=== PATIENT | male | born 1950 | race Asian ===

== ENCOUNTER 2021-12-21 15:37 | Outpatient (CLI) | payer BC, SELFPAY ==
[2021-12-21 21:43] LABS: Albumin* 4.3 g/dL (3.3-5.0); Chloride* 98 mmol/L (96-114)
[2021-12-21 21:44] LABS: Potassium* 4.4 mmol/L (3.6-5.1); Sodium* 134 mmol/L (135-149)
[2021-12-21 21:45] LABS: Cholesterol* 138 mg/dL (90-199)
[2021-12-21 21:46] LABS: Alanine Aminotransferase* 33 U/L (4-50); Alkaline Phosphatase* 75 U/L (40-150); Aspartate Amino Transferase* 38 U/L (12-35); Bilirubin Total* 0.6 mg/dL (0.1-1.5); Blood Urea Nitrogen* 31 mg/dL (7-30); Carbon Dioxide* 26 mmol/L (20-32); Creatinine* 1.7 mg/dL (0.5-1.5); Estimated Glomerular Filt Rate 42 ml/min; Glucose* 105 mg/dL (60-115); Total Protein* 8.4 g/dL (6.0-8.3); Triglycerides* 259 mg/dL (40-149)
[2021-12-21 21:47] LABS: HDL Cholesterol* 30 mg/dL (>=40); LDL Cholesterol Calculated 56 mg/dL (<100)
== END 2021-12-21 15:38 | disposition home or self-care (01) ==
LOC: LKVLAB 15:38
PROVIDERS: PCP Family Medicine; Visit Provider Family Medicine
DX: Z00.00 Encounter for general adult medical examination without abnormal findings (principal); E11.9 Type 2 diabetes mellitus without complications; I10 Essential (primary) hypertension; G25.0 Essential tremor; K25.9 Gastric ulcer, unspecified as acute or chronic, without hemorrhage or perforation
CPT/HCPCS: 36415; 80053; 80061

== ENCOUNTER 2022-04-12 14:31 | Outpatient (CLI) | payer BC, SELFPAY ==
[2022-04-12 22:08] LABS: Chloride* 103 mmol/L (96-114)
[2022-04-12 22:09] LABS: Potassium* 4.5 mmol/L (3.6-5.1); Sodium* 136 mmol/L (135-149)
[2022-04-12 22:11] LABS: Creatinine* 1.4 mg/dL (0.5-1.5); Estimated Glomerular Filt Rate 53 ml/min
[2022-04-12 22:12] LABS: Blood Urea Nitrogen* 24 mg/dL (7-30); Calcium* 9.6 mg/dL (8.4-10.6); Carbon Dioxide* 27 mmol/L (20-32); Glucose* 124 mg/dL (60-115)
--- NOTE | 2022-04-26 12:57 | ONC.NURNOTE ---
Received referral from [facility]. Non-urgent hematology. Patient notified that will call in Spring when availability opens. LM for primary care office that missing labs and see if they have.
== END 2022-04-12 14:32 | disposition home or self-care (01) ==
PROVIDERS: PCP Family Medicine; Visit Provider Physician Assistant Medical
DX: E11.9 Type 2 diabetes mellitus without complications (principal)
CPT/HCPCS: 80048

== ENCOUNTER 2022-08-07 07:19 | Outpatient (CLI) | payer BC, SELFPAY ==
--- NOTE | 2022-08-09 13:51 | ONC.NURNOTE ---
Patient's colonoscopy came back negative and was discussed with Dr. Ybarra. Oncologist notes that patient needs to be worked up for iron deficiency anemia and have a full GI workup. Oncologist further notes that we don't follow beta thalassemia treat, unless there is a specific question that the primary wants ordered. This message was left for primary care and they will let provider know when she is back in clinic. Nursing to talk with patient as well, so they are aware of follow up needs.
== END 2022-08-07 07:20 | disposition home or self-care (01) ==
PROVIDERS: PCP Physician Assistant Medical; Visit Provider Surgery
DX: Z12.11 Encounter for screening for malignant neoplasm of colon (principal); K63.5 Polyp of colon; K57.30 Diverticulosis of large intestine without perforation or abscess without bleeding; Z86.010 Personal history of colon polyps
CPT/HCPCS: 45385; 88305; 99153; J2250; J3010

== ENCOUNTER 2023-01-17 14:50 | Outpatient (CLI) | payer BC, SELFPAY | END 2023-01-17 14:51 | disposition home or self-care (01) | PROVIDERS: PCP Physician Assistant Medical; Visit Provider Physician Assistant Medical | DX: Z00.00 Encounter for general adult medical examination without abnormal findings (principal); E78.5 Hyperlipidemia, unspecified; E11.9 Type 2 diabetes mellitus without complications; R97.20 Elevated prostate specific antigen [PSA]; I10 Essential (primary) hypertension; D56.3 Thalassemia minor; E53.8 Deficiency of other specified B group vitamins | CPT/HCPCS: 80053; 80061; 82043; 82570; 82607; 84153 ==

== ENCOUNTER 2023-02-13 11:22 | Outpatient (CLI) | payer BC, SELFPAY | END 2023-02-13 11:23 | disposition home or self-care (01) | LOC: NFLDREF 02-15 06:18 | PROVIDERS: PCP Physician Assistant Medical; Referring Provider Physician Assistant Medical; Visit Provider Internal Medicine Nephrology | DX: N18.9 Chronic kidney disease, unspecified (principal); N20.9 Urinary calculus, unspecified; D56.1 Beta thalassemia; E11.9 Type 2 diabetes mellitus without complications; I10 Essential (primary) hypertension | CPT/HCPCS: 80069; 82728; 83540; 83550 ==

== ENCOUNTER 2023-02-18 16:13 | Outpatient (REF) | payer BC, SELFPAY ==
--- NOTE | 2023-03-12 13:58 | ONC.NURNOTE ---
Rubber Tubing Backer ANAIS for patient to call office back to schedule a hematology appointment on 03/06/2023 and today.
== END 2023-02-18 16:14 | disposition home or self-care (01) ==
LOC: NFLDREF 16:13
PROVIDERS: PCP Physician Assistant Medical; Referring Provider Physician Assistant Medical; Visit Provider Internal Medicine Nephrology
DX: N18.9 Chronic kidney disease, unspecified (principal)
CPT/HCPCS: 82340; 82436; 82507; 83735; 83945; 83986; 84105; 84133; 84300; 84392; 84560

== ENCOUNTER 2023-02-22 14:19 | Outpatient (CLI) | payer BC, SELFPAY ==
--- NOTE | 2023-02-22 15:00 | CRLHL7_ITS ---
For Patients: As a result of the Century Cures Act, medical imaging exams and procedure reports are released immediately into your electronic medical record. You may view this report before your referring provider. If you have questions, please contact your health care provider. INDICATION: Urinary calculus TECHNIQUE: CT abdomen and pelvis without contrast. COMPARISON: CT 10/21/2017 FINDINGS: Lower chest: Heart is mildly enlarged. Liver: Low-attenuation lesion in the inferior liver Spleen: Unremarkable. Pancreas: Unremarkable. Gallbladder and bile ducts: Cholelithiasis Kidneys: There are multiple low-density lesions in both kidneys which are incompletely assessed. There is no hydronephrosis seen. There is a small nonobstructing right renal bilateral small nonobstructing renal calcifications. Mildly complicated left medial low-density lesion with peripheral rim calcifications is seen in 2018 in unchanged. Measuring 2.7 cm. Adrenal glands: Unremarkable. GI tract: Unremarkable. Appendix is normal. Vascular structures: Unremarkable. Lymph nodes: Unremarkable. Miscellaneous: Small fat containing inguinal hernias Pelvic Organs: Enlarged prostate gland. Bones: Diffuse mottled appearance of the bony skeleton which is changed from 2018. IMPRESSION: 1. Multiple low-attenuation lesions in both kidneys incompletely assessed. Unchanged appearance of mildly complicated peripheral rimmed calcified left renal lesion. No hydronephrosis. Small nonobstructing renal calcifications. 2. Enlarged prostate gland. 3. Diffuse mild appearance of the bony skeleton which has changed from the prior study. This probably is related to demineralization however Mets/ myeloma not completely excluded. Please note that all CT scans at this facility use dose modulation, iterative reconstruction, and/or weight-based dosing when appropriate to reduce radiation dose to as low as reasonably achievable. Dictated by Pretty Cain MD @ 02/26/2023 7:07:35 AM (Electronically Signed)
== END 2023-02-22 14:20 | disposition home or self-care (01) ==
LOC: CT 14:20
PROVIDERS: PCP Physician Assistant Medical; Visit Provider Internal Medicine Nephrology
DX: N20.9 Urinary calculus, unspecified (principal); N28.89 Other specified disorders of kidney and ureter; N40.0 Benign prostatic hyperplasia without lower urinary tract symptoms; M89.9 Disorder of bone, unspecified
CPT/HCPCS: 74176

== ENCOUNTER 2023-06-06 09:46 | Outpatient (CLI) | payer BC, SELFPAY ==
[2023-06-06 10:01] VITALS: BP 135/75; PULSE 65; RESP 16; O2SAT 99; BMI 22.9
[2023-06-06 11:05] VITALS: BP 100/59; PULSE 72; RESP 18; O2SAT 97
--- NOTE | 2023-06-06 11:14 | W.ANESCHARGE ---
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
[2023-06-06 11:15] VITALS: BP 114/63; PULSE 67; RESP 14; O2SAT 100
[2023-06-06 11:21] LABS: Basophils Absolute Auto 0.01 K/uL (0.00-0.30); Basophils Percent Auto 0.2 % (0.0-3.0); Eosinophils Absolute Auto 0.33 K/uL (0.00-0.50); Hematocrit 28.1 % (37.0-53.0); Hemoglobin* 8.6 gm/dL (13.5-17.5); Immature Granulocytes Abs Auto 0.01 K/uL (0.00-0.30); Immature Granulocytes Pct Auto 0.2 %; Immature Reticulocyte Fraction 34.1 % (2.3-13.4); Lymphocytes Absolute Auto 2.88 K/uL (0.90-2.90); Lymphocytes Percent Auto 43.4 % (20-44); Mean Corpuscular HGB Conc 31 gm/dL (32-36); Mean Corpuscular Hemoglobin 21 pg (26-34); Mean Corpuscular Volume 70 fL (80-100); Monocytes Percent Auto 6.3 % (0.0-11.0); Neutrophils Absolute Auto 2.98 K/uL (1.7-7.0); Neutrophils Percent Auto 44.9 % (42.0-72.0); Platelet Count* 261 K/uL (140-440); Red Blood Count 4.02 m/uL (4.30-5.90); Reticulocyte Percent 1.4 % (0.5-2.0); Reticulocytes Absolute 0.05 # (0.03-0.08); White Blood Count* 6.63 K/uL (4.50-11.00)
[2023-06-06 11:25] VITALS: BP 125/66; PULSE 66; RESP 16; O2SAT 100
[2023-06-06 11:34] LABS: Slide Review Reflex No
[2023-06-06 11:52] VITALS: BP 138/75; PULSE 68; RESP 16; O2SAT 97
--- NOTE | 2023-06-06 12:41 | W.ANESCHARGE ---
Anesthesia Charges Start Date/Time Anesthesia Start Date: 06/06/23 Anesthesia Start Time: 10:45 Stop Date/Time Anesthesia Stop Date: 06/06/23 Anesthesia Stop Time: 11:10 Summary Extremes of Age - Over 70 or under 1: MDA
== END 2023-06-06 11:55 | disposition home or self-care (01) ==
PROVIDERS: PCP Physician Assistant Medical; Visit Provider Internal Medicine Hematology & Oncology
DX: C90.00 Multiple myeloma not having achieved remission (principal)
CPT/HCPCS: 01112; 36415; 38222; 85025; 85045; 88237; 88264; 88271; 88275; 88299; 88305; 88311; 88313; 88342; 88360; 99100; J1644; J2704

== ENCOUNTER 2023-06-20 15:49 | Outpatient (CLI) | payer BC, SELFPAY ==
--- NOTE | 2023-06-20 16:15 | PE_ITS ---
[facility] [address] [address] Phone:?[phone] Fax:?[phone] Referring Physician Information: Melonie Franklin M.D. [address] [address] Phone:?[phone] Fax:?[phone] Patient:?Yair Sainz D.O.B:?1950 Sex:?Male Phone:?[phone] [facility] MRN:?[id number] Exam Date:?06/20/2023 EXAM:?PET/CT EYES TO THIGHS, CANCER RESTAGING CLINICAL INFORMATION: Rule out plasma cell carcinoma TECHNICAL INFORMATION: Helical acquisition of data was obtained from the orbits to the upper thighs with reconstruction of 3.75 mm thick images at 3.[address] data was used for attenuation correction. PET scanning was performed through the same anatomic range 60 minutes following administration of 12.96 mCi of 18-FDG delivered intravenously. The patient's glucose at the time of the injection was 63 mg/dL. PET, CT and PET/CT fusion images are interpreted using a computer viewing workstation. PET, CT and PET/CT fusion images were archived and saved in the patient's permanent medical record. COMPARISON: CT abdomen/pelvis 02/22/2023 INTERPRETATION: Head and Neck: There are no abnormal hypermetabolic foci within the head or neck. There is physiologic uptake in the intracranial soft tissues. Chest: There are no abnormal hypermetabolic foci within the chest. No lung nodules or masses detected on this free-breathing exam. No lymphadenopathy detected. Coronary artery atherosclerosis. Calcified granuloma in the right lower lobe. Abdomen and Pelvis: Background hepatic parenchymal FDG uptake of 2.1 SUV. There are no abnormal hypermetabolic foci within the abdomen or pelvis. There is physiologic excretion of radiotracer in the urine and bowel. Layering calcified gallstones. Bilateral renal cysts. Prostatomegaly. Skeleton, Musculature, and Integument: Diffuse mottled appearance of the spine with diffuse low-level increased FDG uptake (SUV max of 4.23). Focal lytic lesion in the right scapula measures 6 mm (series 202 image 96) with an SUV max of 7.69. Several rib lesions with a few merchandising representative lesions as below: A tiny 3 mm lytic lesion in the right anterolateral second rib with an SUV max of 3.74. Another focus of increased uptake in the right lateral fourth rib with an SUV max of 6.41. A lytic lesion in the left anterolateral second rib (series 202 image 89) with associated increased FDG uptake in an SUV max of 4.18. Lytic lesion in the sternum with an associated focus of increased FDG uptake with an SUV max of 4.28 (series 202 image 111) measuring up to 6 mm. A lytic lesion in the right iliac bone measures 9 mm (series 202 image 245) with FDG uptake in an SUV max of 7.56. A focus of increased uptake in the right hemisacrum with an SUV max of 11.92. Similarly a focus of increased uptake in the left hemisacrum with an SUV max of 7.25. A lytic lesion in the proximal left femur measures 8 mm (series 202 image 298) with FDG uptake in an SUV max of 8.5. Focus of increased FDG uptake in the proximal right femur with an SUV max of 4.42. CONCLUSION: Mottled appearance of the spine with low-level FDG avidity. Several more pronounced foci of FDG uptake with associated lytic lesions in the right scapula, sternum, bilateral ribs, the bony pelvis and proximal femurs. The primary differential includes multiple myeloma, metastasis (although no discrete primary is visualized on this exam) and lymphoma/leukemia. Electronically signed on 06/24/2023 1:35:00 PM by Aristeo Hooks M.D.
== END 2023-06-20 15:50 | disposition home or self-care (01) ==
LOC: RAD 15:50
PROVIDERS: PCP Physician Assistant Medical; Visit Provider Internal Medicine Hematology & Oncology
DX: R77.9 Abnormality of plasma protein, unspecified (principal)
CPT/HCPCS: 78815; A9552

== ENCOUNTER 2023-09-17 10:36 | Emergency (ER) | payer BC, SELFPAY ==
[2023-09-17] VITALS (22 sets, daily range): BP systolic 110–148; BP diastolic 65–86; PULSE 70–80; RESP 18; TEMP 36.1; O2SAT 99–100; BMI 22.0
--- NOTE | 2023-09-17 11:14 | CT_ITS ---
Patient: JAYSON DUKES Facility:?[facility] Patient ID:?[id number] Site Patient ID:?[id number]. Site :?1950 Study:?CT-Chest W/ 95CC ISOVUE-370 PE PROTOCOL-09/17/2023 1:05:45 PM Ordering Physician:Demetrice Scruggs Final Report: INDICATION: Cough and shortness of breath. Multiple myeloma. TECHNIQUE: CT chest PE was acquired with 95 cc Isovue 370 IV contrast. COMPARISON: None. FINDINGS: Heart and vasculature: Contrast opacification of the pulmonary arterial tree is adequate. No sign of pulmonary embolism. Heart size is normal. Thoracic aorta and pulmonary artery are normal in caliber. Lungs and pleura: Cluster of tiny ground-glass nodules in the right upper lobe on series 5, image 46. Calcified granuloma right lower lobe. Remainder of the lungs are clear. No pleural effusions, pleural thickening, or pneumothorax. Lymph nodes/mediastinum: No mediastinal, hilar, or axillary adenopathy. Chest wall: No masses. Upper abdomen: Indeterminate 1.6 cm low-attenuation lesion in the inferior liver series 4, image 204. Small gallbladder stones. Incompletely imaged cystic lesion in the left kidney. Bones: Numerous tiny lytic lesions consistent with multiple myeloma. IMPRESSION: 1. No pulmonary embolism. 2. Subtle small area of bronchiolitis in the right upper lobe. 3. No other specific finding to explain cough or shortness of breath. Please note that all CT scans at this facility use dose modulation, iterative reconstruction, and/or weight-based dosing when appropriate to reduce radiation dose to as low as reasonably achievable. Dictated by Cheng Ralph MD @ 09/17/2023 1:42:42 PM Signed by:?Cheng Ralph MD @09/17/2023 1:42:42 PM (Electronic Signature)
--- NOTE | 2023-09-17 11:17 | ED.GENADULT ---
HPI - General Adult General Date Seen: 09/17/23 Chief complaint: Weakness Stated complaint: weakness,diarrhea Time Seen by Provider: 09/17/23 11:01 Source: patient, family, RN notes reviewed and old records reviewed Mode of arrival: ambulatory Limitations: no limitations History of Present Illness HPI narrative: Patient is a 72-year-old male here with his for evaluation of weakness and diarrhea which started yesterday. He has an underlying diagnosis of multiple myeloma, is on week 11 of chemotherapy. He has generally done well with chemotherapy although his says he has not really been eating much for the past few months. He did have a good meal yesterday. He notes that he has been feeling weak and dizzy particularly when he stands up. He feels somewhat lightheaded, has not fainted. He has had a cough, some congestion, runny nose since last week. Was seen in clinic on the and prescribed prednisone as well as doxycycline. Does not feel these medications have made a significant difference. He developed diarrhea yesterday, this is nonbloody and not associated with any abdominal pain. He denies chest pain or shortness of breath, no lower extremity swelling or pain. He has not had a fever that he knows of. Related Data Home Medications Medication Instructions Recorded Confirmed aspirin 81 mg tablet,delayed 81 mg PO QDAY 12/25/21 09/11/23 release (Adult Aspirin Regimen) multivitamin with minerals-ferrous tab PO DAILY 04/24/22 09/11/23 sulfate 4.5 mg iron tablet (One Daily Multivitamins with Minerals) ibuprofen 200 mg tablet (Advil) 400 mg PO Q8H 04/23/23 09/11/23 donepezil 5 mg tablet (Aricept) 5 mg PO QDAY 06/04/23 09/11/23 insulin lispro 100 unit/mL 1 sliding scale dose subcut 07/31/23 09/11/23 subcutaneous pen (Humalog KwikPen USEASDIRECTD (U-100) Insulin) dexamethasone 4 mg tablet 20 mg PO .COMPLEX 09/16/23 09/16/23 Previous Rx's Medication Instructions Recorded blood sugar diagnostic (Contour #100 ea 10/31/22 Next Test Strips) lancets (Microlet Lancet) #200 ea 10/31/22 atorvastatin 10 mg tablet 10 mg PO QDAY #90 tabs 01/17/23 trihexyphenidyl 2 mg tablet 2 mg PO QDAY #90 tabs 01/17/23 losartan 50 mg tablet 50 mg PO QDAY #90 tabs 01/18/23 acyclovir 200 mg capsule 200 mg PO BID #60 caps 06/25/23 apixaban 2.5 mg tablet (Eliquis) 2.5 mg PO BID #60 tabs 06/25/23 calcium carb-vit D3-minerals 600 1 tab PO BID #60 tabs 06/25/23 mg calcium-400 unit tablet lenalidomide 10 mg capsule 10 mg PO QDAY #14 caps 06/25/23 ondansetron HCl 4 mg tablet 4 mg PO Q8H #30 tabs 06/25/23 sulfamethoxazole 400 1 tab PO 3XW #30 tabs 06/25/23 mg-trimethoprim 80 mg tablet (Bactrim) metformin 1,000 mg tablet 1,000 mg PO BIDWMEAL #180 tabs 07/10/23 metoprolol tartrate 25 mg tablet 25 mg PO BID #180 tabs 07/10/23 pantoprazole 40 mg tablet,delayed 40 mg PO DAILY #90 tabs 07/10/23 release semaglutide 0.25 mg or 0.5 mg (2 0.5 mg (0.736 mL) subcut QWEEK 3 07/10/23 mg/3 mL) subcutaneous pen injector months #9 mL (Ozempic) aluminum-mag hydroxide-simethicone 10 ml PO BID PRN indigestion #240 07/22/23 400 mg-400 mg-40 mg/5 mL oral susp mL (Maalox Maximum Strength) lorazepam 0.5 mg tablet 0.5 mg PO BID PRN unrelenting 07/22/23 hiccups #20 tabs sennosides 8.6 mg-docusate sodium 1 tab-cap PO QDAY constipation 07/22/23 50 mg tablet (Senna Plus) #100 tabs sodium chloride 1,000 mg soluble 1,000 mg PO TID electrolyte 09/02/23 tablet replenishment #60 tabs doxycycline hyclate 100 mg tablet 100 mg PO BID #14 tabs 09/11/23 prednisone 20 mg tablet 20 mg PO BID #10 tabs 09/11/23 Allergies Allergy/AdvReac Type Severity Reaction Status Date / Time No Known Drug Allergies Allergy Verified 09/17/23 13:01 Review of Systems Status of ROS: Reports: 10 or more systems reviewed and unremarkable except as noted in History and below PFSH [facility] Medical History Cough ?R05.9 - Cough, unspecified (ICD-10) Urolithiasis ?N20.9 - Urinary calculus, unspecified (ICD-10) Chest pain ?R07.9 - Chest pain, unspecified (ICD-10) Foot ulcer ?L97.509 - Non-pressure chronic ulcer of other part of unspecified foot with unspecified severity (ICD-10) Stomach ulcer ?K25.9 - Gastric ulcer, unspecified as acute or chronic, without hemorrhage or perforation (ICD-10) Ulcer of toe ?L97.509 - Non-pressure chronic ulcer of other part of unspecified foot with unspecified severity (ICD-10) Tremor ?R25.1 - Tremor, unspecified (ICD-10) Normal nuclear stress test Multiple gallstones ?K80.20 - Calculus of gallbladder without cholecystitis without obstruction (ICD-10) History of renal calculi ?Z87.442 - Personal history of urinary calculi (ICD-10) Acute kidney injury ?N17.9 - Acute kidney failure, unspecified (ICD-10) Surgical History History of colonoscopy ?Z98.890 - Other specified postprocedural states (ICD-10) History of ankle surgery ?Z98.890 - Other specified postprocedural states (ICD-10) History of shoulder surgery ?Z98.890 - Other specified postprocedural states (ICD-10) History of lithotripsy ?Z98.890 - Other specified postprocedural states (ICD-10) History of endoscopy ?Z98.890 - Other specified postprocedural states (ICD-10) Family History Other Benign essential tremor Parkinson disease Social History Narrative: Social history is negative for drinking or smoking; he works at [employer]. . Smoking Status: Never smoker Do you use any of these nicotine containing products: None How often do you have a drink containing alcohol: never How often do you have six or more drinks on one occasion: Never AUDIT-C Alcohol total score: 0 Non-prescribed substance use: denies use Little interest or pleasure in doing things: several days Feeling down, depressed, or hopeless: not at all Exam Narrative: Exam Narrative: Vital signs as noted above. In general, an alert, nontoxic elderly male, looks somewhat fatigued. Head: Normocephalic, atraumatic. Eyes: Pupils are equal reactive. Extraocular movements are full. Conjunctivae are normal. ENT: Mucous membranes are moist. Throat is normal. Neck: Supple without lymphadenopathy. Heart: Regular rate and rhythm. No murmur or rub. Lungs: Clear bilaterally. No increased work of breathing, crackles or wheezes. Abdomen: Soft and nontender. No organomegaly. Extremities: Well perfused. No edema. No calf tenderness. Pulses intact. Neurologic: Patient is alert and oriented to person and place. Speech is fluent. Face is symmetric. Moves all extremities equally. Affect: Normal. Skin: Warm and dry. Well perfused. Const: Vital Signs, click to edit/add: Vital Signs - 24 hr 09/17/23 10:46 09/17/23 11:37 09/17/23 11:45 Temperature 97.0 F L Pulse Rate 73 72 Pulse Rate [Right Pulse Oximeter] 77 Respiratory Rate 18 Blood Pressure Blood Pressure [Ri ght Upper Arm] 148/86 H Pulse Oximetry 99 100 [facility] 09/17/23 12:00 09/17/23 12:01 09/17/23 12:15 Temperature Pulse Rate 70 70 71 Pulse Rate [Right Pulse Oximeter] Respiratory Rate Blood Pressure 110/66 Blood Pressure [Ri ght Upper Arm] Pulse Oximetry 100 99 100 Oxygen Delivery [place] thod 09/17/23 12:30 09/17/23 12:32 09/17/23 12:33 Temperature Pulse Rate 75 73 75 Pulse Rate [Right Pulse Oximeter] Respiratory Rate Blood Pressure 122/65 Blood Pressure [Ri ght Upper Arm] Pulse Oximetry 100 100 100 Oxygen Delivery Ky thod 09/17/23 12:45 09/17/23 13:08 09/17/23 13:15 Temperature Pulse Rate 73 80 80 Pulse Rate [Right Pulse Oximeter] Respiratory Rate Blood Pressure Blood Pressure [Ri ght Upper Arm] Pulse Oximetry 100 100 100 Oxygen Delivery Me thod 09/17/23 13:31 09/17/23 13:32 09/17/23 13:32 Temperature Pulse Rate 75 72 72 Pulse Rate [Right Pulse Oximeter] Respiratory Rate Blood Pressure 139/77 139/77 Blood Pressure [Ri ght Upper Arm] Pulse Oximetry 100 100 100 Oxygen Delivery Me thod 09/17/23 13:45 09/17/23 14:00 09/17/23 14:02 Temperature Pulse Rate 80 80 78 Pulse Rate [Right Pulse Oximeter] Respiratory Rate Blood Pressure 133/79 Blood Pressure [Ri ght Upper Arm] Pulse Oximetry 100 100 100 Oxygen Delivery Me thod 09/17/23 14:15 09/17/23 14:32 09/17/23 14:33 Temperature Pulse Rate 76 78 78 Pulse Rate [Right Pulse Oximeter] Respiratory Rate Blood Pressure 135/67 Blood Pressure [Ri ght Upper Arm] Pulse Oximetry 100 100 100 Oxygen Delivery Me thod 09/17/23 14:45 09/17/23 15:00 Temperature Pulse Rate 79 75 Pulse Rate [Right Pulse Oximeter] Respiratory Rate Blood Pressure Blood Pressure [Ri ght Upper Arm] Pulse Oximetry 100 100 Oxygen Delivery Me thod Documenting provider has reviewed patient's vital signs: yes Course Course ED Course: An IV was placed, it started a L of normal saline. Diagnostic considerations include infection, rule out sepsis, pneumonia, pulmonary embolism, metabolic derangement, dehydration, C diff, medication reaction, among others. I ordered labs, elected to do a CT of the chest to look for pneumonia, rule out pulmonary embolism. Patient is chronically anticoagulated however. Labs most notable for a lactate of 4.1, CO2 of 13. White blood cell count is elevated at 12, but has in conversation with oncology clinic, they note that he had a large dose of steroid yesterday and that may account for the mildly elevated white blood cell count. Hemoglobin is 9.6 which is stable to improved, platelets [id number]. Metabolic panel is notable for sodium 129, potassium 4.7, CO2 of 13, BUN of 44 and creatinine of 1.2. Blood sugar was 249. TSH was normal at 0.56, UA was done after almost 2 L of fluids and was negative for ketones, 0-2 red cells 0-2 white cells. C diff was negative. COVID, influenza and RSV were negative. Point of care troponin was 0.02. By my review, no focal consolidations or PE noted on CT of the chest with contrast. Final radiology read as follows:FINDINGS: Heart and vasculature: Contrast opacification of the pulmonary arterial tree is adequate. No sign of pulmonary embolism. Heart size is normal. Thoracic aorta and pulmonary artery are normal in caliber. Lungs and pleura: Cluster of tiny ground-glass nodules in the right upper lobe on series 5, image 46. Calcified granuloma right lower lobe. Remainder of the lungs are clear. No pleural effusions, pleural thickening, or pneumothorax. Lymph nodes/mediastinum: No mediastinal, hilar, or axillary adenopathy. Chest wall: No masses. Upper abdomen: Indeterminate 1.6 cm low-attenuation lesion in the inferior liver series 4, image 204. Small gallbladder stones. Incompletely imaged cystic lesion in the left kidney. Bones: Numerous tiny lytic lesions consistent with multiple myeloma. IMPRESSION: 1. No pulmonary embolism. 2. Subtle small area of bronchiolitis in the right upper lobe. 3. No other specific finding to explain cough or shortness of breath. Patient has had 2 L of fluid, lactate improved to 2.7, metabolic panel shows sodium of 132, CO2 of 16. I reviewed all this with the patient as well as with Jania at the infusion center. They can see him tomorrow for recheck. Discussed reasons to return such as worsening weakness, fainting, fevers, vomiting or other significant changes. Otherwise, follow up tomorrow for recheck. Given that C diff is negative, would be reasonable to use of medications such as Imodium for diarrhea if they would like. Vital Signs Vital signs: Initial Vital Signs Temperature 97.0 F L 09/17/23 10:46 Temperature Source Temporal Artery Scan 09/17/23 10:46 Pulse Rate 77 09/17/23 10:46 Respiratory Rate 18 09/17/23 10:46 Blood Pressure 148/86 H 09/17/23 10:46 Blood Pressure Mean 106 H 09/17/23 10:46 Blood Pressure Position Sitting 09/17/23 10:46 Pulse Oximetry 99 09/17/23 10:46 Oxygen Delivery Method Room Air 09/17/23 10:46 Vital Signs Temperature 97.0 F L 09/17/23 10:46 Pulse Rate 77 09/17/23 10:46 Respiratory Rate 18 09/17/23 10:46 Blood Pressure 148/86 H 09/17/23 10:46 Pulse Oximetry 99 09/17/23 10:46 Oxygen Delivery Method Room Air 09/17/23 10:46 Temperature 97.0 F L 09/17/23 10:46 Pulse Rate 75 09/17/23 15:00 Respiratory Rate 18 09/17/23 10:46 Blood Pressure 135/67 09/17/23 14:33 Pulse Oximetry 100 09/17/23 15:00 Oxygen Delivery Method Room Air 09/17/23 10:46 Medications Administered Medications: Discontinued Medications Generic Name Dose Route Start Last Admin Trade Name Freq PRN Reason Stop Dose Admin Sodium Chloride 1,000 mls @ 1,000 mls/hr 09/17/23 11:15 09/17/23 13:20 0.9 % Sodium Chloride 1000 Ml IV 09/17/23 12:14 Infused .Q1H JEWELL Infusion Sodium Chloride 1,000 mls @ 1,000 mls/hr 09/17/23 13:15 09/17/23 14:12 0.9 % Sodium Chloride 1000 Ml IV 09/17/23 14:14 Infused .Q1H [facility]WE[facility] Infusion Medical Decision Making Lab Data Labs: Lab Results 09/17/23 09/17/23 09/17/23 Range/Units 11:15 12:28 13:16 WBC (4.50-11.00) K/uL RBC (4.30-5.90) m/uL Hgb (13.5-17.5) gm/dL Hct (37.0-53.0) % MCV (80-100) fL MCH (26-34) pg MCHC (32-36) gm/dL RDW Coeff of Rubi (11.5-15.5) % Plt Count (140-440) K/uL Neut % (Auto) (42.0-72.0) % Lymph % (Auto) (20-44) % [place] % (Auto) (0.0-11.0) % Eos % (Auto) (0.0-7.0) % Baso % (Auto) (0.0-3.0) % Neut # (Auto) (1.7-7.0) K/uL Lymph # (Auto) (0.90-2.90) K/uL [place] # (Auto) (0.00-0.90) K/UL Eos # (Auto) (0.00-0.50) K/uL Baso # (Auto) (0.00-0.30) K/uL Abs Immat Gran (auto) (0.00-0.30) K/uL Imm/Tot Granulo (auto) % Diff Slide Review (Acceptable) INR (0.91-1.10) Sodium (135-149) mmol/L Potassium (3.6-5.1) mmol/L Chloride (96-114) mmol/L Carbon Dioxide (20-32) mmol/L Anion Gap (7-15) mEq/L BUN (7-30) mg/dL Creatinine (0.5-1.5) mg/dL Estimated Creat Clear Estimated GFR ml/min Glucose (60-115) mg/dL Lactate 3.1 H (0.5-1.9) mmol/L Calcium (8.4-10.6) mg/dL TSH (0.270-4.200) uIU/mL Urine Color Yellow (Yellow) Urine Appearance Clear (Clear) Urine pH 5.5 (5.0-8.5) Ur Specific [place] <= 1.005 (1.000-1.030) Urine Protein Trace A (Negative) Urine Glucose (UA) Negative (Negative) Urine Ketones Negative (Negative) Urine Blood Negative (Negative) Urine Nitrite Negative (Negative) Urine Bilirubin Negative (Negative) Urine Urobilinogen 0.2 (0.2-1.0) Ur Leukocyte Esterase Negative (Negative) Urine RBC 0-2 (0-2) Urine WBC 0-2 (0-5) Ur Squamous Epith Cells Few (None-Few) Urine Bacteria None (None) Stl C. diff Tox B Gene (Negative) Stl C. diff [id number]-NAP1-BI (Negative) SARS-CoV-2 (PCR) (Negative) Influenza Type A (PCR) (Negative) Influenza Type B (PCR) (Negative) RSV (PCR) (Negative) POC Troponin I 0.02 (0.01-0.04) ng/ml 09/17/23 09/17/23 09/17/23 Range/Units 14:18 14:28 Unknown WBC 12.08 H (4.50-11.00) K/uL RBC 4.16 L (4.30-5.90) m/uL Hgb 9.6 L (13.5-17.5) gm/dL Hct 30.2 L (37.0-53.0) % MCV 73 L (80-100) fL MCH 23 L (26-34) pg MCHC 32 (32-36) gm/dL RDW Coeff of Rubi 20.0 H (11.5-15.5) % Plt Count 118 L (140-440) K/uL Neut % (Auto) 77.6 H (42.0-72.0) % Lymph % (Auto) 13.2 L (20-44) % [place] % (Auto) 4.7 (0.0-11.0) % Eos % (Auto) 0.3 (0.0-7.0) % Baso % (Auto) 1.2 (0.0-3.0) % Neut # (Auto) 9.40 H (1.7-7.0) K/uL Lymph # (Auto) 1.60 (0.90-2.90) K/uL [place] # (Auto) 0.60 (0.00-0.90) K/UL Eos # (Auto) 0.00 (0.00-0.50) K/uL Baso # (Auto) 0.10 (0.00-0.30) K/uL Abs Immat Gran (auto) 0.40 H (0.00-0.30) K/uL Imm/Tot Granulo (auto) 3.0 % Diff Slide Review Acceptable Review (Acceptable) INR 1.12 H (0.91-1.10) Sodium 132 L 129 L (135-149) mmol/L Potassium 4.8 4.7 (3.6-5.1) mmol/L Chloride 106 101 (96-114) mmol/L Carbon Dioxide 16 L 13 L (20-32) mmol/L Anion Gap 10 15 (7-15) mEq/L BUN 41 H 44 H (7-30) mg/dL Creatinine 1.0 1.2 (0.5-1.5) mg/dL Estimated Creat Clear 68.38 56.98 Estimated GFR 79 64 ml/min Glucose 150 H 249 H (60-115) mg/dL Lactate 2.7 H 4.1 H* (0.5-1.9) mmol/L Calcium 8.5 9.5 (8.4-10.6) mg/dL TSH 0.562 (0.270-4.200) uIU/mL Urine Color (Yellow) Urine Appearance (Clear) Urine pH (5.0-8.5) Ur Specific [place] (1.000-1.030) Urine Protein (Negative) Urine Glucose (UA) (Negative) Urine Ketones (Negative) Urine Blood (Negative) Urine Nitrite (Negative) Urine Bilirubin (Negative) Urine Urobilinogen (0.2-1.0) Ur Leukocyte Esterase (Negative) Urine RBC (0-2) Urine WBC (0-5) Ur Squamous Epith Cells (None-Few) Urine Bacteria (None) Stl C. diff Tox B Gene Negative (Negative) Stl C. diff 027-NAP1-BI PRESUMPTIVE NEGATIVE (Negative) SARS-CoV-2 (PCR) Negative SARS-CoV-2 (Negative) Influenza Type A (PCR) Negative PCR FLU A (Negative) Influenza Type B (PCR) Negative PCR FLU B (Negative) RSV (PCR) Negative PCR RSV (Negative) POC Troponin I (0.01-0.04) ng/ml Discharge Plan Discharge Clinical Impression: Acute dehydration, Diarrhea Patient Disposition: Home, Self-Care Condition: Improved Instructions: Dehydration (ED), Acute Diarrhea (ED) Additional Instructions: Follow-up with infusion center tomorrow, I would recommend bringing a stool sample back if you are able to so that we can check for C diff. If at any time you are feeling significantly worse, have fainting, fevers, difficulty breathing or other worsening, return to the emergency department. Prescriptions: No Action sulfamethoxazole-trimethoprim [Bactrim] 400-80 mg tablet 1 tab PO 3XW Qty: 30 1RF Rx Instructions: Take 1 tablet Dlasrk-Wbbmsaajf-Ewnhaj. acyclovir 200 mg capsule 200 mg PO BID Qty: 60 2RF calcium carbonate-vit D3-min 600 mg calcium- 400 unit tablet 1 tab PO BID Qty: 60 3RF Hold Instructions: Doctor's Order ondansetron HCl 4 mg tablet 4 mg PO Q8H Qty: 30 0RF lenalidomide 10 mg capsule 10 mg PO QDAY Qty: 14 0RF Rx Instructions: Take 2 weeks on and 1 week off; swallow whole with glass of water; do not open, crush, chew , break, or dissolve Eliquis 2.5 mg tablet 2.5 mg PO BID Qty: 60 3RF donepezil [Aricept] 5 mg tablet 5 mg PO QDAY lorazepam 0.5 mg tablet 0.5 mg PO BID PRN (Reason: unrelenting hiccups) Qty: 20 0RF Rx Instructions: For unrelenting hiccups that do not resolve within 1-2 days, take 1 tab up to twice a day. Caution when taking with other sedating medications. Do not drive or operate heavy machinery when taking this medication. alum-mag hydroxide-simeth [Maalox Maximum Strength] 400-400-40 mg/5 mL suspension 10 ml PO BID PRN (Reason: indigestion) Qty: 240 0RF sennosides-docusate sodium [Senna Plus] 8.6-50 mg tablet 1 tab-cap PO QDAY Qty: 100 1RF aspirin [Adult Aspirin Regimen] 81 mg tablet,delayed release (DR/EC) 81 mg PO QDAY One Daily Multi-Vit w-Mineral 4.5 mg iron tablet PO DAILY atorvastatin 10 mg tablet 10 mg PO QDAY Qty: 90 4RF trihexyphenidyl 2 mg tablet 2 mg PO QDAY Qty: 90 4RF Rx Instructions: give with food (meal/snack) ibuprofen [Advil] 200 mg tablet 400 mg PO Q8H sodium chloride 1,000 mg tablet,soluble 1,000 mg PO TID Qty: 60 1RF insulin lispro [Humalog KwikPen Insulin] 100 unit/mL insulin pen 1 sliding scale dose subcut USEASDIRECTD dexamethasone 4 mg tablet 20 mg PO .COMPLEX Rx Instructions: Bring to chemo treatments. 1. On Velcade only weeks, take Dexamethasone 20 mg (5 x 4mg tabs) po at home on day 2 (Tuesdays) 2. On Velcade & Darzalex weeks, take Dexamethasone 20 mg po in [facility] 1 hour prior to Darzalex injection (Mondays) and 20 mg po at home on day 2 (Tuesdays) (DME) lancets [Microlet Lancet] Misc See Rx Instructions .Route Qty: 200 1RF Rx Instructions: As directed (DME) Contour Next Test Strips Strip See Rx Instructions .Route Qty: 100 2RF Rx Instructions: As directed losartan 50 mg tablet 50 mg PO QDAY Qty: 90 4RF metformin 1,000 mg tablet 1,000 mg PO BIDWMEAL Qty: 180 0RF Ozempic 0.25 mg or 0.5 mg (2 mg/3 mL) pen injector 0.5 mg subcut QWEEK 90 Days Qty: 9 0RF pantoprazole 40 mg tablet,delayed release (DR/EC) 40 mg PO DAILY Qty: 90 3RF metoprolol tartrate 25 mg tablet 25 mg PO BID Qty: 180 3RF doxycycline hyclate 100 mg tablet 100 mg PO BID Qty: 14 0RF prednisone 20 mg tablet 20 mg PO BID Qty: 10 0RF Follow Up/Referrals: Rae Farmer PA-C [Primary Care Provider] - Stand Alone Forms: MyHealth Info Instructions
[2023-09-17 11:39] LABS: Basophils Percent Auto 1.2 % (0.0-3.0); Eosinophils Percent Auto 0.3 % (0.0-7.0); Hematocrit 30.2 % (37.0-53.0); Hemoglobin* 9.6 gm/dL (13.5-17.5); Lymphocytes Percent Auto 13.2 % (20-44); Mean Corpuscular HGB Conc 32 gm/dL (32-36); Mean Corpuscular Hemoglobin 23 pg (26-34); Mean Corpuscular Volume 73 fL (80-100); Monocytes Percent Auto 4.7 % (0.0-11.0); Neutrophils Percent Auto 77.6 % (42.0-72.0); Platelet Count* 118 K/uL (140-440); Red Blood Count 4.16 m/uL (4.30-5.90); White Blood Count* 12.08 K/uL (4.50-11.00)
[2023-09-17 11:43] LABS: Slide Review Reflex Yes
[2023-09-17 11:44] LABS: Slide Review Acceptable Review (Acceptable)
[2023-09-17 11:45] LABS: Lactate Sepsis w/Reflex* 4.1 mmol/L (0.5-1.9)
[2023-09-17 11:55] LABS: INR 1.12 (0.91-1.10); Prothrombin Time 15.1 Seconds
[2023-09-17 12:03] LABS: Troponin, Point-of-Care* 0.02 ng/ml (0.01-0.04)
[2023-09-17] MEDS: 0.9 % SODIUM CHLORIDE 1000 ml 1,000 ML IV ×2 (12:08→13:30)
[2023-09-17 12:10] LABS: Chloride* 101 mmol/L (96-114); Sodium* 129 mmol/L (135-149)
[2023-09-17 12:11] LABS: Potassium* 4.7 mmol/L (3.6-5.1)
[2023-09-17 12:13] LABS: Anion Gap 15 mEq/L (7-15); Carbon Dioxide* 13 mmol/L (20-32); Creatinine* 1.2 mg/dL (0.5-1.5); Est. Creatinine Clearance* 56.98; Estimated Glomerular Filt Rate 64 ml/min
[2023-09-17 12:14] LABS: Blood Urea Nitrogen* 44 mg/dL (7-30); Calcium* 9.5 mg/dL (8.4-10.6); Glucose* 249 mg/dL (60-115)
[2023-09-17 12:51] LABS: PCR FLU A Negative PCR FLU A (Negative); PCR FLU B Negative PCR FLU B (Negative); PCR RSV Negative PCR RSV (Negative); SARS PCR* Negative SARS-CoV-2 (Negative)
[2023-09-17 13:05] LABS: TSH With Reflex to FT4* 0.562 uIU/mL (0.270-4.200)
[2023-09-17 13:19] LABS: Lactate Sepsis 2 Hour 3.1 mmol/L (0.5-1.9)
[2023-09-17 13:40] LABS: Appearance Urine Clear (Clear); Bilirubin Urine Negative (Negative); Blood Urine Negative (Negative); Color Urine Yellow (Yellow); Glucose Urine Negative (Negative); Ketones Urine Negative (Negative); Leukocyte Esterase Urine Negative (Negative); Nitrite Urine Negative (Negative); Protein Urine Trace (Negative); Specific Gravity Urine <= 1.005 (1.000-1.030); Urobilinogen Urine 0.2 (0.2-1.0); pH Urine 5.5 (5.0-8.5)
[2023-09-17 14:01] LABS: RBC Urine 0-2 (0-2); Squamous Epithelial Cell Urine Few (None-Few); WBC Urine 0-2 (0-5)
[2023-09-17 14:21] LABS: Lactate* 2.7 mmol/L (0.5-1.9)
[2023-09-17 14:39] LABS: Chloride* 106 mmol/L (96-114)
[2023-09-17 14:40] LABS: Potassium* 4.8 mmol/L (3.6-5.1); Sodium* 132 mmol/L (135-149)
[2023-09-17 14:43] LABS: Anion Gap 10 mEq/L (7-15); Blood Urea Nitrogen* 41 mg/dL (7-30); Calcium* 8.5 mg/dL (8.4-10.6); Carbon Dioxide* 16 mmol/L (20-32); Est. Creatinine Clearance* 68.38; Estimated Glomerular Filt Rate 79 ml/min; Glucose* 150 mg/dL (60-115)
[2023-09-17 16:01] LABS: C.Difficile Negative (Negative); CDIFFEPI 027 PRESUMPTIVE NEGATIVE (Negative)
== END 2023-09-17 15:35 | disposition home or self-care (01) ==
PROVIDERS: Emergency Provider Emergency Medicine; PCP Physician Assistant Medical
DX: E86.0 Dehydration (principal); R19.7 Diarrhea, unspecified
CPT/HCPCS: 36415; 71275; 80048; 81001; 83605; 84443; 84484; 85025; 85610; 87493; 87631; 93005; 99284; 99285; J7030; Q9967

== ENCOUNTER 2023-10-16 08:30 | Outpatient (RCR) | payer BC, SELFPAY ==
[2023-04-23 13:47] LABS: Basophils Absolute Auto 0.02 K/uL (0.00-0.30); Basophils Percent Auto 0.3 % (0.0-3.0); Eosinophils Percent Auto 7.7 % (0.0-7.0); Hematocrit 26.2 % (37.0-53.0); Immature Granulocytes Abs Auto 0.01 K/uL (0.00-0.30); Immature Granulocytes Pct Auto 0.2 %; Lymphocytes Absolute Auto 2.53 K/uL (0.90-2.90); Lymphocytes Percent Auto 41.2 % (20-44); Mean Corpuscular HGB Conc 30 gm/dL (32-36); Mean Corpuscular Hemoglobin 21 pg (26-34); Mean Corpuscular Volume 70 fL (80-100); Monocytes Percent Auto 6.7 % (0.0-11.0); Neutrophils Percent Auto 43.9 % (42.0-72.0); Platelet Count* 266 K/uL (140-440); RDW Coefficient of Variation % 16.8 % (11.5-15.5); Red Blood Count 3.76 m/uL (4.30-5.90); White Blood Count* 6.14 K/uL (4.50-11.00)
[2023-04-23 14:02] LABS: Chloride* 103 mmol/L (96-114)
[2023-04-23 14:03] LABS: Albumin* 4.4 g/dL (3.3-5.0); Sodium* 136 mmol/L (135-149)
[2023-04-23 14:06] LABS: Alanine Aminotransferase* 24 U/L (4-50); Alkaline Phosphatase* 84 U/L (40-150); Anion Gap 9 mEq/L (7-15); Aspartate Amino Transferase* 27 U/L (12-35); Bilirubin Total* 0.4 mg/dL (0.1-1.5); Blood Urea Nitrogen* 22 mg/dL (7-30); Carbon Dioxide* 24 mmol/L (20-32); Creatinine* 1.4 mg/dL (0.5-1.5); Est. Creatinine Clearance* 50.05; Estimated Glomerular Filt Rate 53 ml/min; Glucose* 162 mg/dL (60-115); Total Protein* 9.2 g/dL (6.0-8.3)
[2023-04-23 14:07] LABS: Calcium* 9.2 mg/dL (8.4-10.6)
[2023-04-23 14:13] LABS: Hemoglobin* 7.9 gm/dL (13.5-17.5); Slide Review Reflex No
[2023-04-23 14:40] LABS: Iron* 78 ug/dL (49-181); PSA Screen* 3.62 ng/mL (0.10-4.00)
[2023-04-23 14:47] LABS: Percent Iron Saturation 27 % (20-50); Total Iron Binding Capacity 292 ug/dL (261-462)
[2023-04-23 14:56] LABS: Vitamin B12* 454 pg/mL (243-894)
[2023-04-23 15:13] LABS: Ferritin* 46.7 ng/mL (17.9-464.0)
[2023-04-24 08:38] VITALS: BP 186/72; PULSE 72; RESP 16; TEMP 36.6; O2SAT 100
[2023-04-24 09:14] VITALS: BP 156/77; PULSE 72; RESP 14; TEMP 36.8; O2SAT 100
[2023-04-24 09:27] VITALS: BP 164/81; PULSE 64; RESP 14; TEMP 36.6; O2SAT 100
[2023-04-24 10:15] VITALS: BP 157/83; PULSE 65; RESP 14; TEMP 36.6; O2SAT 100
[2023-04-24 11:20] VITALS: BP 150/80; PULSE 66; RESP 14; TEMP 36.6; O2SAT 99
[2023-04-24 12:00] VITALS: BP 166/66; PULSE 61; RESP 14; TEMP 36.1; O2SAT 100
--- NOTE | 2023-04-24 13:43 | ONC.NURNOTE ---
states did not take am meds. went home to get them for pt to take. on 3 cardiac meds.
[2023-04-24 19:22] LABS: Erythropoietin 84 mU/mL (4-27)
[2023-04-24 21:51] LABS: Folate, Serum >22.3 ng/mL (>=5.9)
[2023-04-28 19:42] LABS: Alpha 1 Globulin 0.28 g/dL (0.19-0.46); Alpha 2 Globulin 0.79 g/dL (0.48-1.05); Immunofixation IFE Done; Immunoglobulin A 57 mg/dL (68-408); Immunoglobulin G 3502 mg/dL (768-1632); Immunoglobulin M 22 mg/dL (35-263); Kappa Qnt Free Light Chains 29.86 mg/L (3.30-19.40); Kappa/Lambda Light Chain Ratio 0.03 (0.26-1.65); Monoclonal Protein 2.74 g/dL; Total Protein, Serum 8.6 g/dL (6.3-8.2)
--- NOTE | 2023-05-23 09:25 | ONC.NURNOTE ---
[facility] was notified by [facility] that they were unable to get ahol d of the patient earlier this week. Nursing attempted to call x3 with left messages. [facility] in the meantime were able to get ahold of patient and they are declining PET scan. Yarding Engineer was able to get ahold of spouse today and she said that they will not be doing the PET scan, as this was not discussed at last appointment. Yarding Engineer went over note from Dr. Franklin and it mentions the scan, along with follow up in May. was requesting call from Dr. Franklin to discuss patient, she was informed of the following options; as we are unable to set something up without patient present at that appointment. Keep appointment 1/24 AM to discuss lab results. Discuss possibility of telehealth visit for ease of appointment for patient. (Patient needs to be present) Reschedule to later appointment in the day. Spouse opted to have appointment made for later in the day, so appointment moved to 06/03 at 1500. She was told that this appointment can go over need for PET scan again, along with other options and results from April. Note mentions having IV iron and B12 shots, nursing to talk with provider on Saturday about ordering these now vs. waiting until after appointment on 06/03/2023.
[2023-06-03 09:57] LABS: Basophils Absolute Auto 0.02 K/uL (0.00-0.30); Basophils Percent Auto 0.3 % (0.0-3.0); Eosinophils Absolute Auto 0.32 K/uL (0.00-0.50); Eosinophils Percent Auto 4.7 % (0.0-7.0); Hematocrit 30.1 % (37.0-53.0); Hemoglobin* 9.1 gm/dL (13.5-17.5); Immature Granulocytes Abs Auto 0.01 K/uL (0.00-0.30); Immature Granulocytes Pct Auto 0.1 %; Lymphocytes Absolute Auto 2.29 K/uL (0.90-2.90); Lymphocytes Percent Auto 33.5 % (20-44); Mean Corpuscular HGB Conc 30 gm/dL (32-36); Mean Corpuscular Hemoglobin 21 pg (26-34); Mean Corpuscular Volume 70 fL (80-100); Monocytes Percent Auto 5.4 % (0.0-11.0); Neutrophils Absolute Auto 3.82 K/uL (1.7-7.0); Platelet Count* 221 K/uL (140-440); RDW Coefficient of Variation % 17.1 % (11.5-15.5); Red Blood Count 4.31 m/uL (4.30-5.90); White Blood Count* 6.83 K/uL (4.50-11.00)
[2023-06-03 10:03] LABS: Slide Review Reflex No
[2023-06-03 10:15] LABS: Albumin* 4.2 g/dL (3.3-5.0)
[2023-06-03 10:16] LABS: Chloride* 105 mmol/L (96-114); Sodium* 136 mmol/L (135-149)
[2023-06-03 10:18] LABS: Alkaline Phosphatase* 72 U/L (40-150); Anion Gap 9 mEq/L (7-15); Aspartate Amino Transferase* 29 U/L (12-35); Bilirubin Total* 0.3 mg/dL (0.1-1.5); Carbon Dioxide* 22 mmol/L (20-32); Creatinine* 1.9 mg/dL (0.5-1.5); Est. Creatinine Clearance* 36.88; Estimated Glomerular Filt Rate 37 ml/min; Total Protein* 9.2 g/dL (6.0-8.3)
[2023-06-03 10:19] LABS: Alanine Aminotransferase* 26 U/L (4-50); Blood Urea Nitrogen* 21 mg/dL (7-30); Calcium* 9.6 mg/dL (8.4-10.6); Glucose* 173 mg/dL (60-115); Lactate Dehydrogenase* 162 U/L (120-246)
[2023-06-05 01:01] LABS: Beta-2-Microglob Serum/Plasma 7.2 mg/L (<=3.0)
[2023-06-06 00:53] LABS: Albumin 3.76 g/dL (3.75-5.01); Alpha 2 Globulin 0.92 g/dL (0.48-1.05); Immunofixation IFE Done; Immunoglobulin A 55 mg/dL (68-408); Immunoglobulin G 4141 mg/dL (768-1632); Immunoglobulin M 22 mg/dL (35-263); Kappa Qnt Free Light Chains 31.23 mg/L (3.30-19.40); Kappa/Lambda Light Chain Ratio 0.02 (0.26-1.65); Monoclonal Protein 2.94 g/dL; Total Protein, Serum 8.8 g/dL (6.3-8.2)
--- NOTE | 2023-06-25 13:25 | ONC.NURNOTE ---
Received phone call from pharmacy stating that there is a drug interaction between Bactrim that was ordered and - Losartan (hyperkalemia) - glipizide (hypoglycemia) Requesting phone call back at [phone] (Bill).
--- NOTE | 2023-06-28 11:00 | ONC.NURNOTE ---
Lenalidomide start -reviewed REMS program and patient signed enrollment- -new RX sent first to [facility]- not covered by insurance -[facility] will be filling the lenolidamide- RX plus supporting documents faxed to
--- NOTE | 2023-06-28 15:16 | ONC.NURNOTE ---
New treatment teaching done with patient and daughter reviewed possible side effects, after hours management and fever management, self care at home reviewed binder information reviewed REMS, specialty pharm[facility] and monthly survey needed with china questions addressed consents signed and MOMO next steps- clarification of oral dex dosing while receiving IV dex with darzolex -clarification of start date- TOOTH EXTRACTION ON SATURDAY 07/01 -needs treatment appts and MD follow up appts Re: lenalidomide -awaiting PA info from [facility]- will need to be completed by this office -once PA done- [facility] to let patient know out of pocket costs of lenalidomide- copay cards available for commercial insurance- pt has a copy of this - shipped to home
--- NOTE | 2023-07-01 13:13 | ONC.NURNOTE ---
Addendum entered by Cherie Fuller RN 07/03/23 15:56: Press Operator Printing called [facility] and spoke with Vivi who states they have called patient but have not heard back. Press Operator Printing then called who states they have never called because she has caller ID. Press Operator Printing gave her number and she is calling them back right away. Should be 1-2 business days to get it sent out once they hear from her!~ Addendum entered and electronically signed by Abbie Do APRN 07/02/23 14:17: PA approval for lenalidomide faxed to [facility]. Call to Mr. Sainz's to update that they should be hearing from [facility] to arrange for delivery of lenalidomide and to please call the [facility] after this happens so we will know when we can start his infusional treatment. She updated me that 1)Mr. Sainz had a tooth extraction today. 2)STD paperwork will be faxed either , or on Saturday after their appt with Rae Farmer PCP. Original Note: [facility] ([phone]). PA initiated per Pat; Cover My Meds code [facility] be [facility] in 24-48 hrs.
--- NOTE | 2023-07-04 10:53 | ONC.NURNOTE ---
Received call from Jasmyne pt's to review plans. [facility] We received fax from [facility] ppwk. Scheduled 07/07 for labs; will bring in his meds. [facility] determine what [facility] he needs and also to write out schedule of oral/home meds. Chart in Arleth's box to review.
--- NOTE | 2023-07-05 14:21 | URNOTE ---
?Request received for authorization for?Velcade (J9041), and Darzalex Faspro (J9144). Prior authorization is not required per [facility] (Ref#[id number]), date range: 07/08/23 to 07/07/24.
[2023-07-08 08:57] VITALS: BP 155/70; PULSE 80; RESP 16; TEMP 36.4; O2SAT 100
[2023-07-08 09:04] LABS: Basophils Absolute Auto 0.05 K/uL (0.00-0.30); Basophils Percent Auto 0.7 % (0.0-3.0); Eosinophils Absolute Auto 0.32 K/uL (0.00-0.50); Eosinophils Percent Auto 4.8 % (0.0-7.0); Hematocrit 26.1 % (37.0-53.0); Immature Granulocytes Abs Auto 0.01 K/uL (0.00-0.30); Immature Granulocytes Pct Auto 0.1 %; Lymphocytes Absolute Auto 2.87 K/uL (0.90-2.90); Lymphocytes Percent Auto 42.6 % (20-44); Mean Corpuscular HGB Conc 30 gm/dL (32-36); Mean Corpuscular Hemoglobin 21 pg (26-34); Mean Corpuscular Volume 70 fL (80-100); Monocytes Percent Auto 5.2 % (0.0-11.0); Neutrophils Absolute Auto 3.13 K/uL (1.7-7.0); Neutrophils Percent Auto 46.6 % (42.0-72.0); Platelet Count* 261 K/uL (140-440); RDW Coefficient of Variation % 17.4 % (11.5-15.5); Red Blood Count 3.75 m/uL (4.30-5.90); White Blood Count* 6.73 K/uL (4.50-11.00)
[2023-07-08 09:07] LABS: Hemoglobin* 7.9 gm/dL (13.5-17.5); Slide Review Reflex No
[2023-07-08 09:20] LABS: Albumin* 4.2 g/dL (3.3-5.0); Chloride* 104 mmol/L (96-114); Potassium* 4.7 mmol/L (3.6-5.1); Sodium* 135 mmol/L (135-149)
[2023-07-08 09:22] LABS: Creatinine* 1.5 mg/dL (0.5-1.5); Est. Creatinine Clearance* 46.71; Estimated Glomerular Filt Rate 49 ml/min
[2023-07-08 09:23] LABS: Alanine Aminotransferase* 18 U/L (4-50); Alkaline Phosphatase* 96 U/L (40-150); Anion Gap 9 mEq/L (7-15); Aspartate Amino Transferase* 23 U/L (12-35); Bilirubin Total* 0.5 mg/dL (0.1-1.5); Blood Urea Nitrogen* 27 mg/dL (7-30); Calcium* 9.4 mg/dL (8.4-10.6); Carbon Dioxide* 22 mmol/L (20-32); Glucose* 218 mg/dL (60-115); Total Protein* 9.7 g/dL (6.0-8.3)
[2023-07-08] MEDS: ACETAMINOPHEN 325 MG TABLET 650 MG PO (10:42)
[2023-07-08] MEDS: diphenhydrAMINE 25 MG CAPSULE 50 MG PO (10:43)
[2023-07-08] MEDS: dexAMETHasone 20 MG in 0.9 % SODIUM CHLORIDE 100 ml 100 ML 408 MG IVPB (11:03)
[2023-07-08] MEDS: BORTEZOMIB SUBQ 2.5 mg/ml 2.6 MG SUBCUT (12:24)
[2023-07-08] MEDS: DARATUMUMAB-HYALURONIDASE-FIHJ 15 ML SUBCUT (12:25)
[2023-07-08 13:37] VITALS: BP 144/73; PULSE 76; RESP 18; TEMP 36.3; O2SAT 100
[2023-07-08 13:54] VITALS: BP 138/74; PULSE 81; RESP 18; TEMP 36.3; O2SAT 99
[2023-07-08 14:39] VITALS: BP 137/71; PULSE 78; RESP 18; TEMP 36.3; O2SAT 100
[2023-07-08 15:15] VITALS: BP 157/74; PULSE 78; RESP 16; TEMP 36.7; O2SAT 99
[2023-07-08 15:50] VITALS: BP 133/77; PULSE 78; RESP 16; TEMP 36.6; O2SAT 100
--- NOTE | 2023-07-08 16:09 | ONC.NURNOTE ---
Pt tolerated 1st treatment of Velcade and Darzalex FasPro well; no side effects or concerns noted after 1 hr observation. Pt's FMLA ppwk filled out and in RUBI Reinoso's box to review and then go to Dr. Franklin's desk to sign. Pt's application for handicap parking filled out and in Dr. Franklin's box to sign; then return to pt at next [facility] appt 07/14.
--- NOTE | 2023-07-08 16:16 | ONC.NURNOTE ---
Lm for Rae Farmer PA-C, pt's PCP, as FY for pt taking IV Dex Mondays 20mg and PO Dex 20mg Tuesdays for the next several weeks will likely adversely effect his diabetes mgt. Pt's Jasmyne is in process of scheduling f/u for pt with Rae in 2 weeks.
--- NOTE | 2023-07-09 14:48 | PC.NURSE ---
Called pt today to check in after his first treatment of CyBorD yesterday. Pt's answered and stated that Domingo was sleeping. Pt's states that he did great last night and had a good night sleep. He has had no n/v or diarrhea. He took all oral meds today as instructed. Invited them to call any time if questions or concerns arise.
--- NOTE | 2023-07-11 13:49 | ONC.NURNOTE ---
Addendum entered by Arleth Cee RN 07/11/23 13:52: regarding new start lenalidomide- reports no diarrhea, rash, denies any further side effects- reports tolerating well Original Note: called this am to report ongoing intermitant bouts of hiccups that started Saturday and has been particularly bothersome at night, preventing patient from sleeping well at night.
--- NOTE | 2023-07-11 14:51 | ONC.NURNOTE ---
Short term disability form completed for patient, signed by provider and faxed to [employer] at claim # [id number] copy placed in patients chart
--- NOTE | 2023-07-12 12:07 | ONC.NURNOTE ---
hiccups continue, but reports taking tums through the day has helped minimize the hiccups other suggestions given: suck on a lemon holding breath eating dry bread drinking icewater breathing in a paper bag drinking water with blunt knife in the glass lorazepam was sent to pharmacy- recommend to try at bedtime patient will be back in on Saturday for treatment and follow up
[2023-07-15 08:36] VITALS: BP 121/67; PULSE 92; RESP 16; TEMP 37.1; O2SAT 99
[2023-07-15 08:37] LABS: Eosinophils Percent Auto 9.2 % (0.0-7.0); Hematocrit 27.2 % (37.0-53.0); Hemoglobin* 8.7 gm/dL (13.5-17.5); Immature Granulocytes Abs Auto 0.01 K/uL (0.00-0.30); Immature Granulocytes Pct Auto 0.2 %; Lymphocytes Percent Auto 13.5 % (20-44); Mean Corpuscular HGB Conc 32 gm/dL (32-36); Mean Corpuscular Hemoglobin 22 pg (26-34); Mean Corpuscular Volume 69 fL (80-100); Monocytes Percent Auto 3.9 % (0.0-11.0); Neutrophils Percent Auto 73.2 % (42.0-72.0); Platelet Count* 200 K/uL (140-440); Red Blood Count 3.94 m/uL (4.30-5.90); White Blood Count* 4.88 K/uL (4.50-11.00)
[2023-07-15 08:38] LABS: Slide Review Reflex No
[2023-07-15 08:54] LABS: Albumin* 3.6 g/dL (3.3-5.0); Chloride* 101 mmol/L (96-114)
[2023-07-15 08:55] LABS: Potassium* 4.4 mmol/L (3.6-5.1); Sodium* 133 mmol/L (135-149)
[2023-07-15 08:57] LABS: Alkaline Phosphatase* 93 U/L (40-150); Anion Gap 5 mEq/L (7-15); Aspartate Amino Transferase* 21 U/L (12-35); Bilirubin Total* 0.5 mg/dL (0.1-1.5); Blood Urea Nitrogen* 27 mg/dL (7-30); Carbon Dioxide* 27 mmol/L (20-32); Creatinine* 1.4 mg/dL (0.5-1.5); Est. Creatinine Clearance* 50.05; Estimated Glomerular Filt Rate 53 ml/min; Total Protein* 7.4 g/dL (6.0-8.3)
[2023-07-15 08:58] LABS: Alanine Aminotransferase* 23 U/L (4-50); Calcium* 9.3 mg/dL (8.4-10.6); Glucose* 202 mg/dL (60-115)
[2023-07-15] MEDS: diphenhydrAMINE 25 MG CAPSULE 50 MG PO (09:35)
[2023-07-15] MEDS: ACETAMINOPHEN 325 MG TABLET 650 MG PO (09:35)
[2023-07-15] MEDS: dexAMETHasone 20 MG in 0.9 % SODIUM CHLORIDE 100 ml 100 ML 700 MG IVPB (09:36)
[2023-07-15] MEDS: BORTEZOMIB SUBQ 2.5 mg/ml 2.6 MG SUBCUT (11:06)
[2023-07-15] MEDS: DARATUMUMAB-HYALURONIDASE-FIHJ 15 ML SUBCUT (11:06)
--- NOTE | 2023-07-15 12:18 | ONC.NURNOTE ---
Pt here today for 2nd Darzalex FasPro. He has been feeling well since hiccups resolved; felt well over the weekend. He notes he has been having itchy scalp; recommended he try using coconut oil or baby/mineral oil topically. Also reviewed to avoid hot temp showers and use mild shampoo/conditioner, hygeine products and laundry detergent.
[2023-07-22 08:23] LABS: Eosinophils Percent Auto 8.8 % (0.0-7.0); Hematocrit 26.1 % (37.0-53.0); Hemoglobin* 8.3 gm/dL (13.5-17.5); Lymphocytes Percent Auto 29.6 % (20-44); Mean Corpuscular HGB Conc 32 gm/dL (32-36); Mean Corpuscular Hemoglobin 22 pg (26-34); Mean Corpuscular Volume 70 fL (80-100); Monocytes Percent Auto 10.2 % (0.0-11.0); Neutrophils Percent Auto 51.4 % (42.0-72.0); Platelet Count* 154 K/uL (140-440); RDW Coefficient of Variation % 17.5 % (11.5-15.5); Red Blood Count 3.75 m/uL (4.30-5.90); White Blood Count* 2.74 K/uL (4.50-11.00)
[2023-07-22 08:38] LABS: Albumin* 3.3 g/dL (3.3-5.0); Chloride* 100 mmol/L (96-114); Potassium* 4.4 mmol/L (3.6-5.1); Sodium* 130 mmol/L (135-149)
[2023-07-22 08:40] LABS: Bilirubin Total* 0.5 mg/dL (0.1-1.5); Creatinine* 1.3 mg/dL (0.5-1.5); Estimated Glomerular Filt Rate 58 ml/min
[2023-07-22 08:41] LABS: Alanine Aminotransferase* 25 U/L (4-50); Alkaline Phosphatase* 106 U/L (40-150); Anion Gap 4 mEq/L (7-15); Aspartate Amino Transferase* 23 U/L (12-35); Blood Urea Nitrogen* 28 mg/dL (7-30); Calcium* 8.6 mg/dL (8.4-10.6); Carbon Dioxide* 26 mmol/L (20-32); Glucose* 242 mg/dL (60-115); Total Protein* 6.3 g/dL (6.0-8.3)
[2023-07-22 10:06] LABS: Slide Review Reflex No
[2023-07-22] MEDS: ACETAMINOPHEN 325 MG TABLET 650 MG PO (10:34)
[2023-07-22] MEDS: diphenhydrAMINE 25 MG CAPSULE 50 MG PO (10:35)
[2023-07-22] MEDS: 0.9 % SODIUM CHLORIDE 250 ml IV (10:35)
[2023-07-22] MEDS: SODIUM CHLORIDE 0.9 % (FLUSH) 10 ML SYRINGE IVF (10:36)
[2023-07-22] MEDS: dexAMETHasone 20 MG in 0.9 % SODIUM CHLORIDE 100 ml 100 ML 408 MG IVPB (11:02)
[2023-07-22] MEDS: DARATUMUMAB-HYALURONIDASE-FIHJ 15 ML SUBCUT (11:42)
[2023-07-22] MEDS: BORTEZOMIB SUBQ 2.5 mg/ml 2.6 MG SUBCUT (11:42)
--- NOTE | 2023-07-24 13:06 | ONC.NURNOTE ---
Patients called stating patient is having elevated blood sugars, swelling in ankles that worsens at night, and a rash on neck. MAILS SUPERVISOR was notified and spoke with patient and his about their concerns. Recommended following with with PCP to help manage blood sugars with treatments and Blood pressure medications with the hyponatremia. Called over to [facility] and spoke with RUBI Benson personal carer. She will call patient and help schedule an appointment with Donell Farmer.
--- NOTE | 2023-07-29 10:52 | ONC.NURNOTE ---
called 3 times this am- expressing frustration with [facility]- they have been unable to get the lenalidomide delivered this medical technical writer [facility]- at that time the RX was expedited with the pharmacy for final verification with delivery expected on Saturday or Saturday and [facility] will be calling patient to set up delivery afternoon or Saturday am since that call patient/ did not hear from [facility] until Saturday at 1520- they were told there is a [facility] hold on the RX [facility] tried to get ahold of this office on Saturday- we are closed As of today the is not able to get the RX shipped out and expresses significant distress that Domingo will be starting lenalidomide late medical technical writer has reassured that waiting a day or two to start will not cause any harm to the over treatment outcomes medical technical writer spent greater than 45 minutes on phone with [facility] to discern the barrier to shipping the drug, calling [employer] to remove the flag on the patients survey, calling [facility] back that the flag has been removed, and calling patient that they can set up delivery for arrival tomorrow
[2023-07-31 08:23] VITALS: BP 112/65; PULSE 69; RESP 16; TEMP 36.5; O2SAT 96
[2023-07-31 08:29] LABS: Basophils Percent Auto 0.3 % (0.0-3.0); Eosinophils Percent Auto 4.5 % (0.0-7.0); Hematocrit 26.6 % (37.0-53.0); Hemoglobin* 8.3 gm/dL (13.5-17.5); Immature Granulocytes Pct Auto 0.3 %; Lymphocytes Percent Auto 47.5 % (20-44); Mean Corpuscular HGB Conc 31 gm/dL (32-36); Mean Corpuscular Hemoglobin 22 pg (26-34); Mean Corpuscular Volume 70 fL (80-100); Monocytes Percent Auto 17.9 % (0.0-11.0); Neutrophils Percent Auto 29.5 % (42.0-72.0); Platelet Count* 208 K/uL (140-440); Red Blood Count 3.83 m/uL (4.30-5.90); White Blood Count* 3.35 K/uL (4.50-11.00)
[2023-07-31 08:30] LABS: Slide Review Reflex No
[2023-07-31 08:57] LABS: Anion Gap 5 mEq/L (7-15); Blood Urea Nitrogen* 16 mg/dL (7-30); Carbon Dioxide* 25 mmol/L (20-32); Chloride* 102 mmol/L (96-114); Potassium* 4.4 mmol/L (3.6-5.1); Sodium* 132 mmol/L (135-149)
[2023-07-31 08:58] LABS: Alanine Aminotransferase* 23 U/L (4-50); Albumin* 3.6 g/dL (3.3-5.0); Alkaline Phosphatase* 101 U/L (40-150); Aspartate Amino Transferase* 24 U/L (12-35); Bilirubin Total* 0.7 mg/dL (0.1-1.5); Creatinine* 1.2 mg/dL (0.5-1.5); Est. Creatinine Clearance* 58.39; Estimated Glomerular Filt Rate 64 ml/min; Glucose* 162 mg/dL (60-115); Total Protein* 6.4 g/dL (6.0-8.3)
[2023-07-31] MEDS: ACETAMINOPHEN 325 MG TABLET 650 MG PO (09:12)
[2023-07-31] MEDS: diphenhydrAMINE 25 MG CAPSULE 50 MG PO (09:12)
[2023-07-31] MEDS: BORTEZOMIB SUBQ 2.5 mg/ml 2.6 MG SUBCUT (10:16)
[2023-07-31] MEDS: DARATUMUMAB-HYALURONIDASE-FIHJ 15 ML SUBCUT (10:17)
[2023-08-05 08:27] LABS: Basophils Percent Auto 0.5 % (0.0-3.0); Eosinophils Percent Auto 4.9 % (0.0-7.0); Hematocrit 26.1 % (37.0-53.0); Hemoglobin* 8.2 gm/dL (13.5-17.5); Immature Granulocytes Pct Auto 0.3 %; Mean Corpuscular HGB Conc 31 gm/dL (32-36); Mean Corpuscular Hemoglobin 22 pg (26-34); Mean Corpuscular Volume 70 fL (80-100); Monocytes Percent Auto 5.4 % (0.0-11.0); Neutrophils Percent Auto 50.9 % (42.0-72.0); Platelet Count* 170 K/uL (140-440); RDW Coefficient of Variation % 17.9 % (11.5-15.5); Red Blood Count 3.75 m/uL (4.30-5.90); White Blood Count* 3.68 K/uL (4.50-11.00)
[2023-08-05 08:30] LABS: Slide Review Reflex Yes
[2023-08-05 08:38] LABS: Albumin* 3.6 g/dL (3.3-5.0); Chloride* 99 mmol/L (96-114)
[2023-08-05 08:39] LABS: Potassium* 4.1 mmol/L (3.6-5.1); Sodium* 131 mmol/L (135-149)
[2023-08-05 08:41] LABS: Bilirubin Total* 0.8 mg/dL (0.1-1.5); Creatinine* 1.3 mg/dL (0.5-1.5); Estimated Glomerular Filt Rate 58 ml/min
[2023-08-05 08:42] LABS: Alanine Aminotransferase* 20 U/L (4-50); Alkaline Phosphatase* 102 U/L (40-150); Anion Gap 8 mEq/L (7-15); Aspartate Amino Transferase* 22 U/L (12-35); Blood Urea Nitrogen* 25 mg/dL (7-30); Calcium* 9.1 mg/dL (8.4-10.6); Carbon Dioxide* 24 mmol/L (20-32); Glucose* 163 mg/dL (60-115); Total Protein* 6.2 g/dL (6.0-8.3)
[2023-08-05 08:53] LABS: Slide Review Acceptable Review (Acceptable)
[2023-08-05] MEDS: 0.9 % SODIUM CHLORIDE 1000 ml 1,000 ML IV (10:11)
[2023-08-05] MEDS: ACETAMINOPHEN 325 MG TABLET 650 MG PO (10:12)
[2023-08-05] MEDS: DARATUMUMAB-HYALURONIDASE-FIHJ 15 ML SUBCUT (10:46)
[2023-08-05] MEDS: BORTEZOMIB SUBQ 2.5 mg/ml 2.6 MG SUBCUT (10:47)
--- NOTE | 2023-08-09 09:32 | ONC.NURNOTE ---
Patient's called and notes that patient is feeling fatigued five weeks into treatment, she is wondering if this is normal. She was told that fatigue was a side effect of chemotherapy, however his history of anemia should be looked at as well. Patient notes that he is noting extreme fatigue, heavy legs, and some SOB with ambulation. Denies heart palpitations. He was encouraged to come into our office or [facility] to have hemoglobin checked. He and spouse declined. They were told that if patient continues to decline, he should be seen in the ER.
[2023-08-12 08:29] LABS: Basophils Absolute Auto 0.01 K/uL (0.00-0.30); Basophils Percent Auto 0.2 % (0.0-3.0); Eosinophils Absolute Auto 0.15 K/uL (0.00-0.50); Eosinophils Percent Auto 2.8 % (0.0-7.0); Hematocrit 24.8 % (37.0-53.0); Immature Granulocytes Abs Auto 0.05 K/uL (0.00-0.30); Immature Granulocytes Pct Auto 0.9 %; Lymphocytes Percent Auto 19.6 % (20-44); Mean Corpuscular HGB Conc 31 gm/dL (32-36); Mean Corpuscular Hemoglobin 21 pg (26-34); Mean Corpuscular Volume 69 fL (80-100); Monocytes Percent Auto 13.1 % (0.0-11.0); Neutrophils Absolute Auto 3.43 K/uL (1.7-7.0); Neutrophils Percent Auto 63.4 % (42.0-72.0); Platelet Count* 136 K/uL (140-440); RDW Coefficient of Variation % 17.8 % (11.5-15.5); White Blood Count* 5.41 K/uL (4.50-11.00)
[2023-08-12 08:30] VITALS: BP 128/66; PULSE 74; RESP 16; TEMP 36.3; O2SAT 99
[2023-08-12 08:46] LABS: Hemoglobin* 7.7 gm/dL (13.5-17.5); Slide Review Reflex Yes
[2023-08-12 08:47] LABS: Albumin* 3.3 g/dL (3.3-5.0); Chloride* 97 mmol/L (96-114)
[2023-08-12 08:48] LABS: Potassium* 4.5 mmol/L (3.6-5.1); Sodium* 128 mmol/L (135-149)
[2023-08-12 08:50] LABS: Alanine Aminotransferase* 26 U/L (4-50); Alkaline Phosphatase* 109 U/L (40-150); Anion Gap 8 mEq/L (7-15); Aspartate Amino Transferase* 27 U/L (12-35); Bilirubin Total* 0.8 mg/dL (0.1-1.5); Blood Urea Nitrogen* 20 mg/dL (7-30); Carbon Dioxide* 23 mmol/L (20-32); Creatinine* 1.3 mg/dL (0.5-1.5); Estimated Glomerular Filt Rate 58 ml/min; Glucose* 256 mg/dL (60-115); Total Protein* 5.8 g/dL (6.0-8.3)
[2023-08-12 08:51] LABS: Calcium* 8.8 mg/dL (8.4-10.6); Slide Review Acceptable Review (Acceptable)
[2023-08-12] MEDS: ACETAMINOPHEN 325 MG TABLET 650 MG PO (10:27)
[2023-08-12] MEDS: 0.9 % SODIUM CHLORIDE 1000 ml 1,000 ML 1200 ML IV (11:13)
[2023-08-12] MEDS: SODIUM CHLORIDE 1 GM TABLET 2 GM PO (11:16)
[2023-08-12] MEDS: BORTEZOMIB SUBQ 2.5 mg/ml 2.6 MG SUBCUT (11:53)
[2023-08-12] MEDS: DARATUMUMAB-HYALURONIDASE-FIHJ 15 ML SUBCUT (11:54)
--- NOTE | 2023-08-12 13:10 | ONC.NURNOTE ---
Revlimid prescription form faxed into [facility] . Pt aware pt survey can be done starting on 08/13/23.
[2023-08-13 10:16] VITALS: BP 158/68; PULSE 95; RESP 16; TEMP 35.7; O2SAT 100
[2023-08-13 10:56] VITALS: BP 158/68; PULSE 95; RESP 16; TEMP 35.7; O2SAT 100
[2023-08-13 11:14] VITALS: BP 142/71; PULSE 81; RESP 16; TEMP 36.6; O2SAT 100
[2023-08-13 11:59] VITALS: BP 149/72; PULSE 83; RESP 16; TEMP 35.4; O2SAT 99
[2023-08-13 12:59] VITALS: BP 158/75; PULSE 84; RESP 16; TEMP 35.4; O2SAT 100
--- NOTE | 2023-08-13 13:09 | PC.NURSE ---
WILLIAM paperwork for pt's completed today with the help of their grandson. Paperwork copied and given to Domingo and also faxed to pt's employer to the fax number provided.
[2023-08-13 13:36] VITALS: BP 154/74; PULSE 83; RESP 16; TEMP 35.6; O2SAT 100
[2023-08-13 13:50] LABS: Cortisol, Serum 15.7 ug/dL
[2023-08-19 08:28] LABS: Basophils Percent Auto 0.5 % (0.0-3.0); Eosinophils Percent Auto 3.5 % (0.0-7.0); Hematocrit 26.4 % (37.0-53.0); Hemoglobin* 8.3 gm/dL (13.5-17.5); Immature Granulocytes Pct Auto 0.3 %; Lymphocytes Percent Auto 39.6 % (20-44); Mean Corpuscular HGB Conc 31 gm/dL (32-36); Mean Corpuscular Hemoglobin 22 pg (26-34); Mean Corpuscular Volume 71 fL (80-100); Monocytes Percent Auto 16.8 % (0.0-11.0); Neutrophils Percent Auto 39.3 % (42.0-72.0); Platelet Count* 126 K/uL (140-440); RDW Coefficient of Variation % 18.7 % (11.5-15.5); White Blood Count* 3.69 K/uL (4.50-11.00)
[2023-08-19 08:30] LABS: Slide Review Reflex No
[2023-08-19 08:36] VITALS: BP 119/69; PULSE 71; RESP 16; TEMP 36.1; O2SAT 96
[2023-08-19 08:46] LABS: Albumin* 3.3 g/dL (3.3-5.0); Chloride* 105 mmol/L (96-114)
[2023-08-19 08:47] LABS: Potassium* 4.6 mmol/L (3.6-5.1); Sodium* 132 mmol/L (135-149)
[2023-08-19 08:49] LABS: Anion Gap 1 mEq/L (7-15); Aspartate Amino Transferase* 27 U/L (12-35); Bilirubin Total* 0.7 mg/dL (0.1-1.5); Carbon Dioxide* 26 mmol/L (20-32); Creatinine* 1.1 mg/dL (0.5-1.5); Estimated Glomerular Filt Rate 71 ml/min; Total Protein* 5.8 g/dL (6.0-8.3)
[2023-08-19 08:50] LABS: Alanine Aminotransferase* 23 U/L (4-50); Alkaline Phosphatase* 120 U/L (40-150); Blood Urea Nitrogen* 22 mg/dL (7-30); Calcium* 9.2 mg/dL (8.4-10.6); Glucose* 203 mg/dL (60-115)
[2023-08-19] MEDS: ACETAMINOPHEN 325 MG TABLET 650 MG PO (09:10)
[2023-08-19] MEDS: dexAMETHasone 4 MG TABLET 20 MG PO (09:11)
--- NOTE | 2023-08-19 09:31 | ONC.NURNOTE ---
states bit tired and sob. denies bleeding. rare diarrhea . once every 2 weeks. NA 132. states taking Na pills. ok to treat per Abbie Robbins APRN. Also plans to start taking Revlimid today instead of tomorrow. ok per Chaya VENEGAS
[2023-08-19] MEDS: DARATUMUMAB-HYALURONIDASE-FIHJ 15 ML SUBCUT (09:59)
[2023-08-19] MEDS: BORTEZOMIB SUBQ 2.5 mg/ml 2.6 MG SUBCUT (10:00)
[2023-08-26 08:30] LABS: Basophils Percent Auto 0.3 % (0.0-3.0); Eosinophils Percent Auto 4.1 % (0.0-7.0); Hematocrit 24.6 % (37.0-53.0); Immature Granulocytes Pct Auto 0.3 %; Lymphocytes Percent Auto 33.3 % (20-44); Mean Corpuscular HGB Conc 32 gm/dL (32-36); Mean Corpuscular Hemoglobin 23 pg (26-34); Mean Corpuscular Volume 72 fL (80-100); Monocytes Percent Auto 8.8 % (0.0-11.0); Neutrophils Percent Auto 53.2 % (42.0-72.0); Platelet Count* 114 K/uL (140-440); RDW Coefficient of Variation % 19.1 % (11.5-15.5); Red Blood Count 3.43 m/uL (4.30-5.90); White Blood Count* 3.18 K/uL (4.50-11.00)
[2023-08-26 08:33] LABS: Hemoglobin* 7.8 gm/dL (13.5-17.5); Slide Review Reflex No
[2023-08-26 08:40] VITALS: BP 127/67; PULSE 76; RESP 16; TEMP 36.4; O2SAT 101
[2023-08-26 08:42] LABS: Albumin* 3.3 g/dL (3.3-5.0); Chloride* 109 mmol/L (96-114)
[2023-08-26 08:43] LABS: Potassium* 4.2 mmol/L (3.6-5.1); Sodium* 134 mmol/L (135-149)
[2023-08-26 08:45] LABS: Anion Gap 0 mEq/L (7-15); Aspartate Amino Transferase* 27 U/L (12-35); Bilirubin Total* 0.7 mg/dL (0.1-1.5); Carbon Dioxide* 25 mmol/L (20-32); Creatinine* 1.1 mg/dL (0.5-1.5); Estimated Glomerular Filt Rate 71 ml/min; Total Protein* 5.5 g/dL (6.0-8.3)
[2023-08-26 08:46] LABS: Alanine Aminotransferase* 24 U/L (4-50); Alkaline Phosphatase* 102 U/L (40-150); Blood Urea Nitrogen* 22 mg/dL (7-30); Calcium* 8.6 mg/dL (8.4-10.6); Glucose* 228 mg/dL (60-115)
[2023-08-26] MEDS: ACETAMINOPHEN 325 MG TABLET 650 MG PO (09:18)
--- NOTE | 2023-08-26 09:55 | ONC.NURNOTE ---
anemia entered order for 1 unit of prbcs per standing order for Mr. Sainz for hgb of 7.8. OK to proceed with treatment today - darzalex and velcade. Appreciate confirmation with Dr. Franklin that Mr. Sainz does not require irradiated blood at this stage of his myeloma treatment.
[2023-08-26] MEDS: DARATUMUMAB-HYALURONIDASE-FIHJ 15 ML SUBCUT (10:13)
[2023-08-26] MEDS: BORTEZOMIB SUBQ 2.5 mg/ml 2.6 MG SUBCUT (10:14)
[2023-08-27 09:37] VITALS: BP 138/68; PULSE 94; RESP 16; TEMP 36.2; O2SAT 100
[2023-08-27 10:02] VITALS: BP 130/68; PULSE 94; RESP 16; TEMP 36.2; O2SAT 100
[2023-08-27] MEDS: 0.9 % SODIUM CHLORIDE 250 ml IV (10:06)
[2023-08-27] MEDS: SODIUM CHLORIDE 0.9 % (FLUSH) 10 ML SYRINGE IVF (10:06)
[2023-08-27 10:19] VITALS: BP 124/73; RESP 16; TEMP 36.2; O2SAT 96
[2023-08-27 11:04] VITALS: BP 143/72; PULSE 84; RESP 16; TEMP 36.4; O2SAT 100
[2023-08-27 12:04] VITALS: BP 156/76; PULSE 81; RESP 16; TEMP 36.4; O2SAT 100
[2023-08-27 12:34] VITALS: BP 151/86; PULSE 82; RESP 16; TEMP 36.2; O2SAT 100
[2023-09-02 08:29] LABS: Basophils Absolute Auto 0.01 K/uL (0.00-0.30); Basophils Percent Auto 0.2 % (0.0-3.0); Eosinophils Absolute Auto 0.15 K/uL (0.00-0.50); Eosinophils Percent Auto 2.8 % (0.0-7.0); Hematocrit 29.9 % (37.0-53.0); Hemoglobin* 9.6 gm/dL (13.5-17.5); Immature Granulocytes Abs Auto 0.02 K/uL (0.00-0.30); Immature Granulocytes Pct Auto 0.4 %; Lymphocytes Absolute Auto 1.27 K/uL (0.90-2.90); Lymphocytes Percent Auto 23.9 % (20-44); Mean Corpuscular HGB Conc 32 gm/dL (32-36); Mean Corpuscular Hemoglobin 23 pg (26-34); Mean Corpuscular Volume 73 fL (80-100); Monocytes Percent Auto 10.7 % (0.0-11.0); Platelet Count* 121 K/uL (140-440); RDW Coefficient of Variation % 19.8 % (11.5-15.5); Red Blood Count 4.11 m/uL (4.30-5.90); Slide Review Reflex No; White Blood Count* 5.32 K/uL (4.50-11.00)
[2023-09-02 08:46] LABS: Albumin* 3.3 g/dL (3.3-5.0); Chloride* 99 mmol/L (96-114); Potassium* 4.7 mmol/L (3.6-5.1); Sodium* 130 mmol/L (135-149)
[2023-09-02 08:48] LABS: Creatinine* 1.1 mg/dL (0.5-1.5); Estimated Glomerular Filt Rate 71 ml/min
[2023-09-02 08:49] LABS: Alanine Aminotransferase* 26 U/L (4-50); Alkaline Phosphatase* 132 U/L (40-150); Anion Gap 7 mEq/L (7-15); Aspartate Amino Transferase* 33 U/L (12-35); Bilirubin Total* 0.7 mg/dL (0.1-1.5); Blood Urea Nitrogen* 20 mg/dL (7-30); Carbon Dioxide* 24 mmol/L (20-32); Glucose* 229 mg/dL (60-115); Total Protein* 5.8 g/dL (6.0-8.3)
[2023-09-02] MEDS: BORTEZOMIB SUBQ 2.5 mg/ml 2.6 MG SUBCUT (09:56)
--- NOTE | 2023-09-05 10:04 | ONC.NURNOTE ---
phoned yesterday reporting upset stomach for Domingo and asking which antiemetics he should try first although either prochlorperazine and ondansetron are both appropiate- magnetic tape typewriter operator suggested ondansetron first (if not having issues with constipation) may add prochlorperazine if needed as well, alternating- but to call clinic is symptoms persist in spite of antiemetics
[2023-09-09 08:02] VITALS: BMI 23.1
[2023-09-09 08:43] VITALS: BP 145/71; PULSE 67; RESP 16; TEMP 35.8; O2SAT 96
[2023-09-09 08:49] LABS: Basophils Absolute Auto 0.03 K/uL (0.00-0.30); Basophils Percent Auto 0.6 % (0.0-3.0); Eosinophils Percent Auto 7.2 % (0.0-7.0); Hematocrit 27.3 % (37.0-53.0); Hemoglobin* 8.8 gm/dL (13.5-17.5); Immature Granulocytes Abs Auto 0.02 K/uL (0.00-0.30); Immature Granulocytes Pct Auto 0.4 %; Lymphocytes Absolute Auto 1.82 K/uL (0.90-2.90); Lymphocytes Percent Auto 33.8 % (20-44); Mean Corpuscular HGB Conc 32 gm/dL (32-36); Mean Corpuscular Hemoglobin 23 pg (26-34); Mean Corpuscular Volume 72 fL (80-100); Monocytes Percent Auto 15.1 % (0.0-11.0); Neutrophils Absolute Auto 2.31 K/uL (1.7-7.0); Neutrophils Percent Auto 42.9 % (42.0-72.0); Platelet Count* 143 K/uL (140-440); Red Blood Count 3.82 m/uL (4.30-5.90); White Blood Count* 5.38 K/uL (4.50-11.00)
[2023-09-09 08:52] LABS: Slide Review Reflex No
[2023-09-09 08:53] LABS: Albumin* 3.3 g/dL (3.3-5.0); Chloride* 107 mmol/L (96-114); Sodium* 133 mmol/L (135-149)
[2023-09-09 08:54] LABS: Potassium* 4.2 mmol/L (3.6-5.1)
[2023-09-09 08:56] LABS: Alkaline Phosphatase* 96 U/L (40-150); Anion Gap 5 mEq/L (7-15); Aspartate Amino Transferase* 28 U/L (12-35); Bilirubin Total* 0.7 mg/dL (0.1-1.5); Carbon Dioxide* 21 mmol/L (20-32); Est. Creatinine Clearance* 70.07; Estimated Glomerular Filt Rate 79 ml/min; Total Protein* 5.7 g/dL (6.0-8.3)
[2023-09-09 08:57] LABS: Alanine Aminotransferase* 23 U/L (4-50); Blood Urea Nitrogen* 27 mg/dL (7-30); Calcium* 8.7 mg/dL (8.4-10.6); Glucose* 225 mg/dL (60-115)
[2023-09-09] MEDS: BORTEZOMIB SUBQ 2.5 mg/ml 2.6 MG SUBCUT (11:13)
[2023-09-09] MEDS: DARATUMUMAB-HYALURONIDASE-FIHJ 15 ML SUBCUT (11:13)
--- NOTE | 2023-09-09 12:22 | ONC.NURNOTE ---
Pt took his own oral Prednisone as previously. States Alexsandra aware that he needs more for tomorrow. states 4 days of cough with yellow to clear small amt sputum in am. LS clear. no elevated temp. Ok to treat per Cherie VENEGAS. Per . note premed Benadryl d/c. Tylenol D/C per Cherie VENEGAS>
[2023-09-16 08:43] LABS: Basophils Absolute Auto 0.02 K/uL (0.00-0.30); Basophils Percent Auto 0.3 % (0.0-3.0); Eosinophils Absolute Auto 0.14 K/uL (0.00-0.50); Eosinophils Percent Auto 1.9 % (0.0-7.0); Hematocrit 29.2 % (37.0-53.0); Hemoglobin* 9.2 gm/dL (13.5-17.5); Immature Granulocytes Abs Auto 0.25 K/uL (0.00-0.30); Immature Granulocytes Pct Auto 3.3 %; Lymphocytes Absolute Auto 1.89 K/uL (0.90-2.90); Lymphocytes Percent Auto 25.1 % (20-44); Mean Corpuscular HGB Conc 32 gm/dL (32-36); Mean Corpuscular Hemoglobin 23 pg (26-34); Mean Corpuscular Volume 72 fL (80-100); Monocytes Percent Auto 3.8 % (0.0-11.0); Neutrophils Absolute Auto 4.95 K/uL (1.7-7.0); Neutrophils Percent Auto 65.6 % (42.0-72.0); Platelet Count* 140 K/uL (140-440); RDW Coefficient of Variation % 19.9 % (11.5-15.5); Red Blood Count 4.08 m/uL (4.30-5.90); White Blood Count* 7.54 K/uL (4.50-11.00)
[2023-09-16 09:01] LABS: Albumin* 3.7 g/dL (3.3-5.0); Chloride* 102 mmol/L (96-114); Potassium* 3.6 mmol/L (3.6-5.1); Sodium* 134 mmol/L (135-149)
[2023-09-16 09:04] LABS: Alanine Aminotransferase* 27 U/L (4-50); Alkaline Phosphatase* 81 U/L (40-150); Anion Gap 5 mEq/L (7-15); Aspartate Amino Transferase* 28 U/L (12-35); Bilirubin Total* 0.9 mg/dL (0.1-1.5); Blood Urea Nitrogen* 35 mg/dL (7-30); Carbon Dioxide* 27 mmol/L (20-32); Creatinine* 1.1 mg/dL (0.5-1.5); Estimated Glomerular Filt Rate 71 ml/min; Glucose* 133 mg/dL (60-115); Total Protein* 6.1 g/dL (6.0-8.3)
[2023-09-16 09:05] LABS: Calcium* 9.9 mg/dL (8.4-10.6)
[2023-09-16 09:11] LABS: Slide Review Reflex Yes
[2023-09-16 09:12] LABS: Slide Review Acceptable Review (Acceptable)
[2023-09-16 09:21] VITALS: BP 117/69; PULSE 92; RESP 16; TEMP 36.1; O2SAT 98
[2023-09-16] MEDS: BORTEZOMIB SUBQ 2.5 mg/ml 2.6 MG SUBCUT (09:54)
--- NOTE | 2023-09-16 12:42 | PC.NURSE ---
Pt present at [facility] today for Velcade injection. Pt and his report that Domingo developed a cough last week. They went to PCP and had a CXR to rule out pneumonia and bronchitis. Pt was prescribed Doxycycline and Prednisone. Today they have questions about the Dexamethasone dosing and also if safe to take given he is on Prednisone. Of note, today (09/16/2023) is the last day of Prednisone. Discussed above questions with Dr. Franklin: 1. OK to take Dexamethasone while taking Prednisone given Dexamethasone is treatment for his cancer. 2. Now that pt is getting Velcade weekly and Darzalex every other week, he should take Dexamethasone as follows: a. on Velcade only weeks, take Dexamethasone 20 mg po at home on day 2 (Tuesdays) b. on Velcade & Darzalex weeks, take Dexamethasone 20 mg po in [facility] 1 hour prior to Darzalex injection (Mondays) and 20 mg po at home on day 2 (Tuesdays) Called and LM with Jasmyne () instructing her to not give Domingo Dex today but to take a dose tomorrow AND to call [facility] for the full instructions.
--- NOTE | 2023-09-17 09:03 | PC.NURSE ---
Pt's , Jasmyne, called back this morning. RN reviewed Dexamethasone instructions (see previous note). Jasmyne goes on to share that Domingo was awake all night having diarrhea. He is panting when walking around the house and is extremely weak. Discussed care with Abbie Do APRN and was advised to direct pt to go to the ER. Of note, pt went in last week for a cough and was prescribed Prednisone and Doxycycline for 5 days. Jasmyne states that his last dose of both was due this morning but she didn't give them to him because she's worried about how he's doing at the moment and wasn't sure if these meds were causing his symptoms. Jasmyne agrees to go to the ER. Support offered.
[2023-09-18 11:32] VITALS: BP 127/70; PULSE 78; RESP 16; TEMP 36.2; O2SAT 100
[2023-09-18] MEDS: 0.9 % SODIUM CHLORIDE 1000 ml 1,000 ML IV (12:19)
[2023-09-18 12:22] LABS: Chloride* 109 mmol/L (96-114)
[2023-09-18 12:23] LABS: Potassium* 4.4 mmol/L (3.6-5.1); Sodium* 134 mmol/L (135-149)
[2023-09-18 12:25] LABS: Creatinine* 1.1 mg/dL (0.5-1.5); Est. Creatinine Clearance* 63.28; Estimated Glomerular Filt Rate 71 ml/min
[2023-09-18 12:26] LABS: Anion Gap 9 mEq/L (7-15); Blood Urea Nitrogen* 34 mg/dL (7-30); Calcium* 9.2 mg/dL (8.4-10.6); Carbon Dioxide* 16 mmol/L (20-32); Glucose* 145 mg/dL (60-115); Magnesium* 1.3 mg/dL (1.5-2.6)
[2023-09-18] MEDS: MAGNESIUM SULFATE 2 GM/50 ML PIGGYBACK IVPB (12:56)
--- NOTE | 2023-09-18 15:48 | ONC.NURNOTE ---
Pt here today for reassessment of labs and vitals. Pt states he feels better than yesterday, dizziness improved, one episode of diarrhea since yesterday. Pt still c/o cough, SOB, would like a medication for his cough. Discussed with Abbie Holliday APRN and she recommended pt speak to Dr. Rae Farmer regarding cough. With pt's permission, marketing underwriter called and spoke to Rae Farmer and she will prescribe cough medicine for pt and stated pt should be seen tomorrow if he is not improved. Mag 1.3, pt given 2 gm IV magnesium today.
[2023-09-23 08:45] LABS: Basophils Absolute Auto 0.02 K/uL (0.00-0.30); Basophils Percent Auto 0.4 % (0.0-3.0); Eosinophils Percent Auto 3.7 % (0.0-7.0); Hematocrit 25.7 % (37.0-53.0); Hemoglobin* 8.2 gm/dL (13.5-17.5); Immature Granulocytes Abs Auto 0.08 K/uL (0.00-0.30); Immature Granulocytes Pct Auto 1.5 %; Lymphocytes Absolute Auto 1.31 K/uL (0.90-2.90); Mean Corpuscular HGB Conc 32 gm/dL (32-36); Mean Corpuscular Hemoglobin 23 pg (26-34); Mean Corpuscular Volume 71 fL (80-100); Monocytes Percent Auto 12.6 % (0.0-11.0); Neutrophils Absolute Auto 3.16 K/uL (1.7-7.0); Neutrophils Percent Auto 57.8 % (42.0-72.0); Platelet Count* 118 K/uL (140-440); RDW Coefficient of Variation % 19.4 % (11.5-15.5); White Blood Count* 5.46 K/uL (4.50-11.00)
[2023-09-23 08:48] LABS: Slide Review Reflex No
[2023-09-23 09:01] VITALS: BP 111/67; PULSE 87; RESP 16; TEMP 35.8; O2SAT 99
[2023-09-23 09:04] LABS: Albumin* 3.6 g/dL (3.3-5.0); Chloride* 103 mmol/L (96-114); Potassium* 4.3 mmol/L (3.6-5.1); Sodium* 131 mmol/L (135-149)
[2023-09-23 09:06] LABS: Anion Gap 5 mEq/L (7-15); Carbon Dioxide* 23 mmol/L (20-32); Est. Creatinine Clearance* 70.07; Estimated Glomerular Filt Rate 79 ml/min
[2023-09-23 09:07] LABS: Alanine Aminotransferase* 28 U/L (4-50); Alkaline Phosphatase* 113 U/L (40-150); Aspartate Amino Transferase* 29 U/L (12-35); Blood Urea Nitrogen* 32 mg/dL (7-30); Calcium* 9.2 mg/dL (8.4-10.6); Glucose* 187 mg/dL (60-115)
[2023-09-23 09:08] LABS: Magnesium* 1.2 mg/dL (1.5-2.6)
[2023-09-23] MEDS: dexAMETHasone 4 MG TABLET 20 MG PO (09:30)
--- NOTE | 2023-09-23 11:25 | ONC.NURNOTE ---
fatiqued . states only one loose stool yest am. decrease appetite and taste. enc food that sounds good. made him a ice cream boost shake. reuben well. no s/s bleeding . ls clear. heart reg. mag. 1.2 . Abbie Robbins APRN reviewed pts chart. 1000cc NS with 2gm Mag over 2 hrs given. teaching s/s bleeding and dehydration to pt and . denies sob. dizziness. bleeding today. states just tired of being tired. Pt to take mag nightly.
[2023-09-23] MEDS: DARATUMUMAB-HYALURONIDASE-FIHJ 15 ML SUBCUT (11:54)
[2023-09-23] MEDS: BORTEZOMIB SUBQ 2.5 mg/ml 2.6 MG SUBCUT (11:54)
[2023-09-24 15:49] LABS: Beta-2-Microglob Serum/Plasma 5.5 mg/L (<=3.0)
[2023-09-25 09:38] LABS: Albumin 3.05 g/dL (3.75-5.01); Alpha 1 Globulin 0.38 g/dL (0.19-0.46); Immunofixation IFE Done; Immunoglobulin A 43 mg/dL (68-408); Immunoglobulin G 371 mg/dL (768-1632); Immunoglobulin M 16 mg/dL (35-263); Kappa Qnt Free Light Chains 31.68 mg/L (3.30-19.40); Kappa/Lambda Light Chain Ratio 1.25 (0.26-1.65); Lambda Qnt Free Light Chains 25.39 mg/L (5.71-26.30); Total Protein, Serum 5.2 g/dL (6.3-8.2)
--- NOTE | 2023-09-27 14:01 | ONC.NURNOTE ---
08/26/23 Ok to give Vedcade today with hgb 7.8. Pt receiving 1 unit blood on 08/27/23. Per Abbie Robbins APRN
[2023-10-01 09:04] VITALS: BP 112/66; PULSE 93; RESP 18; TEMP 36.1; O2SAT 99
[2023-10-01 09:11] LABS: Albumin* 3.5 g/dL (3.3-5.0)
[2023-10-01 09:12] LABS: Chloride* 104 mmol/L (96-114); Potassium* 4.8 mmol/L (3.6-5.1); Sodium* 132 mmol/L (135-149)
[2023-10-01 09:13] LABS: Basophils Percent Auto 0.5 % (0.0-3.0); Eosinophils Percent Auto 2.6 % (0.0-7.0); Hematocrit 25.1 % (37.0-53.0); Immature Granulocytes Pct Auto 1.6 %; Lymphocytes Percent Auto 37.2 % (20-44); Mean Corpuscular HGB Conc 31 gm/dL (32-36); Mean Corpuscular Hemoglobin 23 pg (26-34); Mean Corpuscular Volume 73 fL (80-100); Monocytes Percent Auto 16.7 % (0.0-11.0); Neutrophils Percent Auto 41.4 % (42.0-72.0); Platelet Count* 150 K/uL (140-440); RDW Coefficient of Variation % 19.5 % (11.5-15.5); Red Blood Count 3.46 m/uL (4.30-5.90)
[2023-10-01 09:14] LABS: Anion Gap 4 mEq/L (7-15); Aspartate Amino Transferase* 32 U/L (12-35); Bilirubin Total* 0.8 mg/dL (0.1-1.5); Carbon Dioxide* 24 mmol/L (20-32); Est. Creatinine Clearance* 70.07; Estimated Glomerular Filt Rate 79 ml/min; Total Protein* 6.2 g/dL (6.0-8.3)
[2023-10-01 09:15] LABS: Alanine Aminotransferase* 28 U/L (4-50); Alkaline Phosphatase* 94 U/L (40-150); Blood Urea Nitrogen* 24 mg/dL (7-30); Calcium* 9.3 mg/dL (8.4-10.6); Glucose* 234 mg/dL (60-115); Hemoglobin* 7.8 gm/dL (13.5-17.5); Slide Review Reflex Yes
[2023-10-01 09:16] LABS: Slide Review Acceptable Review (Acceptable)
[2023-10-01 09:24] LABS: Magnesium* 1.2 mg/dL (1.5-2.6)
[2023-10-01 10:30] VITALS: BP 114/65; PULSE 77
[2023-10-01 10:31] VITALS: BP 116/66; PULSE 88
[2023-10-01] MEDS: BORTEZOMIB SUBQ 2.5 mg/ml 2.6 MG SUBCUT (12:45)
[2023-10-02 08:46] VITALS: BP 140/72; PULSE 94; RESP 16; TEMP 36.7; O2SAT 100
[2023-10-02 09:05] VITALS: PULSE 83; RESP 16; TEMP 36.2; O2SAT 99
[2023-10-02 09:23] VITALS: BP 131/70; PULSE 84; RESP 16; TEMP 36.6; O2SAT 100
[2023-10-02 10:17] VITALS: BP 131/73; PULSE 79; RESP 16; TEMP 36.2; O2SAT 98
[2023-10-02 11:08] VITALS: BP 123/78; PULSE 78; RESP 16; TEMP 35.8; O2SAT 100
[2023-10-02 12:25] VITALS: BP 144/75; PULSE 82; RESP 16; TEMP 35.9; O2SAT 99
[2023-10-02 14:51] LABS: C.Difficile Negative (Negative); CDIFFEPI 027 PRESUMPTIVE NEGATIVE (Negative)
[2023-10-03 08:30] VITALS: BP 136/84; PULSE 70; RESP 16; TEMP 36.1; O2SAT 100
[2023-10-03 08:33] LABS: Chloride* 107 mmol/L (96-114); Potassium* 4.2 mmol/L (3.6-5.1); Sodium* 134 mmol/L (135-149)
[2023-10-03 08:36] LABS: Anion Gap 8 mEq/L (7-15); Carbon Dioxide* 19 mmol/L (20-32); Est. Creatinine Clearance* 70.07; Estimated Glomerular Filt Rate 79 ml/min
[2023-10-03 08:37] LABS: Blood Urea Nitrogen* 35 mg/dL (7-30); Calcium* 9.2 mg/dL (8.4-10.6); Glucose* 230 mg/dL (60-115); Magnesium* 1.7 mg/dL (1.5-2.6)
--- NOTE | 2023-10-03 09:07 | PC.NURSE ---
Addendum entered by Chaya Thacker RN 10/03/23 09:29: Also of note, Abbie Do APRN entered a [facility] referral for [place]. RN called, referral received, they will call pt later today to schedule initial evaluation. Pt's would like to have home PT, they understand this is likely not going to be an option as [place] is not homebound at this time. They were instructed to call [facility] for home care order IF they get ok from insurance. MARY Leiva would like PT started shae so they will do rehab clinic visits initially at this time. Original Note: Pt present at [facility] for labs after having electrolyte replacement, fluids, and blood this week. All labs look good. No intervention needed. IV removed. Pt is still having some diarrhea, has been using Kaopectate with some/varying relief. Abbie Do APRN recommended that [place] take 2 Imodium each morning but hold if no stool within 24 hours. Pt verbalized understanding. Pt's was also updated and understands.
[2023-10-04 17:32] LABS: Adenovirus PCR Not Detected; Astrovirus PCR Not Detected; Campylobacter PCR Not Detected; Cryptosporidium PCR Not Detected; Cyclospora cayetanensis PCR Not Detected; Entamoeba histolytica PCR Not Detected; Enteroaggregative E coli PCR Not Detected; Enteropathogenic E coli PCR Not Detected; Enterotoxigenic E coli PCR Not Detected; Giardia lamblia PCR Not Detected; Norovirus Gi/GII PCR Not Detected; Plesiomonas shig PCR Not Detected; Rotavirus A PCR Not Detected; Salmonella PCR Not Detected; Sapovirus PCR Not Detected; Shiga toxin E coli PCR Not Detected; Shigella/Enteroinvasive E coli Not Detected; Vibrio PCR Not Detected; Vibrio cholerae PCR Not Detected; Yersinia enterocolitica PCR Not Detected
[2023-10-07 08:39] LABS: Basophils Percent Auto 0.8 % (0.0-3.0); Eosinophils Percent Auto 0.8 % (0.0-7.0); Hematocrit 26.9 % (37.0-53.0); Hemoglobin* 8.6 gm/dL (13.5-17.5); Immature Granulocytes Pct Auto 0.8 %; Lymphocytes Percent Auto 37.3 % (20-44); Mean Corpuscular HGB Conc 32 gm/dL (32-36); Mean Corpuscular Hemoglobin 24 pg (26-34); Mean Corpuscular Volume 74 fL (80-100); Monocytes Percent Auto 8.2 % (0.0-11.0); Neutrophils Percent Auto 52.1 % (42.0-72.0); Platelet Count* 119 K/uL (140-440); RDW Coefficient of Variation % 19.9 % (11.5-15.5); Red Blood Count 3.62 m/uL (4.30-5.90)
[2023-10-07 08:54] LABS: Albumin* 3.6 g/dL (3.3-5.0); Chloride* 100 mmol/L (96-114)
[2023-10-07 08:55] LABS: Potassium* 4.1 mmol/L (3.6-5.1); Sodium* 131 mmol/L (135-149)
[2023-10-07 08:57] LABS: Alkaline Phosphatase* 76 U/L (40-150); Anion Gap 4 mEq/L (7-15); Aspartate Amino Transferase* 32 U/L (12-35); Blood Urea Nitrogen* 19 mg/dL (7-30); Carbon Dioxide* 27 mmol/L (20-32); Est. Creatinine Clearance* 70.07; Estimated Glomerular Filt Rate 79 ml/min; Total Protein* 5.9 g/dL (6.0-8.3)
[2023-10-07 08:58] LABS: Alanine Aminotransferase* 25 U/L (4-50); Calcium* 9.1 mg/dL (8.4-10.6); Glucose* 162 mg/dL (60-115)
[2023-10-07 09:16] LABS: Slide Review Reflex Yes
[2023-10-07 09:17] LABS: Slide Review Acceptable Review (Acceptable)
[2023-10-07] MEDS: DARATUMUMAB-HYALURONIDASE-FIHJ 15 ML SUBCUT (10:42)
[2023-10-07] MEDS: BORTEZOMIB SUBQ 2.5 mg/ml 2.6 MG SUBCUT (10:42)
--- NOTE | 2023-10-11 09:22 | PC.NURSE ---
Pt's , Jasmyne, called today to report that Domingo is extremely weak due to ongoing diarrhea after restarting Revlimid earlier this week. Imodium has not helped. Jasmyne held the Revlimid yesterday and wonders if it's ok to hold and not take any more at this point. Pt's last day of tx would have been 10/14/2023. RN discussed case with Abbie Do APRN who agreed that Domingo should hold Revlimid. It was also ordered that pt should come to [facility] today for labs and IVF. These orders were entered and Jasmyne was updated. She agrees with the plan. They will come today. Support offered.
[2023-10-11 10:32] VITALS: BP 106/63; PULSE 82; RESP 16; TEMP 36.2; O2SAT 99
[2023-10-11 10:33] VITALS: BP 63/38; PULSE 96; RESP 16
[2023-10-11 10:35] LABS: Basophils Percent Auto 1.4 % (0.0-3.0); Hematocrit 27.4 % (37.0-53.0); Hemoglobin* 8.8 gm/dL (13.5-17.5); Immature Granulocytes Pct Auto 6.5 %; Lymphocytes Percent Auto 25.3 % (20-44); Mean Corpuscular HGB Conc 32 gm/dL (32-36); Mean Corpuscular Hemoglobin 24 pg (26-34); Mean Corpuscular Volume 75 fL (80-100); Monocytes Percent Auto 8.7 % (0.0-11.0); Neutrophils Percent Auto 57.1 % (42.0-72.0); Platelet Count* 72 K/uL (140-440); RDW Coefficient of Variation % 19.8 % (11.5-15.5); Red Blood Count 3.68 m/uL (4.30-5.90)
[2023-10-11 10:45] LABS: Chloride* 103 mmol/L (96-114)
[2023-10-11 10:46] LABS: Potassium* 3.4 mmol/L (3.6-5.1); Sodium* 133 mmol/L (135-149)
[2023-10-11 10:48] LABS: Est. Creatinine Clearance* 68.46; Estimated Glomerular Filt Rate 79 ml/min
[2023-10-11 10:49] LABS: Anion Gap 4 mEq/L (7-15); Blood Urea Nitrogen* 23 mg/dL (7-30); Calcium* 8.7 mg/dL (8.4-10.6); Carbon Dioxide* 26 mmol/L (20-32); Glucose* 130 mg/dL (60-115); Magnesium* 1.5 mg/dL (1.5-2.6)
[2023-10-11 10:59] LABS: Slide Review Reflex Yes; White Blood Count* 5.51 K/uL (4.50-11.00)
[2023-10-11] MEDS: 0.9 % SODIUM CHLORIDE 1000 ml 1,000 ML IV (11:00)
[2023-10-11] MEDS: SODIUM CHLORIDE 0.9 % (FLUSH) 10 ML SYRINGE IVF (11:00)
[2023-10-11 11:02] LABS: Slide Review Acceptable Review (Acceptable)
[2023-10-11] MEDS: 0.9 % SODIUM CH + KCL 20 mEq/L 1,000 ML 500 ML IV (12:10)
--- NOTE | 2023-10-11 14:20 | ONC.NURNOTE ---
Addendum entered by Enma Angelo RN 10/11/23 14:48: Pt given the following instructions: Hold Losartan tomorrow (Saturday). ? Resume when BP at least 120/80, using home BP monitor. ? ? Stop Revlimid; do not resume. ? ? Stop Imodium when no stool in 24 hrs.? ?? Recheck labs Saturday at 0830 with possible IVF or transfusion.?? ? Continue Tramadol for pain as needed.? ? Watch for signs of infection and go to ED if: ? *Fever > 100.4? *Worsening sore throat, cough, shortness of breath? *Pain with urination or other signs of infection? *Blood pressure goes low and heart rate goes up? ? *Bleeding, for example ? nosebleed that won?t stop? ? -- blood in urine or stool ? Original Note: Pt here today for labs/possible IVF after receiving call from pt's Jasmyne this morning reporting significant weakness and diarrhea. Pt is significantly orthostatic with sitting BP 106/63, P 82; standing BP 63/38, P 96; pt is weak and lightheaded. Pt began Revlimid Mon 10/06 and diarrhea began that evening and continued until evening. Pt stopped Revlimid Th am. Saturday was the worst for loose stools; pt also had abd pain 5/10 just above umbilicus that would come and go in waves, described as sharp. Pt describes diarrhea as straight water. He reports nausea before eating/drinking occasionally; took ondansetron x 1 this week. ?Pt began imodium q 8 hrs Sat evening. Last loose stool night. Per Dr. Franklin's recommendation, pt avoiding ibuprofen and acetaminophen; began Tramadol this week x 1; worked well. Denies heartburn; takes Protonix daily. Pt is passing gas; lungs clear. Plt 72; pt asymptomatic. Hgb 8.8; with dehydration, concern for false-high. K 3.4. Pt c/o slight sore throat this am, but denies fevers or other s/s infection. Pt is taking the following estimated PO daily: Pedialyte 20 oz Alkaline water 40 oz Water 32 oz [place] juice 8-12 oz Tea, black or herbal ~ 8-12 oz/day 1 bottle Ensure Reviewed with Abbie W. IMPLEMENTATION SERVICES ANALYST. Today gave 2 L NS and 20 mEq KCl IV. T&C to be done before patient leaves to be within 72 hr window of transfusion, if pt's lab recheck indicates low Hgb. Pt to hold Losartan tomorrow morning; resume when BP > 120/80, using home BP monitor. Stop Revlimid; do not resume. Stop Imodium when no stool x 24 hrs. Recheck labs Saturday at 0830 with poss IVF or transfusion. Reviewed s/s sepsis and to go to ED if fever/worsening symptoms in general. Cont Tramadol for pain as needed. Reviewed with pt and ; questions answered.
[2023-10-14 08:56] LABS: Basophils Absolute Auto 0.01 K/uL (0.00-0.30); Basophils Percent Auto 0.2 % (0.0-3.0); Eosinophils Absolute Auto 0.03 K/uL (0.00-0.50); Eosinophils Percent Auto 0.6 % (0.0-7.0); Hematocrit 24.1 % (37.0-53.0); Immature Granulocytes Abs Auto 0.05 K/uL (0.00-0.30); Immature Granulocytes Pct Auto 1.1 %; Lymphocytes Absolute Auto 1.26 K/uL (0.90-2.90); Lymphocytes Percent Auto 26.8 % (20-44); Mean Corpuscular HGB Conc 32 gm/dL (32-36); Mean Corpuscular Hemoglobin 24 pg (26-34); Mean Corpuscular Volume 75 fL (80-100); Monocytes Percent Auto 10.2 % (0.0-11.0); Neutrophils Absolute Auto 2.88 K/uL (1.7-7.0); Neutrophils Percent Auto 61.1 % (42.0-72.0); Platelet Count* 108 K/uL (140-440); RDW Coefficient of Variation % 19.7 % (11.5-15.5); Red Blood Count 3.22 m/uL (4.30-5.90); White Blood Count* 4.71 K/uL (4.50-11.00)
[2023-10-14 09:06] VITALS: BP 117/66; PULSE 64; RESP 16; TEMP 35.8; O2SAT 98
[2023-10-14 09:07] VITALS: BP 102/65; PULSE 68; RESP 16; O2SAT 97
[2023-10-14 09:12] LABS: Chloride* 103 mmol/L (96-114); Potassium* 4.1 mmol/L (3.6-5.1); Sodium* 133 mmol/L (135-149)
[2023-10-14 09:15] LABS: Anion Gap 4 mEq/L (7-15); Blood Urea Nitrogen* 16 mg/dL (7-30); Calcium* 8.4 mg/dL (8.4-10.6); Carbon Dioxide* 26 mmol/L (20-32); Creatinine* 0.9 mg/dL (0.5-1.5); Estimated Glomerular Filt Rate 90 ml/min; Glucose* 139 mg/dL (60-115); Magnesium* 1.1 mg/dL (1.5-2.6)
[2023-10-14 09:24] LABS: Hemoglobin* 7.6 gm/dL (13.5-17.5); Slide Review Reflex Yes
[2023-10-14] MEDS: 0.9 % SODIUM CHLORIDE 250 ml IV (10:04)
[2023-10-14] MEDS: SODIUM CHLORIDE 0.9 % (FLUSH) 10 ML SYRINGE IVF (10:04)
[2023-10-14 12:49] VITALS: BP 111/64; PULSE 65; RESP 18; TEMP 36.3; O2SAT 100
[2023-10-14 13:08] VITALS: BP 111/64; PULSE 66; RESP 16; TEMP 36.3; O2SAT 99
[2023-10-14 13:53] VITALS: BP 116/76; PULSE 70; RESP 16; TEMP 36.4; O2SAT 97
[2023-10-14 14:53] VITALS: BP 124/69; PULSE 68; RESP 16; TEMP 36.3; O2SAT 99
[2023-10-15 00:58] LABS: Slide Review Acceptable Review (Acceptable)
[2023-10-16 09:46] LABS: Hemoglobin* 9.5 gm/dL (13.5-17.5)
[2023-10-16 09:53] VITALS: BP 126/76; PULSE 70; RESP 16; TEMP 36.6; O2SAT 99
[2023-10-16 09:54] VITALS: BP 96/57; PULSE 71; O2SAT 98
[2023-10-16 10:02] LABS: Chloride* 106 mmol/L (96-114); Potassium* 4.6 mmol/L (3.6-5.1); Sodium* 136 mmol/L (135-149)
[2023-10-16 10:05] LABS: Anion Gap 5 mEq/L (7-15); Blood Urea Nitrogen* 18 mg/dL (7-30); Carbon Dioxide* 25 mmol/L (20-32); Creatinine* 0.9 mg/dL (0.5-1.5); Est. Creatinine Clearance* 70.07; Estimated Glomerular Filt Rate 90 ml/min; Glucose* 176 mg/dL (60-115)
[2023-10-16 10:06] LABS: Magnesium* 1.5 mg/dL (1.5-2.6)
--- NOTE | 2023-10-18 08:24 | ONC.NURNOTE ---
Patients called stating patient is feeling good today and doesn't feel he needs to come in for labs and fluids. Has PT this morning. Wants to come in Saturday for labs and fluids. Ran passed our PET HANDLER and she is okay with him waiting until Saturday but no later than saturday. Appointment was made and patients agreed with plan.
== END 2023-10-20 23:59 | disposition home or self-care (01) ==
LOC: CCIC 08:30
PROVIDERS: Internal Medicine Hematology & Oncology; PCP Physician Assistant Medical; Referring Provider Physician Assistant Medical; Visit Provider Clinical Nurse Specialist
DX: C90.00 Multiple myeloma not having achieved remission (principal); D56.1 Beta thalassemia; D64.9 Anemia, unspecified; E83.42 Hypomagnesemia
CPT/HCPCS: 36415; 36430; 80048; 80053; 82232; 82270; 82533; 82607; 82668; 82728; 82746; 82784; 83520; 83540; 83550; 83615; 83735; 84153; 84155; 84156; 84165; 85018; 85025; 86334; 86335; 86850; 86870; 86880; 86900; 86901; 86902; 86904; 86922; 86970; 87493; 87505; 96360; 96361; 96365; 96366; 96374; 96376; 96401; 96411; 97802; 99202; 99205; 99211; 99214; 99215; G0463; J9144; A9270; J1100; J3475; J7030; J7050; J9041; P9016

== ENCOUNTER 2023-10-22 09:00 | Outpatient (RCR) | payer BC, SELFPAY ==
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
== END 2024-01-09 10:55 | disposition home or self-care (01) ==
PROVIDERS: PCP Physician Assistant Medical; Visit Provider Clinical Nurse Specialist
DX: Z91.81 History of falling (principal); D49.89 Neoplasm of unspecified behavior of other specified sites; Z51.89 Encounter for other specified aftercare; R53.83 Other fatigue
CPT/HCPCS: 97110; 97162

== ENCOUNTER → 2024-04-13 08:05 | Outpatient (RCR) | payer BC, SELFPAY ==
[2023-10-21 09:00] VITALS: BP 122/71; PULSE 67; RESP 16; TEMP 36.2; O2SAT 99
[2023-10-21 09:22] LABS: Albumin* 3.8 g/dL (3.3-5.0); Chloride* 102 mmol/L (96-114)
[2023-10-21 09:23] LABS: Potassium* 4.3 mmol/L (3.6-5.1); Sodium* 134 mmol/L (135-149)
[2023-10-21 09:25] LABS: Anion Gap 5 mEq/L (7-15); Aspartate Amino Transferase* 27 U/L (12-35); Bilirubin Total* 0.9 mg/dL (0.1-1.5); Blood Urea Nitrogen* 18 mg/dL (7-30); Carbon Dioxide* 27 mmol/L (20-32); Creatinine* 1.1 mg/dL (0.5-1.5); Estimated Glomerular Filt Rate 71 ml/min; Total Protein* 5.8 g/dL (6.0-8.3)
[2023-10-21 09:26] LABS: Alanine Aminotransferase* 21 U/L (4-50); Alkaline Phosphatase* 80 U/L (40-150); Calcium* 9.5 mg/dL (8.4-10.6); Glucose* 161 mg/dL (60-115); Magnesium* 1.2 mg/dL (1.5-2.6)
--- NOTE | 2023-10-21 13:19 | ONC.NURNOTE ---
Domingo states diarrhea better. One loose stool this am.states ate well yest and had a good day. orthostatics wnl. denies sob or lightheaded. seeing eye doctor for lt eye lid inflalmation. red wollen no drainage noticed of lid. mag 1.2 4 gm mag given over 2 hrs .
[2023-10-25 09:15] VITALS: BP 122/68; PULSE 64; RESP 16; TEMP 36.2; O2SAT 99
[2023-10-25 09:17] VITALS: BP 110/64; PULSE 64; RESP 97
[2023-10-25 09:18] LABS: Magnesium* 1.2 mg/dL (1.5-2.6)
[2023-10-25 09:20] LABS: Basophils Percent Auto 0.5 % (0.0-3.0); Eosinophils Percent Auto 1.9 % (0.0-7.0); Hematocrit 29.6 % (37.0-53.0); Hemoglobin* 9.2 gm/dL (13.5-17.5); Immature Granulocytes Pct Auto 0.2 %; Lymphocytes Percent Auto 36.8 % (20-44); Mean Corpuscular HGB Conc 31 gm/dL (32-36); Mean Corpuscular Hemoglobin 24 pg (26-34); Mean Corpuscular Volume 76 fL (80-100); Monocytes Percent Auto 10.2 % (0.0-11.0); Neutrophils Percent Auto 50.4 % (42.0-72.0); Platelet Count* 222 K/uL (140-440); RDW Coefficient of Variation % 17.3 % (11.5-15.5); Red Blood Count 3.89 m/uL (4.30-5.90); White Blood Count* 4.13 K/uL (4.50-11.00)
[2023-10-25 09:29] LABS: Slide Review Reflex No
[2023-10-25] MEDS: MAGNESIUM SULFATE 2 GM/50 ML PIGGYBACK IVPB (09:55)
--- NOTE | 2023-10-31 08:32 | ONC.NURNOTE ---
Magnesium ran in over 2 hrs. unable to document on MAR
[2023-11-04 09:30] VITALS: BP 143/72; PULSE 69; RESP 18; TEMP 36.5; O2SAT 99
[2023-11-04 09:48] LABS: Magnesium* 1.2 mg/dL (1.5-2.6)
[2023-11-04] MEDS: MAGNESIUM IV 2 GM/50 ML PIGGYBACK IVPB (10:24)
--- NOTE | 2023-11-04 10:37 | ONC.NURNOTE ---
Per pt [facility] BMT team had pt stop taking Bactrim; med list updated.
--- NOTE | 2023-11-11 09:48 | ONC.NURNOTE ---
Pt did not show up for lab appt and possible electrolyte replacement. Left message with pt's spouse to call back and reschedule.
[2023-11-12 09:29] LABS: Chloride* 101 mmol/L (96-114); Potassium* 4.9 mmol/L (3.6-5.1); Sodium* 132 mmol/L (135-149)
[2023-11-12 09:32] LABS: Anion Gap 9 mEq/L (7-15); Blood Urea Nitrogen* 18 mg/dL (7-30); Carbon Dioxide* 22 mmol/L (20-32); Creatinine* 1.1 mg/dL (0.5-1.5); Estimated Glomerular Filt Rate 71 ml/min; Glucose* 224 mg/dL (60-115)
[2023-11-12 09:33] LABS: Calcium* 9.5 mg/dL (8.4-10.6)
[2023-11-12 09:49] VITALS: BP 147/74; PULSE 61; RESP 16; TEMP 35.9; O2SAT 98
[2023-11-12] MEDS: MAGNESIUM IV 4 GM/100 ML PIGGYBACK IVPB (10:10)
[2023-11-12] MEDS: 0.9 % SODIUM CHLORIDE 250 ml IV (10:36)
[2023-11-12] MEDS: SODIUM CHLORIDE 0.9 % (FLUSH) 10 ML SYRINGE IVF (10:36)
--- NOTE | 2023-11-12 12:53 | PC.NURSE ---
Pt present at [facility] for labs. Mg 1.0 today. Obtained orders for Mg replacement. Pt agreeable. Domingo will be heading to [place] on as his transplant process starts on Saturday. He will return to [facility] on Saturday (tomorrow) for Mg recheck and possible replacement. RN on Saturday please fax labs and MAR on Saturday to [facility] team to communicate care given on & Saturday.
[2023-11-13 10:15] LABS: Magnesium* 1.4 mg/dL (1.5-2.6)
[2023-11-13 10:22] LABS: Basophils Absolute Auto 0.02 K/uL (0.00-0.30); Basophils Percent Auto 0.3 % (0.0-3.0); Eosinophils Percent Auto 1.7 % (0.0-7.0); Hemoglobin* 9.6 gm/dL (13.5-17.5); Immature Granulocytes Abs Auto 0.02 K/uL (0.00-0.30); Immature Granulocytes Pct Auto 0.3 %; Lymphocytes Absolute Auto 1.67 K/uL (0.90-2.90); Lymphocytes Percent Auto 27.7 % (20-44); Mean Corpuscular HGB Conc 31 gm/dL (32-36); Mean Corpuscular Hemoglobin 23 pg (26-34); Mean Corpuscular Volume 73 fL (80-100); Monocytes Percent Auto 7.5 % (0.0-11.0); Neutrophils Absolute Auto 3.77 K/uL (1.7-7.0); Neutrophils Percent Auto 62.5 % (42.0-72.0); Platelet Count* 222 K/uL (140-440); RDW Coefficient of Variation % 16.1 % (11.5-15.5); Red Blood Count 4.25 m/uL (4.30-5.90); White Blood Count* 6.03 K/uL (4.50-11.00)
[2023-11-13 10:27] LABS: Slide Review Reflex No
[2023-11-13 10:58] VITALS: BP 134/69; PULSE 66; TEMP 36.4; O2SAT 98
--- NOTE | 2023-11-13 12:00 | ONC.NURNOTE ---
Patient here for BMP recheck and magnesium up to 1.4. Patient states he hasn't had diarrhea or loose stools for 2 weeks and feels he's eating better and prefers not to stay for magnesium. Mechanic Insulator let him know how important it was that he be in good shape on Saturday going into stem cell transplant and his stated that the MD in [place] said they could correct his Magnesium then if he was low. Patient and left with 8 bottles of ensure and will give him extra over the next 2 days.
--- NOTE | 2023-11-19 15:22 | ONC.NURNOTE ---
[employer] Disability Forms received Graduate Engineer phoned [facility]- Dr Adam's office- they will complete the forms for patient faxed to [phone]- Attention Dr Adam
--- NOTE | 2023-12-19 13:35 | ONC.NURNOTE ---
Prescription refill requests from [facility] for sulfa, calcium/D3 and tramadol [facility] informed that patient under care of BMT team at [place] and refills should be directed to that department ph [phone]
== END | disposition home or self-care (01) ==
LOC: CCIC 10-21 08:41
PROVIDERS: Clinical Nurse Specialist; PCP Physician Assistant Medical; Referring Provider Physician Assistant Medical; Visit Provider Internal Medicine Hematology & Oncology
DX: C90.00 Multiple myeloma not having achieved remission (principal); D56.1 Beta thalassemia; D47.2 Monoclonal gammopathy; R97.20 Elevated prostate specific antigen [PSA]; G62.0 Drug-induced polyneuropathy; N18.9 Chronic kidney disease, unspecified; D64.9 Anemia, unspecified; D49.89 Neoplasm of unspecified behavior of other specified sites; E11.9 Type 2 diabetes mellitus without complications; Z79.4 Long term (current) use of insulin; Z79.82 Long term (current) use of aspirin
CPT/HCPCS: 36415; 80048; 80053; 83735; 85025; 96365; 96366; 99211; 99215; G0463; J3475; J7050

== ENCOUNTER 2024-08-25 09:18 | Outpatient (CLI) | payer BC, SELFPAY ==
[2024-08-25 09:28] VITALS: BP 129/70; PULSE 98; RESP 16; O2SAT 97; BMI 23.6
[2024-08-25 10:55] VITALS: BP 103/63; PULSE 91; RESP 16; O2SAT 94
--- NOTE | 2024-08-25 10:57 | P.ANES_ITS ---
Anesthesia Charges Start Date/Time Anesthesia Start Date: 08/25/24 Anesthesia Start Time: 10:34 Stop Date/Time Anesthesia Stop Date: 08/25/24 Anesthesia Stop Time: 10:55 Summary Extremes of Age - Over 70 or under 1: NEGATIVE ASSEMBLER Coding CPT Codes CPT Codes: ANESTH BONE ASPIRATE/BX - 22395 ([id number]) P3 - PATIENT W/SEVERE SYS DISEASE, QZ - NEGATIVE ASSEMBLER SVC W/O ELECTRIC TRUCK DRIVER BY Additional Codes: Summary - Extremes of Age - Over 70 or under 1: NEGATIVE ASSEMBLER ([id number])
--- NOTE | 2024-08-25 10:57 | W.ANESCHARGE ---
Anesthesia Charges Start Date/Time Anesthesia Start Date: 08/25/24 Anesthesia Start Time: 10:34 Stop Date/Time Anesthesia Stop Date: 08/25/24 Anesthesia Stop Time: 10:55 Summary Extremes of Age - Over 70 or under 1: SERVICE SPECIALIST Coding CPT Codes CPT Codes: ANESTH BONE ASPIRATE/BX - 61394 ([id number]) P3 - PATIENT W/SEVERE SYS DISEASE, QZ - SERVICE SPECIALIST SVC W/O DIE MAKER APPRENTICE BY Additional Codes: Summary - Extremes of Age - Over 70 or under 1: SERVICE SPECIALIST ([id number])
[2024-08-25 11:05] VITALS: BP 100/63; PULSE 84; RESP 16; O2SAT 95
[2024-08-25 11:09] LABS: Basophils Absolute Auto 0.03 K/uL (0.00-0.30); Basophils Percent Auto 0.4 % (0.0-3.0); Eosinophils Percent Auto 11.3 % (0.0-7.0); Hematocrit 31.4 % (37.0-53.0); Hemoglobin* 9.8 gm/dL (13.5-17.5); Immature Granulocytes Abs Auto 0.03 K/uL (0.00-0.30); Immature Granulocytes Pct Auto 0.4 %; Lymphocytes Absolute Auto 3.12 K/uL (0.90-2.90); Mean Corpuscular HGB Conc 31 gm/dL (32-36); Mean Corpuscular Hemoglobin 22 pg (26-34); Mean Corpuscular Volume 70 fL (80-100); Monocytes Percent Auto 6.4 % (0.0-11.0); Neutrophils Absolute Auto 3.41 K/uL (1.7-7.0); Neutrophils Percent Auto 42.5 % (42.0-72.0); Platelet Count* 160 K/uL (140-440); RDW Coefficient of Variation % 22.3 % (11.5-15.5); Reticulocyte Hemoglobin Equivi 22.5 pg (29.0-35.0); Reticulocyte Percent 0.9 % (0.5-2.0); Reticulocytes Absolute 0.04 # (0.03-0.08)
[2024-08-25 11:13] LABS: Slide Review Reflex No
[2024-08-25 11:16] VITALS: BP 110/68; PULSE 81; RESP 16; O2SAT 98
[2024-08-25 11:25] VITALS: BP 127/75; PULSE 81; RESP 16; O2SAT 96
== END 2024-08-25 11:29 | disposition home or self-care (01) ==
PROVIDERS: PCP Physician Assistant Medical; Visit Provider Internal Medicine Hematology & Oncology
DX: C90.00 Multiple myeloma not having achieved remission (principal); D56.3 Thalassemia minor; D50.9 Iron deficiency anemia, unspecified; I12.9 Hypertensive chronic kidney disease with stage 1 through stage 4 chronic kidney disease, or unspecified chronic kidney disease; E11.22 Type 2 diabetes mellitus with diabetic chronic kidney disease; N18.32 Chronic kidney disease, stage 3b
CPT/HCPCS: 01112; 36415; 38222; 82962; 85025; 85045; 88184; 88185; 88305; 88311; 88313; 88360; 99100; J1644; J2003; J2704

== ENCOUNTER 2024-09-02 12:56 | Inpatient (IN) | payer BC, SELFPAY ==
[2024-09-02] VITALS (39 sets, daily range): BP systolic 83–161; BP diastolic 49–118; PULSE 88–126; RESP 12–85; TEMP 36.8–39.4; O2SAT 93–99; BMI 22.0; BMI 24.8
--- NOTE | 2024-09-02 13:39 | ED_ITS ---
HPI - General Adult General Chief complaint: Weakness Stated complaint: cough and possible dehydrated Time Seen by Provider: 09/02/24 13:24 History of Present Illness HPI narrative: Pt traveled to [facility], [place] in July , returned on July 13. Symptoms started 2 weeks prior to travel back to . Pt has cough, fevers, trembling/ shaking, weakness. Fevers come more in the evenings, as well as night sweats. Has lost approx 20lbs since traveling. Met with Oncologist after return to [place], treated for possible pneumonia, given Symbicort inhaler. Seen at the clinic yesterday, had chest xray done . Pt is also diabetic, sugars have not been well?controlled. Dx Multiple Myeloma. 73-year-old man presenting to the emergency department with weakness and arrives with a temperature of 102.9?. History of multiple myeloma diabetes. Became sick with a cough couple of days into his travel to [facility], [place] on July 13 now maybe 6 weeks ago. Cough has persisted. Over the last week has been experiencing shaking chills at home. Has trouble talking with these episodes. Has had elevated temperature but not measured a fever until today and so presents here. Has had night sweats in the evenings over this last week as well. Losing weight. Sleep has been poor. No rashes. No diarrhea. No abdominal pain. No dysuria. Seen in primary care yesterday and prescribed doxycycline and Tessalon Perles. Chest x-ray was without infectious or acute findings. Takes twice daily acyclovir. 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 Related Data Home Medications ?Medication ?Instructions ?Recorded ?Confirmed aspirin 81 mg tablet,delayed 81 mg PO DAILY 12/25/21 09/02/24 release (Adult Aspirin Regimen) multivitamin with minerals-ferrous 1 tab PO DAILY 04/24/22 09/02/24 sulfate 4.5 mg iron tablet (One Daily Multivitamins with Minerals) insulin lispro 100 unit/mL 1 sliding scale dose subcut 07/31/23 09/02/24 subcutaneous pen (Humalog KwikPen USEASDIRECTD (U-100) Insulin) polyethylene glycol 3350 17 gram 17 g PO DAILY PRN 10/07/23 09/02/24 oral powder packet (Miralax) loperamide 2 mg capsule 2 mg PO Q8H PRN 10/11/23 09/02/24 (Anti-Diarrheal (loperamide)) magnesium chloride 64 mg 64 mg PO DAILY low magnesium 04/13/24 09/02/24 (magnesium chloride) tablet,delayed release pregabalin 75 mg capsule 75 mg PO BID 04/15/24 09/02/24 trihexyphenidyl 2 mg tablet 2 mg PO DAILY 04/15/24 09/02/24 penicillin V potassium 500 mg 500 mg PO BID 08/10/24 09/02/24 tablet acyclovir 400 mg tablet 400 mg PO BID 08/17/24 09/02/24 insulin glargine-yfgn 100 unit/mL 25 unit subcut DAILY 09/02/24 09/02/24 (3 mL) subcutaneous pen losartan 50 mg tablet 50 mg PO DAILY 09/02/24 09/02/24 mirtazapine 30 mg tablet (Remeron) 30 mg PO HS 09/02/24 09/02/24 Previous Rx's ?Medication ?Instructions ?Recorded blood sugar diagnostic (Contour #100 ea 10/31/22 Next Test Strips) lancets (Microlet Lancet) #200 ea 10/31/22 aluminum-mag hydroxide-simethicone 10 ml PO BID PRN indigestion #240 07/22/23 400 mg-400 mg-40 mg/5 mL oral susp mL (Maalox Maximum Strength) calcium 600 mg (as carbonate)-vit 1 tab PO BID #60 tabs 10/02/23 D3 10 mcg (400 unit)-minerals tablet atorvastatin 10 mg tablet 10 mg PO DAILY #90 tabs 02/24/24 pantoprazole 40 mg tablet,delayed 40 mg PO DAILY #90 tabs 02/24/24 release codeine 10 mg-guaifenesin 100 mg/5 5 ml PO Q4-6H PRN cough #120 mL 08/10/24 mL oral liquid budesonide-formoterol HFA 160 2 puff inhalation BID #10.2 grams 09/01/24 mcg-4.5 mcg/actuation aerosol inhaler (Symbicort) benzonatate 100 mg capsule 100 mg PO TID PRN cough #30 caps 09/02/24 sulfamethoxazole 800 1 tab PO BID #20 tabs 09/07/24 mg-trimethoprim 160 mg tablet (Bactrim DS) Allergies Allergy/AdvReac Type Severity Reaction Status Date / Time No Known Drug Allergies Allergy Verified 09/01/24 11:05 Review of Systems Status of ROS: Reports: 6 or more systems reviewed and unremarkable except as noted in History and below [facility] Medical History (Updated 09/06/24 @ 16:40 by Jacob Dunne MD) BPH loc w urin obs/LUTS ?N40.1 - Benign prostatic hyperplasia with lower urinary tract symptoms (ICD- 10) Multiple myeloma in remission ?C90.01 - Multiple myeloma in remission (ICD-10) Tubular adenoma of colon ?D12.6 - Benign neoplasm of colon, unspecified (ICD-10) Intractable hiccups ?R06.6 - Hiccough (ICD-10) Urolithiasis ?N20.9 - Urinary calculus, unspecified (ICD-10) Chest pain ?R07.9 - Chest pain, unspecified (ICD-10) Foot ulcer ?L97.509 - Non-pressure chronic ulcer of other part of unspecified foot with unspecified severity (ICD-10) Stomach ulcer ?K25.9 - Gastric ulcer, unspecified as acute or chronic, without hemorrhage or perforation (ICD-10) Ulcer of toe ?L97.509 - Non-pressure chronic ulcer of other part of unspecified foot with unspecified severity (ICD-10) Tremor ?R25.1 - Tremor, unspecified (ICD-10) Normal nuclear stress test Multiple gallstones ?K80.20 - Calculus of gallbladder without cholecystitis without obstruction (ICD-10) History of renal calculi ?Z87.442 - Personal history of urinary calculi (ICD-10) Acute kidney injury ?N17.9 - Acute kidney failure, unspecified (ICD-10) Surgical History History of colonoscopy ?Z98.890 - Other specified postprocedural states (ICD-10) History of ankle surgery ?Z98.890 - Other specified postprocedural states (ICD-10) History of shoulder surgery ?Z98.890 - Other specified postprocedural states (ICD-10) History of lithotripsy ?Z98.890 - Other specified postprocedural states (ICD-10) History of endoscopy ?Z98.890 - Other specified postprocedural states (ICD-10) Family History Other Benign essential tremor Parkinson disease Social History (Updated 09/02/24 @ 18:42 by Frankie Saenz MD) Narrative: Social history is negative for drinking or smoking; he works at [employer]. . 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 Code status is full. Never a smoker but secondhand smoke at the [employer]. Does not drink alcohol. What is your current living situation?: I presently have a place to live Problems where you live: no known problems Problems where you live details: none In the past 12 months, utilities in danger of being shut off: no In past 12 months, lack of transportation kept you from medical appts, meetings, work, or getting things needed for daily living: no In the past 12 mos, have been you worried that your food would run out before you had money to buy more?: never true In the past 12 mos, the food you bought just didn't last and you didn't have money to buy more?: never true Highest level of school completed/degree received: high school graduate Smoking Status: Never smoker Do you use any of these nicotine containing products: None How often do you have a drink containing alcohol: never How often do you have six or more drinks on one occasion: Never AUDIT-C Alcohol total score: 0 Non-prescribed substance use: denies use Caffeine: Yes How often does anyone, including family, friends and others, physically hurt you : never How often does anyone, including family, friends and others, insult or talk down to you: never How often does anyone, including family, friends and others, threaten you with harm: never How often does anyone, including family, friends and others, scream or curse at you: never Exam Narrative: Exam Narrative: Pleasant. Seems uncomfortable. Damp cloth on his forehead. Mildly labored and tachypneic in his breathing. Lungs appear to be clear though. Oropharynx is a little sticky. He is a little tremulous generally. Abdomen is soft nontender. Heart is tachycardic. Extremities are well perfused and without edema. Const: Vital Signs, click to edit/add: Vital Signs - 24 hr 09/02/24 13:11 09/02/24 13:56 09/02/24 13:56 Temperature 102.9 F H Pulse Rate 116 H Pulse Rate [Pulse Oximeter] 126 H Respiratory Rate 28 H 33 H Blood Pressure Blood Pressure [Ri ght Upper Arm] 147/71 H Pulse Oximetry 97 96 95 Oxygen Delivery Me thod Room Air 09/02/24 14:01 09/02/24 14:02 09/02/24 14:23 Temperature Pulse Rate 117 H 116 H 121 H Pulse Rate [Pulse Oximeter] Respiratory Rate 43 H 28 H Blood Pressure 152/76 H Blood Pressure [Ri ght Upper Arm] Pulse Oximetry 96 97 97 Oxygen Delivery Me thod 09/02/24 14:24 09/02/24 14:30 09/02/24 14:41 Temperature Pulse Rate 119 H 113 H 119 H Pulse Rate [Pulse Oximeter] Respiratory Rate 45 H 33 H 16 Blood Pressure 103/70 144/118 H Blood Pressure [Ri ght Upper Arm] Pulse Oximetry 94 96 96 Oxygen Delivery Me thod 09/02/24 14:45 09/02/24 15:00 09/02/24 15:01 Temperature Pulse Rate 117 H 110 H 112 H Pulse Rate [Pulse Oximeter] Respiratory Rate 35 H 31 H 33 H Blood Pressure 105/58 L Blood Pressure [Ri ght Upper Arm] Pulse Oximetry 95 99 99 Oxygen Delivery Me thod 09/02/24 15:02 09/02/24 15:09 09/02/24 15:11 Temperature 101.9 F H 101.9 F H Pulse Rate 111 H Pulse Rate [Pulse Oximeter] Respiratory Rate 30 H Blood Pressure Blood Pressure [Ri ght Upper Arm] Pulse Oximetry 98 Oxygen Delivery Me thod 09/02/24 15:15 09/02/24 15:22 09/02/24 15:30 Temperature Pulse Rate 117 H 113 H 106 H Pulse Rate [Pulse Oximeter] Respiratory Rate 38 H 15 21 Blood Pressure 110/66 Blood Pressure [Ri ght Upper Arm] Pulse Oximetry 99 96 96 Oxygen Delivery Me thod 09/02/24 15:41 09/02/24 15:45 09/02/24 16:00 Temperature Pulse Rate 102 H 102 H 101 H Pulse Rate [Pulse Oximeter] Respiratory Rate 85 H 12 44 H Blood Pressure 108/60 Blood Pressure [Ri ght Upper Arm] Pulse Oximetry 96 95 97 Oxygen Delivery Me thod 09/02/24 16:01 Temperature Pulse Rate 98 Pulse Rate [Pulse Oximeter] Respiratory Rate 25 H Blood Pressure 114/68 Blood Pressure [Ri ght Upper Arm] Pulse Oximetry 97 Oxygen Delivery Me thod Documenting provider has reviewed patient's vital signs: yes Course Vital Signs Vital signs: Initial Vital Signs Temperature 102.9 F H 09/02/24 13:11 Temperature Source Oral 09/02/24 13:11 Pulse Rate 126 H 09/02/24 13:11 Respiratory Rate 28 H 09/02/24 13:11 Blood Pressure 147/71 H 09/02/24 13:11 Blood Pressure Mean 96 09/02/24 13:11 Blood Pressure Position Sitting 09/02/24 13:11 Pulse Oximetry 97 09/02/24 13:11 Oxygen Delivery Method Room Air 09/02/24 13:11 Vital Signs Temperature 102.9 F H 09/02/24 13:11 Pulse Rate 126 H 09/02/24 13:11 Respiratory Rate 28 H 09/02/24 13:11 Blood Pressure 147/71 H 09/02/24 13:11 Pulse Oximetry 97 09/02/24 13:11 Oxygen Delivery Method Room Air 09/02/24 13:11 Temperature 97.9 F 09/07/24 10:41 Pulse Rate 72 09/07/24 10:41 Respiratory Rate 14 09/07/24 10:41 Blood Pressure 169/84 H 09/07/24 10:41 Pulse Oximetry 99 09/07/24 10:41 Oxygen Delivery Method Room Air 09/07/24 10:41 Medications Administered Medications: Discontinued Medications Generic Name Dose Route Start Last Admin Trade Name Freq PRN Reason Stop Dose Admin Acetaminophen 1,000 mg 09/02/24 13:56 09/02/24 14:26 Acetaminophen 500 Mg Tablet PO 09/02/24 13:57 1,000 mg ONCE ONE Administration Acetaminophen 650 mg 09/02/24 17:55 09/06/24 22:51 Acetaminophen 325 Mg Tablet PO 650 mg Q4H PRN Administration Acetaminophen 1,000 mg 09/04/24 07:16 09/04/24 08:16 Acetaminophen 500 Mg Tablet PO 09/04/24 07:17 1,000 mg ONCE ONE Administration Acyclovir 400 mg 09/02/24 21:00 09/07/24 08:36 Acyclovir 200 Mg Capsule PO 400 mg BID JEWELL Administration Albuterol/Ipratropium 1 neb 09/02/24 17:55 09/04/24 22:03 Iprat-Albut 0.5-2.5 Mg/3 Ml Neb IH 1 neb Q4H PRN Administration Aspirin 81 mg 09/03/24 09:00 09/07/24 09:00 Aspirin 81 Mg Tablet Ec PO 81 mg DAILY JEWELL Administration Atorvastatin Calcium 10 mg 09/03/24 09:00 09/07/24 08:37 Atorvastatin Calcium 10 Mg Tablet PO 10 mg DAILY JEWELL Administration Azithromycin 500 mg 09/02/24 21:00 09/06/24 21:00 Azithromycin 250 Mg Tablet PO 500 mg Q24H JEWELL Administration Benzocaine/Menthol 1 each 09/02/24 18:09 09/04/24 12:33 Benzocaine/Menthol 1 Each Lozenge MUCOUS MEM 1 each Q1H PRN Administration Benzonatate 100 mg 09/02/24 18:01 09/07/24 10:38 Benzonatate 100 Mg Capsule PO 100 mg TID PRN Administration cough Enoxaparin Sodium 30 mg 09/02/24 21:00 09/06/24 21:09 Enoxaparin 30 Mg/0.3ml Inj SUBCUT 30 mg Q24H JEWELL Administration Guaifenesin/Codeine Phosphate 10 ml 09/02/24 21:00 09/06/24 21:02 Guaif/Codeine 200/20mg/10 Ml Solution PO 10 ml HS JEWELL Administration Guaifenesin/Codeine Phosphate 10 ml 09/05/24 10:11 09/07/24 07:44 Guaif/Codeine 200/20mg/10 Ml Solution PO 10 ml Q4H PRN Administration Sodium Chloride 1,000 mls @ 1,000 mls/hr 09/02/24 13:56 09/02/24 14:31 0.9 % Sodium Chloride 1000 Ml IV 09/02/24 14:55 Infused .Q1H ONE Infusion Lactated Ringer's 1,000 mls @ 1,000 mls/hr 09/02/24 15:30 09/02/24 17:03 Lactated Ringers 1000 Ml IV 09/02/24 16:29 Infused .Q1H ONE Infusion Magnesium Sulfate/Dextrose 1 gm in 100 mls @ 100 mls/hr 09/02/24 15:45 09/02/24 17:03 Magnesium Sulf 1 G/100 Ml-D5w IVPB 09/02/24 16:44 Infused ONCE ONE Infusion Piperacillin Sod/Tazobactam 100 mls @ 200 mls/hr 09/02/24 16:29 09/02/24 17:03 Sod 3.375 gm/ Sodium Chloride IVPB 09/02/24 16:30 Infused ONCE ONE Infusion Magnesium Sulfate 4 gm in 100 mls @ 25 mls/hr 09/02/24 18:00 09/02/24 21:45 Magnesium Iv IVPB 09/02/24 21:59 Infused ONCE ONE Infusion Lactated Ringer's 1,000 mls @ 500 mls/hr 09/02/24 18:08 09/02/24 20:45 Lactated Ringers 1000 Ml IV 09/02/24 20:07 Infused .Q2H JEWELL Infusion Lactated Ringer's 1,000 mls @ 75 mls/hr 09/02/24 18:10 09/03/24 19:49 Lactated Ringers 1000 Ml IV Infused .[id number] JEWELL Infusion Vancomycin/PEG/NADA/Lysine/Water 1.75 gm in 350 mls @ 200 mls/hr 09/02/24 20:30 09/02/24 22:39 Vancomycin 1.75 Gm/350 Ml IVPB 09/02/24 22:14 Infused ONCE ONE Infusion Protocol Piperacillin Sod/Tazobactam 100 mls @ 200 mls/hr 09/02/24 23:00 09/04/24 12:10 Sod 3.375 gm/ Sodium Chloride IVPB Infused Q6H JEWELL Infusion Lactated Ringer's 500 mls @ 500 mls/hr 09/02/24 20:43 09/02/24 22:05 Lactated Ringers 500 Ml IV 09/02/24 21:42 Infused .Q1H ONE Infusion Lactated Ringer's 1,000 mls @ 125 mls/hr 09/02/24 23:08 09/03/24 19:48 Lactated Ringers 1000 Ml IV Infused .Q8H JEWELL Infusion Vancomycin/PEG/NADA/Lysine/Water 1 gm in 200 mls @ 200 mls/hr 09/04/24 09:00 09/05/24 11:11 Vancomycin 1 Gm/200 Ml IVPB Infused DAILY JEWELL Infusion Dextrose/Lactated Ringer's 1,000 mls @ 125 mls/hr 09/03/24 23:41 09/04/24 10:03 5 % Dextrose In Lac Ringer's IV 09/04/24 07:40 Infused .Q8H JEWELL Infusion Ceftriaxone Sodium 2 gm/ 100 mls @ 200 mls/hr 09/04/24 13:00 09/06/24 15:15 Sodium Chloride IVPB Infused Q24H JEWELL Infusion Ceftriaxone Sodium 2 gm/ 100 mls @ 200 mls/hr 09/07/24 12:50 09/07/24 14:24 Sodium Chloride IVPB 09/07/24 12:51 200 mls/hr ONCE ONE Administration Insulin Aspart 0 unit 09/02/24 21:00 09/07/24 12:23 Insulin Aspart 100 Unit/Ml SUBCUT 4 unit ACHS JEWELL Administration Protocol Insulin Aspart 6 unit 09/03/24 08:00 09/07/24 12:24 Insulin Aspart 100 Unit/Ml SUBCUT 6 unit TIDWM JEWELL Administration Insulin Glargine 8 unit 09/02/24 21:00 09/06/24 21:03 Insulin Glargine,Hum.Rec.Anlog 100 Unit/Ml Insuln.Pen SUBCUT 8 unit HS JEWELL Administration Lorazepam 0.5 mg 09/02/24 23:08 09/05/24 21:59 Lorazepam 2 Mg/Ml Inj IVP 0.5 mg Q6H PRN Administration Sleep, anxiety Magnesium Oxide 400 mg 09/02/24 21:00 09/07/24 08:37 Magnesium Oxide 400 Mg Tablet PO 400 mg BID JEWELL Administration Metoprolol Tartrate 25 mg 09/03/24 22:34 09/03/24 23:36 Metoprolol Tartrate 25 Mg Tablet PO 09/03/24 22:35 Not Given ONCE ONE Mirtazapine 15 mg 09/02/24 21:00 09/06/24 21:09 Mirtazapine 15 Mg Tablet PO 15 mg HS JEWELL Administration Non-Formulary Medication 2 puff 09/02/24 21:00 09/07/24 08:41 Budesonide-Formoterol [Symbicort] IH 2 puff BID JEWELL Administration Trihexyphenidyl 2 Mg 2 mg 09/03/24 09:00 09/07/24 08:37 Tablet PO 2 mg DAILY JEWELL Administration Omeprazole 40 mg 09/03/24 07:30 09/07/24 07:25 Omeprazole [address] PO 40 mg 0730 JEWELL Administration Pregabalin 75 mg 09/02/24 21:00 09/07/24 08:37 Pregabalin 75 Mg Capsule PO 75 mg BID JEWELL Administration Sodium Chloride 5 ml 09/02/24 21:00 09/07/24 12:25 Sodium Chloride 0.9 % (Flush) 10 Ml Syringe IVF 5 ml BID JEWELL Administration Medical Decision Making MDM Narrative Medical decision making narrative: Sepsis certainly is part of diagnosis at this point. Pending lactate though. Ordered for L normal saline. Did duration of cause will be CT chest. Differential does include TB, malaria, nonspecific viral URI, COVID, influenza Urine might be a source. Low magnesium will be supplemented. L of LR also ordered. CT chest is unremarkable with out acute findings. Did review peripheral smear without evidence of malaria at this time Discussed with hospitalist for admission as meets criteria for sepsis. Unclear source though there is nitrite in the urine. Contacted also Oncology team /care provider at [place] [facility] Medical Records Medical records reviewed: Yes I reviewed the patient's medical records Lab Data Lab results reviewed: Yes I reviewed the patient's lab results Labs: Lab Results 09/02/24 09/02/24 09/02/24 Range/Units 13:35 13:45 14:03 WBC 10.54 (4.50-11.00) K/uL RBC 4.19 L (4.30-5.90) m/uL Hgb 9.2 L (13.5-17.5) gm/dL Hct 28.5 L (37.0-53.0) % MCV 68 L (80-100) fL MCH 22 L (26-34) pg MCHC 32 (32-36) gm/dL RDW Coeff of Rubi 22.0 H (11.5-15.5) % Plt Count 156 (140-440) K/uL Neut % (Auto) 67.3 (42.0-72.0) % Lymph % (Auto) 23.2 (20-44) % [place] % (Auto) 7.5 (0.0-11.0) % Eos % (Auto) 1.7 (0.0-7.0) % Baso % (Auto) 0.1 (0.0-3.0) % Neut # (Auto) 7.09 H (1.7-7.0) K/uL Lymph # (Auto) 2.45 (0.90-2.90) K/uL [place] # (Auto) 0.80 (0.00-0.90) K/UL Eos # (Auto) 0.18 (0.00-0.50) K/uL Baso # (Auto) 0.01 (0.00-0.30) K/uL Abs Immat Gran (auto) 0.02 (0.00-0.30) K/uL Imm/Tot Granulo (auto) 0.2 % Diff Slide Review Acceptable Review (Acceptable) VBG pH 7.361 (7.32-7.43) VBG pCO2 41 (40-50) mmHG VBG pO2 38.9 (25-47) mmHG VBG HCO3 23 (21-28) mmol/L Sodium 127 L (135-149) mmol/L Potassium 4.9 (3.6-5.1) mmol/L Chloride 95 L (96-114) mmol/L Carbon Dioxide 22 (20-32) mmol/L Anion Gap 10 (7-15) mEq/L BUN 27 (7-30) mg/dL Creatinine 1.7 H (0.5-1.5) mg/dL Estimated Creat Clear 39.62 Estimated GFR 42 ml/min Glucose 235 H (60-115) mg/dL Lactate 2.4 H (0.5-1.9) mmol/L Calcium 9.2 (8.4-10.6) mg/dL Magnesium 1.1 L (1.5-2.6) mg/dL Total Bilirubin (0.1-1.5) mg/dL Direct Bilirubin (0.0-0.5) mg/dL AST (12-35) U/L ALT (4-50) U/L Alkaline Phosphatase (40-150) U/L C-Reactive Protein 14.9 H (0.5-1.0) mg/dL Total Protein (6.0-8.3) g/dL Albumin (3.3-5.0) g/dL Urine Color (Yellow) Urine Appearance (Clear) Urine pH (5.0-8.5) Ur Specific [place] (1.000-1.030) Urine Protein (Negative) Urine Glucose (UA) (Negative) Urine Ketones (Negative) Urine Blood (Negative) Urine Nitrite (Negative) Urine Bilirubin (Negative) Urine Urobilinogen (0.2-1.0) Ur Leukocyte Esterase (Negative) Urine RBC (0-2) Urine WBC (0-5) Ur Squamous Epith Cells (None-Few) Urine Bacteria (None) SARS-CoV-2 (PCR) Negative SARS-CoV-2 (Negative) Influenza Type A (PCR) Negative PCR FLU A (Negative) Influenza Type B (PCR) Negative PCR FLU B (Negative) RSV (PCR) Negative PCR RSV (Negative) Lab Acknowledgement POC Glucose 233 H (60-115) mg/dl POC Creatinine 1.7 H (0.6-1.3) mg/dl POC Troponin I 0.01 (0.01-0.04) ng/ml 09/02/24 09/02/24 09/02/24 Range/Units 14:45 15:00 15:35 WBC (4.50-11.00) K/uL RBC (4.30-5.90) m/uL Hgb (13.5-17.5) gm/dL Hct (37.0-53.0) % MCV (80-100) fL MCH (26-34) pg MCHC (32-36) gm/dL RDW Coeff of Rubi (11.5-15.5) % Plt Count (140-440) K/uL Neut % (Auto) (42.0-72.0) % Lymph % (Auto) (20-44) % [place] % (Auto) (0.0-11.0) % Eos % (Auto) (0.0-7.0) % Baso % (Auto) (0.0-3.0) % Neut # (Auto) (1.7-7.0) K/uL Lymph # (Auto) (0.90-2.90) K/uL [place] # (Auto) (0.00-0.90) K/UL Eos # (Auto) (0.00-0.50) K/uL Baso # (Auto) (0.00-0.30) K/uL Abs Immat Gran (auto) (0.00-0.30) K/uL Imm/Tot Granulo (auto) % Diff Slide Review (Acceptable) VBG pH (7.32-7.43) VBG pCO2 (40-50) mmHG VBG pO2 (25-47) mmHG VBG HCO3 (21-28) mmol/L Sodium (135-149) mmol/L Potassium (3.6-5.1) mmol/L Chloride (96-114) mmol/L Carbon Dioxide (20-32) mmol/L Anion Gap (7-15) mEq/L BUN (7-30) mg/dL Creatinine (0.5-1.5) mg/dL Estimated Creat Clear Estimated GFR ml/min Glucose (60-115) mg/dL Lactate (0.5-1.9) mmol/L Calcium (8.4-10.6) mg/dL Magnesium (1.5-2.6) mg/dL Total Bilirubin 0.7 (0.1-1.5) mg/dL Direct Bilirubin 0.4 (0.0-0.5) mg/dL AST 47 H (12-35) U/L ALT 39 (4-50) U/L Alkaline Phosphatase 100 (40-150) U/L C-Reactive Protein (0.5-1.0) mg/dL Total Protein 7.3 (6.0-8.3) g/dL Albumin 4.0 (3.3-5.0) g/dL Urine Color Yellow (Yellow) Urine Appearance Cloudy A (Clear) Urine pH 6.0 (5.0-8.5) Ur Specific [place] 1.010 (1.000-1.030) Urine Protein 1+ A (Negative) Urine Glucose (UA) Negative (Negative) Urine Ketones Negative (Negative) Urine Blood 1+ A (Negative) Urine Nitrite Positive A (Negative) Urine Bilirubin Negative (Negative) Urine Urobilinogen 0.2 (0.2-1.0) Ur Leukocyte Esterase 1+ A (Negative) Urine RBC 2-5 A (0-2) Urine WBC 2-5 (0-5) Ur Squamous Epith Cells None (None-Few) Urine Bacteria Moderate A (None) SARS-CoV-2 (PCR) (Negative) Influenza Type A (PCR) (Negative) Influenza Type B (PCR) (Negative) RSV (PCR) (Negative) Lab Acknowledgement Test Added POC Glucose (60-115) mg/dl POC Creatinine (0.6-1.3) mg/dl POC Troponin I (0.01-0.04) ng/ml ECG Data Attestation: I personally reviewed and interpreted this ECG as follows: (Sinus tachycardia 119. no Q-waves.) Critical Care Time Critical Care Time Critical Care Time: Yes Attestation: The patient required my highest level preparedness to intervene emergently and I personally spent this critical care time directly and personally managing the patient. This critical care time included: Obtaining a history; Examining the patient; Pulse oximetry; Ordering and reviewing of studies; Arranging urgent treatment with development of a management plan; Evaluation of patients response to treatment; Frequent reassessment discussions with other providers. This critical care time was performed to assess and manage the high probability of imminent life-threatening deterioration that could result in multiorgan failure. It was exclusive of separate billable procedures and treating other patients and teaching time. Total Critical Care Time in Minutes: 50 Discharge Plan Discharge Clinical Impression: Sepsis Patient Disposition: Admitted As Observation Condition: Stable Activity Level: Activity as Tolerated Discharge Diet: Diabetic
--- NOTE | 2024-09-02 13:56 | CRLHL7_ITS ---
For Patients: As a result of the Century Cures Act, medical imaging exams and procedure reports are released immediately into your electronic medical record. You may view this report before your referring provider. If you have questions, please contact your health care provider. INDICATION: COUGH FOR 6+ WEEKS WITH NEW FEVER. TECHNIQUE: CT chest without contrast. COMPARISON: None. FINDINGS: Breathing motion artifact mildly limits evaluation. Lungs and pleura: No suspicious nodules or infiltrates. Calcified granuloma in the right lower lobe. No pleural effusions, pleural thickening, or pneumothorax. Heart and vasculature: Heart size is normal. Prominence of the left ventricle is noted. Thoracic aorta and pulmonary artery are normal in caliber. Coronary artery calcifications and/or stents are identified. Lymph nodes/mediastinum: No mediastinal, hilar, or axillary adenopathy. Chest wall: No masses. Upper abdomen: No significant findings. Cholelithiasis without CT evidence of cholecystitis. Partially visualized left renal cysts. Bones: Mottled appearance of the spine with tiny hypodensities throughout the visualized bones, especially the vertebral bodies suspicious for multiple myeloma, metastases. This is similar to the PET-CT from June 20, 2023. IMPRESSION: 1. No acute cardiopulmonary process identified. 2. Cholelithiasis without CT evidence of cholecystitis. 3. Mottled appearance of the spine similar to prior exams may be related to multiple myeloma, metastases or demineralization. Please note that all CT scans at this facility use dose modulation, iterative reconstruction, and/or weight-based dosing when appropriate to reduce radiation dose to as low as reasonably achievable. Dictated by Francisco Butts MD @ 09/02/2024 2:26:52 PM (Electronically Signed)
[2024-09-02 14:04] LABS: Creatinine, Point-of-Care* 1.7 mg/dl (0.6-1.3); Glucose, Point-of-Care* 233 mg/dl (60-115); Troponin, Point-of-Care* 0.01 ng/ml (0.01-0.04)
[2024-09-02 14:15] LABS: Chloride* 95 mmol/L (96-114); Potassium* 4.9 mmol/L (3.6-5.1); Sodium* 127 mmol/L (135-149)
[2024-09-02 14:16] LABS: HCO3 VBG 23 mmol/L (21-28); Lactate* 2.4 mmol/L (0.5-1.9); PCO2 VBG 41 mmHG (40-50); PO2 VBG 38.9 mmHG (25-47); pH VBG 7.361 (7.32-7.43)
[2024-09-02 14:18] LABS: Basophils Absolute Auto 0.01 K/uL (0.00-0.30); Basophils Percent Auto 0.1 % (0.0-3.0); Blood Urea Nitrogen* 27 mg/dL (7-30); Creatinine* 1.7 mg/dL (0.5-1.5); Eosinophils Absolute Auto 0.18 K/uL (0.00-0.50); Eosinophils Percent Auto 1.7 % (0.0-7.0); Est. Creatinine Clearance* 39.62; Estimated Glomerular Filt Rate 42 ml/min; Hematocrit 28.5 % (37.0-53.0); Hemoglobin* 9.2 gm/dL (13.5-17.5); Immature Granulocytes Abs Auto 0.02 K/uL (0.00-0.30); Immature Granulocytes Pct Auto 0.2 %; Lymphocytes Absolute Auto 2.45 K/uL (0.90-2.90); Lymphocytes Percent Auto 23.2 % (20-44); Mean Corpuscular HGB Conc 32 gm/dL (32-36); Mean Corpuscular Hemoglobin 22 pg (26-34); Mean Corpuscular Volume 68 fL (80-100); Monocytes Percent Auto 7.5 % (0.0-11.0); Neutrophils Absolute Auto 7.09 K/uL (1.7-7.0); Neutrophils Percent Auto 67.3 % (42.0-72.0); Platelet Count* 156 K/uL (140-440); Red Blood Count 4.19 m/uL (4.30-5.90); White Blood Count* 10.54 K/uL (4.50-11.00)
[2024-09-02 14:19] LABS: Anion Gap 10 mEq/L (7-15); Calcium* 9.2 mg/dL (8.4-10.6); Carbon Dioxide* 22 mmol/L (20-32); Glucose* 235 mg/dL (60-115); Magnesium* 1.1 mg/dL (1.5-2.6)
[2024-09-02 14:22] LABS: Slide Review Reflex Yes
[2024-09-02] MEDS: 0.9 % SODIUM CHLORIDE 1000 ml 1,000 ML IV (14:26)
[2024-09-02] MEDS: ACETAMINOPHEN 500 MG TABLET 1000 MG PO (14:26)
--- OUTSIDE RECORDS SUMMARY | 2024-09-02 14:31 | XMS_ITS | Encounter Summary ---
Author Organization [facility] Address [address] [place] [address] Care Team Providers Care Tube Bender Hand Name Role Phone Elsewhere, Pcp Primary Care Provider Unavailabl e Encounter Details Date Type Department Care Team (Late st Contact Info) Description 08/12/2024 Orders Only Division of Hematology in [place], [place] [address] [place] [phone] Milind Adam M.D. [address] [place] [address] Social History Tobacco Use Types Packs/Day Years Used Date Smoking Tobacco: Never Passive Smoke Exposure: Never Smokeless Tobacco: Never Alcohol Use Standard Drinks/Week Comments No 0 (1 standard drink = 0.6 oz pur e alcohol) [facility] Utilities Answer Date Recorded In the past 12 months has [facility] [employer], gas, oil, or water [employer] threatened to shut off services in your home? No 12/29/2023 Humiliation, Afraid, Rape, and Kick questionnair e Answer Date Recorded Within the last year, have y ou been afraid of your partner or ex-partner? No 12/29/2023 Within the last year, have y ou been humiliated or emotionally abused in other ways by your partner or ex-partner? No Within the last year, have y ou been kicked, hit, slapped, or otherwise physically hurt by your partner or ex-partner? No 12/29/2023 Within the last year, have y ou been raped or forced to have any kind of sexual activity by your partner or ex-partner? No 12/29/2023 PHQ-2 Answer Date Recorded PHQ-2 Score 1 11/15/2023 Exercise Vital Sign Answer Date Recorde d On average, how many days pe r week do you engage in moderate to strenuous exercise (like a brisk walk)? 2 days 07/23/2023 On average, how many minutes do you engage in exercise at this level? 10 min 07/23/2023 Hunger Vital Sign Answer Date Recorded Within the past 12 months, y ou worried that your food would run out before you got the money to buy more. Never true 12/29/19 Within the past 12 months, t he food you bought just didn't last and you didn't have money to get more. Never true 12/29/2023 PRAPARE - Transportation Answer Date Re corded In the past 12 months, has l ack of transportation kept you from medical appointments or from getting medications? No 12/05 In the past 12 months, has l ack of transportation kept you from meetings, work, or from getting things needed for daily living? No 12/29/2023 Nutrition Answer Date Recorded On average, how many serving s of fruits and vegetables do you eat per day (serving size is equal to 1 cup or approximately the size of a tennis ball)? 0-2 07/23/2023 Dental Answer Date Recorded Dental: Regular Dentist Yes 07/23/19 Employment Answer Date Recorded Employment status Employed but not working due t o illness or injury 07/23/2023 Housing Stability Answer Date Recorded What is your living situation today? 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 Legal Sex Male 3:07 PM MINE PROMOTOR Gender Identity Male 04/09/2018 12:14 PM MINE PROMOTOR Sexual Orientation Straight 04/09/2018 12 :14 PM MINE PROMOTOR documented as of this encounter Plan of Treatment Not on file documented as of this encounter Visit Diagnoses Not on filedocumented in this encounter Additional Health Concerns Infection Onset Date Last Indicated Resolved Time Protective Environment 10/25/2023 10/25/2023 documented as of this encounter Care Teams Tube Bender Hand Relationship Specialty Start Date End Date Elsewhere, Pcp PCP - General Family Medicine 03/18/18 documented as of this encounter
--- OUTSIDE RECORDS SUMMARY | 2024-09-02 14:31 | XMS_ITS | Patient Health Record ---
Author Organization [facility] Address [address] [place] [address] Care Team Providers Care Hospital Personnel Director Name Role Phone Nando Valladares Primary Care Provider Unavail able MESFIN SANCHEZ Unavailable [phone] Danay López Unavailable [phone] Allergies No Known Allergies Reason For Referral No Information Medications Medication SIG (Take, Route, Frequency, Duration) Notes Start Date End Date Status Losartan Potassium 50 MG TAKE 1 TABLET B Y MOUTH TWICE DAILY Oral; Duration: 90 Active Trihexyphenidyl HCl 2 MG TAKE 1 TABLET B Y MOUTH DAILY . Oral; Duration: 90 Not-Taking Propranolol HCl ER 80 MG TAKE 1 CAPSULE BY MOUTH TWICE DAILY . Oral; Duration: 90 Not-Taking hydroCHLOROthiazide 12.5 MG TAKE 1 CAPSU LE BY MOUTH DAILY Oral; Duration: 90 Active Aspirin 81 81 MG 1 tablet Orally Once a day; Duration: 30 day(s) Active glipiZIDE 10 MG TAKE 1 TABLET BY MOUTH TWICE DAILY Oral; Duration: 90 Active metFORMIN HCl 1000 MG TAKE 1 TABLET BY MOUTH TWICE DAILY WITH MEALS Oral; Duration: 90 Not-Taking Social History Tobacco Use: Social History Observation Description Date Details (start date - stop date) Never Smoker NA - NA Social History Alcohol Use: Social Info Question Answer Notes Recreational drugs Recreational Drug Use: No Alcohol Screen Did you have a drink containing alcohol in the past year? No Points 0 Interpretation Negative : Social Info Question Answer Notes How often do you consume alcohol? Answer: never Tobacco Use: Social Info Question Answer Notes Tobacco Control (Standard) Tobacco use: Nonsmoker Recreational drug use Social Info Question Answer Notes Did you ever use recreational drugs? Answer: No Problems Problem Type SNOMED Code ICD Code Onset Dates Problem Status W/U Status Risk Notes Problem Impacted cerumen (86678957) Impacted cerumen, bilateral (H61.23) Active confirmed Problem 971258676 Conductive hearing loss, bilateral (H90.0) Active confirmed Problem 20745962 Bilateral impacted cerumen (H61.23) Active confirmed Problem Sensorineural hearing loss, bilateral (621894253) Bilateral sensorineural hearing loss (H90.3) Active confirmed Problem 512865308 SNHL (sensory-neural hearing loss), asymmetrical (H90.5) Active confirmed Problem 671243101 Sensation of fullness in both ears (H93.8X3) Active confirmed Problem 6101019591345456 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) Active confirmed Problem 28583404 Acute diffuse otitis externa of left ear (H60.312) Active confirmed Problem 86368392 Sensorineural hearing loss (SNHL) of left ear with restricted hearing of right ear (H90.A22) Active confirmed Vital Signs Height-cm 180.34 cm 04/30/2024 Weight-kg 78.29 kg 04/30/2024 Height 71 in 04/30/2024 Weight 172.6 lbs 04/30/2024 BMI 24.07 kg/m2 04/30/2024 Encounters Encounter Location Date Provider Diagnosis [facility] [address] [place] [address] 04/16/2024 MESFIN SANCHEZ Sensation of fullness in both ears H93.8X3 and Bilateral impacted cerumen H61.23 [facility] [place] [address] [facility] [facility] [address] [place] [address] 04/30/2024 MESFIN SANCHEZ Sensation of fullness in both ears H93.8X3 and Bilateral impacted cerumen H61.23 [facility] [address] [place] [address] 04/23/2024 MESFIN SANCHEZ Assessments Encounter Date Diagnosis (ICD Code) Assessment Notes Treatment Notes Treatment Clinical Notes Section Notes 04/16/2024 Sensation of fullness in both ears (ICD-10 - H93.8X3) The patient was experiencing ear fullness and some hearing loss related to cerumen impactions. After cleaning the ears, the ear fullness was resolved right ear and improved on left. 04/30/2024 Sensation of fullness in both ears (ICD-10 - H93.8X3) The patient was experiencing ear fullness and some hearing loss related to cerumen impactions. After cleaning the ears, the ear fullness was resolved. 04/30/2024 Bilateral impacted cerumen (ICD-10 - H61.23) The patient required cerumen removal from Left ear. The patient was instructed to avoid Qtip usage, and can use vegetable oil or mineral oil at home in the ears to soften wax. Follow up unable to clear cerumen at home. 04/16/2024 Bilateral impacted cerumen (ICD-10 - H61.23) The patient required cerumen removal from both ears. Unable to remove all wax from left. The patient was instructed to avoid Qtip usage, and can use vegetable oil or mineral oil at home in the ears to soften wax. Will used Debrox come back next week Plan Of Treatment No Information Insurance Providers Payer Name Payer Address Payer Phone Subscriber Number Group Number Insured Name Patient Relationship to Insured Coverage Start Date Coverage End Date [facility] [address] [address] [place] [phone] [id number] Yair Sainz Self - patient is the insured Medical (General) History Medical History History ICD Code Diabetes Cerumen impaction Surgical History Surgery Date(Month/Year) Kidney stones 2015 rotator cuff 2016 Hospitalization History Reason Date(Month/Year) Same as Surgical history
--- OUTSIDE RECORDS SUMMARY | 2024-09-02 14:31 | XMS_ITS | Encounter Summary ---
Author Organization [facility] Address [address] [place] [address] Care Team Providers Care Monotyper Name Role Phone Elsewhere, Pcp Primary Care Provider Unavailabl e Encounter Details Date Type Department Care Team (Late st Contact Info) Description 08/05/2024 Clinical Communication Section of Infectious Diseases in [place], [place] [address] [place] [phone] Stefanie Siegel, R.N. [address] [place] [phone] Social History Tobacco Use Types Packs/Day Years Used Date Smoking Tobacco: Never Passive Smoke Exposure: Never Smokeless Tobacco: Never Alcohol Use Standard Drinks/Week Comments No 0 (1 standard drink = 0.6 oz pur e alcohol) [facility] Utilities Answer Date Recorded In the past 12 months has [facility] [employer], gas, oil, or water [employer] threatened to shut off services in your [...] your living situation today? 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 - 08/05/2024 11:15 AM CDT Pre-Appt Vaccine Chart Review / /Pt Type: Post SCT Date of Transplant: 12/20/2023 (229 days) Visit # 12/20/23 Pt is Immunosuppressed: Yes Titers Completed: N/A Vaccines Ordered: SCT Visit #2 Additional Vaccines Needed: N/A Missing Orders: N/A Additional Notes: documented in this encounter Plan of Treatment Not on file documented as of this encounter Visit Diagnoses Not on filedocumented in this encounter Additional Health Concerns Infection Onset Date Last Indicated Resolved Time Protective Environment 10/25/2023 10/25/2023 documented as of this encounter Care Teams Monotyper Relationship Specialty Start Date End Date Elsewhere, Pcp PCP - General Family Medicine 03/18/18 documented as of this encounter
--- OUTSIDE RECORDS SUMMARY | 2024-09-02 14:31 | XMS_ITS | Clinical Summary ---
Author Organization [facility] Address [address] [place] [id number] Care Team Providers Care Circuits Engineer Name Role Phone Nando Valladares MD Primary Care Provider [phone] Allergies No known active allergies Medications glipiZIDE (GLUCOTROL) 10 mg tablet Take 10 mg by mouth two times daily before meals. Active metFORMIN (GLUCOPHAGE) 1,000 mg tablet Take 1,000 mg by mouth 2 times daily with meals. Active MULTIVITAMIN ORAL Take 1 tablet by mouth once daily. Active lancets (MICROLET LANCET) Use to test blood sugar two times a day. 200 Each 7 Active blood sugar diagnostic (CONTOUR NEXT STRIPS) strip Use to test blood sugar two times a day. 200 Each 7 Active atorvastatin (LIPITOR) 10 mg tablet Take 1 tablet by mouth once daily. 8 Active losartan (COZAAR) 50 mg tablet Take 50 mg by mouth once daily. 8 Active trihexyphenidyl (ARTANE) 2 mg tablet Take 2 mg by mouth once daily. 8 Active hydroCHLOROthia zide 12.5 mg tablet Take 12.5 mg by mouth once daily. 2 Active Ozempic 0.25 mg or 0.5 mg(2 mg/1.5 mL) pen Inject 0.25 mg subcutaneous once weekly. Takes on Sundays 2 Active donepeziL (ARICEPT) 5 mg tablet Take 5 mg by mouth once daily. Active aspirin (ECOTRIN) 81 mg enteric coated tablet Take 81 mg by mouth once daily with a meal. Active fish oil-omega-3 fatty acids (Fish OiL) 1,200-360 mg cap Take 1 Capsule by mouth once daily. One capsule is 1200 mg-360 mg Active pantoprazole (PROTONIX) 40 mg delayed-release tabletIndicatio ns:Gastroesopha geal reflux disease, unspecified whether esophagitis present Take 1 Tablet (40 mg) by mouth once daily before a meal. 60 Tablet 05/30/2023 4:15 PM PARTS DRIVER 4 Active metoprolol tartrate (LOPRESSOR) 25 mg tabletIndicatio ns:Acute chest pain Take 1 Tablet (25 mg) by mouth two times daily. 60 Tablet 05/30/2023 4:15 PM PARTS DRIVER Active Active Problems Problem Noted Date Diagnosed Date Chest pain in adult 05/29/2023 Syncope 12/23/2017 Acute renal failure (ARF) 12/23/2017 Bilateral kidney stones 10/11/2014 DM2 (diabetes mellitus, type 2) Overview (10/11/2014): On Metformin/Glipizide HTN (hypertension) Overview (10/11/2014): On Atenolol Anxiety Overview (10/11/2014): On Xanax Encounters Date Type Department Care Team Description 08/26/2024 Lab Requisition [facility] [phone] Melonie Franklin MD from Last 3 Months Immunizations Immunization Administration Dates Next Due Influenza, Inactivated AIIV4 (Age 65+ Years) Preserv Free 05/30/2023 Family History Medical History Relation Name Comments Other Father Parkinson's Other Mother tremors Relation Name Status Comments Father Mother Social History Tobacco Use Types Packs/Day Years Used Date Smoking Tobacco: Never Smokeless Tobacco: Never Tobacco Cessation:Counseling Given: Not Answered Alcohol Use Standard Drinks/Week Comments No 0 (1 standard drink = 0.6 oz pur e alcohol) Social Connections Answer Date Recorded Do you often feel lonely or isolated from those around you? 0 05/29/2023 Financial Resource Strain Answer Date R ecorded Difficulty of Paying Living Expenses 3 05/29/2023 Difficulty of Paying Living Expenses Not on file 05/29/2023 Food Insecurity Answer Date Recorded Do you worry your food will run out before you are able to buy more? 1 05/29/2023 Transportation Needs Answer Date Record ed Does lack of transportation keep you from medica l appointments? 1 05/29/2023 Does lack of transportation keep you from work, meetings or getting things that you need? 1 05/29/2023 Housing Stability Answer Date Recorded What is your housing situation today? 1 05/29/2023 Interpersonal Safety Answer Date Record ed Are you being hit, kicked, p ushed or yelled at (see row info)? No 05/29/2023 Interpersonal Safety Abuse 12 - 18 Not on file 05/29/2023 Interpersonal Safety Ambulatory Vulnerability No t on file 05/29/2023 Utilities Answer Date Recorded Do you have trouble paying f or utilities (for example, heat, electricity, water, phone)? 1 05/29/2023 Sex and Gender Information Value Date Recorded Sex Assigned at Not on file Legal Sex Male 6:28 AM PARTS DRIVER Gender Identity Not on file Sexual Orientation Not on file Obstetrics History Last Filed Vital Signs Vital Sign Reading Time Taken Comments Blood Pressure 115/60 06/03/2023 2:39 PM PARTS DRIVER Pulse 67 06/03/2023 2:39 PM PARTS DRIVER Temperature 36.2 C (97.1 F) 05/30/2023 12:19 PM PARTS DRIVER Respiratory Rate 16 05/30/2023 12:1 9 PM PARTS DRIVER Oxygen Saturation 98% 06/03/2023 2:39 PM PARTS DRIVER Inhaled Oxygen Concentration - - Weight 78.4 kg (172 lb 14.4 oz) 06/03/2023 2:39 PM PARTS DRIVER Height 182.9 cm (6') 06/03/2023 2:39 PM PARTS DRIVER Body Mass Index 23.45 06/03/2023 2:39 PM PARTS DRIVER Plan of Treatment Health Maintenance Due Date Last Done Comments Tdap 1960 Depression screening for age 12+ 1961 Hepatitis C screening for ag e 18-79 11/15/1967 Pneumococcal series for age 50+ (1 of 2 - PCV) 1968 Tetanus booster 1969 Colonoscopy through age 75 1994 Zoster (shingles) series for age 50+ (1 of 2) 11/15/1999 BMI (ht and wt on same day) for age 18+ 06/03/2024 06/03/2023 RSV vaccine for adults or (1 - 1-dose 75+ series) 2024 COVID-19 vaccine series (2023- season) 2024 06/16/2024, 03/24/2021, 07/29/2020, Additional history exists Influenza Vaccine (Season Ended) 2025 05/30/19 24 Lipids for age 45-75 05/30/2028 05/30/2023 Medical Devices Implanted Type Area Metal Fabrication Supervisor Device Identifier Shelf Expiration Date Model / Serial / Lot Stent Prcflx [id number] Hydpls - [id number] Implanted:Qty: 1 on 11/08/2014 by Juan Hardin MD at [facility] Right: Ureter [facility] 07/31/2017 175-25 3# / / [id number] Stent Prcflx [id number] Hydpls - [id number] Implanted:Qty: 1 on 11/08/2014 by Juan Hardin MD at [facility] Left: Ureter [facility] 07/03/2017 175-253 # / / [id number] Swivelock Bio 4.75 [id number] - [id number] Implanted:Qty: 1 on 04/07/2015 by Aayush Belcher MD at [facility] Right: Shoulder R-ARTHREX 12/03/2016 AR-2324BCM / / [id number] Swivelock Bio 4.75 [id number] - [id number] Implanted:Qty: 1 on 04/07/2015 by Aayush Belcher MD at [facility] Right: Shoulder R-ARTHREX 12/03/2016 AR-2324BCC T / / [id number] Swivelock Bio 4.75 [id number] - [id number] Implanted:Qty: 1 on 04/07/2015 by Aayush Belcher MD at [facility] Right: Shoulder R-ARTHREX 12/03/2016 AR-2324BCM / / [id number] Explanted Type Area Metal Fabrication Supervisor Device Identifier Shelf Expiration Date Model / Serial / Lot Stent Contour [id number] - [id number] Implanted:Qty: 1 on 10/11/2014 by Juan Hardin MD at [facility] Explanted:Qty: 1 on 11/08/2014 by Juan Hardin MD at [facility] Left: Ureter [facility] 05/05/2017 180-223# / / [id number] Stent Contour [id number] - [id number] Implanted:Qty: 1 on 10/11/2014 by Juan Hardin MD at [facility] Explanted:Qty: 1 on 11/08/2014 at [facility] Right: Ureter [facility] 05/05/2017 180-223# / / [id number] Procedures Procedure Name Priority Date/Time Associated Diagnosis Comments LAB TRACKING EVENT Routine 08/25/2024 10 :30 AM CDT BONE MARROW STUDY Routine 08/25/2024 10: 30 AM CDT BONE MARROW DIFFERENTIAL Routine 08/25/2024 10:30 AM CDT LIPID PANEL Early AM 05/30/2023 7:07 AM PARTS DRIVER from Last 3 Months or Most Recently Relevant to Health Maintenance Results * BONE MARROW DIFFERENTIAL (08/25/2024 10:30 AM CDT) Bone Marrow (Bone Marrow Aspirate) Non-Blood / Unknown 08/25/2024 10:30 AM CDT 08/27/2024 7:00 AM CDT us Melonie Franklin MD LABORATORY Final Result [facility] [address] [place] [address], * LAB TRACKING EVENT (08/25/2024 10:30 AM CDT) Other (Other) Client Collect / Unknown 08/25/2024 10:30 AM CDT 08/26/2024 6:23 AM CDT Melonie Franklin MD LAB BILL ONLY Final Result [facility] [address] [place] [address], * BONE MARROW STUDY (08/25/2024 10:30 AM CDT) Case Report Bone Marrow Pathology Report Case: [id number] Authorizing Provider: Melonie Franklin MD Collected: 08/25/2024 1030 Ordering Location: [facility] Received: 08/26/2024 0634 Pathologist: Ezio Acosta MD Specimens: A) - Bone Marrow Aspirate B) - Bone Marrow Aspirate (Heparinized) C) - Bone Marrow Core Biopsy D) - Peripheral Blood 08/27/2024 9:12 AM CDT [facility] Final Diagnosis BONE MARROW: 1. Negative for involvement by plasma cell neoplasm 2. Hypocellular bone marrow for age (20% cellular) with trilineage hematopoiesis 3. Ancillary studies: a. Cytogenetics: - Chromosome studies pending to evaluate for abnormalities which may be contributing to cytopenia(s); appended results to follow b. Molecular: - Not performed 4. Adequate storage iron; adequate sideroblastic iron 5. See comment PERIPHERAL BLOOD: 1. Hypochromic, microcytic anemia; see comment 2. Absolute eosinophilia 3. Mild lymphocytosis 08/27/2024 9:12 AM CDT [facility]- ENTRAL LABORATORY at 0912 CDT Comment The patient has microcytic hypochromic anemia, persistent since at least 2017. I note a previous hemoglobin electrophoresis study from 03/08/2016 demonstrating increased hemoglobin A2, consistent with beta thalassemia trait. Careful clinical correlation is suggested. Iron deficiency appears highly unlikely based on the bone marrow iron stains demonstrating adequate storage and sideroblastic iron. With respect to the patient's previously-documen kaylin plasma cell neoplasm, flow cytometry on the current bone marrow aspirate is negative for clonal/aberrant plasma cells (sensitivity limit 0.01%; 1/10,000). 08/27/2024 9:12 AM CDT [facility] ENTRAL LABORATORY Clinical Information Mr. Sainz is a 73 y.o. diagnosed with plasma cell myeloma ([id number], 06/06/23). Chromosomes normal. 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 Follow up bone marrow 03/30/24 with no morphologic or immunophenotypic features of plasma cell neoplasm ([place], 03/30/24). Now has anemia requiring transfusion on 08/17/24. Maintenance Revlimed on hold. Bone marrow to evaluate disease status. Hemoglobin electrophoresis 03/08/2016 revealed increased Hb A2 consistent with beta thalassemia trait. Review of laboratory data indicates the patient has had microcytic anemia since at least 2016. 08/27/2024 9:[address] [facility]ED[facility] A RIGHT lateral bone marrow biopsy and unilateral aspiration procedure is performed at [facility] on 08/25/24. RIZWAN Julien performed the procedure using an 8 gauge manual needle. The ordering physician is Dr. Melonie Franklin . The specimen is inked yellow. EVM 08/26/2024 08/27/2024 9:[address] [facility] ENTRAL LABORATORY CBC and Differential HEMATOLOGY PARAMETERS Tested at: Central Laboratory RESULTS EXPECTED VALUES WBC: 8.0 4.5-06j2274/cumm RBC: 4.5 4.30-5.90 mil/cumm HGB: 9.8 13.5-17.5 gm/di DECREASED HCT: 31.4 37-53% DECREASED MCV: 69.8 80-100 fl MICROCYTIC MCH: 21.8 26-34 pg DECREASED MCHC: 31.2 32-36 gm/dl HYPOCHROMIC RDW: 22.3 11.5-15.5% ELEVATED PLT: 160 140-305o1577/uL Retic: 0.9 0.5-1.5% Differential Tested at: Central Absolute (%) Expected (%) (x10*9/L) (x10*9/L) Neutrophils: 3.41 (42.6) 1.7-7.0 (42-72%) Lymphocytes: 3.12 (39) 0.9-2.9 (20-44%) ELEVATED Monocytes: 0.51 (6.4) <0.9 (0-11%) Eosinophils: 0.90 (11.3) <0.5 (0-2%) ELEVATED Basophils: 0.03 (.4) <0.3 (<3.0%) Imm Grans: 0.03 (.4) <0.3 (0-3%) (Metas, Myelos,Pros) 08/27/2024 9:12 AM CDT [facility] Bone Marrow Differential Blasts: 0.2 0.2-1.5% Neutrophils & precursors: 46.0 58.0-65.0% DECREASED Eosinophils & precursors: 9.0 0.2-5.3% ELEVATED Basophils & precursors: 0.8 0.0-1.0% Erythroid precursors: 26.4 18.0-24.0% ELEVATED Lymphocytes: 14.2 3.0-24.0% Monocytes: 2.0 0.7-2.8% Plasma cells: 1.4 0.1-1.5% M:E Ratio: 46 : 26 08/27/2024 9:12 AM T [facility] Microscopic Description SPECIMENS EXAMINED: Peripheral blood Aspirate direct and concentrate smears: Adequate Particle crush smears Touch imprints Clot section Bone core trephine sample (decalcified): Adequate, 1.5 cm Bone core and clot section color: Yellow PERIPHERAL BLOOD: Microcytic hypochromic erythrocytes with frequent echinocytes and rare target cells. No circulating plasma cells. BONE MARROW ASPIRATE: Hematopoiesis: Normal trilineage hematopoiesis Lymphocytes: Normal, not increased Plasma cells: Normal BONE MARROW CORE AND CLOT SECTION:H&E sections disclose a hypocellular bone marrow (20%). The M:E ratio is estimated 1:1. The histologic findings include somewhat erythroid-predomin ant trilineage hematopoiesis with no plasma cell lesions. IRON STAINS (performed on clot sections, particle crush smears, concentrate smears, and F-PV slides): Storage iron, sideroblastic iron and ring sideroblasts evaluated; results included in diagnosis. 08/27/2024 9:12 AM CDT [facility] Flow Cytometry Summary Plasma Cell Monitoring panel: Interpretation: No residual aberrant/clonal plasma cells detected. Clinical indication for flow cytometry: Follow up monitoring for plasma cell myeloma. Aberrant plasma cells (% of total nucleated cells): 0.00% Aberrant plasma cells (% of total plasma cells): 0% Polytypic/normal plasma cells (% of total nucleated cells): 0.51% Polytypic/normal plasma cells (% of total plasma cells): 100% Total aberrant plasma cell events: 0 Total polytypic/normal plasma cell events: 2134 Total plasma cell events (aberrant + poly): 2134 Total nucleated cell events: 217255 The following monoclonal antibodies were used in this analysis: CD19, CD20, CD38, CD45, CD56, IRF4(n), Shafer and Lambda cytoplasmic light chains, VS38(cyto). Quality Assessment Viability (7-AAD): 78% Limit of detection (LOD): 0.01% These results and cytograms have been verified by Dr. Ezio Acosta MD, 08/26/2024 8:51 PM This test was developed and its performance characteristics verified by [facility]. It has not been cleared or approved by the [place] Food and Drug Administration. This test is used for clinical purposes and should not be regarded as investigational or for research. Immunostains may have been used on this case in conjunction with flow cytometry in order to address ambiguous or inconclusive findings and/or to provide prognostic information. In the event immunostains were performed, results of both modalities were coordinated with H&E findings during diagnostic evaluation. Analytic Flow Tech: Andre Vidal, 08/26/2024 11:25 AM Verifying Flow Tech: Lay Nicolas, 08/26/2024 2:16 PM 08/27/2024 9:12 AM CDT [facility] [employer] [facility] Other Testing Immunostains are performed on the bone core biopsy. CD138 (plasma cell marker) (by manual morphometry): 2% 08/27/2024 9:12 AM CDT [facility] Additional Information Interpreted at [facility] Laboratory - [address], [place] [address] Immunohistochemist ry controls were reviewed and approved as appropriate by the pathologist during this examination. 08/27/2024 9:12 AM CDT [facility] Bone Marrow (Bone Marrow Aspirate) 08/25/2024 10:30 AM CDT 08/26/2024 6:34 AM CDT Bone marrow specimen (specimen) (Bone Marrow Aspirate (Heparinized)) 08/25/2024 10:30 AM CDT 08/26/2024 6:34 AM CDT Bone marrow specimen (specimen) (Bone Marrow Core Biopsy) 08/25/2024 10:30 AM CDT 08/26/2024 6:34 AM CDT Bone marrow specimen (specimen) (Peripheral Blood) 08/25/2024 10:30 AM CDT 08/26/2024 6:34 AM CDT Melonie Franklin MD LABORATORY Final Result [facility] [address] [place] [address], * (ABNORMAL) LIPID PANEL (05/30/2023 7:07 AM PARTS DRIVER) CHOLESTEROL,TOTAL 96(L) 100 - 199 mg/dL 05/30/2023 7:43 AM [facility] Comment: Cholesterol, Total Reference Ranges Desirable <200 mg/dL Borderline 200-239 mg/dL High >=240 mg/dL TRIGLYCERIDES 175(H) <150 mg/dL 05/30/2023 7:43 AM [facility] HDL CHOLESTEROL 27(L) >40 mg/dL 7:43 AM [facility] NON-HDL CHOLESTEROL 69 <145 mg/dl 05/30/2023 7:43 AM [facility] CHOL/HDL RATIO 3.56 <4.50 05/30/2023 7:43 AM [facility] LDL CHOLESTEROL 34 <=130 mg/dL 05/30/2023 7:43 AM [facility] VLDL CHOLESTEROL 35(H) <=30 mg/dL 05/30/19 7:43 AM [facility] PROVIDER ORDERED STATUS RANDOM 05/30/2023 7:43 AM [facility] Blood BLOOD SPECIMEN / Unknown Venipuncture / Unknown 05/30/2023 7:07 AM PARTS DRIVER 05/30/2023 7:17 AM PARTS DRIVER Manuelito Rowley [facility] CHEMISTRY Final Result [address] [id number] from Last 3 Months or Most Recently Relevant to Health Maintenance Insurance [facility] Advance Directives * Full Code (Latest Code Status on File) Date Activated Date Inactivated Comments 05/29/2023 10:19 PM 05/30/2023 7:36 PM Question Answer Comments Code Status Discussion: Reviewed Preferences * Full Code Date Activated Date Inactivated Comments 12/23/2017 2:33 PM 12/24/2017 8:00 PM Question Answer Comments Code Status Discussion: Per Existing Order * Full Code Date Activated Date Inactivated Comments 04/07/2015 12:07 PM 04/07/2015 10:44 PM * Full Code Date Activated Date Inactivated Comments 04/07/2015 8:08 AM 04/07/2015 12:07 PM * Full Code Date Activated Date Inactivated Comments 11/08/2014 7:42 AM 11/08/2014 5:47 PM Care Teams Circuits Engineer Relationship Specialty Start Date End Date Nando Valladares MD [address] [place] [id number] PCP - General Family Practice 12/23/17
--- OUTSIDE RECORDS SUMMARY | 2024-09-02 14:31 | XMS_ITS | Clinical Summary ---
Author Organization [facility] [place] Address [address] [place] [address] Care Team Providers Care Health Plan Advisor Name Role Phone Clinic, [facility] Primary Care Provider Allergies No known active allergies Medications ATENOLOL PO Take 25 mg by mouth 2 times daily Active GLIPIZIDE PO Take 2.5 mg by mouth 2 times daily (before meals) Active METFORMIN HCL PO Take 1,000 mg by mouth 2 times daily (with meals) Active multivitamin w/minerals (THERA-VIT-M) tablet Take 1 tablet by mouth daily Active ALPRAZolam (XANAX PO) Take 0.5 mg by mouth 2 times daily Active aspirin 81 MG tablet Take 81 mg by mouth daily Active ATORVASTATIN CALCIUM PO Take 10 mg by mouth Active azithromycin (ZITHROMAX) 250 MG tablet Take 1 tablet by mouth daily 05/23/2022 Active donepezil (ARICEPT) 5 MG tablet Take 1 tablet by mouth daily 01/22/2022 Active trihexyphenidyl (ARTANE) 2 MG tablet Take 0.5 tablets by mouth daily 03/16/2022 Active benzonatate (TESSALON) 100 MG capsule Take 100-200 mg by mouth every 4 hours as needed 05/23/2022 Active propranolol SR BEADS (INDREAL XL) 80 MG 24 hr capsule Take 80 mg by mouth daily 03/16/2020 Active OZEMPIC, 0.25 OR 0.5 MG/DOSE, 2 MG/1.5ML SOPN pen 04/26/2022 Active hydrochlorothia zide (HYDRODIURIL) 25 MG tablet Take 1 tablet by mouth daily 03/16/2022 Active losartan (COZAAR) 50 MG tablet Take 1 tablet by mouth daily 03/16/2022 Active HYDROcodone-isma taminophen (NORCO) 5-325 MG tabletIndicatio ns:S/P foot surgery, right Take 1-2 tablets every 4-6 hours as needed for pain. Do not take other tylenol products with this medication, as too much tylenol can be damaging to the liver. 10 tablet 06/06/2022 Active hydrOXYzine (ATARAX) 10 MG tabletIndicatio ns:S/P foot surgery, right Take 1-2 tablets every 4-6 hours as needed for pain control. 10 tablet 06/06/2022 Active Active Problems Problem Noted Date Diagnosed Date Influenza B 08/24/2014 Immunizations Name Administration Dates Next Due COVID-19 MONOVALENT 12+ (Pfizer) 03/24/2021,07/05,07/08/2020 Social History Tobacco Use Types Packs/Day Years Used Date Smoking Tobacco: Never Smokeless Tobacco: Never Tobacco Cessation:Counseling Given: Yes Alcohol Use Standard Drinks/Week Comments Never 0 (1 standard drink = 0.6 oz pur e alcohol) Adolescent Education Answer Date Record ed Getting School Help Needed Not on file 02/04 Sex and Gender Information Value Date Recorded Sex Assigned at Not on file Legal Sex Male 3:25 AM INSOLE AND OUTSOLE PREPARER Gender Identity Not on file Sexual Orientation Not on file Last Filed Vital Signs Vital Sign Reading Time Taken Comments Blood Pressure 126/76 07/19/2022 3:32 PM CDT Pulse 65 06/06/2022 12:22 PM INSOLE AND OUTSOLE PREPARER Temperature 36.3 C (97.3 F) 06/06/2022 12:26 PM INSOLE AND OUTSOLE PREPARER Respiratory Rate 16 06/06/2022 12:00 PM INSOLE AND OUTSOLE PREPARER Oxygen Saturation 100% 06/06/2022 12:26 PM INSOLE AND OUTSOLE PREPARER Inhaled Oxygen Concentration - - Weight 78.9 kg (174 lb) 07/19/2022 3:32 PM CDT Height 177.8 cm (5' 10) 07/19/2022 3:32 PM CDT Body Mass Index 24.97 07/19/2022 3:32 PM CDT Plan of Treatment Health Maintenance Due Date Last Done Comments ADVANCE CARE PLANNING 1950 ANNUAL REVIEW OF HM ORDERS [address] CT COLONOGRAPHY 1950 EYE EXAM 1950 FIT 1950 FLEX SIG 1950 LIPID 1950 MICROALBUMIN 1950 sDNA (Cologuard) 1950 HEPATITIS C SCREENING 11/15/1967 RSV VACCINE (1 - Risk 60-74 years 1-dose series) 2009 FALL RISK ASSESSMENT 2014 MEDICARE ANNUAL WELLNESS VISIT 2014 A1C 11/23/2014 08/24/2014, 08/24/2014 BMP 04/17/2018 04/17/2017, 08/05, 08/24/2014, Additional history exists COLONOSCOPY 04/22/2018 04/22/2008 COLORECTAL CANCER SCREENING 04/22/2018 DIABETIC FOOT EXAM 03/22/2023 03/22/2022 COVID-19 Vaccine ( season) 2024 03/24/2021, 07/29/2020, 07/08/2020 INFLUENZA VACCINE (#1) 2024 04/03/2018, 2017 DTAP/TDAP/TD IMMUNIZATION (2 - Td or Tdap) 01/07/2024 01/06/2014, 01/06/2014 PHQ-2 (once per calendar year) 2024 Pneumococcal Vaccine: 50+ Years Completed 10/14/2017, 01/06/2014 ZOSTER IMMUNIZATION Completed 03/27/2020, 0 HPV IMMUNIZATION Aged Out No longer e ligible based on patient's age to complete this topic MENINGITIS IMMUNIZATION Aged Out No l onger eligible based on patient's age to complete this topic Procedures Procedure Name Priority Date/Time Associated Diagnosis Comments COMPREHENSIVE METABOLIC PANEL STAT 04/17/2017 3:58 AM INSOLE AND OUTSOLE PREPARER HEMOGLOBIN A1C Routine 08/24/2014 7:40 PM CDT Influenza B COLONOSCOPY Routine 04/22/2008 7:00 AM INSOLE AND OUTSOLE PREPARER from Last 3 Months or Most Recently Relevant to Health Maintenance Results * (ABNORMAL) Comprehensive metabolic panel (04/17/2017 3:58 AM INSOLE AND OUTSOLE PREPARER) Sodium 135 133 - 144 mmol/L 04/17/2017 4:32 AM [facility] Potassium 4.4 3.4 - 5.3 mmol/L 04/17/2017 4:32 AM [facility] Chloride 104 94 - 109 mmol/L 04/17/2017 4:32 AM [facility] Carbon Dioxide 26 20 - 32 mmol/L 04/17/2017 4:32 AM [facility] Anion Gap 5 3 - 14 mmol/L 04/17/2017 4:32 AM [facility] Glucose 156(H) 70 - 99 mg/dL 04/17/2017 4:32 AM [facility] Urea Nitrogen 18 7 - 30 mg/dL 04/17/2017 4:32 AM [facility] Creatinine 1.49(H) 0.66 - 1.25 mg/dL 04/17/2017 4:32 AM [facility] GFR Estimate 47(L) >60 mL/min/1.7 m2 04/17/2017 4:32 AM [facility] Comment:Non GFR Calc GFR Estimate If Black 57(L) >60 mL/min/1.7 m2 04/17/2017 4:32 AM [facility] Comment: GFR Calc Calcium 9.4 8.5 - 10.1 mg/dL 04/17/2017 4:32 AM [facility] Bilirubin Total 0.8 0.2 - 1.3 mg/dL 04/17/2017 4:32 AM [facility] Albumin 3.5 3.4 - 5.0 g/dL 04/17/2017 4:32 AM [facility] Protein Total 7.8 6.8 - 8.8 g/dL 04/17/2017 4:32 AM [facility] Alkaline Phosphatase 63 40 - 150 U/L 04/17/2017 4:32 AM [facility] ALT 67 0 - 70 U/L 04/17/2017 4:32 AM [facility] AST 39 0 - 45 U/L 04/17/2017 4:32 AM [facility] Blood specimen (specimen) 04/17/2017 3:58 AM INSOLE AND OUTSOLE PREPARER 04/17/2017 4:11 AM INSOLE AND OUTSOLE PREPARER us Rubio Osborne MD LAB - BLOOD ORDERABLES Final Res ult Performing Organization Address [facility] Co de Phone Number [facility] [address] [phone], [facility] [phone] * (ABNORMAL) Hemoglobin A1c (08/24/2014 7:40 PM CDT) Hemoglobin A1C 7.3(H) 4.3 - 6.0 % [facility] 08/24/2014 7:40 PM CDT 08/24/2014 8:08 PM CDT us Andrei Elizabeth MD LAB - BLOOD ORDERABLES Fi nal Result Performing Organization Address [facility] Co de Phone Number [facility] [address] [place] [address] * COLONOSCOPY (04/22/2008 7:00 AM INSOLE AND OUTSOLE PREPARER) COLONOSCOPY Endoscopy Patient Name: Yair Sainz Gender: M Procedure Date: 04/22/2008 7:00 AM Date of : 1950 Age: 57 Admit Type: Outpatient Attending MD: Iban Dempsey MD Procedure: Colonoscopy Indications: Average risk screening for colorectal malignant neoplasm Providers: Iban Dempsey MD Referring MD: Jose Barnes MD Medicines: Fentanyl (Sublimaze) IVP 100 mcgs, Versed (Midazolam) IVP 3 mgs Complications: No immediate complications Procedure: - Prior to the procedure, a History and Physical was performed, and patient medication allergies were reviewed. The patient is competent. The risks and benefits of the procedure and the sedation options and risks were discussed with the patient. All questions were answered and informed consent was obtained. Patient identification and proposed procedure were verified by the physician and the nurse in the procedure room. Mental Status Examination: alert and oriented. Airway Examination: normal oropharyngeal airway and neck mobility. Respiratory Examination: clear to auscultation. CV Examination: normal. Prophylactic Antibiotics: The patient does not require prophylactic antibiotics. Prior Anticoagulants: The patient has taken aspirin, last dose was 7 days prior to procedure. ASA Grade Assessment: II - A patient with mild systemic disease. After reviewing the risks and benefits, the patient was deemed in satisfactory condition to undergo the procedure. The anesthesia plan was to use moderate sedation / analgesia (conscious sedation). Immediately prior to administration of medications, the patient was re-assessed for adequacy to receive sedatives. The heart rate, respiratory rate, oxygen saturations, blood pressure, adequacy of pulmonary ventilation, and response to care were monitored throughout the procedure. The physical status of the patient was re-assessed after the procedure. After obtaining informed consent, the colonoscope was passed under direct vision. Throughout the procedure, the patient's blood pressure, pulse, and oxygen saturations were monitored continuously. The [id number] #[id number] was introduced through the anus and advanced to cecum, identified by the appendiceal orifice, ileocecal valve and palpation. The colonoscopy was performed without difficulty. The patient tolerated the procedure fairly well. The quality of the prep was excellent. The prep was adequate to identify polyps. Scope insertion time was 4 minutes. Scope withdrawal time was 8 minutes. Findings: The retroflexed view of the rectum was normal and showed no abnormalities. The entire examined colon appeared normal. Impression: - The colon is normal. Recommendation: - Repeat colonoscopy in 10 years for screening purposes. __ Iban Dempsey MD Signed Date: 04/22/2008 7:42 AM Number of Addenda: 0 Note initiated on 04/22/2008 7:02 AM RADIOLOGY RESULTS COLONOSCOPY RADIOLOG Y RESULTS 04/22/2008 7:00 AM INSOLE AND OUTSOLE PREPARER Jose Barnes MD PROCEDURES Final Result RADIOLOGY RESULTS from Last 3 Months or Most Recently Relevant to Health Maintenance Insurance [facility] MEDICARE Advance Directives For more information, please contact: [phone] * Full Code (Latest Code Status on File) Date Activated Date Inactivated Comments 08/25/2014 2:48 PM 03/16/2019 1:49 PM * Full Code Date Activated Date Inactivated Comments 08/24/2014 10:31 PM 08/25/2014 2:48 PM Care Teams Health Plan Advisor Relationship Specialty Start Date End Date Clinic, [place] [phone] PCP - General 06/06/22
--- OUTSIDE RECORDS SUMMARY | 2024-09-02 14:31 | XMS_ITS | Encounter Summary ---
Author Organization [facility] Address [address] [place] [address] Care Team Providers Care Sales Systems Engineer Name Role Phone Elsewhere, Pcp Primary Care Provider Unavailabl e Reason for Referral * MRI/CAT/PET Scan (Routine) - Authorized Specialty Diagnoses / Procedures Referred By Contac t Referred To Contact Diagnoses Multiple Myeloma Not Having Achieved Remission (HCC) Multiple Myeloma In Remission (HCC) Procedures PET CT Whole Body FDG Melonie Franklin M.D. [address] [place] [address] Phone: tel: fax: [facility] Region Referral ID Status Reason Start Date Expiration Date V isits Requested Visits Authorized [id number] Authorized 08/28/2024 11/28/2025 1 1 Encounter Details Date Type Department Care Team (Late st Contact Info) Description 08/28/2024 Orders Only Department of Oncology in [place], [place] [address] [place] [phone] Melonie Franklin M.D. [address] [place] [phone] Multiple Myeloma Not Having Achieved Remission (HCC) (Primary Dx); Multiple Myeloma In Remission (HCC) Social History Tobacco Use Types Packs/Day Years Used Date Smoking Tobacco: Never Passive Smoke Exposure: Never Smokeless Tobacco: Never Alcohol Use Standard Drinks/Week Comments No 0 (1 standard drink = 0.6 oz pur e alcohol) [facility] Utilities Answer Date Recorded In the past 12 months has e [employer], gas, oil, or water [employer] threatened to shut off services in your [...] money to buy more. Never true 12/29/19 24 Within the past 12 months, t he [...] your living situation today? I have a [facility] place to live 12/29/2023 Sex and Gender Information Value Date Recorded Sex Assigned at Male 04/09/2018 12:14 PM WELDER/INSTALLER Legal Sex Male 3:07 PM WELDER/INSTALLER Gender Identity Male 04/09/2018 12:14 PM WELDER/INSTALLER Sexual Orientation Straight 04/09/2018 12 :14 PM WELDER/INSTALLER documented as of this encounter Plan of Treatment Scheduled Orders Name Type Priority Associated Diagnoses Orde r Schedule PET CT Whole Body FDG Imaging RAD - Routine (most inpatients and all outpatients) Multiple Myeloma Not Having Achieved Remission (HCC) Multiple Myeloma In Remission (HCC) Expected: 09/04/2024, Expires: 11/27/2025 documented as of this encounter Visit Diagnoses Diagnosis Multiple Myeloma Not Having Achieved Remission (HCC)- Primary Multiple Myeloma In Remission (HCC) documented in this encounter Additional Health Concerns Infection Onset Date Last Indicated Resolved Time Protective Environment 10/25/2023 10/25/2023 documented as of this encounter Care Teams Sales Systems Engineer Relationship Specialty Start Date End Date Elsewhere, Pcp PCP - General Family Medicine 03/18/18 documented as of this encounter
--- OUTSIDE RECORDS SUMMARY | 2024-09-02 14:31 | XMS_ITS | Encounter Summary ---
Author Organization [facility] Address [address] [place] [address] Care Team Providers Care Info Specialist Name Role Phone Elsewhere, Pcp Primary Care Provider Unavailabl e Reason for Visit * Reason Comments Immunizations Encounter Details Date Type Department Care Team (Late st Contact Info) Description 08/28/2024 8:00 AM CDT Nurse Only Section of Infectious Diseases in [place], [place] [address] [place] [phone] Milind Adam M.D. [address] [place] [phone] Smita Ojeda, RLaurelNLaurel [address] [place] [phone] Immunizations Social History Tobacco Use Types Packs/Day Years Used Date Smoking Tobacco: Never Passive Smoke Exposure: Never Smokeless Tobacco: Never Alcohol Use Standard Drinks/Week Comments No 0 (1 standard drink = 0.6 oz pur e alcohol) [facility] Utilities Answer Date Recorded In the past 12 months has e electric, gas, oil, or water company threatened to shut off services in your [...] your living situation today? [facility] have a [facility] place to live 12/29/2023 Sex and Gender Information Value Date Recorded Sex Assigned at Male 04/09/2018 12:14 PM WIRE PREPARATION WORKER Legal Sex Male 3:07 PM WIRE PREPARATION WORKER Gender Identity Male 04/09/2018 12:14 PM WIRE PREPARATION WORKER Sexual Orientation Straight 04/09/2018 12 :14 PM WIRE PREPARATION WORKER documented as of this encounter Progress Notes * Smita Ojeda R.N. - 08/28/2024 8:00 AM CDT PROC IMM Visit 08/28/2024 Pt Type: Post SCT Date of Transplant: 12/20/2023 (252 days) Visit # 2 Next Visit Due on or after: 2 Months or more, from 08/28/2024 Vaccines Ordered: N/A Pended to Provider: N/A Patient's Plan for Future Vaccination Visits: Complete remaining Vaccines with local PCP. Please bring the vaccine schedule to your primary care provider or local specialist to receive your immunizations, if you will not be returning to [facility] for them. It is recommended that all immunizationsare received at the same facility for continuity, if possible. Please send any immunization recordsto your [facility] care team via fax or patient portal for any new vaccinations received outside [facility]. Fax number is [phone]. If questions, contact your Hematology team. Additional Notes: Patient wishes to receive the remaining Post SCT vaccines locally. He will contact his SCT providerfor orders to be sent locally. documented in this encounter Plan of Treatment Not on file documented as of this encounter Visit Diagnoses Diagnosis Need Vaccine Immunization- Primary documented in this encounter Additional Health Concerns Infection Onset Date Last Indicated Resolved Time Protective Environment 10/25/2023 10/25/2023 documented as of this encounter Care Teams Info Specialist Relationship Specialty Start Date End Date Elsewhere, Pcp PCP - General Family Medicine 03/18/18 documented as of this encounter
--- OUTSIDE RECORDS SUMMARY | 2024-09-02 14:31 | XMS_ITS | Encounter Summary ---
Author Organization [facility] Address [address] [place] [address] Care Team Providers Care Rn Family Name Role Phone Elsewhere, Pcp Primary Care Provider Unavailabl e Reason for Referral * Outpatient (Routine) - Closed Specialty Diagnoses / Procedures Referred By Keli tinoco Referred To Contact Neurology Diagnoses Dystonia Panchito Henson M.D., M.P.H. Phone: tel: [facility] Referral ID Status Reason Start Date Expiration Date Visits Re quested Visits Authorized [id number] Closed 03/10/2018 03/10/2019 1 1 H MAKER Encounter Details Date Type Department Care Team (Late st Contact Info) Description 03/10/2018 [facility] [address] [place] [address] Panchito Henson M.D., M.P.H. [address] [place] [address] Dystonia (Primary Dx) Social History Tobacco Use Types Packs/Day Years Used Date Smoking Tobacco: Never Assessed Sex and Gender Information Value Date Recorded Sex Assigned at Male 04/09/2018 12:14 PM BATCH MAKER Legal Sex Male 3:07 PM BATCH MAKER Gender Identity Male 04/09/2018 12:14 PM BATCH MAKER Sexual Orientation Straight 04/09/2018 12 :14 PM BATCH MAKER documented as of this encounter Plan of Treatment Scheduled Referrals Name Type Priority Associated Diagnoses Orde r Schedule Neurology Referral Outpatient Referral Routine Dystonia Expected: 03/10/2018 (Approximate), Expires: 03/10/2021 documented as of this encounter Visit Diagnoses Diagnosis Dystonia- Primary documented in this encounter Additional Health Concerns Infection Onset Date Last Indicated Resolved Time Protective Environment 10/25/2023 10/25/2023 documented as of this encounter Care Teams Rn Family Relationship Specialty Start Date End Date Elsewhere, Pcp PCP - General Family Medicine 03/18/18 documented as of this encounter
--- OUTSIDE RECORDS SUMMARY | 2024-09-02 14:31 | XMS_ITS | Encounter Summary ---
Author Organization [place] Address [address] [place] [id number] Care Team Providers Care Clinical Engineer Name Role Phone Chris Lowe DPArtie Unavailable [phone] [facility] Primary Care Provider Encounter Details Date Type Department Care Team (Late st Contact Info) Description 06/28/2022 Telephone [facility] Podiatry [address] [place] [place], [place] [phone] Chris Lowe DPM [phone] [facility] [address] [place] [address] Social History Tobacco Use Types Packs/Day Years Used Date Smoking Tobacco: Never Smokeless Tobacco: Never Alcohol Use Standard Drinks/Week Comments Never 0 (1 standard drink = 0.6 oz pur e alcohol) Adolescent Education Answer Date Record ed Getting School Help Needed Not on file 02/04 Sex and Gender Information Value Date Recorded Sex Assigned at Not on file Legal Sex Male 3:25 AM KENNEL MANAGER Gender Identity Not on file Sexual Orientation Not on file COVID-19 Exposure Response Date Recorded In the last 10 days, have yo u been in contact with someone who was confirmed or suspected to have Coronavirus/COVID-19? No / Unsure 07/19/2022 3:27 PM CDT documented as of this encounter Miscellaneous Notes * Telephone Encounter - Chris Lowe DPM - 07/02/2022 6:53 AM KENNEL MANAGER [employer] forms completed. RTW 07/02/22 with rest/elevate restrictions x 4 weeks. Chris Lowe DPM FACFAS FACFAOM Podiatric Foot & Ankle Surgeon [facility] [phone] EL MANAGER * Telephone Encounter - Lauren Garcia - 06/28/2022 9:28 AM CST Reason for Call: Form, our goal is to have forms completed with 7 days, however, some forms may require a visit or additional information. Type of letter, form or note: STD, workability form Who is the form from?: Insurance Where did the form come from: form was faxed in Phone number of person requesting form: [phone] Can we leave a detailed message on this number: Not Applicable Desired completion date of form: 07/19/22 (Patient's next office visit) How will form be returned?: fax to [phone] Has the patient signed a consent form for release of information (may be included with form)? NO Additional comments: s/p partial right 2nd toe amputation, DOS 06/06/22. ALTAGRACIA with provider 06/21/22. Form was started and place in Provider Basket for provider review/ completion at [facility] Podiatry. EL MANAGER documented in this encounter Plan of Treatment Not on file documented as of this encounter Visit Diagnoses Not on filedocumented in this encounter Care Teams Clinical Engineer Relationship Specialty Start Date End Date Clinic, [address] [address] PCP - General 06/06/22 Chris Lowe DPM [phone] [facility] [address] [place] [address] Assigned Musculoskeletal Provider 03/31/22 01/26/24 documented as of this encounter
--- OUTSIDE RECORDS SUMMARY | 2024-09-02 14:31 | XMS_ITS ---
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 11/25/2023 Bacteremia 11/23/2023 Encounter Admission For Chemotherapy 11/22/2023 Hypomagnesemia 11/15/2023 Multiple Myeloma In Remission 11/01/2023 Transplant Stem Cell 11/01/2023 Multiple Myeloma Not Having Achieved Remission 0 06/06/2023 Diabetes Mellitus Type 2 04/09/2018 Overview (04/09/2018): Overview: On Metformin/Glipizide Hypertension Essential Primary 04/09/2018 Overview (04/09/2018): Overview: On Atenolol Hyperlipidemia 04/09/2018 Calculus of kidney 10/11/2014 Current Treatment and Therapy Plans Autologous Blood and Marrow Transplant* Plan Start Date:12/20/2023 Plan Provider:Ignacia Carl APRN, C.N.P., D.N.P. Linked Problems Multiple Myeloma In [facility] ([facility])Transplant Stem Cell ([facility]) Treatment Medications No medications scheduled. Melphalan Single Day ( Day -2 ) Myeloablative Conditioning* Plan Start Date: 12/17/2023 Plan Provider:Ignacia Carl APRN, C.N.P., D.N.P. Linked Problems Multiple Myeloma In [facility] n ([facility])Transplant Stem Cell (H[facility]) Treatment Medications melphalan (Alkeran) IVPB in 1000 mL (QS base) (A lkeran) Vascular Access Patency - Peripheral Intravenous Catheter and Rapid Infusion Catheter & Vascular Access Patency - Hemodialysis Catheter and High Flow Catheter* Plan Start Date:11/15/2023 Linked Problems Multiple Myeloma In [facility] ([facility]) Treatment Medications No medications scheduled. Other Current Plans Autologous Blood and Marrow Transplant* Plan Start Date:11/22/2023 Plan Provider:Ignacia Carl APRN, C.N.P., D.N.P. Linked Problems HypomagnesemiaTransplant Brock m Cell (HCC)Bacteremia Treatment Medications No medications scheduled. Past Treatment and Therapy Plans Apheresis Plan Name Start Date Discontinue Date Treatment Medications Discontinue Reason Plan Provider Autologous Cell Collection 11/19/2023 11/20/2023 No medications scheduled. Therapy Complete Milind Adam M.D. Conditional Blood Orders Platelets Plan Name Start Date Discontinue Date Treatment Medications Discontinue Reason Plan Provider Conditional Blood Administration - Platelets - For patients weighing greater than 35 kg - (Units) Hem Onc / BMT Only 12/29/2023 04/30/2024 No medications scheduled. Therapy Complete Ignacia Carl APRN, C.N.P., D.N.P. Conditional Blood Orders RBC Plan Name Start Date Discontinue Date Treatment Medications Discontinue Reason Plan Provider Conditional Blood Administration - Red Blood Cells (RBC) For patients weighing greater than 35 kg (units) Hem Onc / BMT Only 11/29/2023 04/30/2024 No medications scheduled. Therapy Complete Ignacia Carl APRN, C.N.P., D.N.P. Hem/Onc Therapy Plan 1 Plan Name Start Date Discontinue Date Treatment Medications Discontinue Reason Plan Provider Peripheral Blood Stem Cell Mobilization 11/15/2023 11/20/2023 No medications scheduled. Therapy Complete Milind Adam M.D. Hematology / Oncology Treatment 1 Plan Name Start Date Discontinue Date Treatment Medications Discontinue Reason Plan Provider Cycles Melphalan Single Day ( Day -2 ) Myeloablative Conditioning (Inpatient Only) 12/17/2023 melphalan (Alkeran) Unlisted Ignacia Carl APRN, C.N.P., D.N.P. Treatment not started Infusion Therapy 1 Plan Name Start Date Discontinue Date Treatment Medications Discontinue Reason Plan Provider Cefepime 11/21/2023 11/21/2023 No medications scheduled. Therapy Complete Ignacia Carl APRN C.N.P., D.N.P. Plerixafor (MOZOBIL) 11/01/2023 11/20/2023 No medications scheduled. Therapy Complete Milind Adam M.D. Infusion Therapy 3 Plan Name Start Date Discontinue Date Treatment Medications Discontinue Reason Plan Provider cefepime (MAXIPIME) 1 time a day 11/21/2023 11/21/2023 No medications scheduled. Therapy Complete Ignacia Carl APRN, C.N.P., D.N.P. Cellular Therapy * Episode Name Episode Status Transplant/Infusion Date Transplant/Infusion Center Donor Information Acute GVHD Chronic GVHD Contact Auto PBSC Txp Active Day 257 (12/20/23) [facility] N/A N/A N/A Milind Adam M.D.Phon e: [phone]: Flora l: [email or web address] * Cell Therapy Appointments (08/02/2024 - 10/02/2024) When Visit Type With Description No appointments Lifetime Dose Tracking * Chemical Lifetime Dose Automatic Entry Manual Entr y Radiation 3.51 mGy 3.51 mGy 0 mGy Fluoro Time 0.7 minutes 0.7 minutes 0 minutes
--- OUTSIDE RECORDS SUMMARY | 2024-09-02 14:31 | XMS_ITS | Clinical Summary ---
Author Organization [facility] Address [address] [place] [address] Care Team Providers Care Roll Or Tape Edge Machine Operator Name Role Phone Elsewhere, Pcp Primary Care Provider Unavailabl e Source Comments Patient records contain information from all sites at [facility]. For routine questions regarding patient records, call [phone] during business hours, M-F 8:00 AM - 5:00 PM Central Time. Record requests for emergency care only can be directed to [phone] at any time.[facility] Allergies Active Allergy Reactions Criticality Noted Date Comments Tadalafil Headache High 02/13/2023 Medications trihexyphenidyl (ARTANE) 2 mg tablet Take 2 mg by mouth daily. Active propranolol (INDERAL) 80 mg tablet Take 80 mg by mouth daily. Currently on hold. Active pantoprazole (PROTONIX) 40 mg EC tablet Take 1 tablet by mouth daily. 4 Active amitriptyline 2%-ketamine 5%-lidocaine 5% in vanicream Apply topically at bedtime. Apply to hands and feet. 30 g 1 11/26/2023 5:58 PM CDT 4 Active hydrocortisone (Anusol-HC) 2.5 % rectal cream Insert 1 Application into the rectum 2 (two) times a day as needed for hemorrhoids. Use externally only 28 g 2 4 Active melatonin 5 mg tablet Take 1 tablet (5 mg total) by mouth at bedtime as needed (Insomnia). 4 Active ondansetron (Zofran) 8 mg tabletIndicatio ns:Multiple Myeloma In Remission (HCC),Transplan t Stem Cell (HCC) Take 1 tablet (8 mg total) by mouth every 8 (eight) hours as needed for nausea or vomiting (unrelieved by prochlorperazine ). 30 tablet 3 12/18/2023 12:39 PM CDT 4 12/17/19 Active Additional Information Patient not taking.Reported on 03/30/2024 insulin glargine 100 unit/mL (3 mL) pen Inject 6 Units under the skin every evening. Active insulin aspart U-100 (NovoLOG FlexPen) 100 unit/mL (3 mL) pen Inject 0-4 Units under the skin 3 (three) times a day with meals. 4 units with meals, holding if not eating. Reduce to 2 units if eating a smaller meal. Plus 2 units for every 50 points starting at 150 mg/dL. Active multivitamin tablet Take 1 tablet by mouth daily. HOLD Active Additional Information Patient not taking.Reported on 03/30/2024 prochlorperazin e (Compazine) 10 mg tabletIndicatio ns:Multiple Myeloma In Remission (HCC),Transplan t Stem Cell (HCC) Take 1 tablet (10 mg total) by mouth every 6 (six) hours as needed for nausea or vomiting. HOLD with current urinary retention. Discuss with BMT team prior to taking 4 01/01/20 Active Additional Information Patient not taking.Reported on 03/30/2024 loperamide (Imodium A-D) 2 mg capsule Take 1 capsule (2 mg total) by mouth 4 (four) times a day as needed for diarrhea. 4 Active tamsulosin (Flomax) 0.4 mg 24 hr capsule Take 1 capsule (0.4 mg total) by mouth at bedtime. 30 capsule 1 01/05/2024 7:50 AM CDT 4 Active losartan (Cozaar) 50 mg tablet Take 1 tablet (50 mg total) by mouth daily. 4 Active sulfamethoxazol e-trimethoprim (Bactrim) 400-80 mg per tablet Take 1 tablet by mouth daily. Take until day +100 79 tablet 4 Active lidocaine-prilo ana luisa (Emla) 2.5-2.5 % creamIndication s:Multiple Myeloma Not Having Achieved Remission (HCC),Bone Marrow Transplant Status (HCC) Apply 1 Application topically as needed for pain. Apply to affected area. 30 g 4 Active gabapentin (Neurontin) 300 mg capsule Take 1 capsule (300 mg total) by mouth 3 (three) times a day. Take 600 mg in the morning and 300 mg in the afternoon. 180 capsule 3 4 Active atorvastatin (Lipitor) 10 mg tablet Take 1 tablet by mouth daily. 4 Active acyclovir (Zovirax) 400 mg tablet Take 1 tablet (400 mg total) by mouth 2 (two) times a day. 180 tablet 2 4 Active penicillin V potassium (Veetids) 500 mg tablet Take 1 tablet (500 mg total) by mouth 2 (two) times a day. 180 tablet 3 4 Active pregabalin (Lyrica) 75 mg capsule Take 1 capsule (75 mg total) by mouth 2 (two) times a day. 180 capsule 5 Active Active Problems Problem Noted Date Diagnosed [...] Atenolol Hyperlipidemia 04/09/2018 Calculus of kidney 10/11/2014 Encounters Date Type Department Care Team Description 08/28/2024 8:00 AM CDT Nurse Only Section of Infectious Diseases in [place], [place] [address] [place] [address] Gertz, Morie A, M.Smita Dobbs R.N. Immunizations 08/28/2024 Orders Only Department of Oncology in [place], [place] [address] [place] [id number] Melonie Franklin M.D. Multiple Myeloma Not Having Achieved Remission (HCC) (Primary Dx); Multiple Myeloma In Remission (HCC) 08/20/2024 Clinical Communication Division of Hematology in [place], [place] [address] [place] [phone] Milind Adam M.D. 08/12/2024 Orders Only Division of Hematology in [place], [place] [address] [place] [phone] Milind Adam M.D. 08/05/2024 Clinical Communication Section of Infectious Diseases in [place], [place] [address] [place] [phone] Stefanie Siegel R.N. 06/25/2024 Refill Division of Hematology in [place], [place] [address] [place] [phone] Milind Adam M.D. Med Refill 06/16/2024 8:00 AM SPONGE BUFFER Education Section of Infectious Diseases in [place], [place] [address] [place] [address] Milind Adam M.D. McIntyre, Sierra M, R.N. Need Vaccine Immunization (Primary Dx) from Last 3 Months Immunizations Immunization Administration Dates Next Due DTaP-IPV/Hib (Pentacel) 08/28/2024,06/16/2024 HepA Adult 06/16/2024 HepB Adult (HEPLISAV-B) 08/28/2024,06/16/2024 Influenza, Quadrivalent, Adj uvanted, Preservative Free 05/30/2023 MENACWY-TT (MENQUADFI)(MCV4) 08/28/2024,06/16/19 PCV13 01/06/2014 PCV20 08/28/2024,06/16/2024 PPSV23 10/14/2017 RSV: respiratory syncytial v irus (ABRYSVO) bivalent vaccine 06/16/2024 RZV (SHINGRIX) 08/28/2024,,03/27/2020,2019 SARS-COV-2 (COVID-19) - MODE RNA (12 YEARS AND OLDER) Fall Seasonal 08/28/2024,06/16/2024 Tdap 01/06/2014 influenza trivalent high dos e (HD)(PF) 04/15/2024,04/03/2018 Family History Medical History Relation Name Comments Diabetes Brother LOUIS Relation Name Status Comments Brother LOUIS Social History Tobacco Use Types Packs/Day Years Used Date Smoking Tobacco: Never Passive Smoke Exposure: Never Smokeless Tobacco: Never Tobacco Cessation:Counseling Given: Not Answered Alcohol Use Standard Drinks/Week Comments No 0 (1 standard drink = 0.6 oz pur e alcohol) [facility] [employer] Answer Date Recorded In the past 12 months has e [employer], gas, oil, or water [employer] threatened to shut off services in your [...] the money to buy more. Never true 08/25/20 24 Within the past 12 months, t [...] your living situation today? I have a [facility] place to live 12/29/2023 Sex and Gender Information Value Date Recorded Sex Assigned at Male 04/09/2018 12:14 PM SPONGE BUFFER Legal Sex Male 3:07 PM SPONGE BUFFER Gender Identity Male 04/09/2018 12:14 PM SPONGE BUFFER Sexual Orientation Straight 04/09/2018 12 :14 PM SPONGE BUFFER Last Filed Vital Signs Vital Sign Reading Time Taken Comments Blood Pressure 122/77 03/30/2024 1:30 PM SPONGE BUFFER Pulse 87 03/30/2024 1:38 PM SPONGE BUFFER Temperature 36.3 C (97.3 F) 03/30/2024 12:29 PM SPONGE BUFFER Respiratory Rate 13 03/30/2024 1:38 PM SPONGE BUFFER Oxygen Saturation 99% 03/30/2024 1:38 PM SPONGE BUFFER Inhaled Oxygen Concentration - - Weight 79 kg (174 lb 2.6 oz) 03/30/2024 11:17 AM SPONGE BUFFER Height 182.6 cm (5' 11.89) 03/30/2024 11:17 AM SPONGE BUFFER Body Mass Index 23.69 03/30/2024 11:17 AM SPONGE BUFFER Plan of Treatment Health Maintenance Due Date Last Done Comments CT Colonography 1949 Cologuard 1949 Dental Prophylaxis 1950 Diabetic Office Visit with Foot Exam 1949 Dilated Eye Exam 1949 FIT 1949 Urine Albumin 1949 Hemoglobin A1C 04/29/2024 10/29/2023, 05/07, 12/23/2017 Depression Screening (Annual PHQ-2) 05/06/2024 Fall Risk Screen (Annual) 05/06/2024 Lipid (Cholesterol) Screening 05/30/2024 05/30/2023 Office Visit for Blood Pressure Check / Re-check 06/30/2024 03/30/2024 Urinalysis 09/27/2024 03/30/2024, 12/05, 10/29/2023 Vitamin D Testing 10/28/2024 10/29/2023 Spirometry with DLCO or PFT 10/30/2024 10/31/2023 IPV Vaccines (3 of 3 - Adult catch-up series) 02/27/2025 08/28/2024, 06/16/2024 Creatinine Level (Kidney Function Test) 03/30/2025 03/30/2024, 01/09/2024, 01/08/2024, Additional history exists Potassium Level 03/30/2025 03/30/2024, 09/0 09/2023, 01/08/2024, Additional history exists Sodium Level 03/30/2025 03/30/2024, 09/0 09/2023, 01/08/2024, Additional history exists Colonoscopy 05/06/2032 05/06/2022, 04/07, 04/22/2008 Colorectal Cancer Screening 05/06/2032 DTaP,Tdap,and Td Vaccines (4 - Td or Tdap) 08/28/2034 08/28/2024, 06/16/2024, 01/06/2014 Abdominal Aortic Aneurysm (AAA) Screen Discontinued 04/17/2017, 10/11/2014 Hepatitis C Screening Completed 10/29/2023 Influenza Vaccine Completed 04/15/2024, , 04/03/2018 RSV vaccine - (32-36 weeks) or 60+ years Completed 06/16/2024 COVID-19 Vaccine Completed 08/28/2024, 03/2025, 04/15/2024, Additional history exists Hepatitis B Vaccines Completed 08/28/2024, 06/16/19 Pneumococcal vaccine (50+ years) Completed 08/28/2024, 06/16/2024, 10/14/2017, Additional history exists Zoster Vaccines Completed 08/28/2024, 06/06, 03/27/2020, Additional history exists HPV Vaccines Aged Out No longer eligi ble based on patient's age to complete this topic Medical Devices Implanted Type Area Seismograph Operator Helper Device Identifier Shelf Expiration Date Model / Serial / Lot Ocular Lens Ocular Lens Bilateral : Eye Procedures Procedure Name Priority Date/Time Associated Diagnosis Comments URINALYSIS WITH MICROSCOPIC Routine 03/30/2024 8:15 AM SPONGE BUFFER Retention Urinary Multiple Myeloma In Remission (HCC) Transplant Stem Cell (HCC) SODIUM, S/P Routine 03/30/2024 8:10 AM SPONGE BUFFER Transplant Stem Cell (HCC) Multiple Myeloma In Remission (HCC) POTASSIUM, S/P Routine 03/30/2024 8:10 AM SPONGE BUFFER Transplant Stem Cell (HCC) Multiple Myeloma In Remission (HCC) CREATININE WITH EGFR, S/P Routine 03/30/2024 8:10 AM SPONGE BUFFER Transplant Stem Cell (HCC) Multiple Myeloma In Remission (HCC) PULMONARY FUNCTION TESTS Routine 10/31/2023 9:41 AM CDT Multiple Myeloma In Remission (HCC) MBC TISSUE DONOR SCREEN TEST SET Routine 10/29/2023 8:40 AM CDT Multiple Myeloma In Remission (HCC) HEMOGLOBIN A1C, B Routine 10/29/2023 8:3 9 AM CDT Multiple Myeloma In Remission (HCC) 25-HYDROXYVITAMIN D2 AND D3, S Routine 10/29/2023 8:39 AM CDT Multiple Myeloma In Remission (HCC) from Last 3 Months or Most Recently Relevant to Health Maintenance Results * (ABNORMAL) Urinalysis, with Microscopic: Urine, Midstream (03/30/2024 8:15 AM SPONGE BUFFER) Source Urine, Urine, Midstream 03/30/2024 10:03 AM SPONGE BUFFER DTL Color, U Yellow 03/30/2024 10:03 AM SPONGE BUFFER DTL Clarity, U Clear 03/30/2024 10:03 AM SPONGE BUFFER DTL Protein, U <4 <26 mg/dL 03/30/2024 10:54 AM SPONGE BUFFER DTL Protein/Osmol ality <0.31 <0.42 ratio 03/30/2024 10:54 AM SPONGE BUFFER DTL Predicted 24 HR Protein, U <313(H) <229 mg/24 h 03/30/2024 10:54 AM SPONGE BUFFER DTL Predicted Range <987 mg/24 h 03/30/2024 10:54 AM SPONGE BUFFER DTL Urine (Urine, Midstream) 03/30/2024 8:15 AM SPONGE BUFFER 03/30/2024 10:03 AM SPONGE BUFFER us Milind Adam M.D. LAB URINE ORDERABLES Final Re sult Performing Organization Address City/[facility]/ZIP Co de Phone Number [facility] [address] [place] [address], [facility] [address] [place] [address] * Sodium (03/30/2024 8:10 AM SPONGE BUFFER) Sodium, S 136 135 - 145 mmol/L 03/30/2024 9:24 AM SPONGE BUFFER DT Blood (Blood, Venous) 03/30/2024 8:10 AM SPONGE BUFFER 03/30/2024 8:46 AM SPONGE BUFFER us Milind Adam M.D. LAB BLOOD ADD-ON Final Result [facility] [address] [place] [address], [facility] [address] [place] [address] * Potassium (03/30/2024 8:10 AM SPONGE BUFFER) Potassium, S 4.9 3.6 - 5.2 mmol/L 03/30/2024 9:24 AM SPONGE BUFFER DTL Blood (Blood, Venous) 03/30/2024 8:10 AM SPONGE BUFFER 03/30/2024 8:46 AM SPONGE BUFFER Milind Adam M.D. LAB BLOOD ADD-ON Final Result Performing Organization Address [facility] Co de Phone Number [facility] [address] [place] [address], [place] [address] * (ABNORMAL) Creatinine with Estimated GFR (03/30/2024 8:10 AM SPONGE BUFFER) Creatinine 1.40(H) 0.74 - 1.35 mg/dL 03/30/2024 9:24 AM SPONGE BUFFER DTL Estimated GFR (eGFR) 53(L) >=60 mL/min/BSA 03/30/2024 9:24 AM SPONGE BUFFER DTL Comment: Estimated GFR calculated using the 2020 CKD_EPI creatinine equation. Blood (Blood, Venous) 03/30/2024 8:10 AM SPONGE BUFFER 03/30/2024 8:46 AM SPONGE BUFFER us Milind Adam M.D. LAB BLOOD ADD-ON Final Result Performing Organization Address [facility] Co de Phone Number [facility] [address] [place] [address], [address] [address] * Pulmonary Function Tests (10/31/2023 9:41 AM CDT) FVC 2.42 L 10/31/2023 5:56 PM CDT [facility] SU[facility] FEV1 2.07 L 10/31/2023 5:56 PM CDT [facility] FEV1/FVC 85.78 % 10/31/2023 5:56 PM CDT [facility] MVH46-50% 2.65 L/s 10/31/2023 5:56 PM CDT [facility] PEF PRE 6.23 L/s 10/31/2023 5:56 PM CDT [facility] PIF PRE 5.28 L/s 10/31/2023 5:56 PM CDT [facility] Pre FEF50/FIF50 74.00 % 5:56 PM CDT [facility] FET PRE 3.84 sec 10/31/2023 5:56 PM CDT [facility] DLCO 12.50 ml/(min*mm Hg) 10/31/2023 5:56 PM CDT [facility] DLCOc 15.26 ml/(min*mm Hg) 10/31/2023 5:56 PM CDT [facility] HB 9.50 g(Hb)/dL 10/31/2023 5:56 PM CDT [facility] VA 3.95 L 10/31/2023 5:56 PM CDT [facility] PulseRest 75.00 1/min 10/31/2023 5:56 PM CDT [facility] E9DmnUzaz 96.00 % 10/31/2023 5:56 PM CDT [facility] PulseExer 88.00 1/min 10/31/2023 5:56 PM CDT [facility] EXER TIME 2.50 min 10/31/2023 5:56 PM CDT [facility] STEP HEIGHT PRE 9.00 Inch 5:56 PM CDT [facility] 10/31/2023 9:41 AM CDT Impressions [facility] - 10/31/2023 5:56 PM CDT Interpret with caution. The patient had difficulty performing acceptable and repeatable maneuvers, and therefore results may underestimate true lung function. Abnormal. FVC is mildly reduced in a nonspecific pattern. The patient was unable to perform acceptable lung volume maneuvers. Diffusing capacity (adjusted for low hemoglobin) is moderately reduced, consistent with a pulmonary parenchymal or vascular process. Oxygen saturation is normal at rest and during limited exercise, which was stopped early due to fatigue. Narrative Procedure Note Yobany Suresh M.D. - 10/31/2023 IMPRESSION: Interpret with caution. The patient had difficulty performing acceptableand repeatable maneuvers, and therefore results may underestimate truelung function. Abnormal. FVC is mildly reduced in a nonspecific pattern.The patient was unable to perform acceptable lung volume maneuvers. Diffusing capacity (adjusted for lowhemoglobin) is moderately reduced, consistent with a pulmonary parenchymalor vascular process. Oxygen saturation is normal at rest and duringlimited exercise, which was stopped early due to fatigue. us aJson Suarez APRN.NLaurelP., D.N.P. PFT ORDERABLE S Final Result [facility] NA * MBC Tissue Donor Screen Test (10/29/2023 8:40 AM CDT) Pathologist [facility] HBsAg Screen Donor Non-reactiv e 10/31/2023 1:48 PM CDT MBC HBc Total Ab Donor Non-reactiv e 10/31/2023 1:48 PM CDT MBC HBV FELISA Individual Donor Non-reactiv e 10/31/2023 1:48 PM CDT MBC HCV [facility]ISA Individual Donor Non-reactiv e 10/31/2023 1:48 PM CDT MBC HIV-1 [facility]ISA Individual Donor Non-reactiv e 10/31/2023 1:48 PM CDT MBC HIV-1/-2 Plus O Ab Screen Donor Non-reactiv e 10/31/2023 1:48 PM CDT MBC HCV Ab Screen Donor Non-reactiv e 10/31/2023 1:48 PM CDT MBC HTLV-I/-II Ab Screen Donor Non-reactiv e 10/31/2023 1:48 PM CDT MBC T. cruzi Total Ab Donor Non-reactiv e 10/31/2023 1:48 PM CDT MBC Syphilis Ab Screen Donor Non-reactiv e 10/31/2023 1:48 PM CDT MBC Comment: This test is done by the Microhemagglutination assay- Treponema pallidum (MHA-TP) method. CMV Total Ab Donor Positive 2023 1:48 PM CDT MBC West Nile Virus [facility]ISA Donor Non-reactiv e 10/31/2023 1:48 PM CDT MBC Comment: Failure to detect WNV RNA does not rule out the possibility of West Nile virus infection. This result should be evaluated in the context of the individual's risk factors and clinical findings. Blood (Blood, Venous) 10/29/2023 8:40 AM CDT 10/29/2023 8:47 AM CDT [facility] DONOR TESTING [facility] - 10/31/2023 1:48 PM CDT Specimen Information: Specimen ID: [id number] Specimen Type: Blood Specimen Collection Start Date: 10/29/2023 8:40 AM Specimen Received Date: 10/29/2023 8:47 AM Specimen ID: [id number] Specimen Type: Blood Specimen Collection Start Date: 10/29/2023 8:40 AM Specimen Received Date: 10/29/2023 8:47 AM Specimen ID: [id number] Specimen Type: Blood Specimen Collection Start Date: 10/29/2023 8:40 AM Specimen Received Date: 10/29/2023 8:47 AM Specimen ID: [id number] Specimen Type: Blood Specimen Collection Start Date: 10/29/2023 8:40 AM Specimen Received Date: 10/29/2023 8:47 AM Jeannie Hernandez APRN C.N.P., D.N.P. LAB BLOOD NON ADD-ON Final Result [facility] DONOR TESTING [facility] [address] [place] [address], [facility] [address] [place] [address] * 25-Hydroxyvitamin D2 and D3 (10/29/2023 8:39 AM CDT) [facility] 25-Hydroxy D2 <4.0 ng/mL 10/30/2023 11:35 AM CDT SDS 25-Hydroxy D3 35 ng/mL 10/30/2023 11:35 AM CDT [facility] 25-Hydroxy D Total 35 ng/mL 2023 11:35 AM CDT [facility] Comment: ----REFERENCE VALUE---- 25-HYDROXY D TOTAL (D2+D3) Optimum levels in the healthy population are 20-50. ----ADDITIONAL INFORMATION---- This test was developed and its performance characteristics determined by [facility] in a manner consistent with CLIA requirements. This test has not been cleared or approved by the U.S. Food and Drug Administration. Blood (Blood, Venous) 10/29/2023 8:39 AM CDT 10/29/2023 11:53 AM CDT Jason Suarez APRN.N.P., D.N.P. LAB BLOOD ADD -ON Final Result Performing Organization Address [facility] Co de Phone Number [facility] [address] [place] [address] [facility] [address] [place] [address] [place] [address] * (ABNORMAL) Hemoglobin A1c (10/29/2023 8:39 AM CDT) Hemoglobin A1c, B 7.1(H) 4.0 - 5.6 % 10/29/2023 10:05 AM CDT DTL Comment: Hemoglobin A1c values greater than or equal to 6.5 percent are diagnostic for diabetes mellitus. Diagnosis should be confirmed by repeat testing. In diabetic patients, HbA1c goals should be discussed with healthcare provider. Blood (Blood, Venous) 10/29/2023 8:39 AM CDT 10/29/2023 8:54 AM CDT Jason Suarez APRN.N.P., D.N.P. LAB BLOOD ADD -ON Final Result Performing Organization Address City/[facility] Co de Phone Number [facility] [address] [place] [address], [place] DTL [facility] [address] [place] [address] from Last 3 Months or Most Recently Relevant to Health Maintenance Additional Health Concerns Infection Onset Date Last Indicated Protective Environment 10/25/2023 4 Insurance MEDICARE BLUE CROSS BLUE [facility] Advance Directives For more information, please contact: [phone] * Full Code (Latest Code Status on File) Date Activated Date Inactivated Comments 12/29/2023 12:21 PM 01/01/2024 5:53 PM Question Answer Comments Full Code: Discussed * Full Code Date Activated Date Inactivated Comments 11/23/2023 12:31 AM 11/23/2023 5:30 PM Question Answer Comments Full Code: Discussed Care Teams Roll Or Tape Edge Machine Operator Relationship Specialty Start Date End Date Elsewhere, Pcp PCP - General Family Medicine 03/18/18
--- OUTSIDE RECORDS SUMMARY | 2024-09-02 14:31 | XMS_ITS | Encounter Summary ---
Author Organization [facility] Address [address] [place] [address] Care Team Providers Care X Ray Developing Machine Operator Name Role Phone Elsewhere, Pcp Primary Care Provider Unavailabl e Encounter Details Date Type Department Care Team (Late st Contact Info) Description 08/20/2024 Clinical Communication Division of Hematology in [place], [place] [address] [place] [phone] Milind Adam M.D. [address] [place] [address] Social History Tobacco Use Types Packs/Day Years Used Date Smoking Tobacco: Never Passive Smoke Exposure: Never Smokeless Tobacco: Never Alcohol Use Standard Drinks/Week Comments No 0 (1 standard drink = 0.6 oz pur e alcohol) [facility] Utilities Answer Date Recorded In the past [address] [facility] [employer], gas, oil, or water [employer] threatened to shut off services in your [...] your living situation today? 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 - 08/20/2024 12:11 PM CDT Patient has upcoming BMBx, PET CT, and Immunization appointment and scheduling wanted to confirm ifthese had to been done in a particular order and were advised for patient to have BMBx and PET CT before receiving Immunizations. documented in this encounter Plan of Treatment Not on file documented as of this encounter Visit Diagnoses Not on filedocumented in this encounter Additional Health Concerns Infection Onset Date Last Indicated Resolved Time Protective Environment 10/25/2023 10/25/2023 documented as of this encounter Care Teams X Ray Developing Machine Operator Relationship Specialty Start Date End Date Elsewhere, Pcp PCP - General Family Medicine 03/18/18 documented as of this encounter
--- OUTSIDE RECORDS SUMMARY | 2024-09-02 14:31 | XMS_ITS | Encounter Summary ---
Author Organization [facility] Address [address] [place] [address] Care Team Providers Care Turnaround Planner Name Role Phone Elsewhere, Pcp Primary Care Provider Unavailabl e Encounter Details Date Type Department Care Team (Late st Contact Info) Description 03/18/2018 [facility] [address] [place] [address] Panchito Henson M.D., M.P.H. [address] [place] [id number] Social History Tobacco Use Types Packs/Day Years Used Date Smoking Tobacco: Never Assessed Sex and Gender Information Value Date Recorded Sex Assigned at Male 04/09/2018 12:14 PM NEONATAL DOCTOR Legal Sex Male 3:07 PM NEONATAL DOCTOR Gender Identity Male 04/09/2018 12:14 PM NEONATAL DOCTOR Sexual Orientation Straight 04/09/2018 12 :14 PM NEONATAL DOCTOR documented as of this encounter Plan of Treatment Not on file documented as of this encounter Visit Diagnoses Not on filedocumented in this encounter Additional Health Concerns Infection Onset Date Last Indicated Resolved Time Protective Environment 10/25/2023 10/25/2023 documented as of this encounter Care Teams Turnaround Planner Relationship Specialty Start Date End Date Elsewhere, Pcp PCP - General Family Medicine 03/18/18 documented as of this encounter
[2024-09-02 14:32] LABS: C Reactive Protein* 14.9 mg/dL (0.5-1.0)
--- OUTSIDE RECORDS SUMMARY | 2024-09-02 14:32 | XMS_ITS | Clinical Summary ---
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 G25.89 (ICD-10-CM ) Resolved Kike Rivera MD Other specified extrapyramidal and movement disorders Multiple myeloma 997114281 (SNOMED CT) 09/05 Active 09/05 Kike Rivera MD Multiple myeloma Memory impairment 242425745 (SNOMED CT) 08/31 Resolved 08/31 Kike Rivera MD Memory impairment Adjustment disorder with anxious mood 02788193 (SNOMED CT) 09/30 Resolved 10/18 Kike Rivera MD Adjustment disorder with anxious mood Neuropathic pain 843504426 (SNOMED CT) 09/05 Active 09/05 Kike Rivera MD Neuropathic pain Neuropathy 404016891 (SNOMED CT) 09/05 Active 09/05 Kike Rivera MD Neuropathy Adjustment disorder with anxious mood 31695831 (SNOMED CT) 09/30 Removed 10/18 Noemy Barney PhD Adjustment disorder with anxious mood Mild cognitive impairment 626845118 (SNOMED CT) 09/30 Active 10/18 Noemy Barney PhD Mild neurocognitive disorder Memory impairment 981458890 (SNOMED CT) 08/31 Removed 08/31 Frankie Aiken MD Memory impairment DIABETES MELLITUS 03859890 (SNOMED CT) Active 11/04 Ok Turner MD Diabetes mellitus 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 May increase until pain controlled or until 400 mg 3 times/day (or max 1200 mg/day) 09/05 gabapentin [id number] Kike Rivera MD ATENOLOL 50 MG TABS 1 by mouth twice a day 09/05 atenolol 40675496037 Kike Rivera MD PROPRANOLOL HCL ER 80 MG [id number] 09/05 propranolol 04366350784 Kike Rivera MD METOPROLOL TARTRATE 25 MG TABS 25 mg bid metoprolol tartrate 96824335526 Kike Rivera MD GLIPIZIDE 10 MG TABS 09/05 glipizide 02019166436 Kike Rivera MD darsa isabella darsa isabella Kike Rivera MD linolidemide linolidemide Kike Rivera MD ELIQUIS 2.5 MG TABS apixaban 88474696006 Kike Rivera MD smz/tmp smz/tmp Kike Rivera MD ACYCLOVIR 400 MG TABS acyclovir 52611168588 Kike Rivera MD DEXAMETHASONE 0.5 MG TABS dexamethasone 44745397516 Kike Rivera MD DONEPEZIL HCL 5 MG TABS TAKE 1 TABLET BY MOUTH DAILY WITH FOOD 10/16 donepezil 67317161490 Pauline Costello DNP,DIRECTOR SEMICONDUCTOR,CN P NEXIUM 40 MG CPDR once a day as needed 11/04 esomeprazole magnesium 11658274584 Pauline Costello DNP,DIRECTOR SEMICONDUCTOR,CN P VALIUM 5 MG TABS take 1 pill 45 minutes prior to MRI. May repeat in 30 minutes , only if needed. Do not drive after taking. 09/01 diazepam [id number] [facility],DIRECTOR SEMICONDUCTOR,CN P METFORMIN HCL 500 MG TABS tablet by mouth 11/04 metformin [id number] [facility],DIRECTOR SEMICONDUCTOR,CN P GLIPIZIDE 5 MG TABS tablet by mouth 11/04 glipizide 52419022684 [facility],DIRECTOR SEMICONDUCTOR,CN P XANAX 0.25 MG TABS 2 tablet by mouth every morning 06/18 alprazolam [id number] [facility],DIRECTOR SEMICONDUCTOR,CN P NABUMETONE 750 MG TABS once a day 11/04 nabumetone [id number] [facility],DIRECTOR SEMICONDUCTOR,CN P ATENOLOL 50 MG TABS 1 by mouth twice a day 09/05 atenolol 36918471703 [facility],DIRECTOR SEMICONDUCTOR,CN P HYDROCHLOROTHIAZIDE 25 MG TABS hydrochlorothiaz id e [id number] [facility],DIRECTOR SEMICONDUCTOR,CN P GLIPIZIDE 10 MG TABS 09/05 glipizide [id number] [facility],DIRECTOR SEMICONDUCTOR,CN P TRIHEXYPHENIDYL HCL 2 MG TABS trihexyphenidyl [id number] [facility],DIRECTOR SEMICONDUCTOR,CN P PROPRANOLOL HCL ER 80 MG [id number] 09/05 propranolol [id number] Pauline [facility] AND[facility],DIRECTOR SEMICONDUCTOR,CN P METFORMIN HCL 1000 MG TABS metformin [id number] Pauline [facility] AND[facility],DIRECTOR SEMICONDUCTOR,CN P ATORVASTATIN CALCIUM 10 MG TABS atorvastatin [id number] Pauline [facility] ANDRY,DIRECTOR SEMICONDUCTOR,CN P OMEPRAZOLE 40 MG CPDR omeprazole [id number] Pauline [facility],DIRECTOR SEMICONDUCTOR,CN P LOSARTAN POTASSIUM 50 MG TABS losartan [id number] Pauline [facility] DNP,DIRECTOR SEMICONDUCTOR,CN P Ozempic 0.25 mg or 0.5 mg(2 mg/1.5 mL) pen injector semaglutide [id number] Pauline Alva Pravin DNP,DIRECTOR SEMICONDUCTOR,CN P ARICEPT 5 MG TABS take 1 pill daily with food 11/02 donepezil 17240043946 Frankie Aiken MD DONEPEZIL HCL 5 MG TABS TAKE 1 TABLET BY MOUTH DAILY WITH FOOD 10/16 donepezil 21232683110 Frankie Aiken MD ARICEPT 5 MG TABS take 1 pill daily with food 11/02 DONEPEZIL HCL 06087194492 Frankie Aiken MD VALIUM 5 MG TABS take 1 pill 45 minutes prior to MRI. May repeat in 30 minutes , only if needed. Do not drive after taking. 09/01 DIAZEPAM 44307833277 Frankie Aiken MD ATENOLOL 50 MG TABS one pill twice a day 06/18 ATENOLOL 15749305528 Ok Turner MD NABUMETONE 750 MG TABS qd 11/04 NABUMETONE [id number] Ok Turner MD NEXIUM 40 MG CPDR qd 11/04 ESOMEPRAZOLE MAGNESIUM [id number] Ok Turner MD METFORMIN HCL TABS 11/04 METFORMIN HCL TABS [id number] Ok Turner MD GLIPIZIDE TABS 11/04 GLIPIZIDE TABS 52988514476 Ok Turner MD RELAFEN 500 MG TABS One pill up to three times daily as needed for pain and inflammation 06/11 NABUMETONE [id number] Pauline Costello DNP,DIRECTOR SEMICONDUCTOR,CN P XANAX 0.25 MG TABS 2 after breakfast for essential tremor 06/18 ALPRAZOLAM [id number] Ok Turner MD NEXIUM 20 MG CPDR 1 po qd 08/22 ESOMEPRAZOLE MAGNESIUM [id number] Ok Turner MD XANAX 0.25 MG TABS one to two per day foressential tremor 08/15 ALPRAZOLAM [id number] Ok Turner MD PRILOSEC 20 MG ORAL CAPSULE DELAYED RELEASE one per day 08/15 OMEPRAZOLE [id number] Ok Turner MD PRILOSEC OTC 20 MG TBEC one dailyfor gerd 08/15 OMEPRAZOLE MAGNESIUM [id number] Ok Turner MD PRILOSEC OTC 20 MG TBEC one dailyfor gerd 06/27 OMEPRAZOLE MAGNESIUM [id number] Ok Turner MD PRILOSEC 20 MG ORAL CAPSULE DELAYED RELEASE one per day 10/12 OMEPRAZOLE [id number] Pauline Costello DNP,DIRECTOR SEMICONDUCTOR,CN P ATENOLOL 50 MG TABS one pill twice a day 11/09 ATENOLOL 97124271387 Ok Turner MD PRILOSEC 20 MG ORAL CAPSULE DELAYED RELEASE 08/24 OMEPRAZOLE 74293952154 Ok Turner MD NEXIUM 20 MG CPDR use one a day 08/18 ESOMEPRAZOLE MAGNESIUM 85178374996 Ok Turner MD ATENOLOL 25 MG TABS one or two times a day for tremor 08/17 ATENOLOL 22075237003 Ok Turner MD Medications Administered No information available. 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 Internal Other: Authorizatio n - OBS PTSTAUTHDT DONE N PT Startin g Authorization Date Rx Refill: eRx Request for N ABUMETONE 750MG [facility]_RR [id number] Z`NABUMETONE 750MG```90 Tablet`45`TAKE ONE TO TWO TABLETS BY MOUTH DAILY NEEDED`Generic For:RELAFEN 750 MG TABLET N O T I C E PRESCRIPTION PREVIOUSLY AUTHORIZED BY DOCTOR:SOCORRO CARLIN `4`0`09/04`02/17/2014 `[facility]*`[id number]`[id number]`` NABUMETONE 750MG Quantity: 90 Tablet Instructions: TAKE ONE TO TWO TABLETS BY MOUTH DAILY NEEDED B e-scripts messen katt refill request Internal Other: Authorizatio n - OBS [id number] Yes GE use only - for LinkLogic import when terms are not otherwise specified Office Visit: Office Visit f ax DEMENTIA2 Assessment of cognition performed and results reviewed. Total score [M MSE] [id number] Normal Total scor e [MoCA] MMSE SCORE 28 Total scor e [MMSE] MEDS REVIEW Done Documenta tion of current medications (procedure) Internal Other: Verbal Autho rization/Emergency Contact - OBS VERBAL_EMER Done Verbal au thorization and emergency contact Internal Other: Authorizatio n - OBS [id number] Yes Authoriza tion: Release of Information - Authorize [facility] - Payment and Healthcare Operations ROIAUTHOTHER Yes Authoriz ation: Release of Information - Authorize Others/Insurance - Payment and Healthcare Operations HIECONSENT Yes Consent To Release information to the Health Information Exchange (HIE) [email or web address] Yes Authorizat ion: Authorization for [facility] to leave messages, voicemail, send text messages, send emails AUTHRELHCARE Yes Authoriz ation: Release/Retrieval of Information to/from Healthcare Facilities, Pharmacy Benefit Payers and Providers AUTHPRIVPRAC Yes Authoriz ation: Notice of privacy practices AUTHBENEFIT Yes Authoriza tion: Assignment of Benefits and Payment Agreement Plan of Care Type Date Detail Pending order Follow up with N eurologist or ANGELINA Pending order Follow up with N eurologist or ANGELINA Pending Order exclud ed from report: Pending order Patient Instruct ions Pending order Follow up in cli luis Pending order Patient Instruct ions Pending order Follow up Pending order MRI-Brain W/O Pending order Neuropsychology Evaluation Pending order Lyme Total Ab w/ Reflex (reflex to Western Blot) Pending order TSH Pending order Vitamin B1 (Thia mine) Pending order Vitamin B12 Procedures Code Procedure Name Date Entry Date ORDERS Follow up with Neurologist or ANGELINA [facility]-[id number] Documentation of current medicatio ns ORDERS Patient Instructions ORDERS Follow up in clinic [facility] 24099-7 MMSE ORDERS Patient Instructions ORDERS Follow up [id number] MRI-Brain W/O ORDERS Vitamin B12 ORDERS Vitamin B1 (Thiamine) 08/31 ORDERS TSH ORDERS Lyme Total Ab w/Refl ex (reflex to Western Blot) ORDERS Neuropsychology Evaluation 2 CPT-89239 MRI Brain W/O CPT-33342 Npsy Interview w/Provider - 1st hour 2020 CPT-52770 Npsy Interview w/Provider - 2 hours 09/30 CPT-74144 Npsy Interp/Rpt by Provider - 1st hour 24/09/27 CPT-75678 Npsy Test by Tech (2+ Tests) - 1st 30 min CPT-95177 Npsy Test by Tech (2+ Tests) - 2 hours 20 24/09/27 CPT-34089 E&M Service (same day as procedure) 04/20 CPT-J0585 Botox 1 vial CPT-35203 Chem- 1limb/trunk ONLY 04/20 CPT-72141 E&M Service (same day as procedure) 03/26 CPT-J0585 Botox 1 vial CPT-71585 Chem- 1limb/trunk ONLY 03/26 CPT-96240 EMG Guidance, Chemodenervation Vital Signs Date Name Value Unit Description Height 72 [in_us] height E&M BMI (Body Mass Index) 25.18 kg/m2 Bod y Mass Index (Ratio) BP Diastolic 80 mm[Hg] blood pressu re, diastolic BP Systolic 128 mm[Hg] blood pressur e, systolic Heart Rate 50 /min pulse rate Weight Measured 185 [lb_av] weight E& M Weight Measured 185 [lb_av] weight E& M Respiratory Rate 16 /min respirat ory rate E&M Immunizations No information available. Advance Directives No information available.
[2024-09-02 14:37] LABS: PCR FLU A Negative PCR FLU A (Negative); PCR FLU B Negative PCR FLU B (Negative); PCR RSV Negative PCR RSV (Negative); SARS PCR* Negative SARS-CoV-2 (Negative)
[2024-09-02 14:55] LABS: Appearance Urine Cloudy (Clear); Bilirubin Urine Negative (Negative); Blood Urine 1+ (Negative); Color Urine Yellow (Yellow); Glucose Urine Negative (Negative); Ketones Urine Negative (Negative); Leukocyte Esterase Urine 1+ (Negative); Nitrite Urine Positive (Negative); Protein Urine 1+ (Negative); Urobilinogen Urine 0.2 (0.2-1.0)
[2024-09-02 15:18] LABS: Bacteria Urine Moderate
[2024-09-02 15:22] LABS: Slide Review Acceptable Review (Acceptable)
[2024-09-02] MEDS: LACTATED RINGERS 1000 ML 1,000 ML IV (15:59)
[2024-09-02 16:10] LABS: Alanine Aminotransferase* 39 U/L (4-50); Alkaline Phosphatase* 100 U/L (40-150); Aspartate Amino Transferase* 47 U/L (12-35); Bilirubin Direct* 0.4 mg/dL (0.0-0.5); Bilirubin Total* 0.7 mg/dL (0.1-1.5); Total Protein* 7.3 g/dL (6.0-8.3)
--- NOTE | 2024-09-02 16:27 | CRLHL7_ITS ---
For Patients: As a result of the Century Cures Act, medical imaging exams and procedure reports are released immediately into your electronic medical record. You may view this report before your referring provider. If you have questions, please contact your health care provider. INDICATION: Unexplained source of sepsis TECHNIQUE: CT abdomen and pelvis with 79 mL Isovue 370 intravenous contrast. COMPARISON: CT 02/22/2023 FINDINGS: Motion limits evaluation. Lower chest: Unremarkable. Liver: Low-attenuation inferior right lobe unchanged. Gallbladder and bile ducts: Cholelithiasis. Pancreas: Unremarkable. No mass or inflammation. Spleen: Normal in size. No masses. Adrenal glands: Normal in size. No nodules. Kidneys: There is bilateral renal cysts to characterize low-attenuation lesions bilaterally. Nonobstructing small renal calculi on the right. There is prominence of both renal pelves and ureters there is no obstructing stones. There is urothelial thickening bilaterally there is significant motion which limits evaluation of the kidneys. GI tract: Unremarkable. Normal in caliber. No sign of mass or inflammation. The appendix is mildly dilated with air in the appendix and unchanged in appearance from 2022 without inflammatory changes. Vasculature: Abdominal aorta is normal in caliber. Lymph nodes: No lymphadenopathy. Peritoneum/Abdominal Wall: Small fat containing inguinal hernias. Pelvis: Enlarged prostate gland. Distended but otherwise unremarkable. Urinary bladder Bones: Similar diffuse mottled appearance of the bony skeleton with multiple small lucencies throughout this could be related to demineralization however Mets and myeloma can have this appearance although this is not significantly changed in appearance. IMPRESSION: 1. Evaluation of the kidneys is significantly limited due to severe motion. There are bilateral cysts as well as prominence of both renal pelves and ureters without obstructing stones. Urothelial thickening. Correlate for possible UTI. 2. There is otherwise no acute findings in the abdomen or pelvis seen. 3. Heterogeneous enlarged prostate gland correlate with PSA levels Please note that all CT scans at this facility use dose modulation, iterative reconstruction, and/or weight-based dosing when appropriate to reduce radiation dose to as low as reasonably achievable. Dictated by Pretty Cain MD @ 09/02/2024 6:14:58 PM (Electronically Signed)
[2024-09-02] MEDS: PIPERACILLIN/TAZOBACTAM 3.375 GM in 0.9 % SODIUM CHLORIDE Mini-bag 100 ML IVPB ×2 (16:46→22:35)
[2024-09-02] MEDS: MAGNESIUM IV 4 GM/100 ML PIGGYBACK IVPB (18:06)
--- NOTE | 2024-09-02 18:25 | PM.IMHP1 ---
Assessment and Plan Assessment and plan (1) Chronic cough: Problem comment: 73-year-old male presents with a chronic cough of at least 6 weeks the began while traveling to [facility]. No history of lung disease or risk factors for lung disease that would account for this cough. Imaging today does not show an obvious infiltrate or pulmonary abnormality. Considerations for the cause of cough continued to include infection, asthma/COPD, inflammatory process, rare side effect of losartan, foreign body in the airway, cardiac problems. Due to the presence of infection with fever/sepsis will treat with antibiotics as well as symptomatic treatment for his persistent serious cough. Status: Acute (2) Sepsis: Problem comment: Patient had marked abnormal vital signs meeting criteria for sepsis. Primary consideration for infection comes from his relatively severe and persistent cough which started about the same time as his intermittent fevers began 5 weeks ago. Initiate broad-spectrum antibiotics for respiratory infection. Consider Infectious Disease consultation. Patient is also had a history of urinary retention and has an enlarged prostate and distended bladder. Await urine and blood cultures for that evaluation. Status: Acute (3) Appetite absent: Status: Acute (4) BPH loc w urin obs/LUTS: Problem comment: Patient had urinary retention in December 2023 at [place]. Briefly treated with a catheter and Flomax. Symptoms resolved and had outpatient urologic follow-up which was reassuring and recommending monitoring without active treatment. Obtain bladder scan, catheter if needed, antibiotics pending urine culture Status: Acute Plan 73-year-old male admitted to the hospital with 5 week history of worsening cough and intermittent fever and night sweats. Now presenting with sepsis. Source of this remains somewhat uncertain though respiratory infection is clinically most likely and urinary tract infection is also potentially causing symptoms. Total Time Spent Total Time Spent: Total time spent today is 90 minutes in coordination of care, review of outside records and discussing with patient and other providers ongoing management of cough fever sepsis Hospitalist- H&P: HPI History of Present Illness Date Seen: 09/02/24 Chief complaint: cough and possible dehydrated Narrative: Yair Sainz is a 73 year old male with multiple myeloma status post auto stem cell transplantation December 2023 presents with worsening cough and fever over the past 5 weeks. On 07/13/2024 patient traveled with his to [facility] to visit family. Prior to traveling he was feeling well and had updated all of his immunizations. He was there about 3 weeks and became ill at the start of the 3rd week, the last week of July. He was noting intermittent fever and cough. He had fatigue and malaise with this as well. He came home on August 02 and has continued to have intermittent fever and cough. He is having night sweats. Cough is nonproductive. He is not having chest pain. He is noting prominent weakness and fatigue. On August 10 he was seen in clinic and prescribed doxycycline and cough medication. He had no significant improvement with this and continues to have cough and fever. He has no history of chronic lung disease. He was not a smoker though he worked in a [employer] where he was exposed to secondhand smoke. No diagnosis of asthma or COPD. No use of SANCHEZ-inhibitor though he is on losartan as a long-term medication. Today with his fever and profound weakness and cough he came to the emergency department. He was seen to have a temperature of 102.9? F, blood pressure 147/71, pulse of 126, respiratory rate of 28, O2 sat of 97%. He had a lactate of 2.4. CT chest without contrast showed no acute cardiopulmonary process. Incidental findings of bony lesions known to be related to multiple myeloma in the past. CT abdomen showed renal cysts, prominent renal pelvises without obvious obstruction. Enlarged prostate gland and distended urinary bladder. He has no personal history of tuberculosis. No family history. He is not aware that anybody that he was visiting in [facility] had tuberculosis or any respiratory symptoms or other illness. Prior to his auto stem cell transplant last December he was taking suppressive antibiotic with Bactrim. [facility] Medical History (Updated 09/02/24 @ 18:53 by Frankie Saenz MD) BPH loc w urin obs/LUTS ?N40.1 - Benign prostatic hyperplasia with lower urinary tract symptoms (ICD-10) Multiple myeloma in remission ?C90.01 - Multiple myeloma in remission (ICD-10) Tubular adenoma of colon ?D12.6 - Benign neoplasm of colon, unspecified (ICD-10) Intractable hiccups ?R06.6 - Hiccough (ICD-10) Urolithiasis ?N20.9 - Urinary calculus, unspecified (ICD-10) Chest pain ?R07.9 - Chest pain, unspecified (ICD-10) Foot ulcer ?L97.509 - Non-pressure chronic ulcer of other part of unspecified foot with unspecified severity (ICD-10) Stomach ulcer ?K25.9 - Gastric ulcer, unspecified as acute or chronic, without hemorrhage or perforation (ICD-10) Ulcer of toe ?L97.509 - Non-pressure chronic ulcer of other part of unspecified foot with unspecified severity (ICD-10) Tremor ?R25.1 - Tremor, unspecified (ICD-10) Normal nuclear stress test Multiple gallstones ?K80.20 - Calculus of gallbladder without cholecystitis without obstruction (ICD-10) History of renal calculi ?Z87.442 - Personal history of urinary calculi (ICD-10) Acute kidney injury ?N17.9 - Acute kidney failure, unspecified (ICD-10) Surgical History History of colonoscopy ?Z98.890 - Other specified postprocedural states (ICD-10) History of ankle surgery ?Z98.890 - Other specified postprocedural states (ICD-10) History of shoulder surgery ?Z98.890 - Other specified postprocedural states (ICD-10) History of lithotripsy ?Z98.890 - Other specified postprocedural states (ICD-10) History of endoscopy ?Z98.890 - Other specified postprocedural states (ICD-10) Family History Other Benign essential tremor Parkinson disease Social History (Updated 09/02/24 @ 18:42 by Frankie Saenz MD) Narrative: Social history is negative for drinking or smoking; he works at [employer]. . is healthcare power of disability attorney. Code status is full. Never a smoker but secondhand smoke at the [employer]. Does not drink alcohol. Smoking Status: Never smoker Do you use any of these nicotine containing products: None How often do you have a drink containing alcohol: never How often do you have six or more drinks on one occasion: Never AUDIT-C Alcohol total score: 0 Non-prescribed substance use: denies use Meds Home Medications and Allergies Home Medications ?Medication ?Instructions ?Recorded ?Confirmed ?Type aspirin 81 mg tablet,delayed 81 mg PO DAILY 12/25/21 09/02/24 History release (Adult Aspirin Regimen) multivitamin with minerals-ferrous 1 tab PO DAILY 04/24/22 09/02/24 History sulfate 4.5 mg iron tablet (One Daily Multivitamins with Minerals) insulin lispro 100 unit/mL 1 sliding scale dose subcut 07/31/23 09/02/24 History subcutaneous pen (Humalog KwikPen USEASDIRECTD (U-100) Insulin) polyethylene glycol 3350 17 gram 17 g PO DAILY PRN 10/07/23 09/02/24 History oral powder packet (Miralax) loperamide 2 mg capsule 2 mg PO Q8H PRN 10/11/23 09/02/24 History (Anti-Diarrheal (loperamide)) magnesium chloride 64 mg 64 mg PO DAILY low magnesium 04/13/24 09/02/24 History (magnesium chloride) tablet,delayed release pregabalin 75 mg capsule 75 mg PO BID 04/15/24 09/02/24 History trihexyphenidyl 2 mg tablet 2 mg PO DAILY 04/15/24 09/02/24 History penicillin V potassium 500 mg 500 mg PO BID 08/10/24 09/02/24 History tablet acyclovir 400 mg tablet 400 mg PO BID 08/17/24 09/02/24 History insulin glargine-yfgn 100 unit/mL 25 unit subcut DAILY 09/02/24 09/02/24 History (3 mL) subcutaneous pen losartan 50 mg tablet 50 mg PO DAILY 09/02/24 09/02/24 History mirtazapine 30 mg tablet (Remeron) 30 mg PO HS 09/02/24 09/02/24 History Allergies Allergy/AdvReac Type Severity Reaction Status Date / Time No Known Drug Allergies Allergy Verified 09/01/24 11:05 Exam Narrative: Exam Narrative: He is alert and appears in some distress with a persistent fairly severe cough. Difficulty speaking due to his cough. Taking a deep breath also causes increased coughing. Mildly diaphoretic. Oropharynx is normal. Neck is supple without mass or adenopathy. No stridor. Respirations are clear to auscultation without wheezing rales or rhonchi. Fair exchange of air in all lung [place]. Cardiovascular: S1, S2, regular tachycardia. abdomen is soft without tenderness or mass. External genitalia normal. Upper extremities with intact motion and sensation. Hands appear normal. No clubbing. Good capillary refill. Lower extremities with diminished sensation and diminished pedal pulses. He reports he has or chronic findings. He has no significant edema. Feet are warm to touch. No skin breakdown. He has some chronic venous stasis skin changes but no ulcerations or open wounds. Const: Vital Signs, click to edit/add: Vital Signs - 24 hr 09/02/24 13:11 09/02/24 13:56 09/02/24 13:56 Temperature 102.9 F H Pulse Rate 116 H Pulse Rate [Pulse Oximeter] 126 H Respiratory Rate 28 H 33 H Blood Pressure Blood Pressure [Ri ght Upper Arm] 147/71 H Pulse Oximetry 97 96 95 Oxygen Delivery Me thod Room Air 09/02/24 14:01 09/02/24 14:02 09/02/24 14:23 Temperature Pulse Rate 117 H 116 H 121 H Pulse Rate [Pulse Oximeter] Respiratory Rate 43 H 28 H Blood Pressure 152/76 H Blood Pressure [Ri ght Upper Arm] Pulse Oximetry 96 97 97 Oxygen Delivery Me thod 09/02/24 14:24 09/02/24 14:30 09/02/24 14:41 Temperature Pulse Rate 119 H 113 H 119 H Pulse Rate [Pulse Oximeter] Respiratory Rate 45 H 33 H 16 Blood Pressure 103/70 144/118 H Blood Pressure [Ri ght Upper Arm] Pulse Oximetry 94 96 96 Oxygen Delivery Me thod 09/02/24 14:45 09/02/24 15:00 09/02/24 15:01 Temperature Pulse Rate 117 H 110 H 112 H Pulse Rate [Pulse Oximeter] Respiratory Rate 35 H 31 H 33 H Blood Pressure 105/58 L Blood Pressure [Ri ght Upper Arm] Pulse Oximetry 95 99 99 Oxygen Delivery Me thod 09/02/24 15:02 09/02/24 15:09 09/02/24 15:11 Temperature 101.9 F H 101.9 F H Pulse Rate 111 H Pulse Rate [Pulse Oximeter] Respiratory Rate 30 H Blood Pressure Blood Pressure [Ri ght Upper Arm] Pulse Oximetry 98 Oxygen Delivery Me thod 09/02/24 15:15 09/02/24 15:22 09/02/24 15:30 Temperature Pulse Rate 117 H 113 H 106 H Pulse Rate [Pulse Oximeter] Respiratory Rate 38 H 15 21 Blood Pressure 110/66 Blood Pressure [Ri ght Upper Arm] Pulse Oximetry 99 96 96 Oxygen Delivery Me thod 09/02/24 15:41 09/02/24 15:45 09/02/24 16:00 Temperature Pulse Rate 102 H 102 H 101 H Pulse Rate [Pulse Oximeter] Respiratory Rate 85 H 12 44 H Blood Pressure 108/60 Blood Pressure [Ri ght Upper Arm] Pulse Oximetry 96 95 97 Oxygen Delivery Me thod 09/02/24 16:01 09/02/24 16:02 09/02/24 16:15 Temperature Pulse Rate 98 98 90 Pulse Rate [Pulse Oximeter] Respiratory Rate 25 H 29 H 26 H Blood Pressure 114/68 Blood Pressure [Ri ght Upper Arm] Pulse Oximetry 97 96 96 Oxygen Delivery Me thod 09/02/24 16:30 09/02/24 16:41 09/02/24 16:45 Temperature Pulse Rate 88 94 101 H Pulse Rate [Pulse Oximeter] Respiratory Rate 26 H 25 H 31 H Blood Pressure 118/78 Blood Pressure [Ri ght Upper Arm] Pulse Oximetry 97 97 96 Oxygen Delivery Me thod 09/02/24 17:00 Temperature Pulse Rate 105 H Pulse Rate [Pulse Oximeter] Respiratory Rate 36 H Blood Pressure Blood Pressure [Ri ght Upper Arm] Pulse Oximetry 97 Oxygen Delivery Me thod Documenting provider has reviewed patient's vital signs: yes Hospitalist - H&P: Result Labs Labs: Short CBC 09/02/24 Range/Units 13:45 WBC 10.54 (4.50-11.00) K/uL Hgb 9.2 L (13.5-17.5) gm/dL Hct 28.5 L (37.0-53.0) % Plt Count 156 (140-440) K/uL BMP 09/02/24 13:45 Sodium 127 L Potassium 4.9 Chloride 95 L Carbon Dioxide 22 BUN 27 Creatinine 1.7 H Glucose 235 H Calcium 9.2 Liver Function 09/02/24 Range/Units 15:00 Total Bilirubin 0.7 (0.1-1.5) mg/dL Direct Bilirubin 0.4 (0.0-0.5) mg/dL AST 47 H (12-35) U/L ALT 39 (4-50) U/L Alkaline Phosphatase 100 (40-150) U/L Albumin 4.0 (3.3-5.0) g/dL Urine 04/30/25 Range/Units 14:45 Urine Color Yellow (Yellow) Urine Appearance Cloudy A (Clear) Urine pH 6.0 (5.0-8.5) Ur Specific [place] 1.010 (1.000-1.030) Urine Protein 1+ A (Negative) Urine Glucose (UA) Negative (Negative) ECG Attestation: I personally reviewed and interpreted this ECG as follows: (Sinus tachycardia. No acute ST-T changes) Imaging CT scan - abdomen: Radiologist's impression: INDICATION: Unexplained source of sepsis TECHNIQUE: CT abdomen and pelvis with 79 mL Isovue 370 intravenous contrast. COMPARISON: CT 02/22/2023 FINDINGS: Motion limits evaluation. Lower chest: Unremarkable. Liver: Low-attenuation inferior right lobe unchanged. Gallbladder and bile ducts: Cholelithiasis. Pancreas: Unremarkable. No mass or inflammation. Spleen: Normal in size. No masses. Adrenal glands: Normal in size. No nodules. Kidneys: There is bilateral renal cysts to characterize low-attenuation lesions bilaterally. Nonobstructing small renal calculi on the right. There is prominence of both renal pelves and ureters there is no obstructing stones. There is urothelial thickening bilaterally there is significant motion which limits evaluation of the kidneys. GI tract: Unremarkable. Normal in caliber. No sign of mass or inflammation. The appendix is mildly dilated with air in the appendix and unchanged in appearance from 2022 without inflammatory changes. Vasculature: Abdominal aorta is normal in caliber. Lymph nodes: No lymphadenopathy. Peritoneum/Abdominal Wall: Small fat containing inguinal hernias. Pelvis: Enlarged prostate gland. Distended but otherwise unremarkable. Urinary bladder Bones: Similar diffuse mottled appearance of the bony skeleton with multiple small lucencies throughout this could be related to demineralization however Mets and myeloma can have this appearance although this is not significantly changed in appearance. IMPRESSION: 1. Evaluation of the kidneys is significantly limited due to severe motion. There are bilateral cysts as well as prominence of both renal pelves and ureters without obstructing stones. Urothelial thickening. Correlate for possible UTI. 2. There is otherwise no acute findings in the abdomen or pelvis seen. 3. Heterogeneous enlarged prostate gland correlate with PSA levels CT scan - chest: Radiologist's impression: INDICATION: COUGH FOR 6+ WEEKS WITH NEW FEVER. TECHNIQUE: CT chest without contrast. COMPARISON: None. FINDINGS: Breathing motion artifact mildly limits evaluation. Lungs and pleura: No suspicious nodules or infiltrates. Calcified granuloma in the right lower lobe. No pleural effusions, pleural thickening, or pneumothorax. Heart and vasculature: Heart size is normal. Prominence of the left ventricle is noted. Thoracic aorta and pulmonary artery are normal in caliber. Coronary artery calcifications and/or stents are identified. Lymph nodes/mediastinum: No mediastinal, hilar, or axillary adenopathy. Chest wall: No masses. Upper abdomen: No significant findings. Cholelithiasis without CT evidence of cholecystitis. Partially visualized left renal cysts. Bones: Mottled appearance of the spine with tiny hypodensities throughout the visualized bones, especially the vertebral bodies suspicious for multiple myeloma, metastases. This is similar to the PET-CT from June 20, 2023. IMPRESSION: 1. No acute cardiopulmonary process identified. 2. Cholelithiasis without CT evidence of cholecystitis. 3. Mottled appearance of the spine similar to prior exams may be related to multiple myeloma, metastases or demineralization.
[2024-09-02] MEDS: LACTATED RINGERS 1000 ML 1,000 ML 500 ML IV (18:43)
[2024-09-02] MEDS: ACETAMINOPHEN 325 MG TABLET 650 MG PO ×2 (18:45→22:19)
[2024-09-02] MEDS: IPRAT-ALBUT 0.5-2.5 MG/3 ML NEB 1 NEB IH (18:50)
[2024-09-02 19:31] LABS: HCO3 VBG 20 mmol/L (21-28); Lactate* 2.9 mmol/L (0.5-1.9); PCO2 VBG 29 mmHG (40-50); PO2 VBG 38.2 mmHG (25-47); pH VBG 7.454 (7.32-7.43)
[2024-09-02 19:32] LABS: NT Pro B Type NatriureticPept* 133 pg/mL
--- NOTE | 2024-09-02 19:40 | PC.NURSE ---
Patient arrived to unit from ED at 1720. Patient febrile, tachycardic, weak, and consistent cough noted. Very SOB at rest and with activity. Patient requested to answer questions due to SOB. Nurse started to administer magnesium, LR, nebulizer and tylenol (scheduled and PRN medications). Patient more comfortable at rest after medications and able to doze off slightly. Patient refused lozenge at this time. Able to eat slightly, but no appetite. Nursing to continue to monitor.
[2024-09-02 19:52] LABS: Legionella pneumo Ag Urine L. pneumo Negative (Negative); S pneumo Ag Urine S. pneumo Negative (Negative)
[2024-09-02 20:14] LABS: Procalcitonin* 1.65 ng/mL (<0.50)
[2024-09-02] MEDS: VANCOMYCIN 1.75 GM/350 ML 1.75 GM/350 ML PIGGYBACK IVPB (20:32)
[2024-09-02] MEDS: AZITHROMYCIN 250 MG TABLET 500 MG PO (20:48)
[2024-09-02] MEDS: MAGNESIUM OXIDE 400 MG TABLET PO (20:48)
[2024-09-02] MEDS: ACYCLOVIR 200 MG CAPSULE 400 MG PO (20:48)
[2024-09-02] MEDS: ENOXAPARIN 30 MG/0.3ML INJ SUBCUT (20:49)
[2024-09-02] MEDS: MIRTAZAPINE 15 MG TABLET PO (20:51)
[2024-09-02] MEDS: INSULIN GLARGINE,HUM.REC.ANLOG 100 UNIT/ML INSULN.PEN 8 UNIT SUBCUT (20:53)
[2024-09-02] MEDS: INSULIN ASPART 100 UNIT/ML SUBCUT (20:53)
[2024-09-02] MEDS: PREGABALIN 75 MG CAPSULE PO (20:57)
[2024-09-02] MEDS: LACTATED RINGERS 500 ML 500 ML IV (20:57)
[2024-09-02] MEDS: GUAIF/CODEINE 200/20MG/10 ML SOLUTION PO (21:06)
--- NOTE | 2024-09-02 21:12 | W.PM.CROSSCO ---
Subjective Subjective Time Seen by Provider: 20:30 Date Seen: 09/02/24 Interval history: Patient seen in followup of resuscitation for sepsis. He reports feeling a little better. His cough is better. He is having no shortness of breath. His blood pressure is still borderline low. His pulse is still borderline elevated. His lactate is elevated at 2.9. He has received about 1.5 L of IV fluids with ongoing fluid resuscitation. Also Zosyn and vancomycin and azithromycin. Reassess after fluid resuscitation. Objective Objective Data Details: He is alert and appears in no distress. Breathing is unlabored. Abdomen is soft without tenderness. Regular tachycardia. Extremities with good perfusion and capillary refill, warm to touch.
[2024-09-02] MEDS: LACTATED RINGERS 1000 ML 1,000 ML 75 ML IV (22:04)
[2024-09-02 22:33] LABS: Lactate* 2.7 mmol/L (0.5-1.9)
--- NOTE | 2024-09-02 23:09 | P.CCN_ITS ---
Subjective Subjective Time Seen by Provider: 23:09 Date Seen: 09/02/24 Principal diagnosis: Sepsis Interval history: 73-year-old male admitted with sepsis and cough. Patient is continued received fluid resuscitation, antibiotics: Zosyn, vancomycin, and azithromycin. He reports feeling better. No pain. No dyspnea. Bladder scan showed 600 mL of urine in the bladder but he subsequently voided over 500 mL of urine. In general is having fairly good urine output. Perfusing his extremities well. Oxygenating well on room air. Blood pressure remains borderline soft with MAPS in the upper 60s. Pulse is improved to around 100. Objective Objective Data Details: He is alert and appears in no distress. Normal mentation. Breathing is unlabored on room air. Pulses strong and good capillary refill in upper extremities. Hands are warm to touch. No abdominal tenderness. No edema. Feet are also warm to touch with chronically diminished pedal pulses. Assessment and Plan Assessment and plan (1) Sepsis: Problem comment: Patient had marked abnormal vital signs meeting criteria for sepsis. Primary consideration for infection comes from his relatively severe and persistent cough which started about the same time as his intermittent fevers began 5 weeks ago. Initiate broad-spectrum antibiotics for respiratory infection. Consider Infectious Disease consultation. Patient is also had a history of urinary rete ntion and has an enlarged prostate and distended bladder. Await urine and blood cultures for that evaluation. Moved to CCU for close monitoring. Continue broad-spectrum antibiotics and fluid resuscitation as needed. Status: Acute Total Time Spent Total Time Spent: Total time spent this evenin minutes in critical care evaluation and treatment
[2024-09-02] MEDS: LACTATED RINGERS 1000 ML 1,000 ML 125 ML IV (23:56)
[2024-09-03] VITALS (12 sets, daily range): BP systolic 90–184; BP diastolic 48–83; PULSE 72–115; RESP 14–24; TEMP 35.6–38.1; O2SAT 94–100; BMI 25.4
[2024-09-03] MEDS: PIPERACILLIN/TAZOBACTAM 3.375 GM in 0.9 % SODIUM CHLORIDE Mini-bag 100 ML IVPB ×4 (04:48→22:54)
--- NOTE | 2024-09-03 05:00 | PC.NURSE ---
Pt rested well this night. BP was 90s/50s with MAP greater then 65. Pt able to stand IND and void over 500cc per void. Afebrile. Tele NSR with HR Around 70. Reporting zero pain. Alert and oriented. States he is feeling better.
[2024-09-03] MEDS: LACTATED RINGERS 1000 ML 1,000 ML 125 ML IV (06:24)
[2024-09-03 06:31] LABS: Basophils Percent Auto 0.1 % (0.0-3.0); Eosinophils Percent Auto 0.4 % (0.0-7.0); Hematocrit 23.7 % (37.0-53.0); Immature Granulocytes Pct Auto 2.4 %; Lymphocytes Percent Auto 8.8 % (20-44); Mean Corpuscular HGB Conc 32 gm/dL (32-36); Mean Corpuscular Hemoglobin 22 pg (26-34); Mean Corpuscular Volume 68 fL (80-100); Monocytes Percent Auto 5.2 % (0.0-11.0); Neutrophils Percent Auto 83.1 % (42.0-72.0); Platelet Count* 107 K/uL (140-440); RDW Coefficient of Variation % 22.2 % (11.5-15.5); Red Blood Count 3.48 m/uL (4.30-5.90); White Blood Count* 11.26 K/uL (4.50-11.00)
[2024-09-03 06:38] LABS: Hemoglobin* 7.5 gm/dL (13.5-17.5); Slide Review Reflex No
[2024-09-03 06:41] LABS: Chloride* 99 mmol/L (96-114); Sodium* 128 mmol/L (135-149)
[2024-09-03 06:42] LABS: Potassium* 4.3 mmol/L (3.6-5.1)
[2024-09-03 06:44] LABS: Blood Urea Nitrogen* 29 mg/dL (7-30); Creatinine* 1.9 mg/dL (0.5-1.5); Est. Creatinine Clearance* 34.11; Estimated Glomerular Filt Rate 37 ml/min
[2024-09-03 06:45] LABS: Anion Gap 9 mEq/L (7-15); Calcium* 8.2 mg/dL (8.4-10.6); Carbon Dioxide* 20 mmol/L (20-32); Glucose* 173 mg/dL (60-115); Magnesium* 2.2 mg/dL (1.5-2.6)
[2024-09-03 06:57] LABS: Troponin I* 0.03 ng/mL (0.01-0.04)
[2024-09-03 07:23] LABS: C Reactive Protein* 21.3 mg/dL (0.5-1.0)
[2024-09-03 07:57] LABS: HCO3 VBG 21 mmol/L (21-28); Lactate* 1.8 mmol/L (0.5-1.9); PCO2 VBG 34 mmHG (40-50); pH VBG 7.396 (7.32-7.43)
[2024-09-03] MEDS: ACYCLOVIR 200 MG CAPSULE 400 MG PO ×2 (08:27→20:44)
[2024-09-03] MEDS: OMEPRAZOLE 20 MG CAPSULE DR 40 MG PO (08:27)
[2024-09-03] MEDS: MAGNESIUM OXIDE 400 MG TABLET PO ×2 (08:28→20:44)
[2024-09-03] MEDS: PREGABALIN 75 MG CAPSULE PO ×2 (08:28→20:48)
[2024-09-03] MEDS: ATORVASTATIN CALCIUM 10 MG TABLET PO (08:28)
[2024-09-03] MEDS: INSULIN ASPART 100 UNIT/ML SUBCUT ×2 (08:30→17:32)
[2024-09-03] MEDS: INSULIN ASPART 100 UNIT/ML 6 UNIT SUBCUT ×3 (08:30→17:31)
[2024-09-03] MEDS: ASPIRIN 81 MG TABLET EC PO (08:33)
--- NOTE | 2024-09-03 12:30 | P.IMPN_ITS ---
Assessment and Plan Assessment and plan (1) Sepsis: Problem comment: 09/02/2024: Patient had marked abnormal vital signs meeting criteria for sepsis. Primary consideration for infection comes from his relatively severe and persistent cough which started about the same time as his intermittent fevers began 5 weeks ago. Initiate broad-spectrum antibiotics for respiratory infection. Consider Infectious Disease consultation. Patient is also had a history of urinary retention and has an enlarged prostate and distended bladder. Await urine and blood cultures for that evaluation. Moved to CCU for close monitoring. Continue broad-spectrum antibiotics and fluid resuscitation as needed. 09/03/2024: Continue with the IV antibiotics pending various cultures including nasal MRSA swab. Will saline lock IV for now. Encourage increased activities. Status: Acute (2) Chronic cough: Problem comment: 09/02/2024: 73-year-old male presents with a chronic cough of at least 6 weeks the began while traveling to [facility]. No history of lung disease or risk factors for lung disease that would account for this cough. Imaging today does not show an obvious infiltrate or pulmonary abnormality. Considerations for the cause of cough continued to include infection, asthma/COPD, inflammatory process, rare side effect of losartan, foreign body in the airway, cardiac problems. Due to the presence of infection with fever/sepsis will treat with antibiotics as well as symptomatic treatment for his persistent serious cough. 09/03/2024: Continue with treatments as specified above. Await pertusses lab studies. Continue with azithromycin for now. Status: Acute (3) Multiple myeloma in remission: Problem comment: Status post auto stem cell transplant, [facility], December 2023 Status: Acute (4) BPH loc w urin obs/LUTS: Problem comment: Patient had urinary retention in December 2023 at [facility]. Briefly treated with a catheter and Flomax. Symptoms resolved and had outpatient urologic follow-up which was reassuring and recommending monitoring without active treatment. Obtain bladder scan, catheter if needed, antibiotics pending urine culture. Status: Acute (5) Anemia: Problem comment: managed by hematology Status: Acute (6) Bone lesion: Status: Acute (7) Type 2 diabetes mellitus: Problem comment: Managed with endo with Dr. Ramos Status: Acute (8) Hyperlipidemia: Status: Acute (9) GERD (gastroesophageal reflux disease): Status: Acute (10) Elevated PSA: Status: Acute (11) CKD (chronic kidney disease): Status: Acute (12) Obstructive sleep apnea treated with continuous positive airway pressure (CPAP): Status: Acute (13) Beta thalassemia trait: Problem comment: following hematology Status: Acute Plan 1. Reviewed plan and recommendations with patient and 2. Answered their questions 3. Change from critical care status to floor status 4. They are agreeable to above stated plans and recommendations Total Time Spent Total Time Spent: 60 minutes Subjective Date Seen: 09/03/24 Interval history: Admission history of present illness, 09/02/2024: ?73 year old male with multiple myeloma status post auto stem cell transplantation December 2023 presents with worsening cough and fever over the past 5 weeks. On 07/13/2024 patient traveled with his to [facility] to visit family. Prior to traveling he was feeling well and had updated all of his immunizations. He was there about 3 weeks and became ill at the start of the 3rd week, the last week of July. He was noting intermittent fever and cough. He had fatigue and malaise with this as well. He came home on August 02 and has continued to have intermittent fever and cough. He is having night sweats. Cough is nonproductive. He is not having chest pain. He is noting prominent weakness and fatigue. On August 10 he was seen in clinic and prescribed doxycycline and cough medication. He had no significant improvement with this and continues to have cough and fever. He has no history of chronic lung disease. 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 No diagnosis of asthma or COPD. No use of SANCHEZ-inhibitor though he is on losartan as a long-term medication. Today with his fever and profound weakness and cough he came to the emergency department. He was seen to have a temperature of 102.9? F, blood pressure 147/71, pulse of 126, respiratory rate of 28, O2 sat of 97%. He had a lactate of 2.4. CT chest without contrast showed no acute cardiopulmonary process. Incidental findings of bony lesions known to be related to multiple myeloma in the past. CT abdomen showed renal cysts, prominent renal pelvises without obvious obstruction. Enlarged prostate gland and distended urinary bladder. ?He has no personal history of tuberculosis. No family history. He is not aware that anybody that he was visiting in [facility] had tuberculosis or any respiratory symptoms or other illness. Prior to his auto stem cell transplant last December he was taking suppressive antibiotic with Bactrim.? Hospital day 2, 09/03/2024: His dry hacking cough has improved substantially. Yesterday he could hardly speak 1 or 2 words without coughing. As I visit with him today he does not cough whatsoever. Does not feel nearly as weak and fatigued today as he did yesterday, noting that he feels 50-75% improved in this way. No longer complaining of dizziness or lightheadedness. Denies dyspnea. Denies syncope or near-syncope. Denies orthostasis. Denies chest, neck, shoulder, or arm tightness, heaviness, pressure, or pain. Denies edema. Denies palpitations. Denies nausea or vomiting. Appetite is improving slightly. Tolerating increased activities. Exam Narrative: Exam Narrative: Examined patient in his hospital room. Appears tired, but comfortable and in no acute distress. Vision and hearing are adequate. Alert and oriented x4. Friendly, articulate, cooperative. No jaundice, icterus, petechiae, or rashes. Skin otherwise dry and intact. Neck is supple. Midline trachea. No head or neck lymphadenopathy. No JVD or hepatojugular reflux. Lungs for the most part clear save some end inspiratory rales on the left compared to the right. No wheezing or rhonchi. Chest wall excursions are full. Does not have CVA tenderness to thumping. Heart tones with regular rhythm, normal S1-S2, with physiologic split S2. Soft cardiac murmur. PMI not laterally displaced. Abdomen with active bowel sounds, soft, nontender. No rebound or guarding. Extremities without edema. No cyanosis. Independent in transfer, station, and gait. Ambulating with use of roller walker. Const: Vital Signs, click to edit/add: Vital Signs - 24 hr 09/02/24 13:11 09/02/24 13:56 09/02/24 13:56 Temperature 102.9 F H Pulse Rate 116 H Pulse Rate [Pulse Oximeter] 126 H Pulse Rate [orthos tatic lying Pulse Oximeter] Pulse Rate [orthos tatic sitting Puls e Oximeter] Pulse Rate [orthos tatic standing Pul se Oximeter] Respiratory Rate 28 H 33 H Blood Pressure Blood Pressure [Ri ght Arm] Blood Pressure [Ri ght Upper Arm] 147/71 H Blood Pressure [or thostatic lying Ri ght Arm] Blood Pressure [or thostatic sitting Right Arm] Blood Pressure [or thostatic standing Right Arm] Pulse Oximetry 97 96 95 Oxygen Delivery Me thod Room Air 09/02/24 14:01 09/02/24 14:02 09/02/24 14:23 Temperature Pulse Rate 117 H 116 H 121 H Pulse Rate [Pulse Oximeter] Pulse Rate [orthos tatic lying Pulse Oximeter] Pulse Rate [orthos tatic sitting Puls e Oximeter] Pulse Rate [orthos tatic standing Pul se Oximeter] Respiratory Rate 43 H 28 H Blood Pressure 152/76 H Blood Pressure [Ri ght Arm] Blood Pressure [Ri ght Upper Arm] Blood Pressure [or thostatic lying Ri ght Arm] Blood Pressure [or thostatic sitting Right Arm] Blood Pressure [or thostatic standing Right Arm] Pulse Oximetry 96 97 97 Oxygen Delivery Me thod 09/02/24 14:24 09/02/24 14:30 09/02/24 14:41 Temperature Pulse Rate 119 H 113 H 119 H Pulse Rate [Pulse Oximeter] Pulse Rate [orthos tatic lying Pulse Oximeter] Pulse Rate [orthos tatic sitting Puls e Oximeter] Pulse Rate [orthos tatic standing Pul se Oximeter] Respiratory Rate 45 H 33 H 16 Blood Pressure 103/70 144/118 H Blood Pressure [Ri ght Arm] Blood Pressure [Ri ght Upper Arm] Blood Pressure [or thostatic lying Ri ght Arm] Blood Pressure [or thostatic sitting Right Arm] Blood Pressure [or thostatic standing Right Arm] Pulse Oximetry 94 96 96 Oxygen Delivery Me thod 09/02/24 14:45 09/02/24 15:00 09/02/24 15:01 Temperature Pulse Rate 117 H 110 H 112 H Pulse Rate [Pulse Oximeter] Pulse Rate [orthos tatic lying Pulse Oximeter] Pulse Rate [orthos tatic sitting Puls e Oximeter] Pulse Rate [orthos tatic standing Pul se Oximeter] Respiratory Rate 35 H 31 H 33 H Blood Pressure 105/58 L Blood Pressure [Ri ght Arm] Blood Pressure [Ri ght Upper Arm] Blood Pressure [or thostatic lying Ri ght Arm] Blood Pressure [or thostatic sitting Right Arm] Blood Pressure [or thostatic standing Right Arm] Pulse Oximetry 95 99 99 Oxygen Delivery Me thod 09/02/24 15:02 09/02/24 15:09 09/02/24 15:11 Temperature 101.9 F H 101.9 F H Pulse Rate 111 H Pulse Rate [Pulse Oximeter] Pulse Rate [orthos tatic lying Pulse Oximeter] Pulse Rate [orthos tatic sitting Puls e Oximeter] Pulse Rate [orthos tatic standing Pul se Oximeter] Respiratory Rate 30 H Blood Pressure Blood Pressure [Ri ght Arm] Blood Pressure [Ri ght Upper Arm] Blood Pressure [or thostatic lying Ri ght Arm] Blood Pressure [or thostatic sitting Right Arm] Blood Pressure [or thostatic standing Right Arm] Pulse Oximetry 98 Oxygen Delivery Az thod 09/02/24 15:15 09/02/24 15:22 09/02/24 15:30 Temperature Pulse Rate 117 H 113 H 106 H Pulse Rate [Pulse Oximeter] Pulse Rate [orthos tatic lying Pulse Oximeter] Pulse Rate [orthos tatic sitting Puls e Oximeter] Pulse Rate [orthos tatic standing Pul se Oximeter] Respiratory Rate 38 H 15 21 Blood Pressure 110/66 Blood Pressure [Ri ght Arm] Blood Pressure [Ri ght Upper Arm] Blood Pressure [or thostatic lying Ri ght Arm] Blood Pressure [or thostatic sitting Right Arm] Blood Pressure [or thostatic standing Right Arm] Pulse Oximetry 99 96 96 Oxygen Delivery Az thod 09/02/24 15:41 09/02/24 15:45 09/02/24 16:00 Temperature Pulse Rate 102 H 102 H 101 H Pulse Rate [Pulse Oximeter] Pulse Rate [orthos tatic lying Pulse Oximeter] Pulse Rate [orthos tatic sitting Puls e Oximeter] Pulse Rate [orthos tatic standing Pul se Oximeter] Respiratory Rate 85 H 12 44 H Blood Pressure 108/60 Blood Pressure [Ri ght Arm] Blood Pressure [Ri ght Upper Arm] Blood Pressure [or thostatic lying Ri ght Arm] Blood Pressure [or thostatic sitting Right Arm] Blood Pressure [or thostatic standing Right Arm] Pulse Oximetry 96 95 97 Oxygen Delivery Az thod 09/02/24 16:01 09/02/24 16:02 09/02/24 16:15 Temperature Pulse Rate 98 98 90 Pulse Rate [Pulse Oximeter] Pulse Rate [orthos tatic lying Pulse Oximeter] Pulse Rate [orthos tatic sitting Puls e Oximeter] Pulse Rate [orthos tatic standing Pul se Oximeter] Respiratory Rate 25 H 29 H 26 H Blood Pressure 114/68 Blood Pressure [Ri ght Arm] Blood Pressure [Ri ght Upper Arm] Blood Pressure [or thostatic lying Ri ght Arm] Blood Pressure [or thostatic sitting Right Arm] Blood Pressure [or thostatic standing Right Arm] Pulse Oximetry 97 96 96 Oxygen Delivery Me thod 09/02/24 16:30 09/02/24 16:41 09/02/24 16:45 Temperature Pulse Rate 88 94 101 H Pulse Rate [Pulse Oximeter] Pulse Rate [orthos tatic lying Pulse Oximeter] Pulse Rate [orthos tatic sitting Puls e Oximeter] Pulse Rate [orthos tatic standing Pul se Oximeter] Respiratory Rate 26 H 25 H 31 H Blood Pressure 118/78 Blood Pressure [Ri ght Arm] Blood Pressure [Ri ght Upper Arm] Blood Pressure [or thostatic lying Ri ght Arm] Blood Pressure [or thostatic sitting Right Arm] Blood Pressure [or thostatic standing Right Arm] Pulse Oximetry 97 97 96 Oxygen Delivery Me thod 09/02/24 17:00 09/02/24 17:20 09/02/24 18:17 Temperature 99.1 F Pulse Rate 105 H Pulse Rate [Pulse Oximeter] 115 H Pulse Rate [orthos tatic lying Pulse Oximeter] Pulse Rate [orthos tatic sitting Puls e Oximeter] Pulse Rate [orthos tatic standing Pul se Oximeter] Respiratory Rate 36 H 36 H 36 H Blood Pressure Blood Pressure [Ri ght Arm] 161/78 H Blood Pressure [Ri ght Upper Arm] Blood Pressure [or thostatic lying Ri ght Arm] Blood Pressure [or thostatic sitting Right Arm] Blood Pressure [or thostatic standing Right Arm] Pulse Oximetry 97 98 98 Oxygen Delivery Me thod Room Air Room Air 09/02/24 19:34 09/02/24 19:35 09/02/24 20:25 Temperature 99.1 F 100.0 F H 102.9 F H Pulse Rate Pulse Rate [Pulse Oximeter] 123 H 114 H Pulse Rate [orthos tatic lying Pulse Oximeter] Pulse Rate [orthos tatic sitting Puls e Oximeter] Pulse Rate [orthos tatic standing Pul se Oximeter] Respiratory Rate 30 H 24 Blood Pressure Blood Pressure [Ri ght Arm] 109/49 L 90/55 L Blood Pressure [Ri ght Upper Arm] Blood Pressure [or thostatic lying Ri ght Arm] Blood Pressure [or thostatic sitting Right Arm] Blood Pressure [or thostatic standing Right Arm] Pulse Oximetry 93 96 Oxygen Delivery Me thod Room Air Room Air 09/02/24 21:12 09/02/24 21:31 09/02/24 22:05 Temperature 98.3 F Pulse Rate Pulse Rate [Pulse Oximeter] 108 H 107 H 107 H Pulse Rate [orthos tatic lying Pulse Oximeter] Pulse Rate [orthos tatic sitting Puls e Oximeter] Pulse Rate [orthos tatic standing Pul se Oximeter] Respiratory Rate 24 32 H 28 H Blood Pressure Blood Pressure [Ri ght Arm] 94/56 L 97/55 L 83/55 L Blood Pressure [Ri ght Upper Arm] Blood Pressure [or thostatic lying Ri ght Arm] Blood Pressure [or thostatic sitting Right Arm] Blood Pressure [or thostatic standing Right Arm] Pulse Oximetry 95 94 94 Oxygen Delivery Me thod Room Air Room Air Room Air 09/02/24 22:18 09/02/24 22:37 09/02/24 23:00 Temperature 99.0 F 98.3 F Pulse Rate 103 H Pulse Rate [Pulse Oximeter] 100 Pulse Rate [orthos tatic lying Pulse Oximeter] Pulse Rate [orthos tatic sitting Puls e Oximeter] Pulse Rate [orthos tatic standing Pul se Oximeter] Respiratory Rate 28 H Blood Pressure Blood Pressure [Ri ght Arm] 84/54 L Blood Pressure [Ri ght Upper Arm] Blood Pressure [or thostatic lying Ri ght Arm] Blood Pressure [or thostatic sitting Right Arm] Blood Pressure [or thostatic standing Right Arm] Pulse Oximetry 98 Oxygen Delivery Me thod Room Air 09/02/24 23:50 09/03/24 00:42 09/03/24 02:35 Temperature 97.5 F L 97.3 F L Pulse Rate Pulse Rate [Pulse Oximeter] 98 92 81 Pulse Rate [orthos tatic lying Pulse Oximeter] Pulse Rate [orthos tatic sitting Puls e Oximeter] Pulse Rate [orthos tatic standing Pul se Oximeter] Respiratory Rate 20 20 20 Blood Pressure Blood Pressure [Ri ght Arm] 90/57 L 90/72 Blood Pressure [Ri ght Upper Arm] Blood Pressure [or thostatic lying Ri ght Arm] Blood Pressure [or thostatic sitting Right Arm] Blood Pressure [or thostatic standing Right Arm] Pulse Oximetry 94 94 Oxygen Delivery Me thod Room Air 09/03/24 04:54 09/03/24 07:00 09/03/24 07:00 Temperature 97 F L 96.1 F L Pulse Rate Pulse Rate [Pulse Oximeter] 75 74 Pulse Rate [orthos tatic lying Pulse Oximeter] Pulse Rate [orthos tatic sitting Puls e Oximeter] Pulse Rate [orthos tatic standing Pul se Oximeter] Respiratory Rate 20 16 16 Blood Pressure Blood Pressure [Ri ght Arm] 90/58 L 98/62 Blood Pressure [Ri ght Upper Arm] Blood Pressure [or thostatic lying Ri ght Arm] Blood Pressure [or thostatic sitting Right Arm] Blood Pressure [or thostatic standing Right Arm] Pulse Oximetry 98 100 Oxygen Delivery Az thod Room Air Room Air 09/03/24 07:00 09/03/24 09:00 09/03/24 09:08 Temperature 97.9 F Pulse Rate 73 Pulse Rate [Pulse Oximeter] Pulse Rate [orthos tatic lying Pulse Oximeter] 72 Pulse Rate [orthos tatic sitting Puls e Oximeter] 78 Pulse Rate [orthos tatic standing Pul se Oximeter] 74 Respiratory Rate 18 Blood Pressure Blood Pressure [Ri ght Arm] Blood Pressure [Ri ght Upper Arm] Blood Pressure [or thostatic lying Ri ght Arm] 107/64 Blood Pressure [or thostatic sitting Right Arm] 110/69 Blood Pressure [or thostatic standing Right Arm] 113/67 Pulse Oximetry 98 Oxygen Delivery Az thod Room Air 09/03/24 11:00 Temperature 96.8 F L Pulse Rate Pulse Rate [Pulse Oximeter] 72 Pulse Rate [orthos tatic lying Pulse Oximeter] Pulse Rate [orthos tatic sitting Puls e Oximeter] Pulse Rate [orthos tatic standing Pul se Oximeter] Respiratory Rate 16 Blood Pressure Blood Pressure [Ri ght Arm] 106/65 Blood Pressure [Ri ght Upper Arm] Blood Pressure [or thostatic lying Ri ght Arm] Blood Pressure [or thostatic sitting Right Arm] Blood Pressure [or thostatic standing Right Arm] Pulse Oximetry 100 Oxygen Delivery Me thod Room Air Labs Labs: Laboratory Results - last 24 hr 09/02/24 09/02/24 09/02/24 13:35 13:45 14:03 WBC 10.54 RBC 4.19 L Hgb 9.2 L Hct 28.5 L MCV 68 L MCH 22 L MCHC 32 RDW Coeff of Rubi 22.0 H Plt Count 156 Neut % (Auto) 67.3 Lymph % (Auto) 23.2 [place] % (Auto) 7.5 Eos % (Auto) 1.7 Baso % (Auto) 0.1 Neut # (Auto) 7.09 H Lymph # (Auto) 2.45 [place] # (Auto) 0.80 Eos # (Auto) 0.18 Baso # (Auto) 0.01 Abs Immat Gran (auto) 0.02 Imm/Tot Granulo (auto) 0.2 Diff Slide Review Acceptable Review VBG pH 7.361 VBG pCO2 41 VBG pO2 38.9 VBG HCO3 23 Sodium 127 L Potassium 4.9 Chloride 95 L Carbon Dioxide 22 Anion Gap 10 BUN 27 Creatinine 1.7 H Estimated Creat Clear 39.62 Estimated GFR 42 Glucose 235 H Lactate 2.4 H Calcium 9.2 Magnesium 1.1 L Total Bilirubin Direct Bilirubin AST ALT Alkaline Phosphatase Troponin I C-Reactive Protein 14.9 H NT-Pro-B Natriuret Pep Total Protein Albumin Procalcitonin TSH Urine Color Urine Appearance Urine pH Ur Specific Hebo Urine Protein Urine Glucose (UA) Urine Ketones Urine Blood Urine Nitrite Urine Bilirubin Urine Urobilinogen Ur Leukocyte Esterase Urine RBC Urine WBC Ur Squamous Epith Cells Urine Bacteria Urine L. pneumophilia Ag Urine Strep pneumoniae Ag SARS-CoV-2 (PCR) Negative SARS-CoV-2 Influenza Type A (PCR) Negative PCR FLU A Influenza Type B (PCR) Negative PCR FLU B RSV (PCR) Negative PCR RSV Lab Acknowledgement POC Glucose 233 H POC Creatinine 1.7 H POC Troponin I 0.01 09/02/24 09/02/24 09/02/24 14:45 15:00 15:35 WBC RBC Hgb Hct MCV MCH MCHC RDW Coeff of Rubi Plt Count Neut % (Auto) Lymph % (Auto) [place] % (Auto) Eos % (Auto) Baso % (Auto) Neut # (Auto) Lymph # (Auto) [place] # (Auto) Eos # (Auto) Baso # (Auto) Abs Immat Gran (auto) Imm/Tot Granulo (auto) Diff Slide Review VBG pH VBG pCO2 VBG pO2 VBG HCO3 Sodium Potassium Chloride Carbon Dioxide Anion Gap BUN Creatinine Estimated Creat Clear Estimated GFR Glucose Lactate Calcium Magnesium Total Bilirubin 0.7 Direct Bilirubin 0.4 AST 47 H ALT 39 Alkaline Phosphatase 100 Troponin I C-Reactive Protein NT-Pro-B Natriuret Pep Total Protein 7.3 Albumin 4.0 Procalcitonin TSH Urine Color Yellow Urine Appearance Cloudy A Urine pH 6.0 Ur Specific [place] 1.010 Urine Protein 1+ A Urine Glucose (UA) Negative Urine Ketones Negative Urine Blood 1+ A Urine Nitrite Positive A Urine Bilirubin Negative Urine Urobilinogen 0.2 Ur Leukocyte Esterase 1+ A Urine RBC 2-5 A Urine WBC 2-5 Ur Squamous Epith Cells None Urine Bacteria Moderate A Urine L. pneumophilia Ag Urine Strep pneumoniae Ag SARS-CoV-2 (PCR) Influenza Type A (PCR) Influenza Type B (PCR) RSV (PCR) Lab Acknowledgement Test Added POC Glucose POC Creatinine POC Troponin I 09/02/24 09/02/24 09/02/24 18:06 18:18 19:26 WBC RBC Hgb Hct MCV MCH MCHC RDW Coeff of Rubi Plt Count Neut % (Auto) Lymph % (Auto) [place] % (Auto) Eos % (Auto) Baso % (Auto) Neut # (Auto) Lymph # (Auto) [place] # (Auto) Eos # (Auto) Baso # (Auto) Abs Immat Gran (auto) Imm/Tot Granulo (auto) Diff Slide Review VBG pH 7.454 H VBG pCO2 29 L VBG pO2 38.2 VBG HCO3 20 L Sodium Potassium Chloride Carbon Dioxide Anion Gap BUN Creatinine Estimated Creat Clear Estimated GFR Glucose Lactate 2.9 H Calcium Magnesium Total Bilirubin Direct Bilirubin AST ALT Alkaline Phosphatase Troponin I C-Reactive Protein NT-Pro-B Natriuret Pep 133 Total Protein Albumin Procalcitonin 1.65 H TSH 1.220 Urine Color Urine Appearance Urine pH Ur Specific Hebo Urine Protein Urine Glucose (UA) Urine Ketones Urine Blood Urine Nitrite Urine Bilirubin Urine Urobilinogen Ur Leukocyte Esterase Urine RBC Urine WBC Ur Squamous Epith Cells Urine Bacteria Urine L. pneumophilia Ag L. pneumo Negative Urine Strep pneumoniae Ag S. pneumo Negative SARS-CoV-2 (PCR) Influenza Type A (PCR) Influenza Type B (PCR) RSV (PCR) Lab Acknowledgement POC Glucose POC Creatinine POC Troponin I 04/30/25 04/30/25 05/01/25 19:26 22:30 06:17 WBC 11.26 H RBC 3.48 L Hgb 7.5 L* Hct 23.7 L MCV 68 L MCH 22 L MCHC 32 RDW Coeff of Rubi 22.2 H Plt Count 107 L Neut % (Auto) 83.1 H Lymph % (Auto) 8.8 L [place] % (Auto) 5.2 Eos % (Auto) 0.4 Baso % (Auto) 0.1 Neut # (Auto) 9.40 H Lymph # (Auto) 1.00 [place] # (Auto) 0.60 Eos # (Auto) 0.00 Baso # (Auto) 0.00 Abs Immat Gran (auto) 0.30 Imm/Tot Granulo (auto) 2.4 Diff Slide Review VBG pH VBG pCO2 VBG pO2 VBG HCO3 Sodium 128 L Potassium 4.3 Chloride 99 Carbon Dioxide 20 Anion Gap 9 BUN 29 Creatinine 1.9 H Estimated Creat Clear 34.11 Estimated GFR 37 Glucose 173 H Lactate 2.7 H Calcium 8.2 L Magnesium 2.2 Total Bilirubin Direct Bilirubin AST ALT Alkaline Phosphatase Troponin I 0.03 C-Reactive Protein 21.3 H NT-Pro-B Natriuret Pep Total Protein Albumin Procalcitonin Cancelled TSH Urine Color Urine Appearance Urine pH Ur Specific Hebo Urine Protein Urine Glucose (UA) Urine Ketones Urine Blood Urine Nitrite Urine Bilirubin Urine Urobilinogen Ur Leukocyte Esterase Urine RBC Urine WBC Ur Squamous Epith Cells Urine Bacteria Urine L. pneumophilia Ag Urine Strep pneumoniae Ag SARS-CoV-2 (PCR) Influenza Type A (PCR) Influenza Type B (PCR) RSV (PCR) Lab Acknowledgement POC Glucose POC Creatinine POC Troponin I 09/03/24 07:53 WBC RBC Hgb Hct MCV MCH MCHC RDW Coeff of Rubi Plt Count Neut % (Auto) Lymph % (Auto) [place] % (Auto) Eos % (Auto) Baso % (Auto) Neut # (Auto) Lymph # (Auto) [place] # (Auto) Eos # (Auto) Baso # (Auto) Abs Immat Gran (auto) Imm/Tot Granulo (auto) Diff Slide Review VBG pH 7.396 VBG pCO2 34 L VBG pO2 76.0 H VBG HCO3 21 Sodium Potassium Chloride Carbon Dioxide Anion Gap BUN Creatinine Estimated Creat Clear Estimated GFR Glucose Lactate 1.8 Calcium Magnesium Total Bilirubin Direct Bilirubin AST ALT Alkaline Phosphatase Troponin I C-Reactive Protein NT-Pro-B Natriuret Pep Total Protein Albumin Procalcitonin TSH Urine Color Urine Appearance Urine pH Ur Specific [place]bo Urine Protein Urine Glucose (UA) Urine Ketones Urine Blood Urine Nitrite Urine Bilirubin Urine Urobilinogen Ur Leukocyte Esterase Urine RBC Urine WBC Ur Squamous Epith Cells Urine Bacteria Urine L. pneumophilia Ag Urine Strep pneumoniae Ag SARS-CoV-2 (PCR) Influenza Type A (PCR) Influenza Type B (PCR) RSV (PCR) Lab Acknowledgement POC Glucose POC Creatinine POC Troponin I Imaging CT scan of abdomen and pelvis: Attestation: I have reviewed the pertinent imaging results. Radiologist's impression: FINDINGS: Motion limits evaluation. Lower chest: Unremarkable. Liver: Low-attenuation inferior right lobe unchanged. Gallbladder and bile ducts: Cholelithiasis. Pancreas: Unremarkable. No mass or inflammation. Spleen: Normal in size. No masses. Adrenal glands: Normal in size. No nodules. Kidneys: There is bilateral renal cysts to characterize low-attenuation lesions bilaterally. Nonobstructing small renal calculi on the right. There is prominence of both renal pelves and ureters there is no obstructing stones. There is urothelial thickening bilaterally there is significant motion which limits evaluation of the kidneys. GI tract: Unremarkable. Normal in caliber. No sign of mass or inflammation. The appendix is mildly dilated with air in the appendix and unchanged in appearance from 2022 without inflammatory changes. Vasculature: Abdominal aorta is normal in caliber. Lymph nodes: No lymphadenopathy. Peritoneum/Abdominal Wall: Small fat containing inguinal hernias. Pelvis: Enlarged prostate gland. Distended but otherwise unremarkable. Urinary bladder Bones: Similar diffuse mottled appearance of the bony skeleton with multiple small lucencies throughout this could be related to demineralization however Mets and myeloma can have this appearance although this is not significantly changed in appearance. IMPRESSION: 1. Evaluation of the kidneys is significantly limited due to severe motion. There are bilateral cysts as well as prominence of both renal pelves and ureters without obstructing stones. Urothelial thickening. Correlate for possible UTI. 2. There is otherwise no acute findings in the abdomen or pelvis seen. 3. Heterogeneous enlarged prostate gland correlate with PSA levels CT scan - chest: Attestation: I have reviewed the pertinent imaging results. Radiologist's impression: FINDINGS: Breathing motion artifact mildly limits evaluation. Lungs and pleura: No suspicious nodules or infiltrates. Calcified granuloma in the right lower lobe. No pleural effusions, pleural thickening, or pneumothorax. Heart and vasculature: Heart size is normal. Prominence of the left ventricle is noted. Thoracic aorta and pulmonary artery are normal in caliber. Coronary artery calcifications and/or stents are identified. Lymph nodes/mediastinum: No mediastinal, hilar, or axillary adenopathy. Chest wall: No masses. Upper abdomen: No significant findings. Cholelithiasis without CT evidence of cholecystitis. Partially visualized left renal cysts. Bones: Mottled appearance of the spine with tiny hypodensities throughout the visualized bones, especially the vertebral bodies suspicious for multiple myeloma, metastases. This is similar to the PET-CT from June 20, 2023. IMPRESSION: 1. No acute cardiopulmonary process identified. 2. Cholelithiasis without CT evidence of cholecystitis. 3. Mottled appearance of the spine similar to prior exams may be related to multiple myeloma, metastases or demineralization. ECG Attestation: I personally reviewed and interpreted this ECG as follows: Prior ECG tracings: not available for review Interpretation: Sinus tachycardia.
--- NOTE | 2024-09-03 14:13 | PC.NURSE ---
PATIENT ALERT AND ORIENTED PLEASANT AND COOPERATIVE, UP SBA IN ROOM, TOLERATING REGULAR DIET, AFEBRILE, DECLINING PAIN, SHOWERED THIS AFTERNOON, PRESENT AT BEDSIDE AND SUPPORTIVE, PATIENT STATES FEELING MUCH BETTER TODAY AND HOPEFUL TO GO HOME SOON.
[2024-09-03] MEDS: INSULIN GLARGINE,HUM.REC.ANLOG 100 UNIT/ML INSULN.PEN 8 UNIT SUBCUT (20:42)
[2024-09-03] MEDS: ENOXAPARIN 30 MG/0.3ML INJ SUBCUT (20:44)
[2024-09-03] MEDS: MIRTAZAPINE 15 MG TABLET PO (20:45)
[2024-09-03] MEDS: ACETAMINOPHEN 325 MG TABLET 650 MG PO (20:48)
[2024-09-03] MEDS: SODIUM CHLORIDE 0.9 % (FLUSH) 10 ML SYRINGE 5 ML IVF (20:51)
[2024-09-03] MEDS: AZITHROMYCIN 250 MG TABLET 500 MG PO (20:51)
[2024-09-03] MEDS: GUAIF/CODEINE 200/20MG/10 ML SOLUTION PO (20:52)
--- NOTE | 2024-09-03 22:24 | PC.NURSE ---
Patient is afebrile and has no complaints of pain. Patient IV' patent. Patient received scheduled abx as ordered. Patient has 2 liquid stools this shift.
[2024-09-03] MEDS: 5 % DEXTROSE IN LAC RINGER'S 1,000 ML 125 ML IV (23:55)
[2024-09-04] VITALS (26 sets, daily range): BP systolic 96–157; BP diastolic 54–102; PULSE 74–107; RESP 16–20; TEMP 35.8–37.8; O2SAT 91–100
[2024-09-04] MEDS: ACETAMINOPHEN 325 MG TABLET 650 MG PO (03:17)
[2024-09-04] MEDS: PIPERACILLIN/TAZOBACTAM 3.375 GM in 0.9 % SODIUM CHLORIDE Mini-bag 100 ML IVPB ×2 (05:01→11:36)
--- NOTE | 2024-09-04 05:12 | PC.NURSE ---
Patient had temperature of 100.9 at 0240. He complained of chills. Tylenol given and temperature rechecked at 0330 was 98.6. Ambulated with SBA with cane to . Patient denied SOB and pain. Patient slept very late but did not want any sleeping pill.
[2024-09-04 06:46] LABS: Lactate* 1.6 mmol/L (0.5-1.9)
[2024-09-04 07:12] LABS: Basophils Absolute Auto 0.02 K/uL (0.00-0.30); Basophils Percent Auto 0.3 % (0.0-3.0); Eosinophils Absolute Auto 0.37 K/uL (0.00-0.50); Eosinophils Percent Auto 4.7 % (0.0-7.0); Hematocrit 21.3 % (37.0-53.0); Immature Granulocytes Abs Auto 0.06 K/uL (0.00-0.30); Immature Granulocytes Pct Auto 0.8 %; Lymphocytes Absolute Auto 1.89 K/uL (0.90-2.90); Lymphocytes Percent Auto 24.3 % (20-44); Mean Corpuscular HGB Conc 32 gm/dL (32-36); Mean Corpuscular Hemoglobin 22 pg (26-34); Mean Corpuscular Volume 68 fL (80-100); Monocytes Percent Auto 5.5 % (0.0-11.0); Neutrophils Absolute Auto 5.02 K/uL (1.7-7.0); Neutrophils Percent Auto 64.4 % (42.0-72.0); Platelet Count* 111 K/uL (140-440); RDW Coefficient of Variation % 22.4 % (11.5-15.5); Red Blood Count 3.14 m/uL (4.30-5.90); White Blood Count* 7.79 K/uL (4.50-11.00)
[2024-09-04 07:16] LABS: Hemoglobin* 6.9 gm/dL (13.5-17.5); Slide Review Reflex No
[2024-09-04 08:04] LABS: Chloride* 103 mmol/L (96-114); Potassium* 4.3 mmol/L (3.6-5.1); Sodium* 129 mmol/L (135-149)
[2024-09-04 08:05] LABS: Anion Gap 8 mEq/L (7-15); Blood Urea Nitrogen* 33 mg/dL (7-30); Calcium* 7.9 mg/dL (8.4-10.6); Carbon Dioxide* 18 mmol/L (20-32); Estimated Glomerular Filt Rate 34 ml/min; Glucose* 326 mg/dL (60-115)
[2024-09-04 08:06] LABS: Magnesium* 2.1 mg/dL (1.5-2.6)
[2024-09-04 08:13] LABS: C Reactive Protein* 22.5 mg/dL (0.5-1.0)
[2024-09-04] MEDS: ACETAMINOPHEN 500 MG TABLET 1000 MG PO (08:16)
[2024-09-04] MEDS: OMEPRAZOLE 20 MG CAPSULE DR 40 MG PO (08:16)
[2024-09-04] MEDS: INSULIN ASPART 100 UNIT/ML SUBCUT ×2 (08:17→22:02)
[2024-09-04] MEDS: INSULIN ASPART 100 UNIT/ML 6 UNIT SUBCUT ×2 (08:17→16:38)
[2024-09-04] MEDS: ACYCLOVIR 200 MG CAPSULE 400 MG PO ×2 (09:54→22:05)
[2024-09-04] MEDS: ASPIRIN 81 MG TABLET EC PO (09:55)
[2024-09-04] MEDS: MAGNESIUM OXIDE 400 MG TABLET PO ×2 (09:55→22:06)
[2024-09-04] MEDS: ATORVASTATIN CALCIUM 10 MG TABLET PO (09:56)
[2024-09-04] MEDS: PREGABALIN 75 MG CAPSULE PO ×2 (10:01→22:03)
[2024-09-04] MEDS: VANCOMYCIN 1 GM/200 ML 1 GM/200 ML PIGGYBACK IVPB (10:01)
[2024-09-04] MEDS: BENZOCAINE/MENTHOL 1 EACH LOZENGE MUCOUS MEM (12:33)
[2024-09-04] MEDS: cefTRIAXone 2 GM in 0.9 % SODIUM CHLORIDE Mini-bag 100 ML IVPB (13:16)
--- NOTE | 2024-09-04 14:28 | P.IMPN_ITS ---
Assessment and Plan Assessment and plan (1) Sepsis: Problem comment: 09/02/2024: Patient had marked abnormal vital signs meeting criteria for sepsis. Primary consideration for infection comes from his relatively severe and persistent cough which started about the same time as his intermittent fevers began 5 weeks ago. Initiate broad-spectrum antibiotics for respiratory infection. Consider Infectious Disease consultation. Patient is also had a history of urinary retention and has an enlarged prostate and distended bladder. Await urine and blood cultures for that evaluation. Moved to CCU for close monitoring. Continue broad-spectrum antibiotics and fluid resuscitation as needed. 09/03/2024: Continue with the IV antibiotics pending various cultures including nasal MRSA swab. Will saline lock IV for now. Encourage increased activities. 09/04/2024: No longer septic. IV vanco was stopped with negative nasal MRSA swab. Status: Acute (2) Chronic cough: Problem comment: 09/02/2024: 73-year-old male presents with a chronic cough of at least 6 weeks the began while traveling to [facility]. No history of lung disease or risk factors for lung disease that would account for this cough. Imaging today does not show an obvious infiltrate or pulmonary abnormality. Considerations for the cause of cough continued to include infection, asthma/COPD, inflammatory process, rare side effect of losartan, foreign body in the airway, cardiac problems. Due to the presence of infection with fever/sepsis will treat with antibiotics as well as symptomatic treatment for his persistent serious cough. 09/03/2024: Continue with treatments as specified above. Await pertussis lab studies. Continue with azithromycin for now. 09/04/2024: Pertussis testing not back yet. Ordered respiratory viral panel by PCR. Status: Acute (3) Multiple myeloma in remission: Problem comment: Status post auto stem cell transplant, [facility], December 2023 09/04/2024: I review oncology notes. I speak with Oncology nurse practitioner who works at the [facility] at [facility]. It appears patient does indeed have a recurrence of multiple myeloma. Patient is in the process of being re-staged for this. Upon completion of this restaging there will be any additional discussion about disease severity and treatment options with the patient, this appointment is already set for 09/14/[address] Franklin. As I reviewed this with the patient and it is apparent that the patient seemingly understood this but the did not understand this even though they are both at the same consultation with Dr. Franklin. Patient has been on Revmilid maintenance therapy since the stem cell transplant in December 2023. Currently not taking any other immunosuppressive agents. Status: Acute (4) BPH loc w urin obs/LUTS: Problem comment: Patient had urinary retention in December 2023 at [facility]. Briefly treated with a catheter and Flomax. Symptoms resolved and had outpatient urologic follow-up which was reassuring and recommending monitoring without active treatment. Obtain bladder scan, catheter if needed, antibiotics pending urine culture. Status: Acute (5) Anemia: Problem comment: managed by hematology and ordinarily receives periodic red blood cell transfusions 09/04/2024: Hemoglobin 6.9. Will transfuse with 2 units of packed red blood cells today. It appears this is multifactorial including from the beta thalassemia trait plus recurrent multiple myeloma. Reviewed this with patient and . Status: Acute (6) Bone lesion: Status: Acute (7) Type 2 diabetes mellitus: Problem comment: Managed with endo with Dr. Ramos Status: Acute (8) Hyperlipidemia: Status: Acute (9) GERD (gastroesophageal reflux disease): Status: Acute (10) Elevated PSA: Status: Acute (11) CKD (chronic kidney disease): Status: Acute (12) Obstructive sleep apnea treated with continuous positive airway pressure (CPAP): Status: Acute (13) Beta thalassemia trait: Problem comment: following hematology Status: Acute (14) Salmonella infection: Problem comment: 09/04/2024: Urine culture grew out Salmonella group organism, greater than 100,000 colony-forming units/ml. This is an unusual cause of UTI. It does occur in individuals who are immunosuppressed. Organism not sensitive to piperacillin with tazobactam. Stopped IV piperacillin and tazobactam today. Started ceftriaxone 2 g IV q.12 today. Initiated consultation with infectious disease specialist, Dr. Pita Jameson, who will review and advise intensity and duration of treatment for this patient. Status: Acute (15) UTI (urinary tract infection): Problem comment: 09/04/2024: Urine culture grew out Salmonella group organism, greater than 100,000 colony-forming units/ml. This is an unusual cause of UTI. It does occur in individuals who are immunosuppressed. Organism not sensitive to piperacillin with tazobactam. Stopped IV piperacillin and tazobactam today. Started ceftriaxone 2 g IV q.12 today. Initiated consultation with infectious disease specialist, Dr. Pita Jameson, who will review and advise intensity and duration of treatment for this patient. Status: Acute Plan 1. Reviewed impression, plan, recommendations with patient and . 2. Answered their questions their satisfaction. Noteworthy is that it appears the was not aware or had not process that her likely has recurrent multiple myeloma and that the multiple myeloma is no longer in remission. Assured her that her 's oncologist is making a very thorough assessment of his current situation and status before additional decisions are made. Encouraged her to keep all the various appointments that they currently have to further assess and consider the status of the multiple myeloma which he suffers from. 3. They are agreeable with above stated plans and recommendations Total Time Spent Total Time Spent: 60 minutes Subjective Date Seen: 09/04/24 Interval history: Admission history of present illness, 09/02/2024: ?73 year old male with multiple myeloma status post auto stem cell transplantation December 2023 presents with worsening cough and fever over the past 5 weeks. On 07/13/2024 patient traveled with his to [facility] to visit family. Prior to traveling he was feeling well and had updated all of his immunizations. He was there about 3 weeks and became ill at the start of the 3rd week, the last week of July. He was noting intermittent fever and cough. He had fatigue and malaise with this as well. He came home on August 02 and has continued to have intermittent fever and cough. He is having night sweats. Cough is nonproductive. He is not having chest pain. He is noting prominent weakness and fatigue. On August 10 he was seen in clinic and prescribed doxycycline and cough medication. He had no significant improvement with this and continues to have cough and fever. He has no history of chronic lung disease. 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 No diagnosis of asthma or COPD. No use of SANCHEZ-inhibitor though he is on losartan as a long-term medication. Today with his fever and profound weakness and cough he came to the emergency department. He was seen to have a temperature of 102.9? F, blood pressure 147/71, pulse of 126, respiratory rate of 28, O2 sat of 97%. He had a lactate of 2.4. CT chest without contrast showed no acute cardiopulmonary process. Incidental findings of bony lesions known to be related to multiple myeloma in the past. CT abdomen showed renal cysts, prominent renal pelvises without obvious obstruction. Enlarged prostate gland and distended urinary bladder. ?He has no personal history of tuberculosis. No family history. He is not aware that anybody that he was visiting in [facility] had tuberculosis or any respiratory symptoms or other illness. Prior to his auto stem cell transplant last December he was taking suppressive antibiotic with Bactrim.? Hospital day 2, 09/03/2024: His dry hacking cough has improved substantially. Yesterday he could hardly speak 1 or 2 words without coughing. As I visit with him today he does not cough whatsoever. Does not feel nearly as weak and fatigued today as he did yesterday, noting that he feels 50-75% improved in this way. No longer complaining of dizziness or lightheadedness. Denies dyspnea. Denies syncope or near-syncope. Denies orthostasis. Denies chest, neck, shoulder, or arm tightness, heaviness, pressure, or pain. Denies edema. Denies palpitations. Denies nausea or vomiting. Appetite is improving slightly. Tolerating increased activities. Hospital day 3, 09/04/2024: Patient had a fair day yesterday. Last night however he had a recurrence of fever and rigors. Today he has not had any additional fevers or rigors. He still has a sense of generalized weakness but much improved from when he 1st came in. Cough continues to be well controlled and hardly a a bother for him at all. Appetite is normalizing. Denies other concerns at this time. Blood cultures negative to date. Urine culture grew out Salmonella group organism, greater than 100,000 colony-forming units/ml, resistant to ampicillin, ampicillin/sulbactam, cefazolin, gentamicin; intermediate sensitivity to ciprofloxacin and levofloxacin; sensitive to cefepime, ceftazidime, ceftriaxone, nitrofurantoin, and trimethoprim sulfamethoxazole. Up until today he has been empirically on piperacillin with tazobactam. Initially received a dose of vancomycin. Has also been taking azithromycin orally. Today I stopped the piperacillin and tazobactam and started him on ceftriaxone 2 g IV daily. I called and spoke with our Infectious Disease specialist, Dr. Pita Jameson. She will review the case and advise us on intensity and duration of therapy after she has had opportunity to consider all of the details of this situation. Exam Narrative: Exam Narrative: Examine him in his hospital room. No acute distress. Alert and oriented x4. Friendly cooperative. Lungs remain clear to auscultation save some end inspiratory rales in the bases. Initial rhonchi clear with coughing. Heart tones with regular rhythm, normal S1-S2. Abdomen with active bowel sounds, soft, nontender. Extremities without edema. No focal motor neurologic deficits. Const: Vital Signs, click to edit/add: Vital Signs - 24 hr 09/03/24 15:00 09/03/24 15:00 09/03/24 18:49 Temperature 98.0 F 96.6 F L Pulse Rate 77 Pulse Rate [Pulse Oximeter] 72 72 Respiratory Rate 16 14 Blood Pressure Blood Pressure [Ri ght Arm] 100/65 97/54 L Pulse Oximetry 99 [facility] 09/03/24 21:07 09/03/24 22:56 09/03/24 23:00 Temperature 96.6 F L 100.5 F H Pulse Rate Pulse Rate [Pulse Oximeter] 115 H 113 H 107 H Respiratory Rate 20 24 18 Blood Pressure Blood Pressure [Ri ght Arm] 184/83 H 102/48 L Pulse Oximetry 96 96 [facility] 09/03/24 23:00 09/04/24 00:09 09/04/24 00:12 Temperature 99.5 F Pulse Rate 109 H Pulse Rate [Pulse Oximeter] 107 H Respiratory Rate 18 Blood Pressure Blood Pressure [Ri ght Arm] 96/54 L 100/55 L Pulse Oximetry 95 [facility] 09/04/24 03:13 09/04/24 03:17 09/04/24 04:56 Temperature 100.1 F H 100.1 F H 98.6 F Pulse Rate Pulse Rate [Pulse Oximeter] 100 Respiratory Rate 18 Blood Pressure Blood Pressure [Ri ght Arm] 104/55 L Pulse Oximetry 97 [facility] 09/04/24 04:56 09/04/24 08:16 09/04/24 08:30 Temperature 98.6 F 98.4 F Pulse Rate Pulse Rate [Pulse Oximeter] Respiratory Rate 16 Blood Pressure Blood Pressure [Ri ght Arm] Pulse Oximetry Oxygen Delivery Me thod 09/04/24 08:30 09/04/24 11:00 09/04/24 11:57 Temperature 98.4 F 97.0 F L Pulse Rate 76 Pulse Rate [Pulse Oximeter] 82 78 Respiratory Rate 16 18 16 Blood Pressure 133/89 Blood Pressure [Ri ght Arm] 103/69 108/65 Pulse Oximetry 98 100 100 Oxygen Delivery Sc thod Room Air Room Air Room Air 09/04/24 11:57 09/04/24 12:16 09/04/24 12:46 Temperature 97.7 F 98.0 F 96.4 F L Pulse Rate 74 75 Pulse Rate [Pulse Oximeter] Respiratory Rate 18 16 Blood Pressure 121/79 121/79 Blood Pressure [Ri ght Arm] Pulse Oximetry 100 100 Oxygen Delivery Sc thod Room Air Room Air 09/04/24 13:16 09/04/24 14:16 09/04/24 14:21 Temperature 97.9 F Pulse Rate 76 77 75 Pulse Rate [Pulse Oximeter] Respiratory Rate 18 18 18 Blood Pressure 131/85 136/78 133/102 H Blood Pressure [Ri ght Arm] Pulse Oximetry 100 100 100 Oxygen Delivery Sc thod Room Air Labs Labs: Laboratory Results - last 24 hr 09/03/24 09/04/24 09/04/24 23:18 06:28 06:38 WBC 7.79 RBC 3.14 L Hgb 6.9 L* Hct 21.3 L MCV 68 L MCH 22 L MCHC 32 RDW Coeff of Rubi 22.4 H Plt Count 111 L Neut % (Auto) 64.4 Lymph % (Auto) 24.3 Cocke % (Auto) 5.5 Eos % (Auto) 4.7 Baso % (Auto) 0.3 Neut # (Auto) 5.02 Lymph # (Auto) 1.89 Cocke # (Auto) 0.40 Eos # (Auto) 0.37 Baso # (Auto) 0.02 Abs Immat Gran (auto) 0.06 Imm/Tot Granulo (auto) 0.8 Sodium Cancelled 129 L Potassium Cancelled 4.3 Chloride Cancelled 103 Carbon Dioxide Cancelled 18 L Anion Gap Cancelled 8 BUN Cancelled 33 H Creatinine Cancelled 2.0 H Estimated Creat Clear Cancelled 32.40 Estimated GFR Cancelled 34 Glucose Cancelled 326 H Lactate 2.0 H 1.6 Calcium Cancelled 7.9 L Magnesium Cancelled 2.1 C-Reactive Protein Cancelled 22.5 H Blood Type O Positive Antibody Screen NEGATIVE Crossmatch (AHG) See Detail
--- NOTE | 2024-09-04 17:22 | PC.NURSE ---
The patient had 2 units of PRBC this shift, the patient tolerated this well and had no acute reactions. Recheck ordered for the early AM. VSS on RA throughout the transfusion as well as post transfusion. Nany VENEGAS BSN
--- NOTE | 2024-09-04 18:43 | PC.NURSE ---
END of SHIFT: Pt is A/Ox4, IND in room with cane, SBA w/ Walker in hallways. No reports of pain, VSS with asymptomatic anemia, 2 PRBCs given without any reaction noted. Positive UC resulted today, new ABX infused. Tele reads NS rhythm. Reports foul smelling urine, new UC requested end of shift per MD order. Call light within reach, calls appropriately. -Salty Rivas, Student Nurse.
[2024-09-04] MEDS: GUAIF/CODEINE 200/20MG/10 ML SOLUTION PO (22:01)
[2024-09-04] MEDS: BENZONATATE 100 MG CAPSULE PO (22:03)
[2024-09-04] MEDS: IPRAT-ALBUT 0.5-2.5 MG/3 ML NEB 1 NEB IH (22:03)
[2024-09-04] MEDS: AZITHROMYCIN 250 MG TABLET 500 MG PO (22:03)
[2024-09-04] MEDS: ENOXAPARIN 30 MG/0.3ML INJ SUBCUT (22:04)
[2024-09-04] MEDS: SODIUM CHLORIDE 0.9 % (FLUSH) 10 ML SYRINGE 5 ML IVF (22:04)
[2024-09-04] MEDS: INSULIN GLARGINE,HUM.REC.ANLOG 100 UNIT/ML INSULN.PEN 8 UNIT SUBCUT (22:05)
[2024-09-04] MEDS: LORazepam 2 MG/ML inj 0.5 MG IVP (22:05)
[2024-09-04] MEDS: MIRTAZAPINE 15 MG TABLET PO (22:11)
[2024-09-05] VITALS (7 sets, daily range): BP systolic 121–151; BP diastolic 79–88; PULSE 74–105; RESP 16–20; TEMP 36.6–37.4; O2SAT 95–99
[2024-09-05 06:36] LABS: Basophils Absolute Auto 0.02 K/uL (0.00-0.30); Basophils Percent Auto 0.2 % (0.0-3.0); Eosinophils Absolute Auto 0.29 K/uL (0.00-0.50); Eosinophils Percent Auto 3.5 % (0.0-7.0); Hematocrit 28.3 % (37.0-53.0); Hemoglobin* 9.3 gm/dL (13.5-17.5); Immature Granulocytes Abs Auto 0.02 K/uL (0.00-0.30); Immature Granulocytes Pct Auto 0.2 %; Lymphocytes Absolute Auto 2.19 K/uL (0.90-2.90); Lymphocytes Percent Auto 26.8 % (20-44); Mean Corpuscular HGB Conc 33 gm/dL (32-36); Mean Corpuscular Hemoglobin 24 pg (26-34); Mean Corpuscular Volume 72 fL (80-100); Monocytes Percent Auto 5.5 % (0.0-11.0); Neutrophils Percent Auto 63.8 % (42.0-72.0); Platelet Count* 118 K/uL (140-440); RDW Coefficient of Variation % 23.8 % (11.5-15.5); Red Blood Count 3.94 m/uL (4.30-5.90); White Blood Count* 8.17 K/uL (4.50-11.00)
[2024-09-05 06:49] LABS: Chloride* 109 mmol/L (96-114); Potassium* 4.5 mmol/L (3.6-5.1); Sodium* 138 mmol/L (135-149)
--- NOTE | 2024-09-05 06:49 | PC.NURSE ---
[id number]: Patient pleasant and cooperative. Denies pain. Intermittent dry, barking cough. PRN nebs administered. Utilizing IS. Walked in hallx1 during shift. Tolerated well. Independent in room. Denies N/V/dizziness. Afebrile.
[2024-09-05 06:52] LABS: Anion Gap 8 mEq/L (7-15); Blood Urea Nitrogen* 28 mg/dL (7-30); Carbon Dioxide* 21 mmol/L (20-32); Creatinine* 1.7 mg/dL (0.5-1.5); Est. Creatinine Clearance* 38.12; Estimated Glomerular Filt Rate 42 ml/min
[2024-09-05 06:53] LABS: Calcium* 8.9 mg/dL (8.4-10.6); Glucose* 211 mg/dL (60-115)
[2024-09-05 07:03] LABS: Slide Review Reflex No
[2024-09-05] MEDS: OMEPRAZOLE 20 MG CAPSULE DR 40 MG PO (08:00)
[2024-09-05 08:58] LABS: Magnesium* 1.7 mg/dL (1.5-2.6)
[2024-09-05 09:17] LABS: C Reactive Protein* 15.9 mg/dL (0.5-1.0)
[2024-09-05] MEDS: PREGABALIN 75 MG CAPSULE PO ×2 (09:30→21:12)
[2024-09-05] MEDS: MAGNESIUM OXIDE 400 MG TABLET PO ×2 (09:30→21:10)
[2024-09-05] MEDS: ACYCLOVIR 200 MG CAPSULE 400 MG PO ×2 (09:30→21:10)
[2024-09-05] MEDS: VANCOMYCIN 1 GM/200 ML 1 GM/200 ML PIGGYBACK IVPB (09:30)
[2024-09-05] MEDS: ATORVASTATIN CALCIUM 10 MG TABLET PO (09:30)
[2024-09-05] MEDS: ASPIRIN 81 MG TABLET EC PO (09:31)
[2024-09-05] MEDS: INSULIN ASPART 100 UNIT/ML 6 UNIT SUBCUT ×3 (09:31→17:19)
[2024-09-05] MEDS: SODIUM CHLORIDE 0.9 % (FLUSH) 10 ML SYRINGE 5 ML IVF ×2 (09:32→21:11)
[2024-09-05] MEDS: BENZONATATE 100 MG CAPSULE PO ×2 (10:08→21:10)
[2024-09-05] MEDS: GUAIF/CODEINE 200/20MG/10 ML SOLUTION PO ×2 (11:45→21:13)
[2024-09-05] MEDS: cefTRIAXone 2 GM in 0.9 % SODIUM CHLORIDE Mini-bag 100 ML IVPB (13:12)
--- NOTE | 2024-09-05 15:02 | PC.NURSE ---
7-15: The patient is alert and orientated, VSS on RA, no reports of pain. Hgb has stabilized @ 9.3. Appetite is reassuring, voiding well. Up independently in the room, SBA w/ RW in hallway for walks. IV abx infused today with no issues, PRN cough medication given due to persistent dry cough intermittently. The patients daughter, grandchildren, and visited today. Call light with in reach. We use the patients dexcom for BG. Nany VENEGAS BSN
--- NOTE | 2024-09-05 15:34 | P.IMPN_ITS ---
Assessment and Plan Assessment and plan (1) Sepsis: Problem comment: 09/02/2024: Patient had marked abnormal vital signs meeting criteria for sepsis. Primary consideration for infection comes from his relatively severe and persistent cough which started about the same time as his intermittent fevers began 5 weeks ago. Initiate broad-spectrum antibiotics for respiratory infection. Consider Infectious Disease consultation. Patient is also had a history of urinary retention and has an enlarged prostate and distended bladder. Await urine and blood cultures for that evaluation. Moved to CCU for close monitoring. Continue broad-spectrum antibiotics and fluid resuscitation as needed. 09/03/2024: Continue with the IV antibiotics pending various cultures including nasal MRSA swab. Will saline lock IV for now. Encourage increased activities. 09/04/2024: No longer septic. IV vanco was stopped with negative nasal MRSA swab. Status: Acute (2) Chronic cough: Problem comment: 09/02/2024: 73-year-old male presents with a chronic cough of at least 6 weeks the began while traveling to [facility]. No history of lung disease or risk factors for lung disease that would account for this cough. Imaging today does not show an obvious infiltrate or pulmonary abnormality. Considerations for the cause of cough continued to include infection, asthma/COPD, inflammatory process, rare side effect of losartan, foreign body in the airway, cardiac problems. Due to the presence of infection with fever/sepsis will treat with antibiotics as well as symptomatic treatment for his persistent serious cough. 09/03/2024: Continue with treatments as specified above. Await pertussis lab studies. Continue with azithromycin for now. 09/04/2024: Pertussis testing not back yet. Ordered respiratory viral panel by PCR. 09/05/2024: Complete full course of azithromycin, 5 days Status: Acute (3) Multiple myeloma in remission: Problem comment: Status post auto stem cell transplant, [place], December 2023 09/04/2024: I review oncology notes. I speak with Oncology nurse practitioner who [facility] It appears patient does indeed have a recurrence of multiple myeloma. Patient is in the process of being re-staged for this. Upon completion of this restaging there will be any additional discussion about disease severity and treatment options with the patient, this appointment is already set for 09/14/[address] Franklin. As I reviewed this with the patient and it is apparent that the patient seemingly understood this but the did not understand this even though they are both at the same consultation with Dr. Franklin. Patient has been on Revmilid maintenance therapy since the stem cell transplant in December 2023. Currently not taking any other immunosuppressive agents. Status: Acute (4) BPH loc w urin obs/LUTS: Problem comment: Patient had urinary retention in December 2023 at [place]. Briefly treated with a catheter and Flomax. Symptoms resolved and had outpatient urologic follow-up which was reassuring and recommending monitoring without active treatment. Obtain bladder scan, catheter if needed, antibiotics pending urine culture. Status: Acute (5) Anemia: Problem comment: managed by hematology and ordinarily receives periodic red blood cell new sfusions 09/04/2024: Hemoglobin 6.9. Will transfuse with 2 units of packed red blood cells today. It appears this is multifactorial including from the beta thalassemia trait plus recurrent multiple myeloma. Reviewed this with patient and . 09/05/2024: Hemoglobin 9.3. No blood loss. Continue to monitor. Status: Acute (6) Bone lesion: Status: Acute (7) Type 2 diabetes mellitus: Problem comment: Managed with endo with Dr. Ramos 09/05/2024: Blood sugars 130-240. Status: Acute (8) Hyperlipidemia: Status: Acute (9) GERD (gastroesophageal reflux disease): Status: Acute (10) Elevated PSA: Status: Acute (11) CKD (chronic kidney disease): Status: Acute (12) Obstructive sleep apnea treated with continuous positive airway pressure (CPAP): Status: Acute (13) Beta thalassemia trait: Problem comment: following hematology Status: Acute (14) Salmonella infection: Problem comment: 09/04/2024: Urine culture grew out Salmonella group organism, greater than 100,000 colony-forming units/ml. This is an unusual cause of UTI. It does occur in individuals who are immunosuppressed. Organism not sensitive to piperacillin with tazobactam. Stopped IV piperacillin and tazobactam today. Started ceftriaxone 2 g IV q.12 today. Initiated consultation with infectious disease specialist, Dr. Pita Jameson, who will review and advise intensity and duration of treatment for this patient. 09/05/2024: Her laboratory will be sending specimen to a referring lab for the Salmonella identification. Once we have the organism identification infectious disease will be able to better guide us as to the duration of therapy and intensity. Status: Acute (15) UTI (urinary tract infection): Problem comment: 09/04/2024: Urine culture grew out Salmonella group organism, greater than 100,000 colony-forming units/ml. This is an unusual cause of UTI. It does occur in individuals who are immunosuppressed. Organism not sensitive to piperacillin with tazobactam. Stopped IV piperacillin and tazobactam today. Started ceftriaxone 2 g IV q.12 today. Initiated consultation with infectious disease specialist, Dr. Pita Jameson, who will review and advise intensity a nd duration of treatment for this patient. 09/05/2024: Her laboratory will be sending specimen to a referring lab for the Salmonella identification. Once we have the organism identification infectious disease will be able to better guide us as to the duration of therapy and intensity. Status: Acute Plan 1. Yesterday evening I had a long discussion with patient, , and daughter. Answered their questions. 2. Today I again reviewed the patient's situation with him. Answered his questions. 3. Continue with current plan of care. 4. Patient, , daughter are agreeable with above stated plans and recommendations. Total Time Spent Total Time Spent: 50 minutes Subjective Date Seen: 09/05/24 Interval history: Admission history of present illness, 09/02/2024: ?73 year old male with multiple myeloma status post auto stem cell transplantation December 2023 presents with worsening cough and fever over the past 5 weeks. On 07/13/2024 patient traveled with his to [facility] to visit family. Prior to traveling he was feeling well and had updated all of his immunizations. He was there about 3 weeks and became ill at the start of the 3rd week, the last week of July. He was noting intermittent fever and cough. He had fatigue and malaise with this as well. He came home on August 02 and has continued to have intermittent fever and cough. He is having night sweats. Cough is nonproductive. He is not having chest pain. He is noting prominent weakness and fatigue. On August 10 he was seen in clinic and prescribed doxycycline and cough medication. He had no significant improvement with this and continues to have cough and fever. He has no history of chronic lung disease. He was not a smoker though he worked in a [employer] where he was exposed to secondhand smoke. No diagnosis of asthma or COPD. No use of SANCHEZ-inhibitor though he is on losartan as a long-term medication. Today with his fever and profound weakness and cough he came to the emergency department. He was seen to have a temperature of 102.9? F, blood pressure 147/71, pulse of 126, respiratory rate of 28, O2 sat of 97%. He had a lactate of 2.4. CT chest without contrast showed no acute cardiopulmonary process. Incidental findings of bony lesions known to be related to multiple myeloma in the past. CT abdomen showed renal cysts, prominent renal pelvises without obvious obstruction. Enlarged prostate gland and distended urinary bladder. ?He has no personal history of tuberculosis. No family history. He is not aware that anybody that he was visiting in [facility] had tuberculosis or any respiratory symptoms or other illness. Prior to his auto stem cell transplant last December he was taking suppressive antibiotic with Bactrim.? Hospital day 2, 09/03/2024: His dry hacking cough has improved substantially. Yesterday he could hardly speak 1 or 2 words without coughing. As I visit with him today he does not cough whatsoever. Does not feel nearly as weak and fatigued today as he did yesterday, noting that he feels 50-75% improved in this way. No longer complaining of dizziness or lightheadedness. Denies dyspnea. Denies syncope or near-syncope. Denies orthostasis. Denies chest, neck, shoulder, or arm tightness, heaviness, pressure, or pain. Denies edema. Denies palpitations. Denies nausea or vomiting. Appetite is improving slightly. Tolerating increased activities. Hospital day 3, 09/04/2024: Patient had a fair day yesterday. Last night however he had a recurrence of fever and rigors. Today he has not had any additional fevers or rigors. He still has a sense of generalized weakness but much improved from when he 1st came in. Cough continues to be well controlled and hardly a a bother for him at all. Appetite is normalizing. Denies other concerns at this time. Blood cultures negative to date. Urine culture grew out Salmonella group organism, greater than 100,000 colony-forming units/ml, resistant to ampicillin, ampicillin/sulbactam, cefazolin, gentamicin; intermediate sensitivity to ciprofloxacin and levofloxacin; sensitive to cefepime, ceftazidime, ceftriaxone, nitrofurantoin, and trimethoprim sulfamethoxazole. Up until today he has been empirically on piperacillin with tazobactam. Initially received a dose of vancomycin. Has also been taking azithromycin orally. Today I stopped the piperacillin and tazobactam and started him on ceftriaxone 2 g IV daily. I called and spoke with our Infectious Disease specialist, Dr. Pita Jameson. She will review the case and advise us on intensity and duration of therapy after she has had opportunity to consider all of the details of this situation. Hospital day 4, 09/05/2024: Has had no more episodes of fevers, rigors, diaphoresis. Less weak. Appetite slowly normalizing. He again denies any diarrhea over the last month. He tells me how back in December of 2023 around the time of his stem cell transplant he had loose stools for a while. I visited a couple of times with Dr. Jameson yesterday, infectious disease specialist. She is agreeable to current plans. Per recommendations we have requested that the salmonella type be identified. I have looked at the urine culture that was obtained yesterday and there was no growth at this time. Blood cultures are still negative to date. Exam Narrative: Exam Narrative: I examine patient in his hospital room. Appears comfortable. Independent with transfer, station, gait. Lungs are clear to auscultation. Scattered rhonchi clear with cough. No wheezing or rales. Still coughs with deep breaths. Chest wall excursions are full. No CVA tenderness. Heart tones with regular rhythm, normal S1-S2. PMI not laterally displaced. Abdomen with active bowel sounds, soft, nontender. No focal motor neurologic deficits. Const: Vital Signs, click to edit/add: Vital Signs - 24 hr 09/04/24 15:35 09/04/24 16:05 09/04/24 16:30 Temperature 97.1 F L 97.1 F L 97.0 F L Pulse Rate 79 100 80 Pulse Rate [Pulse Oximeter] Respiratory Rate 16 16 20 Blood Pressure 139/77 151/80 H 155/83 H Blood Pressure [Ri ght Arm] Pulse Oximetry 100 100 99 Oxygen Delivery Me thod Room Air Room Air Room Air 09/04/24 18:06 09/04/24 20:20 09/04/24 22:15 Temperature 97.3 F L 98.3 F 98.2 F Pulse Rate 88 Pulse Rate [Pulse Oximeter] 91 95 Respiratory Rate 16 20 20 Blood Pressure 151/86 H Blood Pressure [Ri ght Arm] 138/80 157/87 H Pulse Oximetry 99 91 97 Oxygen Delivery Me thod Room Air Room Air Room Air 09/04/24 23:00 09/05/24 02:19 09/05/24 08:03 Temperature 99.1 F Pulse Rate 100 Pulse Rate [Pulse Oximeter] 105 H Respiratory Rate 20 20 Blood Pressure Blood Pressure [Ri ght Arm] 133/81 Pulse Oximetry 95 Oxygen Delivery Me thod Room Air 09/05/24 08:03 09/05/24 11:50 Temperature 98.3 F 97.8 F Pulse Rate Pulse Rate [Pulse Oximeter] 85 78 Respiratory Rate 20 18 Blood Pressure Blood Pressure [Ri ght Arm] 121/81 151/88 H Pulse Oximetry 99 98 Oxygen Delivery Me thod Room Air Room Air Labs Labs: Laboratory Results - last 24 hr 09/04/24 09/05/24 06:28 06:06 WBC 8.17 RBC 3.94 L Hgb 9.3 L Hct 28.3 L MCV 72 L MCH 24 L MCHC 33 RDW Coeff of Rubi 23.8 H Plt Count 118 L Neut % (Auto) 63.8 Lymph % (Auto) 26.8 [place] % (Auto) 5.5 Eos % (Auto) 3.5 Baso % (Auto) 0.2 Neut # (Auto) 5.20 Lymph # (Auto) 2.19 [place] # (Auto) 0.40 Eos # (Auto) 0.29 Baso # (Auto) 0.02 Abs Immat Gran (auto) 0.02 Imm/Tot Granulo (auto) 0.2 Sodium 138 Potassium 4.5 Chloride 109 Carbon Dioxide 21 Anion Gap 8 BUN 28 Creatinine 1.7 H Estimated Creat Clear 38.12 Estimated GFR 42 Glucose 211 H Calcium 8.9 Magnesium 1.7 C-Reactive Protein 15.9 H Crossmatch (AHG) See Detail
[2024-09-05] MEDS: INSULIN ASPART 100 UNIT/ML SUBCUT ×2 (17:20→21:14)
--- NOTE | 2024-09-05 18:26 | PC.NURSE ---
Pt is resting well at this time. VSS. Denies pain. Denies SOB at this time. PRN Guaif./Codeine and Tessalon Perles were effective as pt has not been coughing this afternoon. is at bedside.
[2024-09-05] MEDS: MIRTAZAPINE 15 MG TABLET PO (21:10)
[2024-09-05] MEDS: AZITHROMYCIN 250 MG TABLET 500 MG PO (21:10)
[2024-09-05] MEDS: ENOXAPARIN 30 MG/0.3ML INJ SUBCUT (21:12)
[2024-09-05] MEDS: INSULIN GLARGINE,HUM.REC.ANLOG 100 UNIT/ML INSULN.PEN 8 UNIT SUBCUT (21:13)
[2024-09-05] MEDS: LORazepam 2 MG/ML inj 0.5 MG IVP (21:59)
[2024-09-06] VITALS (7 sets, daily range): BP systolic 108–138; BP diastolic 63–94; PULSE 78–101; RESP 18–22; TEMP 36.8–38.7; O2SAT 94–98
[2024-09-06 00:56] LABS: B. pertussis/parapertus Source Not Provided; Bordetella parapertussis PCR Not Detected; Bordetella pertussis by PCR Not Detected
[2024-09-06] MEDS: GUAIF/CODEINE 200/20MG/10 ML SOLUTION PO ×2 (05:39→21:02)
[2024-09-06] MEDS: BENZONATATE 100 MG CAPSULE PO ×2 (05:39→15:13)
--- NOTE | 2024-09-06 05:50 | PC.NURSE ---
[id number]: Patient pleasant and cooperative. Walked in [place] x1 during shift. Denies pain. Denies N/V/CP/dizziness. Dry, intermittent cough still persists, especially when talking. PRN mediations administered for cough somewhat effective. Afebrile.
[2024-09-06 06:47] LABS: Basophils Absolute Auto 0.01 K/uL (0.00-0.30); Basophils Percent Auto 0.1 % (0.0-3.0); Eosinophils Absolute Auto 0.38 K/uL (0.00-0.50); Eosinophils Percent Auto 4.7 % (0.0-7.0); Hemoglobin* 9.3 gm/dL (13.5-17.5); Immature Granulocytes Abs Auto 0.03 K/uL (0.00-0.30); Immature Granulocytes Pct Auto 0.4 %; Lymphocytes Percent Auto 30.6 % (20-44); Mean Corpuscular HGB Conc 32 gm/dL (32-36); Mean Corpuscular Hemoglobin 23 pg (26-34); Mean Corpuscular Volume 73 fL (80-100); Monocytes Percent Auto 4.9 % (0.0-11.0); Neutrophils Absolute Auto 4.84 K/uL (1.7-7.0); Neutrophils Percent Auto 59.3 % (42.0-72.0); Platelet Count* 121 K/uL (140-440); RDW Coefficient of Variation % 24.6 % (11.5-15.5); Red Blood Count 3.98 m/uL (4.30-5.90); White Blood Count* 8.16 K/uL (4.50-11.00)
[2024-09-06 06:49] LABS: Slide Review Reflex No
[2024-09-06 07:00] LABS: Chloride* 105 mmol/L (96-114); Potassium* 4.5 mmol/L (3.6-5.1); Sodium* 135 mmol/L (135-149)
[2024-09-06 07:03] LABS: Anion Gap 7 mEq/L (7-15); Blood Urea Nitrogen* 25 mg/dL (7-30); Calcium* 9.4 mg/dL (8.4-10.6); Carbon Dioxide* 23 mmol/L (20-32); Creatinine* 1.5 mg/dL (0.5-1.5); Est. Creatinine Clearance* 43.21; Estimated Glomerular Filt Rate 49 ml/min; Glucose* 124 mg/dL (60-115)
[2024-09-06] MEDS: ACYCLOVIR 200 MG CAPSULE 400 MG PO ×2 (09:27→21:00)
[2024-09-06] MEDS: ASPIRIN 81 MG TABLET EC PO (09:27)
[2024-09-06] MEDS: MAGNESIUM OXIDE 400 MG TABLET PO ×2 (09:27→21:00)
[2024-09-06] MEDS: ATORVASTATIN CALCIUM 10 MG TABLET PO (09:27)
[2024-09-06] MEDS: SODIUM CHLORIDE 0.9 % (FLUSH) 10 ML SYRINGE 5 ML IVF ×2 (09:30→21:02)
[2024-09-06] MEDS: PREGABALIN 75 MG CAPSULE PO ×2 (09:58→21:08)
[2024-09-06] MEDS: INSULIN ASPART 100 UNIT/ML 6 UNIT SUBCUT ×3 (09:58→17:36)
[2024-09-06] MEDS: INSULIN ASPART 100 UNIT/ML SUBCUT ×3 (12:35→21:04)
[2024-09-06] MEDS: cefTRIAXone 2 GM in 0.9 % SODIUM CHLORIDE Mini-bag 100 ML IVPB (14:38)
--- NOTE | 2024-09-06 16:35 | PM.IMPN1 ---
Assessment and Plan Assessment and plan (1) Sepsis: Problem comment: 09/02/2024: Patient had marked abnormal vital signs meeting criteria for sepsis. Primary consideration for infection comes from his relatively severe and persistent cough which started about the same time as his intermittent fevers began 5 weeks ago. Initiate broad-spectrum antibiotics for respiratory infection. Consider Infectious Disease consultation. Patient is also had a history of urinary retention and has an enlarged prostate and distended bladder. Await urine and blood cultures for that evaluation. Moved to CCU for close monitoring. Continue broad-spectrum antibiotics and fluid resuscitation as needed. 09/03/2024: Continue with the IV antibiotics pending various cultures including nasal MRSA swab. Will saline lock IV for now. Encourage increased activities. 09/04/2024: No longer septic. IV vanco was stopped with negative nasal MRSA swab. Status: Acute (2) Chronic cough: Problem comment: 09/02/2024: 73-year-old male presents with a chronic cough of at least 6 weeks the began while traveling to [facility]. No history of lung disease or risk factors for lung disease that would account for this cough. Imaging today does not show an obvious infiltrate or pulmonary abnormality. Considerations for the cause of cough continued to include infection, asthma/COPD, inflammatory process, rare side effect of losartan, foreign body in the airway, cardiac problems. Due to the presence of infection with fever/sepsis will treat with antibiotics as well as symptomatic treatment for his persistent serious cough. 09/03/2024: Continue with treatments as specified above. Await pertussis lab studies. Continue with azithromycin for now. 09/04/2024: Pertussis testing not back yet. Ordered respiratory viral panel by PCR. 09/05/2024: Complete full course of azithromycin, 5 days Status: Acute (3) Multiple myeloma in remission: Problem comment: Status post auto stem cell transplant, [place], December 2023 09/04/2024: I review oncology notes. I speak with Oncology nurse practitioner who [facility] It appears patient does indeed have a recurrence of multiple myeloma. Patient is in the process of being re-staged for this. Upon completion of this restaging there will be any additional discussion about disease severity and treatment options with the patient, this appointment is already set for 09/14/[address] Franklin. As I reviewed this with the patient and it is apparent that the patient seemingly understood this but the did not understand this even though they are both at the same consultation with Dr. Franklni. Patient has been on Revmilid maintenance therapy since the stem cell transplant in December 2023. Currently not taking any other immunosuppressive agents. Status: Acute (4) BPH loc w urin obs/LUTS: Problem comment: Patient had urinary retention in December 2023 at [place]. Briefly treated with a catheter and Flomax. Symptoms resolved and had outpatient urologic follow-up which was reassuring and recommending monitoring without active treatment. Obtain bladder scan, catheter if needed, antibiotics pending urine culture. Status: Acute (5) Anemia: Problem comment: managed by hematology and ordinarily receives periodic red blood cell transfusions 09/04/2024: Hemoglobin 6.9. Will transfuse with 2 units of packed red blood cells today. It appears this is multifactorial including from the beta thalassemia trait plus recurrent multiple myeloma. Reviewed this with patient and . 09/05/2024: Hemoglobin 9.3. No blood loss. Continue to monitor. 09/06/2024: Hemoglobin 9.3 still. Status: Acute (6) Bone lesion: Status: Acute (7) Type 2 diabetes mellitus: Problem comment: Managed with endo with Dr. Ramos 09/05/2024: Blood sugars 130-240. Status: Acute (8) Hyperlipidemia: Status: Acute (9) GERD (gastroesophageal reflux disease): Status: Acute (10) Elevated PSA: Status: Acute (11) CKD (chronic kidney disease): Status: Acute (12) Obstructive sleep apnea treated with continuous positive airway pressure (CPAP): Status: Acute (13) Beta thalassemia trait: Problem comment: following hematology Status: Acute (14) Salmonella infection: Problem comment: 09/04/2024: Urine culture grew out Salmonella group organism, greater than 100,000 colony-forming units/ml. This is an unusual cause of UTI. It does occur in individuals who are immunosuppressed. Organism not sensitive to piperacillin with tazobactam. Stopped IV piperacillin and tazobactam today. Started ceftriaxone 2 g IV q.12 today. Initiated consultation with infectious disease specialist, Dr. Pita Jameson, who will review and advise intensity and duration of treatment for this patient. 09/05/2024: The laboratory will be sending specimen to a referring lab for the Salmonella identification. Once we have the organism identification infectious disease will be able to better guide us as to the duration of therapy and intensity. 09/06/2024: Await salmonella organism identification still. Status: Acute (15) UTI (urinary tract infection): Problem comment: 09/04/2024: Urine culture grew out Salmonella group organism, greater than 100,000 colony-forming units/ml. This is an unusual cause of UTI. It does occur in individuals who are immunosuppressed. Organism not sensitive to piperacillin with tazobactam. Stopped IV piperacillin and tazobactam today. Started ceftriaxone 2 g IV q.12 today. Initiated consultation with infectious disease specialist, Dr. Pita Jameson, who will review and advise intensity and duration of treatment for this patient. 09/05/2024: Her laboratory will be sending specimen to a referring lab for the Salmonella identification. Once we have the organism identification infectious disease will be able to better guide us as to the duration of therapy and intensity. Status: Acute Plan 1. Reviewed impression with patient, daughter, son-in-law. 2. Answered their questions 3. They agree with above stated plans and recommendations 4. Attempt to reach infectious disease specialist tomorrow regardless of whether not salmonella organism is identified. The concern is that if patient does have salmonella typhi that the intensity and duration of treatment maybe weeks. Total Time Spent Total Time Spent: 35 minutes Subjective Date Seen: 09/06/24 Interval history: Admission history of present illness, 09/02/2024: ?73 year old male with multiple myeloma status post auto stem cell transplantation December 2023 presents with worsening cough and fever over the past 5 weeks. On 07/13/2024 patient traveled with his to [facility] to visit family. Prior to traveling he was feeling well and had updated all of his immunizations. He was there about 3 weeks and became ill at the start of the 3rd week, the last week of July. He was noting intermittent fever and cough. He had fatigue and malaise with this as well. He came home on August 02 and has continued to have intermittent fever and cough. He is having night sweats. Cough is nonproductive. He is not having chest pain. He is noting prominent weakness and fatigue. On August 10 he was seen in clinic and prescribed doxycycline and cough medication. He had no significant improvement with this and continues to have cough and fever. He has no history of chronic lung disease. 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 No diagnosis of asthma or COPD. No use of SANCHEZ-inhibitor though he is on losartan as a long-term medication. Today with his fever and profound weakness and cough he came to the emergency department. He was seen to have a temperature of 102.9? F, blood pressure 147/71, pulse of 126, respiratory rate of 28, O2 sat of 97%. He had a lactate of 2.4. CT chest without contrast showed no acute cardiopulmonary process. Incidental findings of bony lesions known to be related to multiple myeloma in the past. CT abdomen showed renal cysts, prominent renal pelvises without obvious obstruction. Enlarged prostate gland and distended urinary bladder. ?He has no personal history of tuberculosis. No family history. He is not aware that anybody that he was visiting in [facility] had tuberculosis or any respiratory symptoms or other illness. Prior to his auto stem cell transplant last December he was taking suppressive antibiotic with Bactrim.? Hospital day 2, 09/03/2024: His dry hacking cough has improved substantially. Yesterday he could hardly speak 1 or 2 words without coughing. As I visit with him today he does not cough whatsoever. Does not feel nearly as weak and fatigued today as he did yesterday, noting that he feels 50-75% improved in this way. No longer complaining of dizziness or lightheadedness. Denies dyspnea. Denies syncope or near-syncope. Denies orthostasis. Denies chest, neck, shoulder, or arm tightness, heaviness, pressure, or pain. Denies edema. Denies palpitations. Denies nausea or vomiting. Appetite is improving slightly. Tolerating increased activities. Hospital day 3, 09/04/2024: Patient had a fair day yesterday. Last night however he had a recurrence of fever and rigors. Today he has not had any additional fevers or rigors. He still has a sense of generalized weakness but much improved from when he 1st came in. Cough continues to be well controlled and hardly a a bother for him at all. Appetite is normalizing. Denies other concerns at this time. Blood cultures negative to date. Urine culture grew out Salmonella group organism, greater than 100,000 colony-forming units/ml, resistant to ampicillin, ampicillin/sulbactam, cefazolin, gentamicin; intermediate sensitivity to ciprofloxacin and levofloxacin; sensitive to cefepime, ceftazidime, ceftriaxone, nitrofurantoin, and trimethoprim sulfamethoxazole. Up until today he has been empirically on piperacillin with tazobactam. Initially received a dose of vancomycin. Has also been taking azithromycin orally. Today I stopped the piperacillin and tazobactam and started him on ceftriaxone 2 g IV daily. I called and spoke with our Infectious Disease specialist, Dr. Pita Jameson. She will review the case and advise us on intensity and duration of therapy after she has had opportunity to consider all of the details of this situation. Hospital day 4, 09/05/2024: Has had no more episodes of fevers, rigors, diaphoresis. Less weak. Appetite slowly normalizing. He again denies any diarrhea over the last month. He tells me how back in December of 2023 around the time of his stem cell transplant he had loose stools for a while. I visited a couple of times with Dr. Jameson yesterday, infectious disease specialist. She is agreeable to current plans. Per recommendations we have requested that the salmonella type be identified. I have looked at the urine culture that was obtained yesterday and there was no growth at this time. Blood cultures are still negative to date. Hospital day 5, 09/06/2024: No more fevers. Denies dysuria, urgency, frequency, hematuria. Appetite is almost normalized. Still has intermittent dry hacking cough but close to 90% improved compared to when he 1st admitted. Tolerating increased activities. Exam Narrative: Exam Narrative: I assess patient in his hospital room and in the hospital halls. Appears comfortable no acute distress. Alert and oriented x4. Friendly, articulate, cooperative. Vision and hearing are adequate. Lungs remain clear to auscultation, without wheezing, rhonchi, rales. Still has intermittent dry hacky cough when I asked him to take deep breaths. Cough nonproductive. Chest wall excursions are full. No CVA tenderness. Heart tones with regular rhythm, normal S1 S2 Abdomen with active bowel sounds, soft, nontender. Extremities without edema Independent in transfer, station, gait No focal motor neurologic deficits. Skin is dry and intact. Results of salmonella sub typing still not available. Culture sent to [facility] for organism identification. Const: Vital Signs, click to edit/add: Vital Signs - 24 hr 09/05/24 19:31 09/05/24 22:02 09/06/24 04:23 Temperature 98.5 F 99.3 F Pulse Rate [Pulse Oximeter] 97 85 Respiratory Rate 18 20 20 Blood Pressure [Ri ght Arm] 147/83 H 134/79 Pulse Oximetry 99 99 Oxygen Delivery Me thod Room Air Room Air 09/06/24 05:32 09/06/24 07:00 09/06/24 15:00 Temperature 99.0 F 98.5 F 98.2 F Pulse Rate [Pulse Oximeter] 78 100 Respiratory Rate 18 18 Blood Pressure [Ri ght Arm] 138/72 126/94 H Pulse Oximetry 98 98 Oxygen Delivery Me thod Room Air Room Air Labs Labs: Laboratory Results - last 24 hr 09/02/24 09/06/24 18:06 06:21 WBC 8.16 RBC 3.98 L Hgb 9.3 L Hct 29.0 L MCV 73 L MCH 23 L MCHC 32 RDW Coeff of Rubi 24.6 H Plt Count 121 L Neut % (Auto) 59.3 Lymph % (Auto) 30.6 Tama % (Auto) 4.9 Eos % (Auto) 4.7 Baso % (Auto) 0.1 Neut # (Auto) 4.84 Lymph # (Auto) 2.50 Tama # (Auto) 0.40 Eos # (Auto) 0.38 Baso # (Auto) 0.01 Abs Immat Gran (auto) 0.03 Imm/Tot Granulo (auto) 0.4 Sodium 135 Potassium 4.5 Chloride 105 Carbon Dioxide 23 Anion Gap 7 BUN 25 Creatinine 1.5 Estimated Creat Clear 43.21 Estimated GFR 49 Glucose 124 H Calcium 9.4 Bordetella pertussis Spec Source Not Provided Bordetella pertussis (PCR) Not Detected B parapertussis DNA PCR Not Detected
--- NOTE | 2024-09-06 18:55 | PC.NURSE ---
The patient showered and is tolerating abx infusion well, no reports of pain. Still has a persistent intermittent dry cough. Appetite is reassuring, voiding well and had a BM today. The patient hopes to go home tomorrow. Ambulates independently. Nany VENEGAS BSN
[2024-09-06] MEDS: AZITHROMYCIN 250 MG TABLET 500 MG PO (21:00)
[2024-09-06] MEDS: INSULIN GLARGINE,HUM.REC.ANLOG 100 UNIT/ML INSULN.PEN 8 UNIT SUBCUT (21:03)
[2024-09-06] MEDS: ENOXAPARIN 30 MG/0.3ML INJ SUBCUT (21:09)
[2024-09-06] MEDS: MIRTAZAPINE 15 MG TABLET PO (21:09)
[2024-09-06] MEDS: ACETAMINOPHEN 325 MG TABLET 650 MG PO (22:51)
[2024-09-07 00:44] VITALS: TEMP 37.6
[2024-09-07 03:00] VITALS: BP 116/58; PULSE 55; RESP 18; TEMP 36.4; O2SAT 98
--- NOTE | 2024-09-07 06:47 | PC.NURSE ---
End of shift [id number]: Pt AxOx4, pleasant, and cooperative with cares. Pt developed a fever during the shift that was managed with PRN Tylenol. Pt continent of the bladder, moving independently throughout room. Productive cough with clear mucus. Pt was able to sleep for the majority of the shift. Using IS indep. Pt appears resting with call light in reach.
[2024-09-07 06:53] LABS: Basophils Absolute Auto 0.03 K/uL (0.00-0.30); Basophils Percent Auto 0.4 % (0.0-3.0); Eosinophils Percent Auto 2.7 % (0.0-7.0); Hematocrit 33.8 % (37.0-53.0); Hemoglobin* 10.9 gm/dL (13.5-17.5); Immature Granulocytes Abs Auto 0.02 K/uL (0.00-0.30); Immature Granulocytes Pct Auto 0.3 %; Lymphocytes Percent Auto 29.3 % (20-44); Mean Corpuscular HGB Conc 32 gm/dL (32-36); Mean Corpuscular Hemoglobin 24 pg (26-34); Mean Corpuscular Volume 73 fL (80-100); Monocytes Percent Auto 6.1 % (0.0-11.0); Neutrophils Absolute Auto 4.59 K/uL (1.7-7.0); Neutrophils Percent Auto 61.2 % (42.0-72.0); Platelet Count* 141 K/uL (140-440); RDW Coefficient of Variation % 25.1 % (11.5-15.5); Red Blood Count 4.62 m/uL (4.30-5.90)
[2024-09-07 06:56] LABS: Chloride* 104 mmol/L (96-114); Potassium* 4.7 mmol/L (3.6-5.1); Sodium* 135 mmol/L (135-149)
[2024-09-07 06:59] LABS: Anion Gap 7 mEq/L (7-15); Blood Urea Nitrogen* 26 mg/dL (7-30); Carbon Dioxide* 24 mmol/L (20-32); Creatinine* 1.5 mg/dL (0.5-1.5); Est. Creatinine Clearance* 43.21; Estimated Glomerular Filt Rate 49 ml/min; Glucose* 179 mg/dL (60-115)
[2024-09-07 07:00] VITALS: BP 179/81; PULSE 70; PULSE 72; RESP 14; RESP 18; TEMP 36.3; O2SAT 100
[2024-09-07 07:06] LABS: Slide Review Reflex No
[2024-09-07] MEDS: OMEPRAZOLE 20 MG CAPSULE DR 40 MG PO (07:25)
[2024-09-07] MEDS: GUAIF/CODEINE 200/20MG/10 ML SOLUTION PO (07:44)
[2024-09-07] MEDS: INSULIN ASPART 100 UNIT/ML 6 UNIT SUBCUT ×2 (08:32→12:24)
[2024-09-07] MEDS: INSULIN ASPART 100 UNIT/ML SUBCUT ×2 (08:33→12:23)
[2024-09-07] MEDS: ACYCLOVIR 200 MG CAPSULE 400 MG PO (08:36)
[2024-09-07] MEDS: PREGABALIN 75 MG CAPSULE PO (08:37)
[2024-09-07] MEDS: MAGNESIUM OXIDE 400 MG TABLET PO (08:37)
[2024-09-07] MEDS: ATORVASTATIN CALCIUM 10 MG TABLET PO (08:37)
[2024-09-07] MEDS: ASPIRIN 81 MG TABLET EC PO (09:00)
[2024-09-07] MEDS: BENZONATATE 100 MG CAPSULE PO (10:38)
[2024-09-07 10:41] VITALS: BP 169/84; PULSE 72; RESP 14; TEMP 36.6; O2SAT 99
[2024-09-07] MEDS: SODIUM CHLORIDE 0.9 % (FLUSH) 10 ML SYRINGE 5 ML IVF (12:25)
[2024-09-07] MEDS: cefTRIAXone 2 GM in 0.9 % SODIUM CHLORIDE Mini-bag 100 ML IVPB (14:24)
--- NOTE | 2024-09-07 16:09 | PM.DS1 ---
DS: Providers Provider Date Seen: 09/08/24 Date of admission: 09/02/24 17:55 Primary care physician: Rae Farmer PA-C Admitting Clinician: Olivia Dickerson MD Consults: 09/02/24 18:09 Consult to Occupational Therapy [CONS] Routine Comment: Reason(s) for OT Consult:: Evaluate and Treat Any Restrictions?:: No Restrictions Consult to Physical Therapy [CONS] Routine Comment: Reason(s) for PT Consult:: Evaluate and Treat Any Restrictions?:: No Restrictions 09/07/24 12:08 Consult to Infectious Diseases [CONS] Routine Comment: page Dr. Castrejon to discuss urine culture and abx Consulting Provider: Aj TeleInfectious Disease Attending Physician on discharge: Niya Cardenas MD [facility] Date of Discharge: 09/07/24 DS: Diagnosis Discharge Diagnosis (1) Sepsis: Status: Acute Problem details: 09/02/2024: Severe presentation with cough, fever, hypotension, tachycardia. Elevated lactate, CRP, Procal. Source was not clear: neg chest CT. neg blood cultures. UTI possible and then in fact grew Salmonella group species. 24 hours in the CCU and broad spectrum antibiotics - Sepsis resolved without pressors. The abx were narrowed with UC results. (ertapenem, Zosyn to ceftriaxone). 09/03/2024: Continue with the IV antibiotics pending various cultures including nasal MRSA swab. Will saline lock IV for now. Encourage increased activities 09/04/2024: No longer septic. IV vanco was stopped with negative nasal MRSA swab. 09/07 - discharged with ID recommendations for bactrim and close follow-up. There was a belief that the BC just missed the bacteremia or it was the inflammatory cascade that caused the sepsis with the salmonella - its just very uncommon to see UTI w/salmonella without bacteremia. (2) Salmonella infection: Status: Acute Problem details: 09/04/2024: Urine culture grew out Salmonella group organism, greater than 100,000 colony-forming units/ml. This is an unusual cause of UTI. It does occur in individuals who are immunosuppressed. Organism not sensitive to piperacillin with tazobactam. Stopped IV piperacillin and tazobactam today. Started ceftriaxone 2 g IV q.12 today. Initiated consultation with infectious disease specialist, Dr. Pita Jameson, who will review and advise intensity and duration of treatment for this patient. 09/05/2024: The laboratory will be sending specimen to a referring lab for the Salmonella identification. Once we have the organism identification infectious disease will be able to better guide us as to the duration of therapy and intensity. 09/06/2024: Await salmonella organism identification still. 09/07: f/u urine culture neg, blood cultures neg. No specific details on the salmonella (enteritidis - most likely but typhimurium possible with recent travel). will treat for additional 10 days of Bactrim DS with renal monitoring set for day 7 of treatment (this is arranged with [facility]) (3) Multiple myeloma in relapse: Status: Acute Problem details: -Status post auto stem cell transplant, [facility], December 2023 -Recurrence noted spring 2024. Patient is in the process of being re-staged for this. Plan of care will follow [facility] Dr. Franklin. -Patient has been on Revmilid maintenance therapy since the stem cell transplant in December 2023. -Currently not taking any other immunosuppressive agents. (4) Chronic cough: Status: Acute Problem details: 09/02/2024: 73-year-old male presents with a chronic cough of at least 6 weeks the began while traveling to [facility]. No history of lung disease or risk factors for lung disease that would account for this cough. Imaging today does not show an obvious infiltrate or pulmonary abnormality. Considerations for the cause of cough continued to include infection, asthma/COPD, inflammatory process, rare side effect of losartan, foreign body in the airway, cardiac problems. Due to the presence of infection with fever/sepsis will treat with antibiotics as well as symptomatic treatment for his persistent serious cough. 09/03/2024: Continue with treatments as specified above. Await pertussis lab studies. Continue with azithromycin for now. 09/04/2024: Pertussis testing not back yet. Ordered respiratory viral panel by PCR. 09/05/2024: Complete full course of azithromycin, 5 days 09/07 - discharged. 09/08 resp pcr multiplex returned neg. pertusis was never submitted. symptoms at discharge were generally improved. (5) Type 2 diabetes mellitus: Status: Acute Problem details: Managed with endo with Dr. Ramos 09/05/2024: Blood sugars 130-240. (6) BPH loc w urin obs/LUTS: Status: Acute Problem details: Patient had urinary retention in December 2023 at [place]. Briefly treated with a catheter and Flomax. (7) Hypertension: Status: Acute (8) Stage 3b chronic kidney disease (CKD): Status: Acute Problem details: mild CE during sepsis, back to baseline at discharge (9) Obstructive sleep apnea treated with continuous positive airway pressure (CPAP): Status: Acute (10) Acute kidney injury: Status: Acute (11) Mild cognitive impairment: Status: Acute (12) Anemia: Status: Acute Problem details: managed by hematology and ordinarily receives periodic red blood cell transfusions 09/04/2024: Hemoglobin 6.9. Will transfuse with 2 units of packed red blood cells today. It appears this is multifactorial including from the beta thalassemia trait plus recurrent multiple myeloma. Reviewed this with patient and . 09/05/2024: Hemoglobin 9.3. No blood loss. Continue to monitor. 09/06/2024: Hemoglobin 9.3 still. (13) Beta thalassemia trait: Status: Acute Problem details: following hematology (14) GERD (gastroesophageal reflux disease): Status: Acute (15) Hyperlipidemia: Status: Acute (16) Sensorineural hearing loss (SNHL) of both ears: Status: Acute DS: Summary Hospital Course Hospital Course: FINAL DIAGNOSIS/FOLLOW UP ISSUES: 1. Salmonella UTI - f/u urine culture neg. blood cultures neg. Still waiting on subtype of salmonella but in the end ID and I discussed and will send him out on oral Bactrim DS for a total of 14 days of antibiotics (assumption is made we missed the bacteremia). 7 days into treatment (three days after discharge, renal function to be checked b/c of bactrim) 2. Cough and the prodrome leading to admission and sepsis. If cough persists a pulmonary referral would be recommended. CT on admission was noncon because of CE. But this was neg for acute finding. 3. Multiple Myeloma - f/u PET and oncology appts arranged. 4. Anemia - likely related to beta-thal, MM and acute illness. s/p transfusion of 2 units. stable hemoglobin, no active bleeding noted. BRIEF HOSPITAL COURSE: Patient was admitted for 7 days. Synopsis of acute inpatient issues are outlined above. Chronic medical conditions with notable findings outlined above. His multiple myeloma was just recently noted be in active reoccurence. The unique part of this admission was the UTI from Salmonella without bacteremia. His presentation of sepsis was severe. However he recovered quickly without pressors or intubation. Ultimately the cough and prodrome and travel risk was considered but not connected to the salmonella source. His total antibiotic duration will be 14 days, the last 10 with oral bactrim ds. This is based off his urine culture. blood cultures remained negative. f/u urine culture was negative. He required 2 units of packed red blood cells and we followed and treated an CE. He was discharged with his and instructions for f/u with PCP, Oncology arranged. DISCHARGE MEDICATIONS: See Reconciled list - SIGNIFICANT CHANGES: Bactrim DS as described above. Specific instructions to the patient and follow-up are outlined below. REVIEW OF SYSTEMS No new chest pain or dyspnea Pain controlled No voiding difficulties Tolerating diet challenge PHYSICAL EXAM: CONSTITUTIONAL: Conversive, good historian. A/O. Knows setting and context. GENERAL: Well-developed and above ideal body weight, in no respiratory distress. VITAL SIGNS: see record. HEENT: Sclerae are anicteric. No petechiae. CARDIAC: rhythm is regular. There is no S3 or rub. No harsh murmurs. Extremities show trace edema with symmetrical pulses. PULM: good air entry with no wheeze. NEURO: Speech is fluent. A brief neurologic exam is negative. SKIN: No rashes, petechiae, concerning changes PSYCHIATRIC: Euthymic. DISPOSITION: home with . Time spent on discharge 37 minutes. Status at Discharge Functional status at discharge: uses cane/walker Overall status at discharge: patient is progressing back to baseline Time Spent with Patient Time attestation: Total time spent providing and/or coordinating discharge services: Time spent: Greater than 30 minutes Exam Const: Vital Signs, click to edit/add: Vital Signs - 24 hr 09/06/24 19:00 09/06/24 22:51 09/06/24 23:00 Temperature 99.2 F 101.6 F H 101.6 F H Pulse Rate [Pulse Oximeter] 99 101 H Respiratory Rate 22 22 Blood Pressure [Ri ght Arm] 108/66 124/63 Pulse Oximetry 96 94 Oxygen Delivery Me thod Room Air Room Air 09/07/24 00:44 09/07/24 03:00 09/07/24 07:00 Temperature 99.7 F H 97.5 F L 97.4 F L Pulse Rate [Pulse Oximeter] 55 L 70 Respiratory Rate 18 18 Blood Pressure [Ri ght Arm] 116/58 L 179/81 H Pulse Oximetry 98 100 Oxygen Delivery Me thod Room Air Room Air 09/07/24 07:00 09/07/24 10:41 Temperature 97.9 F Pulse Rate [Pulse Oximeter] 72 72 Respiratory Rate 14 14 Blood Pressure [Ri ght Arm] 169/84 H Pulse Oximetry 99 Oxygen Delivery Me thod Room Air DS: Data Data Completed and Pending Labs on day of discharge: Labs from last 24 hours 09/07/24 06:29 WBC 7.50 RBC 4.62 Hgb 10.9 L Hct 33.8 L MCV 73 L MCH 24 L MCHC 32 RDW Coeff of Rubi 25.1 H Plt Count 141 Neut % (Auto) 61.2 Lymph % (Auto) 29.3 [place] % (Auto) 6.1 Eos % (Auto) 2.7 Baso % (Auto) 0.4 Neut # (Auto) 4.59 Lymph # (Auto) 2.20 [place] # (Auto) 0.50 Eos # (Auto) 0.20 Baso # (Auto) 0.03 Abs Immat Gran (auto) 0.02 Imm/Tot Granulo (auto) 0.3 Sodium 135 Potassium 4.7 Chloride 104 Carbon Dioxide 24 Anion Gap 7 BUN 26 Creatinine 1.5 Estimated Creat Clear 43.21 Estimated GFR 49 Glucose 179 H Calcium 10.0 Preliminary micro results at discharge 09/02/24 14:45 Urine Culture - Preliminary Urine,Clean Catch Salmonella Group 09/03/24 23:18 Blood Culture - Preliminary Blood NO GROWTH AFTER 72 HOURS Discharge Plan Discharge Disposition: Home w/ Parent or Adult Date of Admission: 09/02/24 17:55 Attending Provider on Discharge: Niya Cardenas Consulting Providers: Jossie Astudillo; Blanca Longo Primary Care Provider: Rae Farmer Condition: Stable Anticipated Discharge Date/Time: 09/07/24 12:46 Discharge Medications: New sulfamethoxazole-trimethoprim [Bactrim DS] 800-160 mg tablet 1 tab PO BID Qty: 20 0RF Rx Instructions: take twice a day with food. First dose 5/5 with dinner/supper. Continued alum-mag hydroxide-simeth [Maalox Maximum Strength] 400-400-40 mg/5 mL suspension 10 ml PO BID PRN (Reason: indigestion) Qty: 240 0RF polyethylene glycol 3350 [Miralax] 17 gram powder in packet 17 g PO DAILY PRN calcium carbonate-vit D3-min 600 mg calcium- 400 unit tablet 1 tab PO BID Qty: 60 1RF pregabalin 75 mg capsule 75 mg PO BID trihexyphenidyl 2 mg tablet 2 mg PO DAILY magnesium chloride 64 mg tablet,delayed release (DR/EC) 64 mg PO DAILY Rx Instructions: Take on an empty stomach, and not at the same time as antacids or pantoprazole. If diarrhea increases, decrease dose to 1 tablet at bedtime. penicillin V potassium 500 mg tablet 500 mg PO BID codeine-guaifenesin 10-100 mg/5 mL liquid 5 ml PO Q4-6H PRN (Reason: cough) Qty: 120 0RF aspirin [Adult Aspirin Regimen] 81 mg tablet,delayed release (DR/EC) 81 mg PO DAILY One Daily Multi-Vit w-Mineral 4.5 mg iron tablet 1 tab PO DAILY acyclovir 400 mg tablet 400 mg PO BID budesonide-formoterol [Symbicort] 160-4.5 mcg/actuation HFA aerosol inhaler 2 puff inhalation BID Qty: 10.2 2RF insulin lispro [Humalog KwikPen Insulin] 100 unit/mL insulin pen 1 sliding scale dose subcut USEASDIRECTD loperamide [Anti-Diarrheal (loperamide)] 2 mg capsule 2 mg PO Q8H PRN insulin glargine-yfgn 100 unit/mL (3 mL) insulin pen 25 unit SUBCUT DAILY losartan 50 mg tablet 50 mg PO DAILY Rx Instructions: Hold for am blood pressure less than 130 systolic or 70 diastolic. mirtazapine [Remeron] 30 mg tablet 30 mg PO HS (DME) lancets [Microlet Lancet] Misc See Rx Instructions .Route Qty: 200 1RF Rx Instructions: As directed (DME) Contour Next Test Strips Strip See Rx Instructions .Route Qty: 100 2RF Rx Instructions: As directed atorvastatin 10 mg tablet 10 mg PO DAILY Qty: 90 3RF pantoprazole 40 mg tablet,delayed release (DR/EC) 40 mg PO DAILY Qty: 90 3RF benzonatate 100 mg capsule 100 mg PO TID PRN (Reason: cough) Qty: 30 0RF Discharge Orders: Discharge Order (Routine); Ordered 09/07/24 Ordered By: Niya Cardenas Patient Education: Sulfamethoxazole/Trimethoprim (By mouth), Sepsis (DC) Additional Instructions: 1. Start your oral antibiotic this evening. Take with food. Your clinic will see you at the end of the week to check your blood and advise on continuing the antibiotic vs a change in antibiotic choice. 2. Please continue to follow up for your other chronic health conditions. Activity Level: Activity as Tolerated Discharge Diet: Diabetic Follow Up Appointments: Rae Farmer PA-C [Primary Care Provider] - 09/10/24 10:45 am ([facility] for Follow-up appointment. -needs a BMP to determine if his kidneys are tolerating the antibiotic (Bactrim DS; discharge creat 1.5)) Forms: MyHealth Info Instructions
--- NOTE | 2024-09-07 16:32 | PC.NURSE ---
Discharge: patient alert and oriented, pleasant and cooperative. Patient's VSS, afebrile this shift. Patient on RA tolerating a reg/diabetic diet. Patients IV's removed intact. Discharged today at 1600 to home accompanied by spouse. Discharge instructions given and signed. patient and spouse verbalized understanding of discharge instructions. Patient's belongings sheet also signed, home meds returned.
== END 2024-09-07 16:00 | disposition home or self-care (01) | DRG 463 ==
LOC: ED 16:33 → MEDSURG 16:56
PROVIDERS: Internal Medicine; Admitting Provider Family Medicine; Emergency Provider Family Medicine; PCP Physician Assistant Medical; Visit Provider Family Medicine
DX: N39.0 Urinary tract infection, site not specified (principal); A02.29 Salmonella with other localized infection; A41.9 Sepsis, unspecified organism; R05.3 Chronic cough; N17.9 Acute kidney failure, unspecified; D56.3 Thalassemia minor; C90.02 Multiple myeloma in relapse; D63.8 Anemia in other chronic diseases classified elsewhere; E11.22 Type 2 diabetes mellitus with diabetic chronic kidney disease; I12.9 Hypertensive chronic kidney disease with stage 1 through stage 4 chronic kidney disease, or unspecified chronic kidney disease; N18.32 Chronic kidney disease, stage 3b; N40.1 Benign prostatic hyperplasia with lower urinary tract symptoms; R33.8 Other retention of urine; Z79.4 Long term (current) use of insulin; G47.33 Obstructive sleep apnea (adult) (pediatric); G31.84 Mild cognitive impairment of uncertain or unknown etiology; Z99.89 Dependence on other enabling machines and devices; Z94.84 Stem cells transplant status; K21.9 Gastro-esophageal reflux disease without esophagitis; E78.5 Hyperlipidemia, unspecified; D47.2 Monoclonal gammopathy; D64.9 Anemia, unspecified
CPT/HCPCS: 36415; 36430; 51798; 71250; 74177; 80048; 80076; 81001; 82565; 82803; 82947; 82962; 83605; 83735; 83880; 84145; 84443; 84484; 85025; 86140; 86850; 86900; 86901; 86922; 87040; 87077; 87081; 87086; 87186; 87252; 87449; 87631; 87632; 87899; 93005; 93306; 94761; 97110; 97116; 97161; 97165; 97530; 97535; 99284; 99285; 99291; A9270; J0696; J1650; J2060; J2543; J3372; J3475; J7030; J7120; P9016; Q9967

== ENCOUNTER 2024-09-10 10:34 | Outpatient (CLI) | payer BC, SELFPAY | END 2024-09-10 10:35 | disposition home or self-care (01) | PROVIDERS: PCP Family Medicine; Visit Provider Physician Assistant Medical | DX: E78.2 Mixed hyperlipidemia (principal); E11.65 Type 2 diabetes mellitus with hyperglycemia; Z79.4 Long term (current) use of insulin; Z12.5 Encounter for screening for malignant neoplasm of prostate | CPT/HCPCS: 80053; 80061; 82043; 82570; G0103 ==

== ENCOUNTER 2024-09-17 08:00 | Outpatient (RCR) | payer BC, OTHER, SELFPAY ==
[2024-04-13 15:27] LABS: Basophils Absolute Auto 0.01 K/uL (0.00-0.30); Basophils Percent Auto 0.2 % (0.0-3.0); Eosinophils Absolute Auto 0.11 K/uL (0.00-0.50); Eosinophils Percent Auto 1.8 % (0.0-7.0); Hematocrit* 25.8 % (37.0-53.0); Immature Granulocytes Abs Auto 0.01 K/uL (0.00-0.30); Immature Granulocytes Pct Auto 0.2 %; Lymphocytes Percent Auto 36.4 % (20-44); Mean Corpuscular HGB Conc 31 gm/dL (32-36); Mean Corpuscular Hemoglobin 22 pg (26-34); Mean Corpuscular Volume 70 fL (80-100); Monocytes Percent Auto 7.6 % (0.0-11.0); Neutrophils Absolute Auto 3.26 K/uL (1.7-7.0); Neutrophils Percent Auto 53.8 % (42.0-72.0); Platelet Count* 202 K/uL (140-440); RDW Coefficient of Variation % 14.8 % (11.5-15.5); White Blood Count* 6.05 K/uL (4.50-11.00)
[2024-04-13 15:31] LABS: Slide Review Reflex No
[2024-04-13 15:49] LABS: Albumin* 4.5 g/dL (3.3-5.0); Chloride* 111 mmol/L (96-114)
[2024-04-13 15:50] LABS: Potassium* 4.4 mmol/L (3.6-5.1); Sodium* 140 mmol/L (135-149)
[2024-04-13 15:52] LABS: Anion Gap 9 mEq/L (7-15); Aspartate Amino Transferase* 28 U/L (12-35); Bilirubin Total* 0.3 mg/dL (0.1-1.5); Carbon Dioxide* 20 mmol/L (20-32); Creatinine* 1.4 mg/dL (0.5-1.5); Estimated Glomerular Filt Rate 53 ml/min; Total Protein* 6.6 g/dL (6.0-8.3)
[2024-04-13 15:53] LABS: Alanine Aminotransferase* 20 U/L (4-50); Alkaline Phosphatase* 72 U/L (40-150); Blood Urea Nitrogen* 34 mg/dL (7-30); Calcium* 9.8 mg/dL (8.4-10.6); Glucose* 225 mg/dL (60-115)
[2024-04-13 16:08] LABS: Magnesium* 1.5 mg/dL (1.5-2.6)
--- NOTE | 2024-04-16 14:12 | ONC.NURNOTE ---
Addendum entered by Arleth Cee RN 04/17/24 15:33: [facility] is not in network to fill the lenalidomide [facility] is the only option /patient notified that RX will be sent back to [facility] plan to start early May Original Note: restarting lenalidomide in early May RX signed by Dr Franklin and faxed to [facility], along with insurance, demographics and medication list has had challenges with [facility] and prefers to use another specialty pharmacy
--- NOTE | 2024-04-23 12:30 | ONC.NURNOTE ---
Addendum entered by Arleth Cee RN 04/24/24 15:27: Copay card LLS 08/17/23-11/15/24 ID [id number] Grp: [id number] bin: [id number] PCN: [id number] $0 COPAY Addendum entered by Arleth Cee RN 04/24/24 15:21: [place] 03/25/24-04/24/25 [employer]- [employer] [id number] Original Note: RIZWAN sbmitted with clinicals to Covermymeds for lenalidomide
[2024-05-11 14:19] LABS: Basophils Absolute Auto 0.02 K/uL (0.00-0.30); Basophils Percent Auto 0.3 % (0.0-3.0); Eosinophils Absolute Auto 0.15 K/uL (0.00-0.50); Eosinophils Percent Auto 2.1 % (0.0-7.0); Hematocrit* 28.6 % (37.0-53.0); Hemoglobin* 8.6 gm/dL (13.5-17.5); Immature Granulocytes Abs Auto 0.02 K/uL (0.00-0.30); Immature Granulocytes Pct Auto 0.3 %; Lymphocytes Absolute Auto 2.73 K/uL (0.90-2.90); Lymphocytes Percent Auto 38.9 % (20-44); Mean Corpuscular HGB Conc 30 gm/dL (32-36); Mean Corpuscular Hemoglobin 20 pg (26-34); Mean Corpuscular Volume 68 fL (80-100); Monocytes Percent Auto 6.6 % (0.0-11.0); Neutrophils Absolute Auto 3.63 K/uL (1.7-7.0); Neutrophils Percent Auto 51.8 % (42.0-72.0); Platelet Count* 184 K/uL (140-440); RDW Coefficient of Variation % 15.4 % (11.5-15.5); Red Blood Count* 4.21 m/uL (4.30-5.90); White Blood Count* 7.01 K/uL (4.50-11.00)
[2024-05-11 14:26] LABS: Slide Review Reflex No
[2024-05-11 14:28] LABS: Albumin* 4.4 g/dL (3.3-5.0); Chloride* 103 mmol/L (96-114)
[2024-05-11 14:29] LABS: Potassium* 4.7 mmol/L (3.6-5.1); Sodium* 136 mmol/L (135-149)
[2024-05-11 14:31] LABS: Alkaline Phosphatase* 76 U/L (40-150); Anion Gap 9 mEq/L (7-15); Aspartate Amino Transferase* 26 U/L (12-35); Bilirubin Total* 0.5 mg/dL (0.1-1.5); Blood Urea Nitrogen* 23 mg/dL (7-30); Carbon Dioxide* 24 mmol/L (20-32); Creatinine* 1.3 mg/dL (0.5-1.5); Est. Creatinine Clearance* 51.47; Estimated Glomerular Filt Rate 58 ml/min; Total Protein* 6.5 g/dL (6.0-8.3)
[2024-05-11 14:32] LABS: Alanine Aminotransferase* 24 U/L (4-50); Calcium* 9.5 mg/dL (8.4-10.6); Glucose* 191 mg/dL (60-115)
--- NOTE | 2024-05-11 14:56 | ONC.NURNOTE ---
lab results called to as within parameters to start lenalidomide tomorrow also reminded to start daily aspirin tomorrow states understanding
--- NOTE | 2024-05-19 14:38 | ONC.NURNOTE ---
Patient being treated with antibiotics for persistent cough, fever over 100.0- per PCP who he saw yesterday he has been afeb since Saturday am he continues on his lenalidomide- which started on 05/14/24
--- NOTE | 2024-05-19 15:26 | ONC.NURNOTE ---
Pt seen by Rae Farmer yesterday for upper resp symptoms. Pt placed on antibiotics. Marine Electronics Repairer discussed with Dr. Franklin and Dr. Franklin recommend pt hold revlimid until Saturday05/25/24. Marine Electronics Repairer also called [facility] to set pt up for his immunizations post transplant. They will reach out to pt. Jasmyne- pt's spouse aware that [facility] will contact them and to hold revlimid at this time.
--- NOTE | 2024-05-20 08:19 | ONC.NURNOTE ---
Received disability paperwork from [facility], senior copywriter called patient to find out what his limitations are for work and he notes that he continues to be weak and fatigued with some dizzy spells. He states that as of now he does not feel able to work. Paperwork was filled out and is awaiting a signature from provider.
--- NOTE | 2024-05-25 11:32 | ONC.NURNOTE ---
Addendum entered by Arleth Cee RN 05/27/24 14:38: next lab appt moved back to 06/15/24 to accomodate the 7 days jas held for URI Addendum entered by Mickie Pritchett RN 05/27/24 08:08: Discussed with Dr. Franklin, Dr. Franklin would like pt to take all the remaining pills for this cycle and start Cycle 2 day 1 7 days later. Manager Night called and updated pt's spouse with these instructions. Jasmyne verbalized understanding of these instructions. Addendum entered by Arleth Cee RN 05/25/24 13:02: Patient left message that he is feeling better and questions when he should restart his lenalidomide Original Note: Follow up of URI-treated with antibiotics lenalidomide has been on hold since 05/19 message left to call in follow up
[2024-06-15 08:37] LABS: Basophils Absolute Auto 0.05 K/uL (0.00-0.30); Basophils Percent Auto 0.9 % (0.0-3.0); Eosinophils Percent Auto 7.1 % (0.0-7.0); Hematocrit* 28.9 % (37.0-53.0); Hemoglobin* 8.6 gm/dL (13.5-17.5); Immature Granulocytes Abs Auto 0.02 K/uL (0.00-0.30); Immature Granulocytes Pct Auto 0.3 %; Lymphocytes Absolute Auto 2.53 K/uL (0.90-2.90); Lymphocytes Percent Auto 43.6 % (20-44); Mean Corpuscular HGB Conc 30 gm/dL (32-36); Mean Corpuscular Hemoglobin 20 pg (26-34); Mean Corpuscular Volume 67 fL (80-100); Monocytes Percent Auto 8.4 % (0.0-11.0); Neutrophils Percent Auto 39.7 % (42.0-72.0); Platelet Count* 215 K/uL (140-440); RDW Coefficient of Variation % 17.2 % (11.5-15.5); Red Blood Count* 4.33 m/uL (4.30-5.90)
[2024-06-15 08:41] LABS: Slide Review Reflex No
[2024-06-15 08:44] LABS: Albumin* 4.1 g/dL (3.3-5.0); Chloride* 106 mmol/L (96-114); Potassium* 4.8 mmol/L (3.6-5.1); Sodium* 137 mmol/L (135-149)
[2024-06-15 08:47] LABS: Alanine Aminotransferase* 24 U/L (4-50); Alkaline Phosphatase* 109 U/L (40-150); Anion Gap 8 mEq/L (7-15); Aspartate Amino Transferase* 27 U/L (12-35); Bilirubin Total* 0.4 mg/dL (0.1-1.5); Blood Urea Nitrogen* 29 mg/dL (7-30); Carbon Dioxide* 23 mmol/L (20-32); Creatinine* 1.5 mg/dL (0.5-1.5); Est. Creatinine Clearance* 44.61; Estimated Glomerular Filt Rate 49 ml/min; Glucose* 293 mg/dL (60-115); Total Protein* 6.4 g/dL (6.0-8.3)
[2024-06-15 08:48] LABS: Calcium* 9.2 mg/dL (8.4-10.6)
[2024-06-30 14:27] LABS: Chloride* 101 mmol/L (96-114); Potassium* 4.3 mmol/L (3.6-5.1); Sodium* 134 mmol/L (135-149)
[2024-06-30 14:30] LABS: Anion Gap 9 mEq/L (7-15); Blood Urea Nitrogen* 25 mg/dL (7-30); Carbon Dioxide* 24 mmol/L (20-32); Creatinine* 1.4 mg/dL (0.5-1.5); Estimated Glomerular Filt Rate 53 ml/min
[2024-06-30 14:31] LABS: Glucose* 203 mg/dL (60-115)
--- NOTE | 2024-07-03 15:05 | ONC.NURNOTE ---
Addendum entered by Arleth Cee RN 07/06/24 11:08: Provider can only get new auth # for monthly RX at 21 days or more from last dispense New RX with auth # [facility] to [facility] today movie writer phoned [facility] and requested expedited processing for RX to arrive by 07/08/24 Jasmyne is aware Original Note: Call received from [facility] today that patient's is calling about needing a refill of patient's Revlamid. She states that patient is traveling during his next cycle and needs it refilled before next Monday 07/10. Per [facility] they do not have a prescription. RN advised that she would look into this and work on it. Will update patient once it is complete.
--- NOTE | 2024-07-08 12:22 | ONC.NURNOTE ---
patient moved lab appt to due to snow today- reviewed plan with Dr Franklin today- if labs within parameters start C#3 as planned on 07/13/24 appts made for follow up
[2024-07-09 08:58] LABS: Basophils Percent Auto 0.9 % (0.0-3.0); Eosinophils Percent Auto 6.1 % (0.0-7.0); Hemoglobin* 8.1 gm/dL (13.5-17.5); Immature Granulocytes Pct Auto 0.5 %; Lymphocytes Percent Auto 59.7 % (20-44); Mean Corpuscular HGB Conc 30 gm/dL (32-36); Mean Corpuscular Hemoglobin 20 pg (26-34); Mean Corpuscular Volume 66 fL (80-100); Monocytes Percent Auto 7.8 % (0.0-11.0); Platelet Count* 173 K/uL (140-440); Red Blood Count* 4.07 m/uL (4.30-5.90); White Blood Count* 4.24 K/uL (4.50-11.00)
[2024-07-09 09:10] LABS: Albumin* 4.2 g/dL (3.3-5.0); Chloride* 104 mmol/L (96-114)
[2024-07-09 09:11] LABS: Potassium* 4.3 mmol/L (3.6-5.1); Sodium* 137 mmol/L (135-149)
[2024-07-09 09:13] LABS: Alkaline Phosphatase* 79 U/L (40-150); Anion Gap 8 mEq/L (7-15); Aspartate Amino Transferase* 33 U/L (12-35); Blood Urea Nitrogen* 24 mg/dL (7-30); Carbon Dioxide* 25 mmol/L (20-32); Creatinine* 1.4 mg/dL (0.5-1.5); Estimated Glomerular Filt Rate 53 ml/min
[2024-07-09 09:14] LABS: Alanine Aminotransferase* 30 U/L (4-50); Calcium* 9.3 mg/dL (8.4-10.6); Glucose* 203 mg/dL (60-115); Slide Review Reflex Yes
[2024-07-09 09:15] LABS: Slide Review Acceptable Review (Acceptable)
[2024-07-09 09:24] LABS: Bilirubin Total* 0.6 mg/dL (0.1-1.5)
[2024-07-09 15:56] LABS: Lactate Dehydrogenase* 225 U/L (120-246)
[2024-07-14 01:45] LABS: Albumin 3.76 g/dL (3.75-5.01); Alpha 1 Globulin 0.28 g/dL (0.19-0.46); Alpha 2 Globulin 0.63 g/dL (0.48-1.05); Immunofixation IFE Done; Immunoglobulin A 312 mg/dL (68-408); Immunoglobulin G 919 mg/dL (768-1632); Immunoglobulin M 39 mg/dL (35-263); Kappa/Lambda Light Chain Ratio 0.83 (0.26-1.65); Lambda Qnt Free Light Chains 98.58 mg/L (5.71-26.30); Total Protein, Serum 6.4 g/dL (6.3-8.2)
[2024-08-05 08:39] LABS: Basophils Absolute Auto 0.03 K/uL (0.00-0.30); Basophils Percent Auto 0.6 % (0.0-3.0); Eosinophils Absolute Auto 0.34 K/uL (0.00-0.50); Eosinophils Percent Auto 6.3 % (0.0-7.0); Hematocrit* 26.2 % (37.0-53.0); Immature Granulocytes Abs Auto 0.02 K/uL (0.00-0.30); Immature Granulocytes Pct Auto 0.4 %; Lymphocytes Percent Auto 49.4 % (20-44); Mean Corpuscular HGB Conc 31 gm/dL (32-36); Mean Corpuscular Hemoglobin 20 pg (26-34); Mean Corpuscular Volume 64 fL (80-100); Monocytes Percent Auto 4.3 % (0.0-11.0); Platelet Count* 165 K/uL (140-440); RDW Coefficient of Variation % 17.9 % (11.5-15.5); Red Blood Count* 4.09 m/uL (4.30-5.90); White Blood Count* 5.38 K/uL (4.50-11.00)
[2024-08-05 08:43] LABS: Slide Review Reflex No
[2024-08-05 08:48] LABS: Albumin* 3.8 g/dL (3.3-5.0); Chloride* 101 mmol/L (96-114); Potassium* 4.3 mmol/L (3.6-5.1); Sodium* 132 mmol/L (135-149)
[2024-08-05 08:51] LABS: Alanine Aminotransferase* 83 U/L (4-50); Alkaline Phosphatase* 114 U/L (40-150); Anion Gap 9 mEq/L (7-15); Aspartate Amino Transferase* 50 U/L (12-35); Bilirubin Total* 0.7 mg/dL (0.1-1.5); Blood Urea Nitrogen* 23 mg/dL (7-30); Carbon Dioxide* 22 mmol/L (20-32); Creatinine* 1.6 mg/dL (0.5-1.5); Est. Creatinine Clearance* 41.82; Estimated Glomerular Filt Rate 45 ml/min; Total Protein* 7.2 g/dL (6.0-8.3)
[2024-08-05 08:52] LABS: Calcium* 9.4 mg/dL (8.4-10.6); Glucose* 192 mg/dL (60-115)
--- NOTE | 2024-08-05 09:33 | ONC.NURNOTE ---
Addendum entered by Teresa Marinelli RN 08/05/24 15:44: Per Dr. Franklin she would like patient to have one unit of blood. Orders placed for 1 unit of Irradiated PRBC. Per lab they bryson enough blood today for a T & C. Dr. Franklin would also like Domingo to hold his Revlimid until he see's her on 08/17/24. RN called and spoke with Domingo's . Patient currently has an appt with podiatry at 11 on Saturday. She is going to call and see if they can move it later. Patient is currently scheduled for 1 unit of blood on 08/07 at 8 am. His will call back if they need to change this appt. She verbalized understanding on holding the Revlimid. Original Note: Patient in clinic today for labs. Per patient has been increasingly more weak the last couple of weeks. She reports it started late in the 2nd week of their trip. Domingo developed fevers, a cough, and weakness. Started to feel slightly better by the end of their trip. No longer having fevers but reports he still is very weak and tired. Hgb today is 8.0. He was 8.1 prior to leaving for his trip. Domingo reports he feels about the same as he did prior to leaving but his states he is weaker and is doing less than he usually does. RN will review with Dr. Franklin.
[2024-08-07] VITALS (8 sets, daily range): BP systolic 121–142; BP diastolic 56–69; PULSE 73–102; RESP 16–20; TEMP 36.2–37.2; O2SAT 96–100
[2024-08-08 00:03] LABS: Albumin 3.12 g/dL (3.75-5.01); Alpha 2 Globulin 0.98 g/dL (0.48-1.05); Immunofixation IFE Done; Immunoglobulin A 351 mg/dL (68-408); Immunoglobulin G 1225 mg/dL (768-1632); Immunoglobulin M 169 mg/dL (35-263); Kappa Qnt Free Light Chains 122.02 mg/L (3.30-19.40); Kappa/Lambda Light Chain Ratio 0.79 (0.26-1.65); Lambda Qnt Free Light Chains 153.63 mg/L (5.71-26.30); Total Protein, Serum 6.7 g/dL (6.3-8.2)
--- NOTE | 2024-08-10 08:39 | ONC.NURNOTE ---
Malaise, cough, revlimid Appliance Line Assembler spoke with pt's , Jasmyne, this am. Clarified that she should not order more revlimid for Mr. Sainz as he will be switching his treatment regimen after his visit with Dr. Franklin on 08/17/24. He is due for his next post Stem Cell Transplant immunizations at [place] this Saturday. She also reports that despite receiving blood last week, Mr. Sainz continues to experience malaise, has a cough and had a low fever last night, so she would like to have him be seen by his PCP. Appliance Line Assembler requested for Jasmyne to update us on how Mr. Lane is doing and the outcome of PCP appointment. He is immunocompromised and also has traveled abroad recently.
[2024-08-17 08:47] LABS: Basophils Absolute Auto 0.03 K/uL (0.00-0.30); Basophils Percent Auto 0.6 % (0.0-3.0); Eosinophils Percent Auto 12.9 % (0.0-7.0); Hematocrit* 27.4 % (37.0-53.0); Hemoglobin* 8.4 gm/dL (13.5-17.5); Immature Granulocytes Abs Auto 0.03 K/uL (0.00-0.30); Immature Granulocytes Pct Auto 0.6 %; Lymphocytes Percent Auto 45.9 % (20-44); Mean Corpuscular HGB Conc 31 gm/dL (32-36); Mean Corpuscular Hemoglobin 21 pg (26-34); Mean Corpuscular Volume 68 fL (80-100); Monocytes Percent Auto 4.3 % (0.0-11.0); Neutrophils Percent Auto 35.7 % (42.0-72.0); Platelet Count* 199 K/uL (140-440); RDW Coefficient of Variation % 20.3 % (11.5-15.5); Red Blood Count* 4.04 m/uL (4.30-5.90); White Blood Count* 5.29 K/uL (4.50-11.00)
[2024-08-17 08:51] LABS: Slide Review Reflex No
[2024-08-17 09:00] LABS: Albumin* 3.9 g/dL (3.3-5.0); Chloride* 97 mmol/L (96-114); Sodium* 131 mmol/L (135-149)
[2024-08-17 11:16] LABS: Anion Gap 11 mEq/L (7-15); Blood Urea Nitrogen* 34 mg/dL (7-30); Calcium* 9.8 mg/dL (8.4-10.6); Carbon Dioxide* 23 mmol/L (20-32); Creatinine* 1.5 mg/dL (0.5-1.5); Est. Creatinine Clearance* 44.61; Estimated Glomerular Filt Rate 49 ml/min; Glucose* 246 mg/dL (60-115)
[2024-08-17 11:17] LABS: Alanine Aminotransferase* 55 U/L (4-50); Alkaline Phosphatase* 108 U/L (40-150); Aspartate Amino Transferase* 43 U/L (12-35); Bilirubin Total* 0.6 mg/dL (0.1-1.5); Total Protein* 7.3 g/dL (6.0-8.3)
[2024-08-18] VITALS (7 sets, daily range): BP systolic 104–145; BP diastolic 64–81; PULSE 77–99; RESP 16–20; TEMP 35.6–36.4; O2SAT 97–100
[2024-08-18] MEDS: 0.9 % SODIUM CHLORIDE 500 ML 500 ML IV (11:00)
[2024-08-18] MEDS: dexAMETHasone 4 MG/ML VIAL IVP (11:36)
[2024-09-14 08:37] LABS: Basophils Absolute Auto 0.05 K/uL (0.00-0.30); Basophils Percent Auto 0.6 % (0.0-3.0); Eosinophils Absolute Auto 0.17 K/uL (0.00-0.50); Eosinophils Percent Auto 2.2 % (0.0-7.0); Hemoglobin* 10.6 gm/dL (13.5-17.5); Immature Granulocytes Abs Auto 0.02 K/uL (0.00-0.30); Immature Granulocytes Pct Auto 0.3 %; Lymphocytes Absolute Auto 2.91 K/uL (0.90-2.90); Lymphocytes Percent Auto 37.6 % (20-44); Mean Corpuscular HGB Conc 31 gm/dL (32-36); Mean Corpuscular Hemoglobin 23 pg (26-34); Mean Corpuscular Volume 75 fL (80-100); Monocytes Percent Auto 5.8 % (0.0-11.0); Neutrophils Absolute Auto 4.14 K/uL (1.7-7.0); Neutrophils Percent Auto 53.5 % (42.0-72.0); Platelet Count* 142 K/uL (140-440); RDW Coefficient of Variation % 24.9 % (11.5-15.5); Red Blood Count* 4.56 m/uL (4.30-5.90); White Blood Count* 7.74 K/uL (4.50-11.00)
[2024-09-14 08:42] LABS: Slide Review Reflex No
[2024-09-14 08:50] LABS: Albumin* 4.1 g/dL (3.3-5.0); Chloride* 104 mmol/L (96-114); Potassium* 5.8 mmol/L (3.6-5.1); Sodium* 137 mmol/L (135-149)
[2024-09-14 08:53] LABS: Alanine Aminotransferase* 61 U/L (4-50); Alkaline Phosphatase* 138 U/L (40-150); Anion Gap 11 mEq/L (7-15); Aspartate Amino Transferase* 38 U/L (12-35); Bilirubin Total* 0.5 mg/dL (0.1-1.5); Blood Urea Nitrogen* 32 mg/dL (7-30); Carbon Dioxide* 22 mmol/L (20-32); Creatinine* 1.9 mg/dL (0.5-1.5); Est. Creatinine Clearance* 35.22; Estimated Glomerular Filt Rate 37 ml/min; Total Protein* 7.8 g/dL (6.0-8.3)
[2024-09-14 08:54] LABS: Calcium* 9.7 mg/dL (8.4-10.6); Glucose* 232 mg/dL (60-115)
[2024-09-17 08:20] LABS: Potassium* 5.9 mmol/L (3.6-5.1)
--- NOTE | 2024-09-18 12:11 | ONC.NURNOTE ---
Late entry: Patient in clinic on 09/17 for recheck potassium. Resulted at 5.9. RN spoke with Abbie Do APRN who reviewed patient's med list. Advised patient stop Bactrim as it can cause renal issues, confirm patient is not taking a potassium supplement, and try to decrease potassium rich foods in his diet. Also wants patient to follow up with PCP within 1-2 days. RN called and spoke with patient's and discussed Abbie's recommendations with her and she verbalized understanding. She reports Domingo has not been taking a potassium supplement and he has completed his course of Bactrim. Patient's called back with concerns that his BP medication contains potassium. Discussed with her that is why we want him to see primary as they prescribed the BP med. She will call to get him and appt. Advised to call back with further questions or concerns.
== END 2024-10-10 23:59 | disposition home or self-care (01) ==
LOC: CCIC 08:00
PROVIDERS: PCP Physician Assistant Medical; Referring Provider Physician Assistant Medical; Visit Provider Internal Medicine Hematology & Oncology
DX: C90.00 Multiple myeloma not having achieved remission (principal); D56.1 Beta thalassemia; D47.2 Monoclonal gammopathy; D64.9 Anemia, unspecified
CPT/HCPCS: 36415; 36430; 80048; 80053; 82784; 83520; 83615; 83735; 84132; 84155; 84165; 85025; 86334; 86850; 86900; 86901; 86922; 96361; 96374; 99214; 99215; G0463; J1100; J7030; P9016

== ENCOUNTER 2024-10-16 12:50 | Outpatient (CLI) | payer BC, SELFPAY | END 2024-10-16 12:51 | disposition home or self-care (01) | LOC: LAB 12:52 | PROVIDERS: PCP Physician Assistant Medical; Visit Provider Podiatrist | DX: L03.031 Cellulitis of right toe (principal) | CPT/HCPCS: 87070; 87186 ==

== ENCOUNTER 2024-11-17 09:15 | Outpatient (CLI) | payer BC, SELFPAY | END 2024-11-17 09:16 | disposition home or self-care (01) | PROVIDERS: PCP Physician Assistant Medical; Visit Provider Family Medicine | DX: E11.65 Type 2 diabetes mellitus with hyperglycemia (principal); A02.9 Salmonella infection, unspecified; C90.02 Multiple myeloma in relapse; N40.1 Benign prostatic hyperplasia with lower urinary tract symptoms; R33.9 Retention of urine, unspecified; Z12.5 Encounter for screening for malignant neoplasm of prostate | CPT/HCPCS: 80053; 82043; 82570; 84153; 84154; 87086 ==

== ENCOUNTER 2024-11-19 13:03 | Outpatient (CLI) | payer BC, SELFPAY | END 2024-11-19 13:04 | disposition home or self-care (01) | PROVIDERS: PCP Family Medicine; Referring Provider Family Medicine; Visit Provider Nurse Practitioner Family | DX: E11.621 Type 2 diabetes mellitus with foot ulcer (principal); L97.512 Non-pressure chronic ulcer of other part of right foot with fat layer exposed; C90.02 Multiple myeloma in relapse; E11.22 Type 2 diabetes mellitus with diabetic chronic kidney disease; N18.32 Chronic kidney disease, stage 3b; D49.89 Neoplasm of unspecified behavior of other specified sites; Z79.4 Long term (current) use of insulin | CPT/HCPCS: 11042; G0463 ==

== ENCOUNTER 2024-11-27 14:06 | Outpatient (CLI) | payer BC, SELFPAY | END 2024-11-27 14:07 | disposition home or self-care (01) | LOC: WOUND 14:06 | PROVIDERS: PCP Family Medicine; Visit Provider Nurse Practitioner Family | DX: E11.621 Type 2 diabetes mellitus with foot ulcer (principal); L97.512 Non-pressure chronic ulcer of other part of right foot with fat layer exposed; C90.02 Multiple myeloma in relapse; E11.22 Type 2 diabetes mellitus with diabetic chronic kidney disease; N18.32 Chronic kidney disease, stage 3b; D49.89 Neoplasm of unspecified behavior of other specified sites; Z79.4 Long term (current) use of insulin | CPT/HCPCS: 97597 ==

== ENCOUNTER 2024-12-04 14:19 | Outpatient (CLI) | payer BC, SELFPAY | END 2024-12-04 14:20 | disposition home or self-care (01) | LOC: WOUND 14:19 | PROVIDERS: PCP Family Medicine; Visit Provider Nurse Practitioner Family | DX: E11.621 Type 2 diabetes mellitus with foot ulcer (principal); L97.512 Non-pressure chronic ulcer of other part of right foot with fat layer exposed; C90.02 Multiple myeloma in relapse; E11.22 Type 2 diabetes mellitus with diabetic chronic kidney disease; N18.32 Chronic kidney disease, stage 3b; Z79.4 Long term (current) use of insulin | CPT/HCPCS: 97597 ==

== ENCOUNTER 2024-12-11 14:06 | Outpatient (CLI) | payer BC, SELFPAY | END 2024-12-11 14:07 | disposition home or self-care (01) | LOC: WOUND 14:06 | PROVIDERS: PCP Family Medicine; Visit Provider Nurse Practitioner Family | DX: E11.621 Type 2 diabetes mellitus with foot ulcer (principal); L97.512 Non-pressure chronic ulcer of other part of right foot with fat layer exposed; E11.22 Type 2 diabetes mellitus with diabetic chronic kidney disease; N18.32 Chronic kidney disease, stage 3b; C90.02 Multiple myeloma in relapse; Z79.4 Long term (current) use of insulin | CPT/HCPCS: 97597 ==

== ENCOUNTER 2024-12-18 14:02 | Outpatient (CLI) | payer BC, SELFPAY ==
--- NOTE | 2024-12-18 15:15 | CRLHL7_ITS ---
For Patients: As a result of the Century Cures Act, medical imaging exams and procedure reports are released immediately into your electronic medical record. You may view this report before your referring provider. If you have questions, please contact your health care provider. Indication: Type 2 diabetes mellitus with foot ulcer. Technique: Right foot 3 views Comparison: 10/23/2024 Findings: Plantar and posterior calcaneal spurs are present. Vascular calcifications. Postop changes noted. Spurring at the 1st MTP joint. No acute periostitis or acute fracture. Midfoot alignment is maintained. Impression: No evidence of osteomyelitis. Dictated by Jose Bauer MD @ 12/18/2024 3:52:34 PM (Electronically Signed)
== END 2024-12-18 14:03 | disposition home or self-care (01) ==
PROVIDERS: PCP Physician Assistant Medical; Visit Provider Nurse Practitioner Family
DX: E11.621 Type 2 diabetes mellitus with foot ulcer (principal); L97.512 Non-pressure chronic ulcer of other part of right foot with fat layer exposed; E11.22 Type 2 diabetes mellitus with diabetic chronic kidney disease; N18.32 Chronic kidney disease, stage 3b; C90.02 Multiple myeloma in relapse; Z79.4 Long term (current) use of insulin
CPT/HCPCS: 73630; 97597

== ENCOUNTER 2024-12-31 08:39 | Outpatient (CLI) | payer BC, SELFPAY | END 2024-12-31 08:40 | disposition home or self-care (01) | LOC: WOUND 08:39 | PROVIDERS: PCP Physician Assistant Medical; Visit Provider Nurse Practitioner Family | DX: E11.621 Type 2 diabetes mellitus with foot ulcer (principal); L97.512 Non-pressure chronic ulcer of other part of right foot with fat layer exposed; C90.02 Multiple myeloma in relapse; E11.22 Type 2 diabetes mellitus with diabetic chronic kidney disease; N18.32 Chronic kidney disease, stage 3b; Z79.4 Long term (current) use of insulin | CPT/HCPCS: 97597 ==

== ENCOUNTER 2025-01-08 12:41 | Outpatient (CLI) | payer BC, SELFPAY | END 2025-01-08 12:42 | disposition home or self-care (01) | LOC: WOUND 12:42 | PROVIDERS: PCP Physician Assistant Medical; Visit Provider Nurse Practitioner Family | DX: E11.621 Type 2 diabetes mellitus with foot ulcer (principal); L97.512 Non-pressure chronic ulcer of other part of right foot with fat layer exposed; E11.22 Type 2 diabetes mellitus with diabetic chronic kidney disease; N18.32 Chronic kidney disease, stage 3b; C90.02 Multiple myeloma in relapse; Z79.4 Long term (current) use of insulin | CPT/HCPCS: 97597 ==

== ENCOUNTER 2025-01-15 09:34 | Outpatient (CLI) | payer BC, SELFPAY | END 2025-01-15 09:35 | disposition home or self-care (01) | LOC: WOUND 09:34 | PROVIDERS: PCP Physician Assistant Medical; Visit Provider Nurse Practitioner Family | DX: E11.621 Type 2 diabetes mellitus with foot ulcer (principal); L97.512 Non-pressure chronic ulcer of other part of right foot with fat layer exposed; E11.22 Type 2 diabetes mellitus with diabetic chronic kidney disease; N18.32 Chronic kidney disease, stage 3b; C90.02 Multiple myeloma in relapse; Z79.4 Long term (current) use of insulin | CPT/HCPCS: 97597 ==

== ENCOUNTER 2025-04-06 08:30 | Outpatient (RCR) | payer BC, SELFPAY ==
[2024-10-14 08:09] LABS: Hematocrit* 26.2 % (37.0-53.0); Hemoglobin* 8.3 gm/dL (13.5-17.5); Immature Granulocytes Abs Auto 0.01 K/uL (0.00-0.30); Immature Granulocytes Pct Auto 0.2 %; Lymphocytes Absolute Auto 2.70 K/uL (0.90-2.90); Mean Corpuscular HGB Conc 32 gm/dL (32-36); Mean Corpuscular Hemoglobin 23 pg (26-34); Mean Corpuscular Volume 74 fL (80-100); RDW Coefficient of Variation % 21.9 % (11.5-15.5); Red Blood Count* 3.55 m/uL (4.30-5.90); White Blood Count* 4.59 K/uL (4.50-11.00)
[2024-10-14 08:28] LABS: Chloride* 105 mmol/L (96-114)
[2024-10-14 08:29] LABS: Albumin* 3.7 g/dL (3.3-5.0); Potassium* 4.5 mmol/L (3.6-5.1); Sodium* 137 mmol/L (135-149)
[2024-10-14 08:31] LABS: Alanine Aminotransferase* 24 U/L (4-50); Anion Gap 9 mEq/L (7-15); Blood Urea Nitrogen* 19 mg/dL (7-30); Carbon Dioxide* 23 mmol/L (20-32); Creatinine* 1.4 mg/dL (0.5-1.5); Estimated Glomerular Filt Rate 53 ml/min
[2024-10-14 08:32] LABS: Alkaline Phosphatase* 67 U/L (40-150); Aspartate Amino Transferase* 31 U/L (12-35); Bilirubin Total* 0.7 mg/dL (0.1-1.5); Calcium* 8.9 mg/dL (8.4-10.6); Glucose* 143 mg/dL (60-115); Slide Review Acceptable Review (Acceptable); Slide Review Reflex Yes; Total Protein* 6.8 g/dL (6.0-8.3)
--- NOTE | 2024-11-18 12:52 | ONC.NURNOTE ---
Lab results called to [facility] as stable, remains anemic, platelets boarderline no concerns regarding lenalidomide
[2024-12-16 08:11] LABS: Hematocrit* 24.6 % (37.0-53.0); Immature Granulocytes Pct Auto 0.6 %; Mean Corpuscular HGB Conc 31 gm/dL (32-36); Mean Corpuscular Hemoglobin 22 pg (26-34); Mean Corpuscular Volume 71 fL (80-100); RDW Coefficient of Variation % 17.2 % (11.5-15.5); Red Blood Count* 3.47 m/uL (4.30-5.90); White Blood Count* 3.60 K/uL (4.50-11.00)
[2024-12-16 08:28] LABS: Albumin* 4.0 g/dL (3.3-5.0); Chloride* 107 mmol/L (96-114); Potassium* 4.6 mmol/L (3.6-5.1); Sodium* 138 mmol/L (135-149)
[2024-12-16 08:31] LABS: Alanine Aminotransferase* 22 U/L (4-50); Alkaline Phosphatase* 72 U/L (40-150); Anion Gap 8 mEq/L (7-15); Aspartate Amino Transferase* 28 U/L (12-35); Bilirubin Total* 0.4 mg/dL (0.1-1.5); Blood Urea Nitrogen* 29 mg/dL (7-30); Carbon Dioxide* 23 mmol/L (20-32); Creatinine* 1.8 mg/dL (0.5-1.5); Est. Creatinine Clearance* 36.61; Estimated Glomerular Filt Rate 39 ml/min; Total Protein* 6.8 g/dL (6.0-8.3)
[2024-12-16 08:32] LABS: Calcium* 9.0 mg/dL (8.4-10.6); Glucose* 119 mg/dL (60-115); Immature Granulocytes Abs Auto 0.00 K/uL (0.00-0.30)
[2024-12-16 08:34] LABS: Hemoglobin* 7.7 gm/dL (13.5-17.5); Lymphocytes Absolute Auto 2.30 K/uL (0.90-2.90); Slide Review Reflex No
--- NOTE | 2024-12-16 08:56 | ONC.NURNOTE ---
Patient's hmgb dropped to 7.7. [employer] Analyst contacted the patient and the following noted. no bleeding noted. SOB about the same, noted with stairs and longer walks. Weakness about the same as well. no chest pressure/pain/fluttering Asked patient if he feels that a blood transfusion is needed, and he denies this. He would like to watch and will call with any changes in the above. Oncologist to be notified on her break at noon.
[2024-12-17] VITALS (9 sets, daily range): BP systolic 123–161; BP diastolic 49–73; PULSE 60–74; RESP 16–22; TEMP 36.1–36.6; O2SAT 90–99
[2024-12-19 01:02] LABS: Albumin 3.60 g/dL (3.75-5.01); Immunoglobulin A 238 mg/dL (68-408); Immunoglobulin G 1094 mg/dL (768-1632); Immunoglobulin M 61 mg/dL (35-263)
[2024-12-23 14:13] LABS: Hematocrit* 29.4 % (37.0-53.0); Hemoglobin* 9.2 gm/dL (13.5-17.5); Immature Granulocytes Pct Auto 0.3 %; Mean Corpuscular HGB Conc 31 gm/dL (32-36); Mean Corpuscular Hemoglobin 23 pg (26-34); Mean Corpuscular Volume 73 fL (80-100); RDW Coefficient of Variation % 19.1 % (11.5-15.5); Red Blood Count* 4.05 m/uL (4.30-5.90); White Blood Count* 3.72 K/uL (4.50-11.00)
[2024-12-23 14:22] LABS: Immature Granulocytes Abs Auto 0.00 K/uL (0.00-0.30); Lymphocytes Absolute Auto 2.20 K/uL (0.90-2.90); Slide Review Reflex No
--- NOTE | 2025-01-08 08:47 | ONC.NURNOTE ---
Addendum entered by Chaya Thacker RN 01/08/25 09:00: Spoke with pharmacist at [facility]. Revlimid 5 mg cap script was cancelled on their end. When pt is ready for this to be filled, [facility] will send a paper script with an authorization number to support the refill at that time. Notes were made in the [facility] system. Will update Arleth upon her return. Original Note: [facility] received a call from [facility] this morning in response to a refill request of his Revlimid. RN reviewed chart and paperwork. Contacted pt directly to gather more information. Spoke with pt's and she offered the following information: Dr. Franklin recently reduced pt's dose to 5 mg every other day. Because of this change in the medication, a script was sent to [facility] electronically. This is what resulted in the call today. Jasmyne stated that because they have 10 mg capsules in their possession, Domingo will take a 10 mg cap every 4 days until it is gone. He will then switch to the 5 mg caps every other day. Jasmyne will call [facility] when they are running low to get a refill order placed. Pt is scheduled for labs at [facility] on 01/20/2025. RN scheduled pt to see MD on 01/25/2025 in follow up. Will call [facility] to clarify this new plan.
[2025-01-20 08:06] LABS: Hematocrit* 29.5 % (37.0-53.0); Hemoglobin* 9.3 gm/dL (13.5-17.5); Immature Granulocytes Abs Auto 0.01 K/uL (0.00-0.30); Immature Granulocytes Pct Auto 0.2 %; Mean Corpuscular HGB Conc 32 gm/dL (32-36); Mean Corpuscular Hemoglobin 22 pg (26-34); Mean Corpuscular Volume 71 fL (80-100); RDW Coefficient of Variation % 17.4 % (11.5-15.5); Red Blood Count* 4.18 m/uL (4.30-5.90); White Blood Count* 4.56 K/uL (4.50-11.00)
[2025-01-20 08:07] LABS: Lymphocytes Absolute Auto 2.30 K/uL (0.90-2.90)
[2025-01-20 08:08] LABS: Slide Review Reflex No
[2025-01-20 08:20] LABS: Albumin* 4.1 g/dL (3.3-5.0); Chloride* 104 mmol/L (96-114); Potassium* 4.6 mmol/L (3.6-5.1); Sodium* 138 mmol/L (135-149)
[2025-01-20 08:22] LABS: Blood Urea Nitrogen* 27 mg/dL (7-30); Creatinine* 1.4 mg/dL (0.5-1.5); Est. Creatinine Clearance* 47.07; Estimated Glomerular Filt Rate 52 ml/min
[2025-01-20 08:23] LABS: Alanine Aminotransferase* 25 U/L (4-50); Alkaline Phosphatase* 78 U/L (40-150); Anion Gap 9 mEq/L (7-15); Aspartate Amino Transferase* 30 U/L (12-35); Bilirubin Total* 0.5 mg/dL (0.1-1.5); Calcium* 9.3 mg/dL (8.4-10.6); Carbon Dioxide* 25 mmol/L (20-32); Glucose* 189 mg/dL (60-115); Total Protein* 6.9 g/dL (6.0-8.3)
--- NOTE | 2025-02-09 11:44 | ONC.NURNOTE ---
Continues on 10 mg lenalidomide every 4th day 02/06, 8, 12, 16, 10, 14, 28 will finish all the 10mg tabs on 03/02 and will start 5mg QOD on 03/06/25 There is a RX ready to be shipped at [facility]- hand sign writer afshin Medley to just order that RX as it will either 02/10 or 02/11
[2025-02-17 08:37] LABS: Hematocrit* 29.9 % (37.0-53.0); Hemoglobin* 9.4 gm/dL (13.5-17.5); Immature Granulocytes Abs Auto 0.00 K/uL (0.00-0.30); Immature Granulocytes Pct Auto 0.0 %; Mean Corpuscular HGB Conc 31 gm/dL (32-36); Mean Corpuscular Hemoglobin 22 pg (26-34); Mean Corpuscular Volume 69 fL (80-100); RDW Coefficient of Variation % 16.4 % (11.5-15.5); Red Blood Count* 4.33 m/uL (4.30-5.90); White Blood Count* 4.36 K/uL (4.50-11.00)
[2025-02-17 08:38] LABS: Lymphocytes Absolute Auto 1.80 K/uL (0.90-2.90)
[2025-02-17 08:40] LABS: Slide Review Reflex No
[2025-02-17 08:49] LABS: Albumin* 4.2 g/dL (3.3-5.0); Chloride* 102 mmol/L (96-114); Potassium* 4.8 mmol/L (3.6-5.1); Sodium* 133 mmol/L (135-149)
[2025-02-17 08:52] LABS: Alanine Aminotransferase* 24 U/L (4-50); Alkaline Phosphatase* 109 U/L (40-150); Anion Gap 6 mEq/L (7-15); Aspartate Amino Transferase* 30 U/L (12-35); Bilirubin Total* 0.6 mg/dL (0.1-1.5); Blood Urea Nitrogen* 29 mg/dL (7-30); Carbon Dioxide* 25 mmol/L (20-32); Creatinine* 1.5 mg/dL (0.5-1.5); Est. Creatinine Clearance* 43.94; Estimated Glomerular Filt Rate 48 ml/min; Total Protein* 7.3 g/dL (6.0-8.3)
[2025-02-17 08:53] LABS: Calcium* 9.5 mg/dL (8.4-10.6); Glucose* 203 mg/dL (60-115)
[2025-03-10 08:32] LABS: Hematocrit* 27.8 % (37.0-53.0); Hemoglobin* 8.7 gm/dL (13.5-17.5); Immature Granulocytes Abs Auto 0.01 K/uL (0.00-0.30); Immature Granulocytes Pct Auto 0.2 %; Mean Corpuscular HGB Conc 31 gm/dL (32-36); Mean Corpuscular Hemoglobin 22 pg (26-34); Mean Corpuscular Volume 70 fL (80-100); RDW Coefficient of Variation % 16.5 % (11.5-15.5); Red Blood Count* 4.00 m/uL (4.30-5.90); White Blood Count* 5.05 K/uL (4.50-11.00)
[2025-03-10 08:38] LABS: Albumin* 3.9 g/dL (3.3-5.0); Chloride* 103 mmol/L (96-114); Potassium* 4.7 mmol/L (3.6-5.1); Sodium* 132 mmol/L (135-149)
[2025-03-10 08:41] LABS: Alanine Aminotransferase* 23 U/L (4-50); Alkaline Phosphatase* 91 U/L (40-150); Anion Gap 6 mEq/L (7-15); Aspartate Amino Transferase* 29 U/L (12-35); Bilirubin Total* 0.6 mg/dL (0.1-1.5); Blood Urea Nitrogen* 30 mg/dL (7-30); Calcium* 9.0 mg/dL (8.4-10.6); Carbon Dioxide* 23 mmol/L (20-32); Creatinine* 1.5 mg/dL (0.5-1.5); Est. Creatinine Clearance* 43.94; Estimated Glomerular Filt Rate 48 ml/min; Glucose* 258 mg/dL (60-115); Total Protein* 6.9 g/dL (6.0-8.3)
[2025-03-10 08:47] LABS: Lymphocytes Absolute Auto 2.90 K/uL (0.90-2.90); Slide Review Reflex No
[2025-03-14 12:57] LABS: Albumin 3.67 g/dL (3.75-5.01); Immunoglobulin A 230 mg/dL (68-408); Immunoglobulin G 1004 mg/dL (768-1632); Immunoglobulin M 51 mg/dL (35-263)
--- NOTE | 2025-03-18 09:44 | ONC.NURNOTE ---
Lenalidomide RIZWAN approved -03/16/26 RIZWAN [id number] [employer] ph [phone]
[2025-03-22 08:56] LABS: Hematocrit* 27.7 % (37.0-53.0); Hemoglobin* 8.4 gm/dL (13.5-17.5); Immature Granulocytes Abs Auto 0.01 K/uL (0.00-0.30); Immature Granulocytes Pct Auto 0.2 %; Mean Corpuscular HGB Conc 30 gm/dL (32-36); Mean Corpuscular Hemoglobin 21 pg (26-34); Mean Corpuscular Volume 70 fL (80-100); RDW Coefficient of Variation % 16.4 % (11.5-15.5); Red Blood Count* 3.96 m/uL (4.30-5.90); White Blood Count* 5.36 K/uL (4.50-11.00)
[2025-03-22 09:18] LABS: Lymphocytes Absolute Auto 3.10 K/uL (0.90-2.90); Slide Review Reflex Yes
[2025-03-22 09:19] LABS: Slide Review Acceptable Review (Acceptable)
[2025-03-23] VITALS (7 sets, daily range): BP systolic 127–156; BP diastolic 63–74; PULSE 63–98; RESP 16; TEMP 36.3–37; O2SAT 98–99
[2025-04-06 08:58] LABS: Hematocrit* 31.0 % (37.0-53.0); Hemoglobin* 9.7 gm/dL (13.5-17.5); Immature Granulocytes Abs Auto 0.02 K/uL (0.00-0.30); Immature Granulocytes Pct Auto 0.4 %; Mean Corpuscular HGB Conc 31 gm/dL (32-36); Mean Corpuscular Hemoglobin 22 pg (26-34); Mean Corpuscular Volume 71 fL (80-100); RDW Coefficient of Variation % 16.7 % (11.5-15.5); Red Blood Count* 4.40 m/uL (4.30-5.90); White Blood Count* 4.98 K/uL (4.50-11.00)
[2025-04-06 09:04] LABS: Lymphocytes Absolute Auto 2.30 K/uL (0.90-2.90); Slide Review Reflex No
[2025-04-06 09:37] LABS: Albumin* 4.1 g/dL (3.3-5.0); Chloride* 101 mmol/L (96-114)
[2025-04-06 09:38] LABS: Potassium* 4.9 mmol/L (3.6-5.1); Sodium* 135 mmol/L (135-149)
[2025-04-06 09:40] LABS: Alanine Aminotransferase* 28 U/L (4-50); Alkaline Phosphatase* 108 U/L (40-150); Anion Gap 11 mEq/L (7-15); Aspartate Amino Transferase* 27 U/L (12-35); Bilirubin Total* 0.5 mg/dL (0.1-1.5); Blood Urea Nitrogen* 29 mg/dL (7-30); Carbon Dioxide* 23 mmol/L (20-32); Creatinine* 1.5 mg/dL (0.5-1.5); Est. Creatinine Clearance* 43.94; Estimated Glomerular Filt Rate 48 ml/min; Total Protein* 7.0 g/dL (6.0-8.3)
[2025-04-06 09:41] LABS: Calcium* 9.1 mg/dL (8.4-10.6); Glucose* 190 mg/dL (60-115)
--- NOTE | 2025-04-06 14:36 | ONC.NURNOTE ---
lab results noted LM on VM
--- NOTE | 2025-04-09 10:35 | ONC.NURNOTE ---
Domingo is due for MCR follow up with Dr Jayme Medley instructed to call to set up appt Reviewed labs from last week- Domingo is engaging in activities around the house and doing well He started on the 5 mg tab QOD this last week.
== END 2025-04-12 23:59 | disposition home or self-care (01) ==
LOC: CCIC 08:30
PROVIDERS: Clinical Nurse Specialist; PCP Physician Assistant Medical; Referring Provider Physician Assistant Medical; Visit Provider Internal Medicine Hematology & Oncology
DX: C90.00 Multiple myeloma not having achieved remission (principal); D56.1 Beta thalassemia; D64.9 Anemia, unspecified
CPT/HCPCS: 36415; 36430; 80053; 82784; 83520; 84155; 84165; 85025; 86334; 86850; 86900; 86901; 86922; 99214; 99215; G0463; P9016